=== PATIENT | male | born 1970 | race Caucasian/White ===

== ENCOUNTER 2016-07-03 23:24 | Inpatient (IN) | payer MEDICARE ==
[2016-07-03] MEDS ORDERED: MORPHINE SULFATE 10 MG/ML SYRINGE IVP STA (23:34)
[2016-07-03] MEDS: NITROGLYCERIN OINT 1 INCH/GM PACKET TOPICAL STA (23:36)
[2016-07-03 23:52] LABS: Basophils # (A) 0.1 k/uL (0-0.2); Basophils % (A) 2 %; CH 33.9; CHCM 33.8; Eosinophils # (A) 0.1 k/uL (0-0.7); Eosinophils % (A) 3 %; HCT 33.2 % (39.0-53.0); HDW 2.88; HGB 11.2 gm/dL (13.0-17.5); Luc # (Auto) 0.22; Luc % (Auto) 4; Lymphocytes # (A) 0.2 k/uL (1.0-4.8); Lymphocytes % (A) 4 %; MCHC 33.7 g/dL (31.0-37.0); MCV 100.8 fL (80.0-100.0); Macrocytosis Slight; Mean Platelet Volume 7.1; Monocytes # (A) 0.4 k/uL (0-1.0); Monocytes % (A) 8 %; Neutrophils # (A) 3.9 k/uL (1.3-7.7); Neutrophils % (A) 79 %; RBC 3.29 m/uL (4.30-5.90); RDW 15.4 % (11.5-15.5); WBC 4.9 k/uL (3.8-10.6); WBC (Perox) 5.04
[2016-07-04] LABS: INR 1.1 (<1.1); Partial Thromboplastin Time 26.8 sec (22.0-30.0); Prothrombin Time 11.1 sec (9.0-12.0); Total Bilirubin 0.5 mg/dL (0.2-1.3); Total Protein 6.9 g/dL (6.3-8.2)
--- NOTE | 2016-07-04 00:06 | XR ---
EXAMINATION TYPE: XR chest 2V DATE OF EXAM: 07/03/2016 11:50 PM COMPARISON: 10/21/2012 HISTORY: Chest pain TECHNIQUE: Frontal and lateral views of the chest are obtained. FINDINGS: Heart is enlarged. There is mild pulmonary congestion. There are chest leads. There is no definite pleural effusion. IMPRESSION: There is probably new mild heart failure compared to old exam. Cardiomegaly.
[2016-07-04] MEDS ORDERED: FUROSEMIDE 10 MG/ML 10 ML VIAL IV STA (00:09)
[2016-07-04] MEDS ORDERED: hydrALAZINE HCL 20 MG/ML 1 ML VIAL IVP STA (00:11)
[2016-07-04 00:29] LABS: Amylase 82 U/L (30-110)
[2016-07-04 00:30] LABS: Creatine Kinase MB 2.6 ng/mL (0.0-2.4); Troponin I 0.096 ng/mL (0.000-0.034)
[2016-07-04] MEDS: HYDROmorphone 1 MG/ML 1 ML SYRINGE IVP PRN ×7 (00:40→23:01)
[2016-07-04 01:16] LABS: ABG Base Excess 6.7 mmol/L; ABG HCO3 31 mmol/L (21-25); ABG PCO2 43 mmHg (35-45); ABG PH 7.47 (7.35-7.45); ABG PO2 63 mmHg (83-108); ABG TCO2 32 mmol/L (19-24)
[2016-07-04] MEDS ORDERED: HEPARIN SODIUM,PORCINE 5,000 UNIT/ML 1 ML VIAL IV ONE (01:23)
[2016-07-04] MEDS ORDERED: ALBUTEROL NEBULIZED 7.5 MG, SODIUM CHLORIDE 0.9% NEBULIZ 12 ML INHALATION ONE ×2 (01:25)
[2016-07-04] MEDS ORDERED: methylPREDNISolone SOD SUCCI 125 MG/2 ML VIAL IV STA (01:26)
[2016-07-04] MEDS: LABETALOL SYRINGE 5 MG/ML IVP STA ×4 (01:37→03:45)
[2016-07-04] MEDS: HEPARIN SODIUM,PORCINE/D5W PMX 25,000 UNIT in DEXTROSE/WATER 1 500ML.BAG IV SCH (01:41)
[2016-07-04] MEDS ORDERED: amLODIPine 10 MG TAB PO STA (03:48)
--- NOTE | 2016-07-04 03:48 | ED ---
Chest Pain HPI - General Chief Complaint: Chest Pain Stated Complaint: chest pain Time Seen by Provider: 07/03/16 23:45 Source: EMS Mode of arrival: EMS Limitations: no limitations - History of Present Illness Initial Comments: Centered with the chest pain or shortness of breath patient does have a COPD and he has a history of end-stage renal disease he stated maybe time he takes a deep breath it hurts his chest and he was quite distressed on arrival and his blood pressure was 2:30 systolic. The blood pressure was rechecked it does not continue to stay high the ER he denied any confusion denied any headache denied any blurred vision continued to complain about difficulty breathing him chest pain getting worse with deep breaths and shortness of breath - Related Data Allergies Allergy/AdvReac Type Severity Reaction Status Date / Time ibuprofen AdvReac Unknown Verified 07/03/16 23:34 Review of Systems ROS Statement: Those systems with pertinent positive or pertinent negative responses have been documented in the HPI. ROS Other: All systems not noted in ROS Statement are negative. Past Medical History Past Medical History: Hypertension, Renal Disease Additional Past Medical History / Comment(s): ulcers History of Any Multi-Drug Resistant Organisms: None Reported Additional Past Surgical History / Comment(s): Fistula Past Psychological History: Depression Smoking Status: Former smoker Past Alcohol Use History: None Reported Past Drug Use History: None Reported General Exam - General Exam Comments Initial Comments: General: The patient is awake , he looks sick, he is struggling to breathe, he is in severe distress Skin: Skin is warm and dry and no rashes or lesions are noted. Eye: Pupils are equal, round and reactive to light, extra-ocular movements are intact; there is normal conjunctiva bilaterally. Ears, nose, mouth and throat: There are moist mucous membranes and no oral lesions. Neck: The neck is supple, there is no tenderness Cardiovascular: There is a regular rate and rhythm. No murmur, rub or gallop is appreciated. Respiratory: To auscultation bilateral, calls bilaterally, exam consistent with a congestive heart failure Gastrointestinal: Soft, non-distended, non-tender abdomen without masses or organomegaly noted. There is no rebound or guarding present. Bowel sounds are unremarkable. Back: There is no tenderness to palpation in the midline. There is no obvious deformity. Musculoskeletal: Normal ROM, no tenderness, There is no pedal edema. There is no calf tenderness or swelling. No cords were appreciated. Neurological: CN II-XII intact, Cranial nerves III through XII are intact. There are no obvious motor or sensory deficits. Coordination appears grossly intact. Speech is normal. Psychiatric: Cooperative, appropriate mood & affect, normal judgment. Limitations: no limitations Course Vital Signs 07/03/16 07/04/16 07/04/16 23:26 00:33 01:34 Temperature 98.6 F Pulse Rate 87 93 104 H Respiratory 26 H 24 30 H Rate Blood Pressure 231/124 212/96 245/127 O2 Sat by Pulse 100 98 97 Oximetry 07/04/16 07/04/16 07/04/16 02:00 02:15 02:16 Temperature Pulse Rate 108 H 108 H 231 H Respiratory 26 H Rate Blood Pressure 231/126 O2 Sat by Pulse 96 Oximetry 07/04/16 07/04/16 07/04/16 02:30 02:35 03:02 Temperature Pulse Rate 103 H 104 H 106 H Respiratory 26 H 34 H Rate Blood Pressure 196/95 199/104 O2 Sat by Pulse 97 98 Oximetry 07/04/16 03:20 Temperature Pulse Rate 100 Respiratory 36 H Rate Blood Pressure 174/90 O2 Sat by Pulse 90 L Oximetry Critical Care Time Total Critical Care Time: 120 Critical Care Time: And patient arrived and his systolic blood pressure greater than 200 and we gave him mom hydralazine then numb pain medications were administered after that the labetalol several times was Was given albuterol time bringing his blood pressure below 160, ABGs were done ABGs did not look at as bad as he did clinically troponin was elevated he was started on a and chest it does recommended by the pharmacist on duty as a matter of fact I appreciated the help the myopathy dose for me and his d-dimer is elevated VQ scan was planned then got a call from the VQ scan her nuclear medicine people that we are not able to do it tonight down there is conjunctival tried to do it in the morning. The patient's care time get him some Norvasc by mouth along with the labetalol and hydralazine IV we have heparinized him and still I feel he is tiring out and given and start him on a BiPAP and will make arrangements for for him to be admitted to the ICU, and sitting his renal failure and his rubber tester Dr. Francisco be involved along with a cardiology and pulmonary medicine Disposition Clinical Impression: Chest pain, Elevated d-dimer, Congestive heart failure, Respiratory failure, End stage renal disease, Myocardial infarction Disposition: ADMITTED IP TO THIS HOSP Condition: Fair Referrals: Frank Koo DO [Primary Care Provider] - 1-2 days
[2016-07-04] MEDS ORDERED: NALOXONE 0.4 MG/ML 1 ML VIAL IV PRN (03:51)
[2016-07-04] MEDS ORDERED: ACETAMINOPHEN TAB 325 MG TAB PO PRN (03:51)
[2016-07-04] MEDS ORDERED: amLODIPine 5 MG TAB PO STA (03:55)
[2016-07-04] MEDS: NITROGLYCERIN OINT 1 INCH/GM PACKET TOPICAL STA (03:57)
[2016-07-04] MEDS ORDERED: LORazepam 2 MG/ML SYRINGE IV STA (04:34)
[2016-07-04] MEDS ORDERED: LABETALOL SYRINGE 5 MG/ML IVP SCH (04:45)
[2016-07-04] MEDS ORDERED: NITROPRUSSIDE 100 MG in DEXTROSE 5% IN WATER 250 ML IV ONE ×2 (05:37)
[2016-07-04] MEDS: IPRATROPIUM-ALBUTEROL 3 ML NEB INHALATION PRN ×3 (07:11→19:38)
[2016-07-04] MEDS: NITROPRUSSIDE 100 MG in DEXTROSE 5% IN WATER 250 ML IV SCH ×2 (08:33)
[2016-07-04] MEDS ORDERED: PANTOPRAZOLE 40 MG/10 ML VIAL IV SCH (09:00)
[2016-07-04] MEDS: BUDESONIDE 0.5 MG/2 ML NEBU INHALATION SCH ×2 (11:16→19:38)
[2016-07-04 11:37] LABS: Glucose,Whole Blood 139 mg/dL (75-99)
[2016-07-04] MEDS: HEPARIN SODIUM,PORCINE 5,000 UNIT/ML 1 ML VIAL IV PRN (11:58)
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
[2016-07-04] MEDS: FUROSEMIDE 80 MG TAB PO SCH (13:47)
[2016-07-04] MEDS: ISOSORBIDE MONONITRATE ER 60 MG TAB.ER.24H PO SCH (13:48)
[2016-07-04] MEDS: MINOXIDIL 2.5 MG TAB PO SCH ×2 (13:49→21:04)
[2016-07-04] MEDS: LISINOPRIL 20 MG TAB PO SCH (13:49)
[2016-07-04] MEDS: CALCIUM ACETATE 667 MG CAP PO SCH ×2 (13:49→16:38)
[2016-07-04] MEDS: cloNIDine HCL 0.1 MG TAB PO SCH ×2 (13:50→21:04)
[2016-07-04] MEDS: CARVEDILOL 12.5 MG TAB PO SCH ×2 (13:51→16:39)
[2016-07-04] MEDS: hydrALAZINE HCL 50 MG TAB PO SCH ×2 (16:38→21:04)
[2016-07-04] MEDS: SEVELAMER 800 MG TAB PO SCH (16:39)
[2016-07-04] MEDS: CINACALCET 30 MG TAB PO SCH (16:40)
[2016-07-04] MEDS ORDERED: ONDANSETRON 4 MG/2 ML VIAL IVP PRN (18:17)
[2016-07-04] MEDS: METOPROLOL TARTRATE 50 MG TAB PO SCH (21:03)
[2016-07-04] MEDS ORDERED: HEPARIN SODIUM,PORCINE 5,000 UNIT/ML 1 ML VIAL IV STA (21:17)
[2016-07-04] MEDS: diphenhydrAMINE 25 MG CAP PO PRN (21:59)
[2016-07-05] MEDS: HEPARIN SODIUM,PORCINE/D5W PMX 25,000 UNIT in DEXTROSE/WATER 1 500ML.BAG IV SCH (01:30)
[2016-07-05] MEDS: HYDROmorphone 1 MG/ML 1 ML SYRINGE IVP PRN ×6 (02:00→23:28)
[2016-07-05 03:26] LABS: Basophils # (A) 0.1 k/uL (0-0.2); Basophils % (A) 1 %; CH 33.6; CHCM 33.1; Eosinophils % (A) 0 %; HDW 3.01; Luc # (Auto) 0.22; Luc % (Auto) 3; Lymphocytes # (A) 0.4 k/uL (1.0-4.8); Lymphocytes % (A) 5 %; MCHC 33.2 g/dL (31.0-37.0); MCV 102.4 fL (80.0-100.0); Macrocytosis Slight; Mean Platelet Volume 7.9; Monocytes # (A) 0.3 k/uL (0-1.0); Monocytes % (A) 4 %; Neutrophils # (A) 7.2 k/uL (1.3-7.7); Neutrophils % (A) 87 %; RBC 3.52 m/uL (4.30-5.90); RDW 15.7 % (11.5-15.5); WBC 8.3 k/uL (3.8-10.6); WBC (Perox) 8.83
[2016-07-05] MEDS: NITROPRUSSIDE 100 MG in DEXTROSE 5% IN WATER 250 ML IV SCH ×2 (03:55)
[2016-07-05 04:06] LABS: Calcium 9.8 mg/dL (8.4-10.2); Magnesium 2.1 mg/dL (1.6-2.3); Phosphorous 6.2 mg/dL (2.5-4.5); Potassium 4.5 mmol/L (3.5-5.1); Total Bilirubin 0.6 mg/dL (0.2-1.3); Total Protein 7.8 g/dL (6.3-8.2)
[2016-07-05] MEDS ORDERED: HEPARIN SODIUM,PORCINE 5,000 UNIT/ML 1 ML VIAL IV STA ×2 (04:07→23:13)
[2016-07-05] MEDS ORDERED: LORazepam 2 MG/ML SYRINGE IV STA (04:46)
--- NOTE | 2016-07-05 07:19 | ECHOF ---
Referral Reason:cp MEASUREMENTS -------- HEIGHT: 182.9 cm WEIGHT: 86.2 kg BP: 186/98 RVIDd: 3.6 cm (< 3.3) IVSd: 1.6 cm (0.6 - 1.1) LVIDd: 5.4 cm (3.9 - 5.3) LVPWd: 1.5 cm (0.6 - 1.1) IVSs: 1.9 cm LVIDs: 3.8 cm LVPWs: 2.1 cm LA Diam: 4.7 cm (2.7 - 3.8) LAESV Index (A-L): 56.84 ml/m IVSd: 4.1 cm (0.6 - 1.1) Ao Diam: 3.9 cm (2.0 - 3.7) AV Cusp: 1.2 cm (1.5 - 2.6) MV EXCURSION: 17.701 mm (> 18.000) MV EF SLOPE: 56 mm/s (70 - 150) EPSS: 1.0 cm MV E Chadd: 1.41 m/s MV DecT: 366 ms MV A Chadd: 1.37 m/s MV E/A Ratio: 1.02 AV maxP.16 mmHg AV maxP.16 mmHg AV meanP.61 mmHg RAP: 5.00 mmHg RVSP: 52.51 mmHg FINDINGS -------- Sinus rhythm. This was a technically good study. The left ventricular size is normal. There is moderate concentric left ventricular hypertrophy. Overall left ventricular systolic function is normal with, an EF between 55 - 60 %. The right ventricle is mildly enlarged. LA is severely dilated >40 ml/m2 The right atrium is normal in size. Aortic valve is trileaflet and is mildly thickened. There is mild aortic stenosis present. Peak/mean gradient across the Aortic Valve is 24.16mmHg / 11.61mmHg. The mitral valve leaflets are mildly thickened. Severe mitral annular calcification present. Mild mitral regurgitation is present. The peak and mean MV gradients are 10.49mmHg 4.52mmHg as measured by doppler. Cannot exclude vegeation on he PMVL. Mobile mass on posterior mitral annulus [id number] tricuspid regurgitation present. There is moderate pulmonary hypertension. The right ventricular systolic pressure, as measured by Doppler, is 52.51mmHg. Moderate pulmonic regurgitation. The aortic root is dilated measuring 3.9cm. The inferior vena cava is moderately dilated. There is no pericardial effusion. CONCLUSIONS -------- 1. Sinus rhythm. 2. There is mild aortic stenosis present. 3. Peak/mean gradient across the Aortic Valve is 24.16mmHg / 11.61mmHg. 4. The mitral valve leaflets are mildly thickened. 5. Severe mitral annular calcification present. 6. Mild mitral regurgitation is present. 7. The peak and mean MV gradients are 10.49mmHg 4.52mmHg as measured by doppler. 8. Cannot exclude vegeation on he PMVL. 9. Mobile mass on posterior mitral annulus 10. [id number] tricuspid regurgitation present. 11. There is moderate pulmonary hypertension. 12. This was a technically good study. 13. The right ventricular systolic pressure, as measured by Doppler, is 52.51mmHg. 14. Moderate pulmonic regurgitation. 15. The aortic root is dilated measuring 3.9cm. 16. The inferior vena cava is moderately dilated. 17. There is no pericardial effusion. 18. The left ventricular size is normal. 19. There is moderate concentric left ventricular hypertrophy. 20. Overall left ventricular systolic function is normal with, an EF between 55 - 60 %. 21. The right ventricle is mildly enlarged. 22. LA is severely dilated >40 ml/m2 23. The right atrium is normal in size. 24. Aortic valve is trileaflet and is mildly thickened. METHODS EXAMINER: Sasha Nuno RDCS
--- NOTE | 2016-07-05 07:40 | XR ---
EXAMINATION TYPE: XR chest 1V DATE OF EXAM: 07/05/2016 6:35 AM HISTORY: shortness of breath. REFERENCE: Previous study dated 07/03/2016. FINDINGS: The lungs are overinflated. The lungs are clear. Pleural spaces are clear. The heart is enl arged. IMPRESSION: 1. COPD. 2. CARDIOMEGALY.
[2016-07-05] MEDS: CALCIUM ACETATE 667 MG CAP PO SCH ×3 (08:02→17:03)
[2016-07-05] MEDS: cloNIDine HCL 0.1 MG TAB PO SCH ×3 (08:03→22:37)
[2016-07-05] MEDS: SEVELAMER 800 MG TAB PO SCH ×2 (08:03→17:05)
[2016-07-05] MEDS: CARVEDILOL 12.5 MG TAB PO SCH ×2 (08:03→17:04)
[2016-07-05] MEDS: LISINOPRIL 20 MG TAB PO SCH (08:04)
[2016-07-05] MEDS: METOPROLOL TARTRATE 50 MG TAB PO SCH (08:05)
[2016-07-05] MEDS: ISOSORBIDE MONONITRATE ER 60 MG TAB.ER.24H PO SCH (08:05)
[2016-07-05] MEDS: hydrALAZINE HCL 50 MG TAB PO SCH ×3 (08:05→22:37)
[2016-07-05] MEDS: MINOXIDIL 2.5 MG TAB PO SCH ×2 (08:06→20:00)
[2016-07-05] MEDS: PANTOPRAZOLE 40 MG TABLET PO SCH (08:06)
[2016-07-05] MEDS: IPRATROPIUM-ALBUTEROL 3 ML NEB INHALATION PRN ×4 (08:23→20:53)
[2016-07-05] MEDS: BUDESONIDE 0.5 MG/2 ML NEBU INHALATION SCH ×2 (08:23→20:53)
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
[2016-07-05] MEDS: FUROSEMIDE 80 MG TAB PO SCH (10:27)
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
--- NOTE | 2016-07-05 11:20 | P.PN ---
Subjective Principal diagnosis: Acute pulmonary edema and hypoxia. this is a 45-year-old white male with history of multiple medical problems including hypertension, end-stage renal disease, patient is on hemodialysis, normally the patient is compliant with hemodialysis, and his last dialysis was actually a few days ago. Since then the patient has been complaining of chest pain and shortness of breath. Describes the chest pain and discomfort in the center of the chest sharp burning sensation with radiation to the back. Patient is also complaining of shortness of breath, some wheezing, and cough. No fever no chills no hemoptysis. Upon arrival to the ER, his blood pressure was significantly elevated, and he was felt to have hypertensive emergency. Chest x-ray showed evidence of slightpulmonary edema and prominence of the pulmonary vasculature. No evidence of any pleural effusions.patient was placed on nipride drip for his blood pressureand he was seen by cardiology on consultation, and oral blood pressure medications were added.ABG on 4 L nasal cannula in the ER showed a pO2 of 63 pCO2 of 43 and pH of 7.47. Patient was noted to be in moderate respiratory distress, hence he was placed on BiPAP. Patient is due to receive his dialysis today and I believe is already scheduled. D-dimer was borderline elevated, upper limits of normal. It was actually 0.64. Hence I felt that the index of suspicion for pulmonary embolism is rather low. Patient has many other reasons that could explain his shortness of breath. Hence I felt there is no need for a VQ scan to be done. Patient was started on heparin in the ER. Reevaluated today on 07/05/2016, patient underwent dialysis and his chest x-ray is showing some improvement. Shortness of breath is also improved, however the patient continues to have some intermittent episodes of shortness of breath on nasal cannula, and I recommended that he goes back on BiPAP today. CBC is relatively normal basic metabolic profile is normal BUN is 30 creatinine is 7.40 chest x-ray showed improvement in the pulmonary status, he does have COPD and cardiomegaly. Blood pressure seems to be better controlled with multiple medications to control the blood pressure. Objective - Vital Signs Vital signs: Vital Signs Temp 98.9 F 07/05/16 08:00 Pulse 77 07/05/16 10:00 Resp 25 H 07/05/16 10:00 BP 135/73 07/05/16 10:00 Pulse Ox 94 L 07/05/16 10:00 Intake & Output 07/04/16 07/05/16 07/05/16 18:59 06:59 18:59 Intake Total 621.123 863.982 67.981 Output Total 0 4000 Balance 621.123 -3136.018 67.981 Weight 86.183 kg 80.1 kg Intake: IV 140 260 60 0.9 NS 140 260 60 Intake, IV Titration 241.123 603.982 7.981 Amount Heparin Sodium,Porcine/ 206.976 367.852 D5w Pmx 25,000 unit In Dextrose/Water 1 500ml. bag @ 11.7 UNITS/KG/HR 20 .16 mls/hr IV .Q24H [facility] Rx#:[id number] Nitroprusside 100 mg In 34.147 236.130 7.981 Dextrose 5% in Water 250 ml @ Titrate IV .Q0M [facility] Rx#:[id number] Oral 240 Output: Urine 0 0 Other 4000 - Exam Physical Exam: Revealed a 45-year-old white male chronically ill, pale looking, on BiPAP, noted to be in mild respiratory distress. HEENT:[Neck is supple.] [No neck masses.] [No thyromegaly.] positive JVD was noted Chest: [crackles at the bases with some rhonchi and wheezes on forced expiratory maneuver.] Cardiac Exam: [Normal S1 and S2, positive S3 gallop, 2/6 systolic murmur throughout the precordium] Abdomen: [Soft, nontender, no megaly, no rebound, no guarding, normal bowel sounds.] Extremities: [No clubbing, no edema, no cyanosis.there is evidence of a large AV graft noted in the left forearm.] Neurological Exam: [No focal neurologic deficit.] - Labs CBC & Chem 7: 07/05/16 03:15 07/05/16 03:15 Labs: Abnormal Lab Results - Last 24 Hours (Table) 07/04/16 07/04/16 07/05/16 Range/Units 11:36 18:51 03:15 RBC 3.52 L (4.30-5.90) m/uL Hgb 12.0 L (13.0-17.5) gm/dL Hct 36.0 L (39.0-53.0) % MCV 102.4 H (80.0-100.0) fL RDW 15.7 H (11.5-15.5) % Lymphocytes # 0.4 L (1.0-4.8) k/uL APTT 33.0 H (22.0-30.0) sec Chloride (98-107) mmol/L BUN (9-20) mg/dL Creatinine (0.66-1.25) mg/dL Glucose (74-99) mg/dL POC Glucose (mg/dL) 139 H (75-99) mg/dL Phosphorus (2.5-4.5) mg/dL 07/05/16 07/05/16 07/05/16 Range/Units 03:15 03:15 10:14 RBC (4.30-5.90) m/uL Hgb (13.0-17.5) gm/dL Hct (39.0-53.0) % MCV (80.0-100.0) fL RDW (11.5-15.5) % Lymphocytes # (1.0-4.8) k/uL APTT 35.3 H 37.6 H (22.0-30.0) sec Chloride 93 L (98-107) mmol/L BUN 30 H (9-20) mg/dL Creatinine 7.40 H* (0.66-1.25) mg/dL Glucose 102 H (74-99) mg/dL POC Glucose (mg/dL) (75-99) mg/dL Phosphorus 6.2 H (2.5-4.5) mg/dL Assessment and Plan Plan: impression: 1 acute pulmonary edema and fluid overload secondary to hypertensive emergency and chronic end-stage renal disease on hemodialysis. 2 history of underlying COPD severity of which is not clear, but well- documented on previous medical history. 3 end-stage renal disease, on hemodialysis patient is due to receive hemodialysis today, last dialysis was 3 days ago. 4 history of chronic anemia secondary to renal disease, history of pancreatitis , history of antral ulcers. And history of GI bleeding. Recommendation:continue present bronchodilators, patient is back on medications for blood pressure control, hemodialysis today, keep the patient on BiPAP or non -rebreather mask if necessary,GI and DVT prophylaxis, continue to monitor the patient in the ICU. Time with Patient: Less than 30
[2016-07-05] MEDS: HEPARIN SODIUM,PORCINE 5,000 UNIT/ML 1 ML VIAL IV PRN (11:22)
[2016-07-05] MEDS: CINACALCET 30 MG TAB PO SCH (17:04)
[2016-07-05] MEDS: LORazepam 2 MG/ML SYRINGE IV PRN (19:59)
[2016-07-06] MEDS: HYDROmorphone 1 MG/ML 1 ML SYRINGE IVP PRN ×6 (01:28→21:08)
[2016-07-06] MEDS: HEPARIN SODIUM,PORCINE/D5W PMX 25,000 UNIT in DEXTROSE/WATER 1 500ML.BAG IV SCH (01:29)
[2016-07-06] MEDS: LORazepam 2 MG/ML SYRINGE IV PRN ×3 (04:53→23:56)
[2016-07-06 05:33] LABS: CH 32.7; CHCM 31.8; HCT 34.9 % (39.0-53.0); HDW 3.03; HGB 11.4 gm/dL (13.0-17.5); Hypochromasia Slight; MCH 33.8 pg (25.0-35.0); MCHC 32.6 g/dL (31.0-37.0); MCV 103.6 fL (80.0-100.0); Macrocytosis Moderate; Mean Platelet Volume 7.5; RBC 3.37 m/uL (4.30-5.90); RDW 15.4 % (11.5-15.5); WBC 6.8 k/uL (3.8-10.6)
[2016-07-06 05:59] LABS: Calcium 8.2 mg/dL (8.4-10.2); Phosphorous 6.1 mg/dL (2.5-4.5); Potassium 4.8 mmol/L (3.5-5.1); Total Bilirubin 0.6 mg/dL (0.2-1.3); Total Protein 7.3 g/dL (6.3-8.2)
[2016-07-06] MEDS: CARVEDILOL 12.5 MG TAB PO SCH ×2 (07:39→17:18)
[2016-07-06] MEDS: ISOSORBIDE MONONITRATE ER 60 MG TAB.ER.24H PO SCH (07:40)
[2016-07-06] MEDS: cloNIDine HCL 0.1 MG TAB PO SCH ×3 (07:40→21:08)
[2016-07-06] MEDS: LISINOPRIL 20 MG TAB PO SCH (07:41)
[2016-07-06] MEDS: hydrALAZINE HCL 50 MG TAB PO SCH ×3 (07:41→22:08)
[2016-07-06] MEDS: MINOXIDIL 2.5 MG TAB PO SCH ×2 (07:41→20:18)
[2016-07-06] MEDS: FUROSEMIDE 80 MG TAB PO SCH (07:41)
[2016-07-06] MEDS: PANTOPRAZOLE 40 MG TABLET PO SCH (07:42)
--- NOTE | 2016-07-06 07:58 | XR ---
EXAMINATION TYPE: XR chest 1V DATE OF EXAM: 07/06/2016 6:29 AM COMPARISON: Yesterday HISTORY: Short of breath TECHNIQUE: Single frontal view of the chest is obtained. FINDINGS: Heart is enlarged. There is minimal pulmonary congestion. There are chest leads. There are no hilar masses. Mediastinum is normal. There is no definite pleural effusion. IMPRESSION: Moderate cardiomegaly. Mild pulmonary congestion without overt heart failure. No change compared to yesterday.
[2016-07-06] MEDS: IPRATROPIUM-ALBUTEROL 3 ML NEB INHALATION PRN (08:06)
[2016-07-06] MEDS: BUDESONIDE 0.5 MG/2 ML NEBU INHALATION SCH (08:06)
[2016-07-06] MEDS: CALCIUM ACETATE 667 MG CAP PO SCH ×3 (08:22→18:13)
[2016-07-06] MEDS: SEVELAMER 800 MG TAB PO SCH ×2 (08:22→18:13)
[2016-07-06] MEDS: methylPREDNISolone SOD SUCCI 125 MG/2 ML VIAL IV SCH ×4 (09:16→23:56)
--- NOTE | 2016-07-06 09:25 | P.PN ---
Lo Garcia is a patient known with ESRD on dialysis Thursday with diminished chest pain and uncontrolled hypertension with a blood pressure of 231 systolic. He has been dialyzed twice and 4 L were taken off each dialysis yesterday and day before yesterday. His blood pressure is much better. He has fairly severe aches and pains. He is started on Solu-Medrol for his wheezing. He gave up smoking week ago. He says no meconium he had COPD. His chest x-ray is fairly clear for any congestive heart failure. He is mildly short of breath on 6 L of nasal cannula but sometimes is on BIPAP. Is on heparin. Cardiology has seen him troponin has been 0.9 on 1 lab draw. His total CK is in the 300 range. He is not on statins to explain any of his aches and pains. Appetite is poor. Objective - Vital Signs Vital signs: Vital Signs Temp 98.6 F 07/06/16 08:00 Pulse 87 07/06/16 09:00 Resp 28 H 07/06/16 09:00 BP 160/88 07/06/16 08:00 Pulse Ox 88 L 07/06/16 09:00 Intake & Output 07/05/16 07/06/16 07/06/16 18:59 06:59 18:59 Intake Total 462.723 970.43 60 Output Total 4000 0 Balance -3537.277 970.43 60 Weight 77.5 kg Intake: IV 220 240 60 0.9 NS 220 240 60 Intake, IV Titration 242.723 190.43 Amount Heparin Sodium,Porcine/ 234.742 190.43 D5w Pmx 25,000 unit In Dextrose/Water 1 500ml. bag @ 11.7 UNITS/KG/HR 20 .16 mls/hr IV .Q24H [facility] Rx#:[id number] Nitroprusside 100 mg In 7.981 Dextrose 5% in Water 250 ml @ Titrate IV .Q0M [facility] Rx#:[id number] Oral 540 Output: Urine 0 Other 4000 Other: # Voids 1 On examination is awake alert oriented. He has asterixis though. No JVP neck is supple no facial asymmetry Heart sounds are unremarkable for any murmur rub gallop. Lungs are clear with an occasional coarse crackle at bases good air entry. No dullness percussion Abdomen soft nontender nondistended Extremity exam reveals mild edema. Neurologically awake alert oriented. Mild asterixis present no focal motor deficit. There is some aches and pains on palpation of his muscles - Labs CBC & Chem 7: 07/06/16 04:19 07/06/16 04:19 Labs: Abnormal Lab Results - Last 24 Hours (Table) 07/05/16 07/05/16 07/06/16 Range/Units 10:14 22:07 04:19 RBC 3.37 L (4.30-5.90) m/uL Hgb 11.4 L (13.0-17.5) gm/dL Hct 34.9 L (39.0-53.0) % MCV 103.6 H (80.0-100.0) fL APTT 37.6 H 46.2 H (22.0-30.0) sec Sodium (137-145) mmol/L Chloride (98-107) mmol/L Carbon Dioxide (22-30) mmol/L BUN (9-20) mg/dL Creatinine (0.66-1.25) mg/dL Calcium (8.4-10.2) mg/dL Phosphorus (2.5-4.5) mg/dL 07/06/16 07/06/16 Range/Units 04:19 04:19 RBC (4.30-5.90) m/uL Hgb (13.0-17.5) gm/dL Hct (39.0-53.0) % MCV (80.0-100.0) fL APTT 70.6 H (22.0-30.0) sec Sodium 133 L (137-145) mmol/L Chloride 96 L (98-107) mmol/L Carbon Dioxide 19 L (22-30) mmol/L BUN 40 H (9-20) mg/dL Creatinine 8.00 H* (0.66-1.25) mg/dL Calcium 8.2 L (8.4-10.2) mg/dL Phosphorus 6.1 H (2.5-4.5) mg/dL Assessment and Plan Plan: Impression. 1. ESRD on dialysis Thursday. Dialyze on Thursday and Thursday yesterday with 4 L each time taken off for a total of 8 L. Patient still has edema and is short of breath but likely from COPD rather than from congestive heart failure as his chest x-ray was clear 2. Admitted with hypertensive emergency with chest pain and his systolic blood pressure of 230. Status post dialysis yesterday with 4 L taken off. Blood pressure is now labile between 9260 systolic. He came off off nipride drip yesterday morning 3. History of COPD and recent quit smoking a week ago. 4. History of alcohol intake in the past with history of pancreatitis. 6. Anemia hemoglobin at target down to 11.4 from 12. 7. Hyperphosphatemia phosphorus 6.1, calcium is 8.2. 8. Hyperparathyroidism on Sensipar 90 mg. 9. Aches and pains possible viral illness with mild cough. 10. Mild asterixis probably medications related as he is is on Dilaudid for the aches and pains. Rule out uremia from under dialysis Recommendation. 1. Will dialyze him tomorrow. We will take off 4 L again. 2. Watch his blood pressure and hold blood pressure medication for systolic less than 120. Hold blood pressure medications tomorrow until dialyze. 3. Currently on currently on Solu-Medrol for his COPD. If his aches and pains don't get better will check a PTH to see if his hyperparathyroidism may be adding to the aches and pains. Repeat his CPK total to make sure there is no myopathy. 4. Check pre-and post BUN to ensure there is no under dialysis
[2016-07-06 11:08] LABS: Glucose,Whole Blood 126 mg/dL (75-99)
[2016-07-06] MEDS: IPRATROPIUM-ALBUTEROL 3 ML NEB INHALATION SCH ×3 (11:31→19:14)
--- NOTE | 2016-07-06 11:40 | P.PN ---
Subjective Principal diagnosis: Acute pulmonary edema and hypoxia. this is a 45-year-old white male with history of multiple medical problems including hypertension, end-stage renal disease, patient is on hemodialysis, normally the patient is compliant with hemodialysis, and his last dialysis was actually a few days ago. Since then the patient has been complaining of chest pain and shortness of breath. Describes the chest pain and discomfort in the center of the chest sharp burning sensation with radiation to the back. Patient is also complaining of shortness of breath, some wheezing, and cough. No fever no chills no hemoptysis. Upon arrival to the ER, his blood pressure was significantly elevated, and he was felt to have hypertensive emergency. Chest x-ray showed evidence of slightpulmonary edema and prominence of the pulmonary vasculature. No evidence of any pleural effusions.patient was placed on nipride drip for his blood pressureand he was seen by cardiology on consultation, and oral blood pressure medications were added.ABG on 4 L nasal cannula in the ER showed a pO2 of 63 pCO2 of 43 and pH of 7.47. Patient was noted to be in moderate respiratory distress, hence he was placed on BiPAP. Patient is due to receive his dialysis today and I believe is already scheduled. D-dimer was borderline elevated, upper limits of normal. It was actually 0.64. Hence I felt that the index of suspicion for pulmonary embolism is rather low. Patient has many other reasons that could explain his shortness of breath. Hence I felt there is no need for a VQ scan to be done. Patient was started on heparin in the ER. Reevaluated today on 07/05/2016, patient underwent dialysis and his chest x-ray is showing some improvement. Shortness of breath is also improved, however the patient continues to have some intermittent episodes of shortness of breath on nasal cannula, and I recommended that he goes back on BiPAP today. CBC is relatively normal basic metabolic profile is normal BUN is 30 creatinine is 7.40 chest x-ray showed improvement in the pulmonary status, he does have COPD and cardiomegaly. Blood pressure seems to be better controlled with multiple medications to control the blood pressure. Reevaluated today on 07/06/2016, patient is clinically improving, chest x-ray is improving, however he continues to have cough shortness of breath and intermittent episodes of wheezing. Solu-Medrol was added today to his bronchodilator regimen, Symbicort was added, and I will see to it that the patient is getting albuterol and Atrovent 4 times a day and when necessary. Patient will be dialyzed again in a.m. Objective - Vital Signs Vital signs: Vital Signs Temp 98.6 F 07/06/16 08:00 Pulse 68 07/06/16 11:31 Resp 23 07/06/16 11:11 BP 94/49 07/06/16 11:00 Pulse Ox 97 07/06/16 11:00 Intake & Output 07/05/16 07/06/16 07/06/16 18:59 06:59 18:59 Intake Total 462.723 970.43 100 Output Total 4000 0 Balance -3537.277 970.43 100 Weight 77.5 kg Intake: IV 220 240 100 0.9 NS 220 240 100 Intake, IV Titration 242.723 190.43 Amount Heparin Sodium,Porcine/ 234.742 190.43 D5w Pmx 25,000 unit In Dextrose/Water 1 500ml. bag @ 11.7 UNITS/KG/HR 20 .16 mls/hr IV .Q24H [facility] Rx#:[id number] Nitroprusside 100 mg In 7.981 Dextrose 5% in Water 250 ml @ Titrate IV .Q0M [facility] Rx#:[id number] Oral 540 Output: Urine 0 Other 4000 Other: # Voids 1 - Exam Physical Exam: Revealed a 45-year-old white male chronically ill, pale looking, on BiPAP, noted to be in mild respiratory distress. HEENT:[Neck is supple.] [No neck masses.] [No thyromegaly.] positive JVD was noted Chest: [crackles at the bases with some rhonchi and wheezes noted bilaterally.] Cardiac Exam: [Normal S1 and S2, positive S3 gallop, 2/6 systolic murmur throughout the precordium] Abdomen: [Soft, nontender, no megaly, no rebound, no guarding, normal bowel sounds.] Extremities: [No clubbing, no edema, no cyanosis.there is evidence of a large AV graft noted in the left forearm.] Neurological Exam: [No focal neurologic deficit.] - Labs CBC & Chem 7: 07/06/16 04:19 07/06/16 04:19 Labs: Abnormal Lab Results - Last 24 Hours (Table) 07/05/16 07/06/16 07/06/16 Range/Units 22:07 04:19 04:19 RBC 3.37 L (4.30-5.90) m/uL Hgb 11.4 L (13.0-17.5) gm/dL Hct 34.9 L (39.0-53.0) % MCV 103.6 H (80.0-100.0) fL APTT 46.2 H (22.0-30.0) sec Sodium 133 L (137-145) mmol/L Chloride 96 L (98-107) mmol/L Carbon Dioxide 19 L (22-30) mmol/L BUN 40 H (9-20) mg/dL Creatinine 8.00 H* (0.66-1.25) mg/dL POC Glucose (mg/dL) (75-99) mg/dL Calcium 8.2 L (8.4-10.2) mg/dL Phosphorus 6.1 H (2.5-4.5) mg/dL Creatine Kinase (55-170) U/L 07/06/16 07/06/16 07/06/16 Range/Units 04:19 04:19 11:06 RBC (4.30-5.90) m/uL Hgb (13.0-17.5) gm/dL Hct (39.0-53.0) % MCV (80.0-100.0) fL APTT 70.6 H (22.0-30.0) sec Sodium (137-145) mmol/L Chloride (98-107) mmol/L Carbon Dioxide (22-30) mmol/L BUN (9-20) mg/dL Creatinine (0.66-1.25) mg/dL POC Glucose (mg/dL) 126 H (75-99) mg/dL Calcium (8.4-10.2) mg/dL Phosphorus (2.5-4.5) mg/dL Creatine Kinase 468 H (55-170) U/L Assessment and Plan Plan: impression: 1 acute pulmonary edema and fluid overload secondary to hypertensive emergency and chronic end-stage renal disease on hemodialysis. 2 history of underlying COPD severity of which is not clear, but well- documented on previous medical history. Patient is now on Symbicort, albuterol and Atrovent, and Solu-Medrol 60 mg IV push every 6 hours. 3 end-stage renal disease, on hemodialysis , that being addressed by nephrology on the case 4 history of chronic anemia secondary to renal disease, history of pancreatitis , history of antral ulcers. And history of GI bleeding. Recommendation:continue present bronchodilators, patient is back on medications for blood pressure control, keep the patient on BiPAP or non-rebreather mask if necessary,GI and DVT prophylaxis, continue to monitor the patient in the ICU. Time with Patient: Less than 30
--- NOTE | 2016-07-06 14:43 | PN ---
This patient has a history of hypertension and end-stage renal failure. Patient had a significant problem with a blood pressure now. The blood pressure is 90 to 100 systolic. First and second heart sounds are normal. Lungs are clear to auscultation and percussion. In view of the low blood pressure, we will hold up all the blood pressure medication tonight and reassess his medications tomorrow morning.
[2016-07-06 15:19] LABS: Calcium 8.2 mg/dL (8.4-10.2); Potassium 5.6 mmol/L (3.5-5.1)
[2016-07-06 17:19] LABS: Glucose,Whole Blood 150 mg/dL (75-99)
[2016-07-06] MEDS: CINACALCET 30 MG TAB PO SCH (18:13)
[2016-07-06] MEDS: SYMBICORT 160-4.5 MCG INHALER INHALATION SCH (19:14)
[2016-07-06 20:01] LABS: Glucose,Whole Blood 140 mg/dL (75-99)
[2016-07-06 21:26] LABS: Calcium 8.8 mg/dL (8.4-10.2); Potassium 5.4 mmol/L (3.5-5.1)
[2016-07-06] MEDS: INSULIN LISPRO (humaLOG) 300 UNIT/3 ML VIAL SQ SCH (22:06)
[2016-07-06] MEDS: diphenhydrAMINE 25 MG CAP PO PRN (23:56)
[2016-07-07] MEDS: HYDROmorphone 1 MG/ML 1 ML SYRINGE IVP PRN ×5 (00:29→12:10)
[2016-07-07 04:50] LABS: HCT 36.1 % (39.0-53.0); HDW 3.04; HGB 11.9 gm/dL (13.0-17.5); MCHC 32.8 g/dL (31.0-37.0); MCV 100.7 fL (80.0-100.0); Macrocytosis Slight; Mean Platelet Volume 7.1; RBC 3.59 m/uL (4.30-5.90); RDW 15.3 % (11.5-15.5); WBC 5.5 k/uL (3.8-10.6)
[2016-07-07] MEDS: methylPREDNISolone SOD SUCCI 125 MG/2 ML VIAL IV SCH ×2 (05:33→12:10)
[2016-07-07 05:37] LABS: Calcium 8.9 mg/dL (8.4-10.2); Magnesium 2.1 mg/dL (1.6-2.3); Potassium 5.6 mmol/L (3.5-5.1); Total Bilirubin 0.5 mg/dL (0.2-1.3)
--- NOTE | 2016-07-07 06:53 | XR ---
EXAMINATION TYPE: XR chest 1V DATE OF EXAM: 07/07/2016 6:38 AM HISTORY: shortness of breath. REFERENCE: Previous study dated 07/06/2016. FINDINGS: The heart is mildly enlarged. The lungs are clear. Pleural spaces are clear. IMPRESSION: CARDIOMEGALY.
[2016-07-07] MEDS: SYMBICORT 160-4.5 MCG INHALER INHALATION SCH (07:33)
[2016-07-07] MEDS: IPRATROPIUM-ALBUTEROL 3 ML NEB INHALATION SCH ×3 (07:33→15:36)
[2016-07-07 07:52] LABS: Glucose,Whole Blood 126 mg/dL (75-99)
[2016-07-07] MEDS: INSULIN LISPRO (humaLOG) 300 UNIT/3 ML VIAL SQ SCH ×2 (08:02→15:55)
[2016-07-07] MEDS: SEVELAMER 800 MG TAB PO SCH (08:03)
[2016-07-07] MEDS: CALCIUM ACETATE 667 MG CAP PO SCH ×2 (08:04→12:10)
[2016-07-07 08:07] VITALS: TEMP 98
[2016-07-07] MEDS: CARVEDILOL 12.5 MG TAB PO SCH (09:19)
[2016-07-07] MEDS: ISOSORBIDE MONONITRATE ER 60 MG TAB.ER.24H PO SCH (09:20)
[2016-07-07] MEDS: LISINOPRIL 20 MG TAB PO SCH (09:20)
[2016-07-07] MEDS: PANTOPRAZOLE 40 MG TABLET PO SCH (09:20)
[2016-07-07] MEDS: FUROSEMIDE 80 MG TAB PO SCH (09:20)
--- NOTE | 2016-07-07 09:31 | P.PN ---
Subjective Patient is seen in follow-up for end-stage renal disease. He is maintained on hemodialysis on a Thursday schedule. Left upper extremity AV fistula. Patient presented to the hospital with chest discomfort. His blood pressure was greater than 200 systolic. Nipride drip has been discontinued. He is back on his oral medications and his blood pressure was actually low in the systolic 90s yesterday therefore the medications were held. This morning his blood pressure is in the systolic 170s. Currently denies chest pain or shortness of breath. Appetite is good. Vital signs are stable. General: The patient appeared well nourished and normally developed. HEENT: Head exam is unremarkable. Neck is without jugular venous distension. LUNGS: Lungs are clear to auscultation and percussion. Breath sounds decreased. HEART: Rate and Rhythm are regular. First and second heart sounds normal. No murmurs, rubs or gallops. ABDOMEN: Abdominal exam reveals normal bowel sounds. Non-tender and non- distended. No evidence of peritonitis. EXTREMITITES: Trace edema. Objective - Vital Signs Vital signs: Vital Signs Temp 98.0 F 07/07/16 08:00 Pulse 77 07/07/16 08:00 Resp 17 07/07/16 08:00 BP 169/98 07/07/16 08:00 Pulse Ox 93 L 07/07/16 08:00 Intake & Output 07/06/16 07/07/16 07/07/16 18:59 06:59 18:59 Intake Total 190 110 20 Output Total 0 Balance 190 110 20 Weight 80.1 kg 80.1 kg Intake: IV 190 110 20 0.9 NS 190 110 20 Output: Urine 0 Other: # Voids 1 - Labs CBC & Chem 7: 07/07/16 04:06 07/07/16 04:06 Labs: Abnormal Lab Results - Last 24 Hours (Table) 07/06/16 07/06/16 07/06/16 Range/Units 04:19 11:06 14:15 RBC (4.30-5.90) m/uL Hgb (13.0-17.5) gm/dL Hct (39.0-53.0) % MCV (80.0-100.0) fL Sodium 128 L (137-145) mmol/L Potassium 5.6 H (3.5-5.1) mmol/L Chloride 94 L (98-107) mmol/L Carbon Dioxide 17 L (22-30) mmol/L BUN 51 H (9-20) mg/dL Creatinine 9.18 H* (0.66-1.25) mg/dL Glucose 122 H (74-99) mg/dL POC Glucose (mg/dL) 126 H (75-99) mg/dL Calcium 8.2 L (8.4-10.2) mg/dL Phosphorus (2.5-4.5) mg/dL Creatine Kinase 468 H (55-170) U/L 07/06/16 07/06/16 07/06/16 Range/Units 17:18 19:57 19:58 RBC (4.30-5.90) m/uL Hgb (13.0-17.5) gm/dL Hct (39.0-53.0) % MCV (80.0-100.0) fL Sodium 130 L (137-145) mmol/L Potassium 5.4 H (3.5-5.1) mmol/L Chloride 94 L (98-107) mmol/L Carbon Dioxide 19 L (22-30) mmol/L BUN 57 H (9-20) mg/dL Creatinine 10.20 H* (0.66-1.25) mg/dL Glucose 155 H (74-99) mg/dL POC Glucose (mg/dL) 150 H 140 H (75-99) mg/dL Calcium (8.4-10.2) mg/dL Phosphorus (2.5-4.5) mg/dL Creatine Kinase (55-170) U/L 07/07/16 07/07/16 07/07/16 Range/Units 04:06 04:06 07:50 RBC 3.59 L (4.30-5.90) m/uL Hgb 11.9 L (13.0-17.5) gm/dL Hct 36.1 L (39.0-53.0) % MCV 100.7 H (80.0-100.0) fL Sodium 130 L (137-145) mmol/L Potassium 5.6 H (3.5-5.1) mmol/L Chloride 93 L (98-107) mmol/L Carbon Dioxide 15 L (22-30) mmol/L BUN 64 H (9-20) mg/dL Creatinine 10.90 H* (0.66-1.25) mg/dL Glucose 135 H (74-99) mg/dL POC Glucose (mg/dL) 126 H (75-99) mg/dL Calcium (8.4-10.2) mg/dL Phosphorus 8.0 H* (2.5-4.5) mg/dL Creatine Kinase (55-170) U/L Assessment and Plan Plan: Assessment: #1. End-stage renal disease maintained on hemodialysis on a Thursday schedule via left upper extremity AV fistula. #2. Hypervolemic hyponatremia. #3. Hypertension with chronic kidney disease. This is partially related to excess volume. Patient is afraid of cramps and therefore refuses to undergo adequate ultrafiltration as an outpatient. 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 #4. Hyperkalemia secondary to chronic kidney disease. #5. Chronic kidney disease mineral bone disease. Plan: Hemodialysis today with goal 4-5 L ultrafiltration. Maintain PhosLo and Renvela with meals. Nephrocaps daily. Continue with current antihypertensives. Stable to be transferred out of the intensive care unit from nephrology standpoint.
[2016-07-07] MEDS ORDERED: FOLIC ACID-VIT B COMPLEX-VIT C 1 CAP PO SCH (09:45)
--- NOTE | 2016-07-07 10:45 | P.PN ---
Subjective Acute pulmonary edema and hypoxia. this is a 45-year-old white male with history of multiple medical problems including hypertension, end-stage renal disease, patient is on hemodialysis, normally the patient is compliant with hemodialysis, and his last dialysis was actually a few days ago. Since then the patient has been complaining of chest pain and shortness of breath. Describes the chest pain and discomfort in the center of the chest sharp burning sensation with radiation to the back. Patient is also complaining of shortness of breath, some wheezing, and cough. No fever no chills no hemoptysis. Upon arrival to the ER, his blood pressure was significantly elevated, and he was felt to have hypertensive emergency. Chest x-ray showed evidence of slightpulmonary edema and prominence of the pulmonary vasculature. No evidence of any pleural effusions.patient was placed on nipride drip for his blood pressureand he was seen by cardiology on consultation, and oral blood pressure medications were added.ABG on 4 L nasal cannula in the ER showed a pO2 of 63 pCO2 of 43 and pH of 7.47. Patient was noted to be in moderate respiratory distress, hence he was placed on BiPAP. Patient is due to receive his dialysis today and I believe is already scheduled. D-dimer was borderline elevated, upper limits of normal. It was actually 0.64. Hence I felt that the index of suspicion for pulmonary embolism is rather low. Patient has many other reasons that could explain his shortness of breath. Hence I felt there is no need for a VQ scan to be done. Patient was started on heparin in the ER. Reevaluated today on 07/05/2016, patient underwent dialysis and his chest x-ray is showing some improvement. Shortness of breath is also improved, however the patient continues to have some intermittent episodes of shortness of breath on nasal cannula, and I recommended that he goes back on BiPAP today. CBC is relatively normal basic metabolic profile is normal BUN is 30 creatinine is 7.40 chest x-ray showed improvement in the pulmonary status, he does have COPD and cardiomegaly. Blood pressure seems to be better controlled with multiple medications to control the blood pressure. Reevaluated today on 07/06/2016, patient is clinically improving, chest x-ray is improving, however he continues to have cough shortness of breath and intermittent episodes of wheezing. Solu-Medrol was added today to his bronchodilator regimen, Symbicort was added, and I will see to it that the patient is getting albuterol and Atrovent 4 times a day and when necessary. Patient will be dialyzed again in a.m. The patient is seen again today 07/07/2016 in follow-up in the intensive care unit. He is awake and alert in no acute distress. He denies any worsening shortness of breath, cough or congestion. He states he is breathing easier today as compared to yesterday. He is maintaining O2 saturations in the low 90s on 2 L/m per nasal cannula. His chest x-ray does show some mild pulmonary venous congestion. He is afebrile. His blood pressure has been better controlled he is off the Nipride. The plan is for dialysis today. Objective - Vital Signs Vital signs: Vital Signs Temp 98.0 F 07/07/16 08:00 Pulse 81 07/07/16 10:00 Resp 10 L 07/07/16 10:00 BP 176/91 07/07/16 10:00 Pulse Ox 91 L 07/07/16 10:00 Intake & Output 07/06/16 07/07/16 07/07/16 18:59 06:59 18:59 Intake Total 190 110 40 Output Total 0 Balance 190 110 40 Weight 80.1 kg 80.1 kg Intake: IV 190 110 40 0.9 NS 190 110 40 Output: Urine 0 Other: # Voids 1 - Exam GENERAL EXAM: Alert, active, comfortable in no apparent distress. HEAD: Normocephalic. EYES: Normal reaction of pupils, equal size. NOSE: Clear with pink turbinates. THROAT: No erythema or exudates. NECK: No masses, no JVD. CHEST: No chest wall deformity. LUNGS: Equal air entry with faint crackles in the bilateral bases. CVS: S1 and S2 normal with no audible murmurs, regular rhythm. ABDOMEN: No hepatosplenomegaly, normal bowel sounds, no guarding or rigidity. SPINE: No scoliosis or deformity SKIN: No rashes CENTRAL NERVOUS SYSTEM: No focal deficits, tone is normal in all 4 extremities. Extremities: There is a left upper extremity AV fistula in place and no significant edema. No clubbing, no cyanosis. - Labs CBC & Chem 7: 07/07/16 04:06 07/07/16 04:06 Labs: Abnormal Lab Results - Last 24 Hours (Table) 07/06/16 07/06/16 07/06/16 Range/Units 04:19 11:06 14:15 RBC (4.30-5.90) m/uL Hgb (13.0-17.5) gm/dL Hct (39.0-53.0) % MCV (80.0-100.0) fL Sodium 128 L (137-145) mmol/L Potassium 5.6 H (3.5-5.1) mmol/L Chloride 94 L (98-107) mmol/L Carbon Dioxide 17 L (22-30) mmol/L BUN 51 H (9-20) mg/dL Creatinine 9.18 H* (0.66-1.25) mg/dL Glucose 122 H (74-99) mg/dL POC Glucose (mg/dL) 126 H (75-99) mg/dL Calcium 8.2 L (8.4-10.2) mg/dL Phosphorus (2.5-4.5) mg/dL Creatine Kinase 468 H (55-170) U/L 07/06/16 07/06/16 07/06/16 Range/Units 17:18 19:57 19:58 RBC (4.30-5.90) m/uL Hgb (13.0-17.5) gm/dL Hct (39.0-53.0) % MCV (80.0-100.0) fL Sodium 130 L (137-145) mmol/L Potassium 5.4 H (3.5-5.1) mmol/L Chloride 94 L (98-107) mmol/L Carbon Dioxide 19 L (22-30) mmol/L BUN 57 H (9-20) mg/dL Creatinine 10.20 H* (0.66-1.25) mg/dL Glucose 155 H (74-99) mg/dL POC Glucose (mg/dL) 150 H 140 H (75-99) mg/dL Calcium (8.4-10.2) mg/dL Phosphorus (2.5-4.5) mg/dL Creatine Kinase (55-170) U/L 07/07/16 07/07/16 07/07/16 Range/Units 04:06 04:06 07:50 RBC 3.59 L (4.30-5.90) m/uL Hgb 11.9 L (13.0-17.5) gm/dL Hct 36.1 L (39.0-53.0) % MCV 100.7 H (80.0-100.0) fL Sodium 130 L (137-145) mmol/L Potassium 5.6 H (3.5-5.1) mmol/L Chloride 93 L (98-107) mmol/L Carbon Dioxide 15 L (22-30) mmol/L BUN 64 H (9-20) mg/dL Creatinine 10.90 H* (0.66-1.25) mg/dL Glucose 135 H (74-99) mg/dL POC Glucose (mg/dL) 126 H (75-99) mg/dL Calcium (8.4-10.2) mg/dL Phosphorus 8.0 H* (2.5-4.5) mg/dL Creatine Kinase (55-170) U/L Assessment and Plan Plan: Impression: 1 acute pulmonary edema and fluid overload secondary to hypertensive emergency and chronic end-stage renal disease on hemodialysis. 2 history of underlying COPD severity of which is not clear, but well- documented on previous medical history. Patient is now on Symbicort, albuterol and Atrovent, and Solu-Medrol 60 mg IV push every 6 hours. 3 end-stage renal disease, on hemodialysis , that being addressed by nephrology on the case 4 history of chronic anemia secondary to renal disease, history of pancreatitis , history of antral ulcers. And history of GI bleeding. Plan: The patient was seen and evaluated by Dr. Berg. He is stable from the pulmonary and critical care standpoint. He is oxygenating well on 2 L/m per nasal cannula. His been off the BiPAP. He is to receive hemodialysis today and could be transferred out to the regular medical floor. We'll continue to follow and make further recommendations based on her clinical status.
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
--- NOTE | 2016-07-07 11:31 | CDI ---
In responding to this query, please exercise your independent professional judgment. The [facility] Coding Staff and Clinical Documentation Specialists appreciate your assistance in clarifying documentation, maintaining compliance with coding guidelines, accurately documenting patients condition and capturing severity of illness. The fact that a question is asked does not imply that any particular answer is desired or expected. Communication forms are a method of clarifying documentation and are not made part of the Legal Health Record. Thank you in advance for your clarification. Last Revision, June 2015 Keshia Chowdhury [address] [facility] [place] [address] Documentation Clarification Form Date: 07/07/2016 11:21:00 AM From: Lou Kingozltan Admit Date: 07/04/2016 4:01:00 AM Patient Name: Jose Llanos Visit Number: [id number] Dr. Bogdan Teixeira History/Risk Factors: End Stage Renal Disease on hemodialysis COPD Uncontrolled Hypertension on admission Pulmonary Edema Chronic Anemia Clinical Indicators: Per ED 'quite distressed on arrival' Vital signs on admission: RR 26, bp 231/124, O2 sats 100% on non-rebreather Lung/Breathing assessment: short of breath ABG/CBG on admission: pH - 7.47 pCO2 - 43 pHCO3 - 31 Treatment: Breathing tx IV Lasix IV Hydralazine, IV Labetalol IV steroids IV nitro, IV Heparin O2: non-rebreather, nasal cannula, bipap In your professional opinion, can you please clarify if these findings signify one of the following conditions? Acuity: o Acute o Chronic o Acute on Chronic Respiratory Status: o Respiratory failure with hypercapnia o Respiratory failure with hypoxia o Other Diagnosis, please specify o Unable to determine Please document in your progress notes and discharge summary in order to capture severity of illness and risk of mortality. Include clinical findings that support your diagnosis. FYI: Press F11 to launch patient chart. Place X here if this finding has no clinical significance, is not applicable or if you are not able to provide any additional documentation. MTDD
[2016-07-07] MEDS ORDERED: ENOXAPARIN 30 MG/0.3 ML SYRINGE SQ SCH (12:00)
[2016-07-07 12:02] LABS: Hemoglobin A1C 4.2 % (4.2-6.1)
[2016-07-07 12:06] LABS: Glucose,Whole Blood 132 mg/dL (75-99)
[2016-07-07] MEDS: hydrALAZINE HCL 50 MG TAB PO SCH (12:09)
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
[2016-07-07] MEDS: cloNIDine HCL 0.1 MG TAB PO SCH (15:54)
[2016-07-07] MEDS: MINOXIDIL 2.5 MG TAB PO SCH (15:54)
[2016-07-07 17:05] VITALS: BP 162/87; PULSE 92; RESP 19
--- NOTE | 2016-07-07 20:02 | PN ---
Patient was seen by my associate; this is a follow-up note. Patient was referred to the hospital with atypical chest pain in a patient with hypertension, chronic renal failure, on dialysis, and ejection fractions of 55% to 60% with pulmonary hypertension. He has been doing reasonably well at the present time without any chest pain or pressure. Patient had some chest pain related to cough. Patient denies any chest pain or pressure at the present time, with the vital signs of 81 beats per minute and regular, blood pressure of 143/76, respirations of 20. Head normocephalic. HEENT unremarkable. Neck is supple. No thyroid enlargement. No bruit noted. Good carotid upstroke bilaterally. Chest is symmetrical. CARDIAC EXAMINATION: S1 and S2. Lungs are clinically clear to auscultation and percussion. ABDOMEN: Soft. No organomegaly. Patient will be seen by our service as needed in the future.
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
== END 2016-07-07 17:08 | disposition left against medical advice (07) | DRG 291 ==
LOC: EC 23:24 → 6ICU 07-04 04:01
PROVIDERS: ADMIT Hospitalist; ATTEND Hospitalist
PROC: 5A1D60Z (ICD-10-PCS; principal; 2016-07-04)
DX: I13.2 Hypertensive heart and chronic kidney disease with heart failure and with stage 5 chronic kidney disease, or end stage renal disease (principal); N18.6 End stage renal disease; J96.01 Acute respiratory failure with hypoxia; J96.02 Acute respiratory failure with hypercapnia; I27.2 Other secondary pulmonary hypertension; E87.1 Hypo-osmolality and hyponatremia; J44.1 Chronic obstructive pulmonary disease with (acute) exacerbation; I16.1 Hypertensive emergency; E87.5 Hyperkalemia; I50.9 Heart failure, unspecified; Z99.2 Dependence on renal dialysis; D63.1 Anemia in chronic kidney disease; F12.90 Cannabis use, unspecified, uncomplicated; F32.9 Major depressive disorder, single episode, unspecified; R09.02 Hypoxemia; K21.9 Gastro-esophageal reflux disease without esophagitis; K64.9 Unspecified hemorrhoids; Z79.899 Other long term (current) drug therapy; Z87.11 Personal history of peptic ulcer disease; Z87.891 Personal history of nicotine dependence; Z88.6 Allergy status to analgesic agent; Z87.820 Personal history of traumatic brain injury
CPT/HCPCS: 36415; 36600; 71010; 71020; 80048; 80053; 82150; 82550; 82553; 82805; 83036; 83690; 83735; 84100; 84484; 84520; 85025; 85027; 85379; 85610; 85730; 90935; 93005; 93306; 94640; 94644; 94660; 96365; 96366; 96367; 96375; 96376; 99291; 99292

== ENCOUNTER 2018-02-23 17:38 | Emergency (ER) | payer MEDICARE ==
[2018-02-23] MEDS ORDERED: HYDROmorphone 1 MG/ML 1 ML SYRINGE IM STA (20:02)
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
--- NOTE | 2018-02-23 21:25 | XR ---
PROCEDURE: XR knee LT 3V DATE AND TIME: 02/23/2018 9:14 PM CLINICAL INDICATION: [facility] Pain TECHNIQUE: Department protocol. 3V COMPARISON: None FINDINGS: There is no fracture or malalignment. The soft tissues are remarkable for prominent soft tissue swelling anterior to the patellar tendon an d patella. Soft tissues are also remarkable for advanced atherosclerotic calcifications for the patient's age. IMPRESSION: 1) NEGATIVE FOR FRACTURE OR MALALIGNMENT. 2) PROMINENT ATHEROSCLEROTIC CHANGES.
--- NOTE | 2018-02-23 21:36 | CT ---
EXAMINATION TYPE: CT brain catarino green DATE OF EXAM: 02/23/2018 COMPARISON: None HISTORY: Fall injury, laceration to forehead CT DLP: 1071.6 mGycm Automated exposure control for dose reduction was used. TECHNIQUE: CT scan of the head and cervical spine are performed without contrast. FINDINGS: There is no acute intracranial hemorrhage, mass effect, or midline shift identified. The ventricles and sulci are within normal limits in size. The globes are intact and the visualized sin uses are clear. Cervical spine is visualized in its entirety from C1 through upper thoracic levels and demonstrates s atisfactory alignment without evidence of acute fracture or dislocation. Prevertebral soft tissue ap pears within normal limits. The C1-C2 articulation is unremarkable. IMPRESSION: 1. There is no acute fracture or dislocation evident in the cervical spine. 2. No acute intracranial hemorrhage, mass effect, or midline shift is seen.
[2018-02-23] MEDS ORDERED: HYDROcodone/APAP 5-325MG 1 EACH TAB PO STA (22:50)
[2018-02-23 23:11] VITALS: BP 179/103; PULSE 80; RESP 18; TEMP 98.3
== END 2018-02-23 23:18 | disposition home or self-care (01) ==
LOC: EC 17:38
DX: S00.83XA Contusion of other part of head, initial encounter (principal); S80.02XA Contusion of left knee, initial encounter; I12.0 Hypertensive chronic kidney disease with stage 5 chronic kidney disease or end stage renal disease; N18.6 End stage renal disease; D64.9 Anemia, unspecified; Z87.891 Personal history of nicotine dependence; Z79.899 Other long term (current) drug therapy; Z88.6 Allergy status to analgesic agent; W01.10XA Fall on same level from slipping, tripping and stumbling with subsequent striking against unspecified object, initial encounter; Y92.480 Sidewalk as the place of occurrence of the external cause
CPT/HCPCS: 73564; 72125; 70450; 99284; 96372; J1170

== ENCOUNTER → 2018-06-23 | Outpatient (CLI) | payer OTHER ==
--- NOTE | 2018-06-23 14:30 | XR ---
EXAM TYPE: LUMBAR SPINE X RAY SERIES COMPARISON: NONE HISTORY: Low back pain TECHNIQUE: 4 views are submitted. FINDINGS: Alignment is anatomic. The pedicles are intact. The transverse processes are intact. There is no s pondylolysis or spondylolisthesis. Vascular calcifications of the splenic artery. Atherosclerotic ch miah of the aorta. There is hypertrophic change and degenerative disc disease. IMPRESSION: 1. Mild hypertrophic and degenerative disc disease. 2. Extensive atherosclerotic vascular changes. A splenic artery aneurysm in the differential diagnosi s. Correlate clinically.
--- NOTE | 2018-06-23 14:46 | XR ---
EXAMINATION TYPE: XR shoulder complete LT DATE OF EXAM: 06/23/2018 COMPARISON: NONE HISTORY: Pain TECHNIQUE: Three views are submitted. FINDINGS: There is questionable deformity along the inferior glenoid. There may be slight anterior subluxation of the humeral head. The AC joint is maintained. IMPRESSION: 1. There may be slight subluxation of the humeral head anteriorly with deformity of the glenoid is va guely seen by standard x-ray. Recommend MRI for further evaluation.
== END | disposition home or self-care (01) ==
LOC: RADXRMAIN 13:58
PROVIDERS: ATTEND Emergency Medicine
DX: M51.36 Other intervertebral disc degeneration, lumbar region (principal); S39.012A Strain of muscle, fascia and tendon of lower back, initial encounter; S43.402A Unspecified sprain of left shoulder joint, initial encounter
CPT/HCPCS: 72100

== ENCOUNTER → 2019-05-05 | Outpatient (CLI) | payer MEDICARE ==
--- NOTE | 2019-05-05 10:54 | MR ---
EXAMINATION TYPE: MR shoulder LT wo con DATE OF EXAM: 05/05/2019 COMPARISON: X-ray 06/23/2018 HISTORY: Pain TECHNIQUE: Multiplanar, multisequence imaging of the left shoulder is performed without contrast. FINDINGS: There appears to be diffuse marrow edema throughout the humeral head and proximal diaphysis of the humerus. Fortunately the exam is nearly nondiagnostic due to extreme motion artifact. Cystic changes involving the humeral head and glenoid are noted with loss of cartilage and significant arthr opathy of the glenohumeral joint. There appears to be fluid within the axillary recess and distention of the glenohumeral ligament inferiorly. Could not exclude degenerative labral tears given the degre e of motion artifact. Small joint effusion is seen. Assessment of the rotator cuff limited due to motion artifact grossly the subscapularis appears to be intact. Infraspinatus tendon is intact. Supraspinatus tendon demonstrates increased intrasubstance s ignal extending in a transverse dimension of 9 mm suggestive of tendinopathy with partial intrasubsta nce tear. No through thickness tear or retraction. There is extensive abnormal fluid surrounding the biceps tendon which appears to be situated the bici pital groove. Intracapsular portion of the biceps tendon and biceps anchor appear to be intact. IMPRESSION: 1. There appears to be significant marrow edema involving the humeral head and proximal diaphysis of the humerus. Severe motion artifact results in nearly nondiagnostic exam. 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 Correlate for glenohumeral arthropathy. 2. Small glenohumeral joint effusion with fluid along the axillary recess. Tiny focal areas of low si gnal could represent small loose bodies. Degenerative labral tears not excluded given the degree of m otion artifact. 3. Tendinopathy distal margin and insertion supraspinatus tendon with partial intrasubstance tear but no through thickness tear or retraction. 4. severe bicipital tendinopathy
== END | disposition home or self-care (01) ==
LOC: RADMRIMAIN 08:16
PROVIDERS: ATTEND Family Medicine
DX: M75.112 Incomplete rotator cuff tear or rupture of left shoulder, not specified as traumatic (principal); M12.812 Other specific arthropathies, not elsewhere classified, left shoulder; M75.22 Bicipital tendinitis, left shoulder

== ENCOUNTER 2020-01-23 00:49 | Inpatient (IN) | payer MEDICARE, OTHER ==
[2020-01-23] MEDS ORDERED: NITROGLYCERIN-D5W PMX 50 MG in DEXTROSE/WATER 1 250ML.BAG IV ONE (00:57)
[2020-01-23 01:23] LABS: Basophils # (A) 0.1 k/uL (0-0.2); Basophils % (A) 1 %; Eosinophils % (A) 0 %; HCT 27.8 % (39.0-53.0); HGB 9.2 gm/dL (13.0-17.5); Lymphocytes # (A) 0.8 k/uL (1.0-4.8); Lymphocytes % (A) 11 %; MCH 33.5 pg (25.0-35.0); MCHC 33.1 g/dL (31.0-37.0); Macrocytosis Slight; Mean Platelet Volume 7.8; Monocytes # (A) 0.4 k/uL (0-1.0); Monocytes % (A) 5 %; Neutrophils # (A) 5.8 k/uL (1.3-7.7); Neutrophils % (A) 77 %; Platelet Count 318 k/uL (150-450); RBC 2.75 m/uL (4.30-5.90); RDW 15.9 % (11.5-15.5); WBC 7.5 k/uL (3.8-10.6)
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
[2020-01-23 01:27] LABS: Albumin 4.4 g/dL (3.5-5.0); Calcium 8.7 mg/dL (8.4-10.2); Partial Thromboplastin Time 25.7 sec (22.0-30.0); Phosphorus 5.6 mg/dL (2.5-4.5); Prothrombin Time 10.2 sec (9.0-12.0); Total Bilirubin 0.9 mg/dL (0.2-1.3); Total Protein 7.9 g/dL (6.3-8.2)
--- NOTE | 2020-01-23 01:37 | CT ---
EXAMINATION TYPE: CT brain wo con DATE OF EXAM: 01/23/2020 COMPARISON: 02/23/2018 HISTORY: AMS CT DLP: 2510.40 mGycm Automated exposure control for dose reduction was used. Ventricles and sulci appear normal. There is no mass effect nor midline shift. There is no evidence o f intracranial hemorrhage. There is 1 cm hypodensity in the genu of right internal capsule. The nathaniel rium is intact. There is a smaller 5 mm infarct in the anterior right internal capsule. IMPRESSION: Old lacunar infarcts in the right internal capsule. No acute intracranial abnormality. No change.
--- NOTE | 2020-01-23 01:40 | XR ---
EXAMINATION TYPE: XR chest 1V portable DATE OF EXAM: 01/23/2020 COMPARISON: 07/07/2016 HISTORY: Fever TECHNIQUE: FINDINGS: Heart is enlarged. There is pulmonary interstitial edema. There is slight blunting of the l eft costophrenic angle. Trachea is midline. Bony thorax is intact. IMPRESSION: Pulmonary edema consistent with acute congestive heart failure that is new compared to ol d exam.
[2020-01-23] MEDS ORDERED: BUMETANIDE 0.25 MG/ML 4 ML VIAL IVP STA (02:18)
[2020-01-23] MEDS ORDERED: NALOXONE 0.4 MG/ML 1 ML VIAL IV PRN (03:11)
[2020-01-23] MEDS ORDERED: SODIUM CHLORIDE 0.9% IV STA (03:16)
[2020-01-23] MEDS ORDERED: ACYCLOVIR SODIUM IV STA (03:16)
[2020-01-23 04:31] LABS: ABG Base Excess 3.1 mmol/L; ABG HCO3 27 mmol/L (21-25); ABG Oxygen Saturation 96.4 % (94-97); ABG PCO2 41 mmHg (35-45); ABG PH 7.43 (7.35-7.45); ABG PO2 93 mmHg (83-108); ABG TCO2 29 mmol/L (19-24); Allen Test Performed? Yes
[2020-01-23 04:45] LABS: Glucose,Whole Blood 120 mg/dL (75-99)
[2020-01-23] MEDS: CLEVIDIPINE BUTYRATE 25 MG in EMPTY BAG 1 BAG IV SCH ×2 (07:40→12:57)
[2020-01-23] MEDS: HEPARIN SODIUM,PORCINE 5,000 UNIT/ML 1 ML VIAL SQ SCH ×2 (08:29→15:40)
[2020-01-23] MEDS ORDERED: PANTOPRAZOLE 40 MG/10 ML VIAL IV SCH (09:00)
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
[2020-01-23 12:05] LABS: Albumin 3.4 g/dL (3.5-5.0); Calcium 8.1 mg/dL (8.4-10.2); Potassium 3.8 mmol/L (3.5-5.1); Total Bilirubin 0.7 mg/dL (0.2-1.3); Total Protein 6.3 g/dL (6.3-8.2)
--- NOTE | 2020-01-23 12:45 | CONS ---
CONSULTATION REASON FOR CONSULT: End-stage renal disease. HISTORY OF PRESENT ILLNESS: Patient is a 49-year-old male with end-stage renal disease, on hemodialysis on a Thursday, Thursday, Thursday schedule. He had presented to [facility] day before yesterday and he was seen yesterday after missing dialysis on Thursday. Patient did not want to wait for dialysis today as inpatient and stated that he would come to his dialysis unit this morning. However, he was admitted to [facility] with worsening mentation as well as worsening shortness of breath. Patient was found to be in fluid overload and acute hypoxic respiratory failure. He was dialyzed last night. We had about 1-1/2 L of fluid removed. Patient had a lot of ectopy during his treatment and therefore he was taken off early. He was also found to have herpes zoster rash in the left upper chest wall area. Patient has not had any significant fever. No history of cough. His blood pressure was also significantly elevated on admission to the hospital, currently improved. He is maintained on Cleviprex drip. PAST MEDICAL HISTORY: End-stage renal disease, history of hypertension, CKD mineral bone disorder, anemia of chronic disease, history of GI bleed, history of CHF, previously history of pancreatitis, COPD. PAST SURGICAL HISTORY: Adenoidectomy, tonsillectomy, AV fistula left arm, EGDs, previous history of kidney biopsy. SOCIAL HISTORY: Negative for smoking. Patient does use marijuana. MEDICATIONS: Prior to admission included Coreg, Lasix Renvela, Catapres, hydralazine, minoxidil. ALLERGIES: Include IBUPROFEN. REVIEW OF SYSTEMS: Negative for fever, cough, nausea, vomiting, diarrhea. It looks like patient received pain medications during his hospitalization at [facility] where he was hospitalized for about a day. PHYSICAL EXAMINATION: Currently patient is sleeping, he is arousable, does not communicate much. Blood pressure 163/96, heart rate 105 per minute. He is afebrile, O2 saturation 94% on 6 L. Examination of the heart, S1, S2. Examination of the lungs, decreased breath sounds at bases. Abdomen is soft, nontender. Examination of the lower extremities shows chronic edema, chronic skin changes. The rash on the left anterior chest wall is currently dressed. The [employer] exam shows patient has been confused. He is moving all 4 extremities. LABS: Show prior to dialysis. Sodium 125, potassium 5.0, BUN 72, creatinine 8.57, calcium 8.7, phosphorus 5.6. ASSESSMENT: 1. End-stage renal disease, on hemodialysis on a Thursday, Thursday, Thursday schedule. 2. Volume overload secondary to patient missing dialysis, status post hemodialysis today. We will dialyze him again tomorrow or later on tonight if his respiratory status worsens. 3. Hypervolemic, hyponatremia. Expect improvement with dialysis. 4. Mental status changes, possibly related to pain medications versus any other drug usage prior to admission to the hospital again. 5. Anemia of chronic disease. 6. Herpes zoster. ID has been consulted. 7. Hypertension, volume sensitive, currently maintained on Cleviprex. Once patient is able to take p.o. medications, we will resume his home p.o. medications. PLAN: Repeat dialysis tomorrow or later tonight if his respiratory status worsens. Repeat labs and resume oral medications once patient is able to take oral medications for hypertension. Thank you for this consultation. Will continue to follow the patient with you during his hospitalization. MMODL / IJN: [id number] /
[2020-01-23] MEDS ORDERED: HALOPERIDOL LACTATE 5 MG/ML 1 ML VIAL ONE (13:57)
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
[2020-01-23] MEDS ORDERED: propofoL 100 ML IV ONE (14:07)
[2020-01-23 15:33] LABS: ABG Base Excess 1.2 mmol/L; ABG HCO3 27 mmol/L (21-25); ABG Oxygen Saturation 99.7 % (94-97); ABG PCO2 47 mmHg (35-45); ABG PH 7.36 (7.35-7.45); ABG PO2 348 mmHg (83-108); ABG TCO2 28 mmol/L (19-24); Allen Test Performed? Yes
[2020-01-23] MEDS: NOREPINEPHRINE 4 MG in SODIUM CHLORIDE 0.9% 250 ML IV SCH (15:40)
--- NOTE | 2020-01-23 15:50 | XR ---
EXAMINATION TYPE: XR chest 1V DATE OF EXAM: 01/23/2020 CLINICAL HISTORY: Post intubation TECHNIQUE: Portable supine view of the chest obtained COMPARISON: 01/23/2020 chest radiograph at 1:17 AM FINDINGS: Endotracheal tube distal tip 5.0 cm from the bryant. Enteric tube courses over the left up per quadrant off the inferior most aspect of the image, with side-port overlie the projected area of the gastric fundus. Cardiomegaly. Interstitial edema redemonstrated, minimally decreased versus 1:17 AM comparison. More focal airspace opacity over the right upper lung. Osseous structures are intact. IMPRESSION: 1. Endotracheal tube distal tip 5.0 cm from the bryant. 2. Enteric tube side-port overlies the stomach, with nonvisualization of the distal tip. 3. Cardiomegaly. Pulmonary edema is minimally decreased versus 1:17 AM comparison. 4. More focal airspace opacity of the right upper lobe.
--- NOTE | 2020-01-23 21:48 | EEG ---
ELECTROENCEPHALOGRAM REPORT DATE OF SERVICE: 01/23/2020. PREAMBLE: This is a 49-year-old male with altered mental status. This study is performed to evaluate for any epileptiform activity. EEG FINDINGS: This is a 21-channel routine EEG recording in a patient utilizing 10-20 international system with referential and bipolar montages. Background consists of well- developed, poorly regulated, mixed frequencies of 1-2 hertz delta with some 4-5 hertz theta activity seen in bihemispheric region. Some vertex waves were seen. Photic driving response was not seen. No focal or generalized epileptiform activity was seen. IMPRESSION: This is an abnormal EEG due to background slowing of moderate to severe degree. This is suggestive of generalized cerebral dysfunction as can be seen with toxic metabolic encephalopathy or due to diffuse structural brain abnormality. No epileptiform activity was seen. MMODL / IJN: [id number] / MTDD
[2020-01-23] MEDS: CHLORHEXIDINE GLUCONATE 15 ML CUP MUCOUS MEM SCH (22:00)
[2020-01-23 22:49] LABS: Appearance,Urine Clear (Clear); Bilirubin,Urine Negative (Negative); Blood,Urine Trace (Negative); Color,Urine Yellow; Glucose,Urine (UA) 2+ (Negative); Ketones,Urine Negative (Negative); Leukocyte Esterase,Urine Negative (Negative); Mucus,Urine Rare /hpf; Nitrite,Urine Negative (Negative); PH, Urine 8.5 (5.0-8.0); Protein,Urine 2+ (Negative); RBC,Urine <1 /hpf (0-5); Specific Gravity,Urine 1.009 (1.001-1.035); Urobilinogen,Urine <2.0 mg/dL (<2.0); WBC,Urine 3 /hpf (0-5)
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
[2020-01-23 23:46] LABS: ABG Base Excess 1.7 mmol/L; ABG HCO3 26 mmol/L (21-25); ABG Oxygen Saturation 88.5 % (94-97); ABG PCO2 41 mmHg (35-45); ABG PH 7.41 (7.35-7.45); ABG TCO2 28 mmol/L (19-24); Allen Test Performed? Yes
[2020-01-23 23:49] LABS: ABG PO2 57 mmHg (83-108)
[2020-01-24] MEDS: HEPARIN SODIUM,PORCINE 5,000 UNIT/ML 1 ML VIAL SQ SCH ×3 (01:07→15:26)
[2020-01-24 03:57] LABS: Anisocytosis Slight; Basophils % (A) 0 %; Eosinophils % (A) 0 %; HCT 25.6 % (39.0-53.0); HGB 8.4 gm/dL (13.0-17.5); Lymphocytes # (A) 0.4 k/uL (1.0-4.8); Lymphocytes % (A) 4 %; MCH 33.3 pg (25.0-35.0); MCHC 32.9 g/dL (31.0-37.0); MCV 101.2 fL (80.0-100.0); Macrocytosis Slight; Mean Platelet Volume 9.2; Monocytes # (A) 0.3 k/uL (0-1.0); Monocytes % (A) 3 %; Neutrophils # (A) 9.4 k/uL (1.3-7.7); Neutrophils % (A) 92 %; Platelet Count 239 k/uL (150-450); RBC 2.53 m/uL (4.30-5.90); WBC 10.3 k/uL (3.8-10.6)
[2020-01-24] MEDS ORDERED: ACYCLOVIR SODIUM IVPB SCH (04:00)
[2020-01-24] MEDS ORDERED: SODIUM CHLORIDE 0.9% IVPB SCH (04:00)
[2020-01-24 04:17] LABS: Albumin 3.2 g/dL (3.5-5.0); Calcium 7.9 mg/dL (8.4-10.2); Potassium 4.2 mmol/L (3.5-5.1); Total Bilirubin 0.7 mg/dL (0.2-1.3)
[2020-01-24 08:01] LABS: ABG Base Excess 4.8 mmol/L; ABG HCO3 29 mmol/L (21-25); ABG Oxygen Saturation 96.7 % (94-97); ABG PCO2 42 mmHg (35-45); ABG PH 7.44 (7.35-7.45); ABG PO2 93 mmHg (83-108); ABG TCO2 30 mmol/L (19-24)
[2020-01-24 08:03] LABS: Allen Test Performed? NO
[2020-01-24] MEDS: MORPHINE SULFATE 4 MG/ML SYRINGE IVP PRN ×3 (08:57→15:39)
[2020-01-24] MEDS: CHLORHEXIDINE GLUCONATE 15 ML CUP MUCOUS MEM SCH ×2 (08:59→19:47)
[2020-01-24] MEDS: PANTOPRAZOLE 40 MG/10 ML VIAL IV SCH ×2 (08:59→19:47)
[2020-01-24] MEDS: NOREPINEPHRINE 4 MG in SODIUM CHLORIDE 0.9% 250 ML IV SCH (08:59)
[2020-01-24] MEDS ORDERED: DEXMEDETOMIDINE/0.9% NACL(PMX) 400 MCG in EMPTY BAG 1 BAG IV SCH (09:15)
--- NOTE | 2020-01-24 11:20 | XR ---
EXAMINATION TYPE: XR chest 1V portable DATE OF EXAM: 01/24/2020 CLINICAL HISTORY: Tube placement TECHNIQUE: Portable semiupright view of the chest COMPARISON: 01/23/2020 chest radiograph FINDINGS: Endotracheal tube distal tip at the level of the clavicular heads. Enteric tube nonvisuali zation of the distal tip, with side-port overlying the left upper quadrant projected area of the stom ach. There is cardiomegaly. There is improved aeration of the bilateral upper lungs versus 01/23/2020 . There is increased airspace opacities of the right lung base, as well as subsegmental atelectasis. Likely small right pleural effusion. No pneumothorax seen. The osseous structures are intact. IMPRESSION: 1. Small right pleural effusion, increased right basilar airspace opacities, and right basilar subseg mental atelectasis new from 01/23/2020. 2. Improved aeration of the bilateral upper lungs.
--- NOTE | 2020-01-24 12:53 | P.PN ---
Subjective Progress Note Date: 01/24/20 Principal diagnosis: Acute hypoxic respiratory failure secondary to fluid overload, pulmonary edema, end-stage renal disease This is a 49-year-old white male with history of end-stage renal disease, hypertension, COPD, patient is on hemodialysis. Patient is normally on hemodialysis Thursday, supposedly his last hemodialysis was last Thursday. Patient was brought into the ER with altered mental status and shortness of breath. Apparently he was quite confused upon presentation, blood pressure was extremely high at 217/134. Patient was noted to have abnormal labs including low sodium of 125. Abnormal BUN of 72 creatinine 8.57, and his hemoglobin was 9.2. Chest x-ray showed definitely fluid overload and he was noted to have hypoxic respiratory failure. Underwent dialysis last night, and about 1-1/2 L of fluid were removed. Patient was placed on nitroglycerin drip and on clevidipine drip, he was also noted to have herpes zoster rash in the left upper chest wall area. Started on antiviral therapy for his shingles. Patient was also placed on BiPAP, ABG was reasonable. His mentation remained, patient was admitted to the ICU and I was asked to see him on consultation. ABG on BiPAP showed a pO2 of 93 pCO2 of 41 pH of 7.43, and this was a BiPAP of 14/6 and 40% FiO2. 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 Neurology consultation is pending. Patient was reevaluated today on 01/24/20, remains in the ICU, intubated and mechanically ventilated. He is presently on assist control rate of 18 tidal volume is 450 FiO2 of 60% and PEEP of 5. ABG showed a pO2 of 93 pCO2 of 42 pH of 7.44. Patient is on propofol at 50 mcg/kg/m, IV fluids at KVO, and he is going to have dialysis today. Remains on dialysis. Remains on acyclovir for his herpes zoster dermatitis involving the T4 dermatome of left-sided chest. There is evidence of coffee ground material in the nasogastric tube and had an output of 1.8 L of coffee ground and blood-tinged nasogastric tube suctioning. Hemoglobin is holding at 8.4. EEG yesterday showed moderate to severe slowing. Consistent with metabolic encephalopathy. Today I try to wean the patient from propofol, and wanted to give the patient a weaning trial, however he became extremely agitated, and would not follow any instructions. Then we decided to try Precedex for sedation and possibly give the patient at least weaning trials today. In the meantime we will continue to plan dialysis today. Chest x-ray showed slight improvement in the aeration of bilateral upper lungs, however he continues to have some right basilar subsegmental atelectasis and possibly airspace disease Objective - Vital Signs Vital signs: Vital Signs Temp 97.8 F 01/24/20 08:00 Pulse 67 01/24/20 11:30 Resp 18 01/24/20 11:30 BP 122/66 01/23/20 23:30 Pulse Ox 95 01/24/20 11:30 Intake & Output 01/23/20 01/24/20 01/24/20 18:59 06:59 18:59 Intake Total 285.865 388.866 181.437 Output Total 0 1195 815 Balance 285.865 -806.134 -633.563 Weight 81.647 kg 82.1 kg Intake: IV 140 130 50 normal saline KVO 140 130 50 Intake, IV Titration 145.865 258.866 131.437 Amount Clevidipine Butyrate 25 32.967 24.467 mg In Empty Bag 1 bag @ 1 MG/HR 2 mls/hr IV .Q24H [facility] Rx#:[id number] Dexmedetomidine/0.9% NaCl 38.553 (Pmx) 400 mcg In Empty Bag 1 bag @ Titrate IV . Q0M [facility] Rx#:[id number] Nitroglycerin-D5w Pmx 50 101.875 17.05 mg In Dextrose/Water 1 250ml.bag @ 5 MCG/MIN 1.5 mls/hr IV .Q24H [facility] Rx#: [id number] Norepinephrine 4 mg In 128.372 6.844 Sodium Chloride 0.9% 250 ml @ 0.05 MCG/KG/MIN 15. 554 mls/hr IV .[id number] [facility] Rx#:[id number] propofoL 1,000 mg In 11.023 88.977 86.040 Empty Bag 1 bag @ Titrate IV .Q0M [facility] Rx#: [id number] Output: Gastric Drainage 1000 800 Urine 0 195 15 Other: Voiding Method Indwelling Catheter ABP, PAP, CO, CI - Last Documented Arterial Blood Pressure 85/47 - Exam GENERAL DESCRIPTION: Revealed 49-year-old white male on mechanical ventilation, sedated, in no distress. HEENT: Shows Pallor , no scleral icterus. Oral mucous membrane is dry. Patient is orally intubated NECK: Trachea central, no thyromegaly. LUNGS: Unlabored breathing. No modifying crackles at the bases. HEART: S1, S2, regular rate and rhythm. No loud murmur ABDOMEN: Soft, no tenderness , guarding or rigidity, no organomegaly EXTREMITIES: Trace of bipedal edema noted. SKIN: vesicular rash to the left T4 dermatome with no evidence of secondary bacterial cellulitis NEUROLOGICAL: The patient is sedated on the vent Psychiatric: Could not be assessed - Labs CBC & Chem 7: 01/24/20 03:35 01/24/20 03:35 Labs: Abnormal Lab Results - Last 24 Hours (Table) 01/23/20 01/23/20 01/23/20 Range/Units 01:04 15:30 23:43 RBC (4.30-5.90) m/uL Hgb (13.0-17.5) gm/dL Hct (39.0-53.0) % MCV (80.0-100.0) fL RDW (11.5-15.5) % Neutrophils # (1.3-7.7) k/uL Lymphocytes # (1.0-4.8) k/uL ABG pCO2 47 H (35-45) mmHg ABG pO2 348 H 57 L* (83-108) mmHg ABG HCO3 27 H 26 H (21-25) mmol/L ABG Total CO2 28 H 28 H (19-24) mmol/L ABG O2 Saturation 99.7 H 88.5 L (94-97) % Sodium (137-145) mmol/L Chloride (98-107) mmol/L BUN (9-20) mg/dL Creatinine (0.66-1.25) mg/dL Calcium (8.4-10.2) mg/dL Alkaline Phosphatase (38-126) U/L Total Protein (6.3-8.2) g/dL Albumin (3.5-5.0) g/dL Urine pH 8.5 H (5.0-8.0) Urine Protein 2+ H (Negative) Urine Glucose (UA) 2+ H (Negative) Urine Blood Trace H (Negative) Urine Mucus Rare H (None) /hpf 01/24/20 01/24/20 01/24/20 Range/Units 03:35 03:35 07:58 RBC 2.53 L (4.30-5.90) m/uL Hgb 8.4 L (13.0-17.5) gm/dL Hct 25.6 L (39.0-53.0) % MCV 101.2 H (80.0-100.0) fL RDW 16.0 H (11.5-15.5) % Neutrophils # 9.4 H (1.3-7.7) k/uL Lymphocytes # 0.4 L (1.0-4.8) k/uL ABG pCO2 (35-45) mmHg ABG pO2 (83-108) mmHg ABG HCO3 29 H (21-25) mmol/L ABG Total CO2 30 H (19-24) mmol/L ABG O2 Saturation (94-97) % Sodium 126 L (137-145) mmol/L Chloride 86 L (98-107) mmol/L BUN 60 H (9-20) mg/dL Creatinine 8.38 H* (0.66-1.25) mg/dL Calcium 7.9 L (8.4-10.2) mg/dL Alkaline Phosphatase 127 H (38-126) U/L Total Protein 6.0 L (6.3-8.2) g/dL Albumin 3.2 L (3.5-5.0) g/dL Urine pH (5.0-8.0) Urine Protein (Negative) Urine Glucose (UA) (Negative) Urine Blood (Negative) Urine Mucus (None) /hpf Microbiology - Last 24 Hours (Table) 01/23/20 01:04 Blood Culture - Preliminary Blood No Growth after 24 hours 01/23/20 01:04 Blood Culture - Preliminary Blood No Growth after 24 hours Assessment and Plan Assessment: Impression: Acute hypoxic respiratory failure secondary to pulmonary edema secondary to end- stage renal disease and missed hemodialysis. With fluid overload. Acute metabolic encephalopathy, suspect hypertensive emergency with mental status change and hypertensive encephalopathy. End-stage renal disease, on hemodialysis. Noncompliant. Acute Pulmonary edema secondary to missed dialysis with volume overload. Anemia of chronic disease. Hypovolemic hyponatremia Herpes zoster dermatitis involving anterior chest wall, patient is on acyclovir Recommendations: Continue ventilatory support. Continue propofol however will try to get the patient on Precedex, and hopefully discontinue propofol and try weaning off while on Precedex. Discontinue clevidipine since the patient's blood pressure is under control. Resume home meds for blood pressure was the patient is awake. Continue daily hemodialysis GI and DVT prophylaxis. Acyclovir for herpes zoster dermatitis. We'll continue to monitor in the ICU Critical care time is 35 minutes. Time with Patient: Greater than 30
--- NOTE | 2020-01-24 13:37 | PN ---
PROGRESS NOTE Patient is seen for followup for end-stage renal disease. Patient was dialyzed yesterday, we had about 1-1/2 L of fluid removed. He eventually was intubated yesterday. Blood pressure had dropped and the Cleviprex drip was discontinued. Patient was also on Levophed for a short period of time. He is currently maintained on the vent, FiO2 about 55%. Blood pressure is staying at about 117 to 120 mmHg. Examination of the heart S1, S2. Examination of the lungs, bilateral breath sounds are heard. Abdomen is soft. Examination of the lower extremities shows edema 2+ bilaterally. Patient's rash on the left anterior chest wall is currently dressed. LABS: Show A hemoglobin 8.4, sodium 126, potassium 4.2, BUN 60, serum creatinine 8.38. ASSESSMENT: 1. End-stage renal disease, on hemodialysis on a Thursday, Thursday, Thursday schedule, status post dialysis yesterday, we will dialyze him again today. 2. Acute hypoxic respiratory failure, currently on the vent, mostly from the CHF and volume overload. 3. Mental status changes, concern for herpes encephalitis. Patient is maintained on acyclovir. ID has been consulted. 4. Hypertension uncontrolled, initially, partly volume sensitive, currently hypotensive. 5. Herpes zoster, maintained on acyclovir. No evidence of disseminated zoster. PLAN: Hemodialysis today, increase UF to about 2-2.5 L as tolerated and repeat dialysis again tomorrow in a.m., if the patient has issues with oxygenation. Continue acyclovir. Follow up with ID and Neurology. MMODL / IJN: [id number] /
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
--- NOTE | 2020-01-24 14:20 | P.PN ---
Subjective Progress Note Date: 01/24/20 This a 49 y/o male who lives on his owm. HE HAS ESRD with heomdialysis MWF. He was jsut at [facility] yesterday for minimal SOB, and significant herpitic Neuralgia. He was seen by nephology 01/21 who felt he could get his dialyais 01/22 and did not need it urgently. He was seen by cardiology for min abn troponins and this was felt to be chronic. He did have minmal sob, that resolved after some pain medication for his shingles. He was treated with Acyclovir. he was given Dilaudid and Gabapetnin. early in the moring he had some confusin and was given Narcan then again several hours later, which resolved his somnolence but not his pain. He was D/C in stable condtion to f/u i [facility] office [facility] to habve dialysis 01/22. ~ 01:00 01/23/2020 patient was brought in [facility] ER for altered mental status and shortness of breath. he was quite tachypneic and hypertensive upon arrival. Nitro drip was started. Patient was placed on BiPap. Ct brain old lacunar infarcts in the right internal capsule. No acute intracranial abnormality. No change. 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 01/24/2020 Yesterday required intubation, maintained on 55% FiO2/+5 of PEEP. chest x-ray reporting small right pleural effusion, increased right basilar airspace opacity airspace, right basilar subsegmental atelectasis with improved aeration of bilateral upper lungs Initially had required clevidipine, became hypotensive, discontinued and now requiring pressor support with Levophed. Evaluated by infectious disease regarding left T4 dermatome zoster,with renal dose acyclovir recommended.earlier this morning patient agitated, not following commands and weaning trial aborted. Telemetry sinus rhythm.afebrile,normal WBC. preliminary blood cultures no growth at 24 hours. ABGs noted.hemoglobin down to 8.4,platelets 239.sodium 126, BUN 60, creatinine 8.38.scheduled for hemodialysis today. alk phos mildly elevated, 127. Albumin low at 3.2. completed EEG yesterday,abnormal, suggestive of toxic metabolic encephalopathy, with no epileptiform activity seen. Objective - Vital Signs Vital signs: Vital Signs Temp 97.8 F 01/24/20 08:00 Pulse 84 01/24/20 08:30 Resp 19 01/24/20 08:30 BP 122/66 01/23/20 23:30 Pulse Ox 95 01/24/20 08:30 Intake & Output 01/23/20 01/24/20 01/24/20 18:59 06:59 18:59 Intake Total 285.865 388.866 105.055 Output Total 0 1195 815 Balance 285.865 -806.134 -709.945 Weight 81.647 kg 82.1 kg Intake: IV 140 130 20 normal saline KVO 140 130 20 Intake, IV Titration 145.865 258.866 85.055 Amount Clevidipine Butyrate 25 32.967 24.467 mg In Empty Bag 1 bag @ 1 MG/HR 2 mls/hr IV .Q24H [facility] Rx#:[id number] Nitroglycerin-D5w Pmx 50 101.875 17.05 mg In Dextrose/Water 1 250ml.bag @ 5 MCG/MIN 1.5 mls/hr IV .Q24H [facility] Rx#: [id number] Norepinephrine 4 mg In 128.372 Sodium Chloride 0.9% 250 ml @ 0.05 MCG/KG/MIN 15. 554 mls/hr IV .[id number] [facility] Rx#:[id number] propofoL 1,000 mg In 11.023 88.977 85.055 Empty Bag 1 bag @ Titrate IV .Q0M [facility] Rx#: [id number] Output: Gastric Drainage 1000 800 Urine 0 195 15 Other: Voiding Method Indwelling Catheter ABP, PAP, CO, CI - Last Documented Arterial Blood Pressure 131/61 - Exam PHYSICAL EXAM: VITAL SIGNS: [as above] GENERAL: sitting up in bed, intubated, sedated HEENT: Conjunctivae normal. eyes normal. NECK: No JVD. No thyroid enlargement. CARDIOVASCULAR: S1, S2 regular.No murmur RESPIRATION: Breath sounds diminished in the bases. No rhonchi or crackles. No bronchial breathing. ABDOMEN: Soft, nontender . No guarding. no masses palpable. No ascites, No hepatosplenomegaly.Bowel sounds heard. LEGS: trace edema. PSYCHIATRY: unable to assess, sedated. NERVOUS SYSTEM: unable to assess, sedated and intubated Skin: warm and dry, left T4 dermatome rash,dressing clean dry and intact - Labs CBC & Chem 7: 01/24/20 03:35 01/24/20 03:35 Labs: Abnormal Lab Results - Last 24 Hours (Table) 01/23/20 01/23/20 01/23/20 Range/Units 01:04 11:35 15:30 RBC (4.30-5.90) m/uL Hgb (13.0-17.5) gm/dL Hct (39.0-53.0) % MCV (80.0-100.0) fL RDW (11.5-15.5) % Neutrophils # (1.3-7.7) k/uL Lymphocytes # (1.0-4.8) k/uL ABG pCO2 47 H (35-45) mmHg ABG pO2 348 H (83-108) mmHg ABG HCO3 27 H (21-25) mmol/L ABG Total CO2 28 H (19-24) mmol/L ABG O2 Saturation 99.7 H (94-97) % Sodium 127 L (137-145) mmol/L Chloride 89 L (98-107) mmol/L BUN 53 H (9-20) mg/dL Creatinine 7.00 H (0.66-1.25) mg/dL Glucose 101 H (74-99) mg/dL Calcium 8.1 L (8.4-10.2) mg/dL Alkaline Phosphatase (38-126) U/L Total Protein (6.3-8.2) g/dL Albumin 3.4 L (3.5-5.0) g/dL Urine pH 8.5 H (5.0-8.0) Urine Protein 2+ H (Negative) Urine Glucose (UA) 2+ H (Negative) Urine Blood Trace H (Negative) Urine Mucus Rare H (None) /hpf 01/23/20 01/24/20 01/24/20 Range/Units 23:43 03:35 03:35 RBC 2.53 L (4.30-5.90) m/uL Hgb 8.4 L (13.0-17.5) gm/dL Hct 25.6 L (39.0-53.0) % MCV 101.2 H (80.0-100.0) fL RDW 16.0 H (11.5-15.5) % Neutrophils # 9.4 H (1.3-7.7) k/uL Lymphocytes # 0.4 L (1.0-4.8) k/uL ABG pCO2 (35-45) mmHg ABG pO2 57 L* (83-108) mmHg ABG HCO3 26 H (21-25) mmol/L ABG Total CO2 28 H (19-24) mmol/L ABG O2 Saturation 88.5 L (94-97) % Sodium 126 L (137-145) mmol/L Chloride 86 L (98-107) mmol/L BUN 60 H (9-20) mg/dL Creatinine 8.38 H* (0.66-1.25) mg/dL Glucose (74-99) mg/dL Calcium 7.9 L (8.4-10.2) mg/dL Alkaline Phosphatase 127 H (38-126) U/L Total Protein 6.0 L (6.3-8.2) g/dL Albumin 3.2 L (3.5-5.0) g/dL Urine pH (5.0-8.0) Urine Protein (Negative) Urine Glucose (UA) (Negative) Urine Blood (Negative) Urine Mucus (None) /hpf 01/24/20 Range/Units 07:58 RBC (4.30-5.90) m/uL Hgb (13.0-17.5) gm/dL Hct (39.0-53.0) % MCV (80.0-100.0) fL RDW (11.5-15.5) % Neutrophils # (1.3-7.7) k/uL Lymphocytes # (1.0-4.8) k/uL ABG pCO2 (35-45) mmHg ABG pO2 (83-108) mmHg ABG HCO3 29 H (21-25) mmol/L ABG Total CO2 30 H (19-24) mmol/L ABG O2 Saturation (94-97) % Sodium (137-145) mmol/L Chloride (98-107) mmol/L BUN (9-20) mg/dL Creatinine (0.66-1.25) mg/dL Glucose (74-99) mg/dL Calcium (8.4-10.2) mg/dL Alkaline Phosphatase (38-126) U/L Total Protein (6.3-8.2) g/dL Albumin (3.5-5.0) g/dL Urine pH (5.0-8.0) Urine Protein (Negative) Urine Glucose (UA) (Negative) Urine Blood (Negative) Urine Mucus (None) /hpf Microbiology - Last 24 Hours (Table) 01/23/20 01:04 Blood Culture - Preliminary Blood No Growth after 24 hours 01/23/20 01:04 Blood Culture - Preliminary Blood No Growth after 24 hours Assessment and Plan Assessment: (1) Acute respiratory failure with hypoxia,ventilator-dependent Current Visit: Yes Status: Acute Code(s): J96.01 - ACUTE RESPIRATORY FAILURE WITH HYPOXIA SNOMED Code(s): 75688661 (2) Overdose,Seroquel Current Visit: Yes Status: Acute Code(s): T50.901A - POISONING BY UNSP DRUG/MEDS/BIOL SUBST, ACCIDENTAL, INIT SNOMED Code(s): 36981356 (3) Acute toxic and metabolic encephalopathysecondary to #2, hypertension Current Visit: Yes Status: Acute Code(s): G93.41 - METABOLIC ENCEPHALOPATHY SNOMED Code(s): 51555423 (4) Neuralgia Current Visit: Yes Status: Acute Code(s): M79.2 - NEURALGIA AND NEURITIS, UNSPECIFIED SNOMED Code(s): 86897941 (5) Altered mental status Current Visit: Yes Status: Acute Code(s): R41.82 - ALTERED MENTAL STATUS, UNSPECIFIED SNOMED Code(s): 473204111 (6) Fluid overload Current Visit: Yes Status: Acute Code(s): E87.70 - FLUID OVERLOAD, UNSPECIFIED SNOMED Code(s): 92234903 (7) Hypertensive crisis, s/p clevidepine. Current Visit: Yes Status: Acute Code(s): I16.9 - HYPERTENSIVE CRISIS, UNSPECIFIED SNOMED Code(s): 234237238 (8) herpes zoster,left T4 dermatome Current Visit: Yes Status: Acute Code(s): B02.9 - ZOSTER WITHOUT COMPLICATIONS SNOMED Code(s): 8434892 (9) End stage renal disease,on hemodialysis Current Visit: No Status: Acute Code(s): N18.6 - END STAGE RENAL DISEASE SNOMED Code(s): 52799847 (10) Anemia in chronic kidney disease Current Visit: Yes Status: Acute Code(s): N18.9 - CHRONIC KIDNEY DISEASE, UNSPECIFIED; D63.1 - ANEMIA IN CHRONIC KIDNEY DISEASE SNOMED Code(s): 690631122 (11) hypotension, pressor dependent Plan: Continue on current medication regime ,monitoring and symptomatic treatment. Maintain renal dose acyclovir,no systemic antibiotics recommended at this time as per ID.hemodialysis today. Follow closely with multiple consults.prognosis guarded given multiple complex medical issues. The impression and plan of care has been dictated as directed. : I performed a history and examination of this patient, discussed the same with the dictator. I agree with the dictator's note ,documented as a scribe. Any additional findings or plans will be noted.
--- NOTE | 2020-01-24 16:29 | P.PN ---
Subjective Progress Note Date: 01/24/20 patient is now intubated. He is on propofol 50 g. When the sedation is decreased, he does try to get up. No seizures reported. Objective - Vital Signs Vital signs: Vital Signs Temp 97.9 F 01/24/20 15:51 Pulse 90 01/24/20 15:51 Resp 18 01/24/20 15:51 BP 151/79 01/24/20 15:51 Pulse Ox 93 L 01/24/20 14:00 Intake & Output 01/23/20 01/24/20 01/24/20 18:59 06:59 18:59 Intake Total 285.865 388.866 311.886 Output Total 0 1195 2935 Balance 285.865 -806.134 -2623.114 Weight 81.647 kg 82.1 kg Intake: IV 140 130 90 normal saline KVO 140 130 90 Intake, IV Titration 145.865 258.866 221.886 Amount Clevidipine Butyrate 25 32.967 24.467 mg In Empty Bag 1 bag @ 1 MG/HR 2 mls/hr IV .Q24H [facility] Rx#:[id number] Dexmedetomidine/0.9% NaCl 38.553 (Pmx) 400 mcg In Empty Bag 1 bag @ Titrate IV . Q0M [facility] Rx#:[id number] Nitroglycerin-D5w Pmx 50 101.875 17.05 mg In Dextrose/Water 1 250ml.bag @ 5 MCG/MIN 1.5 mls/hr IV .Q24H [facility] Rx#: [id number] Norepinephrine 4 mg In 128.372 35.307 Sodium Chloride 0.9% 250 ml @ 0.05 MCG/KG/MIN 15. 554 mls/hr IV .[id number] [facility] Rx#:[id number] propofoL 1,000 mg In 11.023 88.977 148.026 Empty Bag 1 bag @ Titrate IV .Q0M [facility] Rx#: [id number] Output: Gastric Drainage 1000 900 Urine 0 195 35 Hemodialysis 2000 Other: Voiding Method Indwelling Catheter ABP, PAP, CO, CI - Last Documented Arterial Blood Pressure 104/57 - Exam patient is intubated with mechanical ventilation. He is sedated. Pupils are very small, barely reacting. Oculocephalics absent. Plantars are somewhat flat. Tone is equal bilaterally. He is breathing over the ventilator. patient responds fairly well when sedation is decreased as per nurse. - Labs CBC & Chem 7: 01/24/20 03:35 01/24/20 03:35 Labs: Abnormal Lab Results - Last 24 Hours (Table) 01/23/20 01/23/20 01/24/20 Range/Units 01:04 23:43 03:35 RBC 2.53 L (4.30-5.90) m/uL Hgb 8.4 L (13.0-17.5) gm/dL Hct 25.6 L (39.0-53.0) % MCV 101.2 H (80.0-100.0) fL RDW 16.0 H (11.5-15.5) % Neutrophils # 9.4 H (1.3-7.7) k/uL Lymphocytes # 0.4 L (1.0-4.8) k/uL ABG pO2 57 L* (83-108) mmHg ABG HCO3 26 H (21-25) mmol/L ABG Total CO2 28 H (19-24) mmol/L ABG O2 Saturation 88.5 L (94-97) % Sodium (137-145) mmol/L Chloride (98-107) mmol/L BUN (9-20) mg/dL Creatinine (0.66-1.25) mg/dL Calcium (8.4-10.2) mg/dL Alkaline Phosphatase (38-126) U/L Total Protein (6.3-8.2) g/dL Albumin (3.5-5.0) g/dL Urine pH 8.5 H (5.0-8.0) Urine Protein 2+ H (Negative) Urine Glucose (UA) 2+ H (Negative) Urine Blood Trace H (Negative) Urine Mucus Rare H (None) /hpf 01/24/20 01/24/20 Range/Units 03:35 07:58 RBC (4.30-5.90) m/uL Hgb (13.0-17.5) gm/dL Hct (39.0-53.0) % MCV (80.0-100.0) fL RDW (11.5-15.5) % Neutrophils # (1.3-7.7) k/uL Lymphocytes # (1.0-4.8) k/uL ABG pO2 (83-108) mmHg ABG HCO3 29 H (21-25) mmol/L ABG Total CO2 30 H (19-24) mmol/L ABG O2 Saturation (94-97) % Sodium 126 L (137-145) mmol/L Chloride 86 L (98-107) mmol/L BUN 60 H (9-20) mg/dL Creatinine 8.38 H* (0.66-1.25) mg/dL Calcium 7.9 L (8.4-10.2) mg/dL Alkaline Phosphatase 127 H (38-126) U/L Total Protein 6.0 L (6.3-8.2) g/dL Albumin 3.2 L (3.5-5.0) g/dL Urine pH (5.0-8.0) Urine Protein (Negative) Urine Glucose (UA) (Negative) Urine Blood (Negative) Urine Mucus (None) /hpf Microbiology - Last 24 Hours (Table) 01/23/20 01:04 Blood Culture - Preliminary Blood No Growth after 24 hours 01/23/20 01:04 Blood Culture - Preliminary Blood No Growth after 24 hours Assessment and Plan Assessment: * Altered mental status, likely due to toxic-metabolic encephalopathy. Suspect overdose from Seroquel. Suspect suicide attempt. Rule out other substance withdrawal. * End-stage renal disease on hemodialysis * Rule out underlying substance abuse. * Patient's CBC revealed macrocytosis. Rule out some underlying alcoholism. * Herpes zoster left T4 dermatome. No signs of encephalitis. Plan: * Patient has developed acute mental status change, with agitation, restlessness. Possible acute metabolic encephalopathy. * Patient has possible overdose on Seroquel. With his history of end-stage renal disease, could be more toxic. * Patient has herpetic rash over the chest, and left T4 dermatome. Patient on oral acyclovir. * EEG revealed background slowing of moderate to severe degree, consistent with encephalopathy. No epileptiform activity was seen. * serum drug screen pending. * Medical management as per IM/ICU.
[2020-01-24] MEDS: PIPERACILLIN-TAZOBACTAM 3.375 GM in SODIUM CHLORIDE 0.9% 100 ML IVPB SCH (19:52)
--- NOTE | 2020-01-24 22:55 | PN ---
PROGRESS NOTE DATE OF SERVICE: 01/24/2020 REASON FOR FOLLOWUP: 1. Left t4 dermatome zoster. 2. Possible aspiration pneumonia. INTERVAL HISTORY: The patient is currently afebrile. The patient remains intubated on the vent. Hemodynamically he is stable. He did have some brown tracheal aspirate. No vomiting has been reported. PHYSICAL EXAMINATION: Blood pressure 128/58 with a pulse of 93, temperature 98.8. He is 94% on 55% FiO2. General description is a middle-aged male intubated on the vent. RESPIRATORY SYSTEM: Unlabored breathing. Decreased breath sounds at bases. No wheeze. HEART: S1, S2. Regular rate and rhythm. ABDOMEN: Soft, non-tender. LABS: Hemoglobin 8.4, white count 10.3 with a BUN of 60, creatinine 8.38. DIAGNOSTIC IMPRESSION AND PLAN: 1. Patient with left t4 dermatome shingles. The patient is covered with acyclovir. Dose adjusted for the kidney function; to continue. 2. Patient with acute respiratory failure, on the vent, multifactorial, increasing infiltrate on the x-ray with concern about possible aspiration pneumonitis. Sputum culture was obtained. Zosyn will be added and we will monitor his clinical course closely. MMODL / IJN: [id number] / [id number]
--- NOTE | 2020-01-25 00:33 | XR ---
EXAM: XR Chest, 1 View CLINICAL HISTORY: ITS.REASON XR Reason: Tube placement TECHNIQUE: Frontal view of the chest. COMPARISON: 01/23/2020 FINDINGS: Lungs: Right base patchy opacity new from 01/23/2020 with improvement in right upper lobe patchy opacity. No consolidation. Pleural space: Possible small right pleural effusion. No pneumothorax. Heart: Cardiomegaly, unchanged from prior. Mediastinum: Unremarkable. Bones/joints: Unremarkable. Lines/Tubes: Endotracheal tube terminates 5.6 cm above the level the bryant. Nasogastric tube terminates below [id number] in the left upper quadrant with side hole at the level of the gastroesophageal junction. IMPRESSION: 1. Endotracheal tube terminates 5.6 cm with a level of the bryant. Enteric tube terminates below [id number] with sidehole at the level of the gastroesophageal junction. 2. Right base patchy opacity new from 01/23/2020 with improvement in right upper lobe patchy opacity.
[2020-01-25] MEDS: NOREPINEPHRINE 4 MG in SODIUM CHLORIDE 0.9% 250 ML IV SCH ×2 (02:02→16:29)
[2020-01-25] MEDS: SODIUM CHLORIDE 0.9% IVPB SCH (02:02)
[2020-01-25] MEDS: HEPARIN SODIUM,PORCINE 5,000 UNIT/ML 1 ML VIAL SQ SCH ×3 (02:02→16:21)
[2020-01-25] MEDS: ACYCLOVIR SODIUM IVPB SCH (02:02)
[2020-01-25] MEDS: CLEVIDIPINE BUTYRATE 25 MG in EMPTY BAG 1 BAG IV SCH (06:18)
[2020-01-25 06:23] LABS: Anisocytosis Slight; Basophils # (A) 0.1 k/uL (0-0.2); Basophils % (A) 0 %; Eosinophils % (A) 0 %; HCT 27.9 % (39.0-53.0); HGB 9.6 gm/dL (13.0-17.5); Lymphocytes # (A) 0.4 k/uL (1.0-4.8); Lymphocytes % (A) 2 %; MCH 35.4 pg (25.0-35.0); MCHC 34.3 g/dL (31.0-37.0); MCV 103.3 fL (80.0-100.0); Macrocytosis Moderate; Mean Platelet Volume 7.8; Monocytes # (A) 0.4 k/uL (0-1.0); Monocytes % (A) 2 %; Neutrophils # (A) 17.3 k/uL (1.3-7.7); Neutrophils % (A) 95 %; Platelet Count 269 k/uL (150-450); RDW 16.4 % (11.5-15.5); WBC 18.2 k/uL (3.8-10.6)
[2020-01-25 06:28] LABS: Calcium 7.9 mg/dL (8.4-10.2); Potassium 4.1 mmol/L (3.5-5.1)
[2020-01-25 07:35] LABS: ABG Base Excess 2.9 mmol/L; ABG HCO3 28 mmol/L (21-25); ABG Oxygen Saturation 97.9 % (94-97); ABG PCO2 46 mmHg (35-45); ABG PH 7.39 (7.35-7.45); ABG PO2 119 mmHg (83-108); ABG TCO2 29 mmol/L (19-24)
[2020-01-25 07:41] LABS: Allen Test Performed? no
[2020-01-25] MEDS: PIPERACILLIN-TAZOBACTAM 3.375 GM in SODIUM CHLORIDE 0.9% 100 ML IVPB SCH ×2 (08:00→20:59)
[2020-01-25] MEDS: PANTOPRAZOLE 40 MG/10 ML VIAL IV SCH ×2 (08:00→20:58)
[2020-01-25] MEDS: CHLORHEXIDINE GLUCONATE 15 ML CUP MUCOUS MEM SCH ×2 (08:01→20:58)
[2020-01-25] MEDS ORDERED: HALOPERIDOL LACTATE 5 MG/ML 1 ML VIAL IVP ONE (09:27)
[2020-01-25] MEDS ORDERED: HALOPERIDOL LACTATE 5 MG/ML 1 ML VIAL ONE (09:28)
--- NOTE | 2020-01-25 09:35 | XR ---
EXAMINATION TYPE: XR chest 1V portable DATE OF EXAM: 01/25/2020 COMPARISON: 01/24/2020 HISTORY: Tube placement TECHNIQUE: Single frontal view of the chest is obtained. FINDINGS: ET tube seen with tip approximately 5 cm above the bryant. NG tube seen extending the left abdomen. Heart is enlarged and there is bilateral infiltrate and pleural effusion. Diffuse interstit ial pattern. Hyperinflation suggests COPD. No pneumothorax. Prominence the pulmonary arteries and hil um be associated with pulmonary arterial hypertension. Consider follow-up CT scan to exclude adenopat hy. IMPRESSION: 1. Diffuse pleural-parenchymal changes are stable correlate for CHF. Underlying pneumonia not exclude d.
[2020-01-25] MEDS: QUEtiapine 25 MG TAB PO SCH ×2 (10:39→20:58)
[2020-01-25 12:40] LABS: Serum Amphetamine Negative; Serum Barbiturates Negative; Serum Benzodiazepine Negative; Serum Cocaine Negative; Serum Methadone Negative; Serum Opiates Positive; Serum Phencyclidine Negative; Serum Propoxyphene Negative; Serum THC (Cannabis) Positive
--- NOTE | 2020-01-25 13:37 | P.PN ---
Subjective Progress Note Date: 01/25/20 Principal diagnosis: Acute hypoxic respiratory failure secondary to fluid overload, pulmonary edema, end-stage renal disease This is a 49-year-old white male with history of end-stage renal disease, hypertension, COPD, patient is on hemodialysis. Patient is normally on hemodialysis Thursday, supposedly his last hemodialysis was last Thursday. Patient was brought into the ER with altered mental status and shortness of breath. Apparently he was quite confused upon presentation, blood pressure was extremely high at 217/134. Patient was noted to have abnormal labs including low sodium of 125. Abnormal BUN of 72 creatinine 8.57, and his hemoglobin was 9.2. Chest x-ray showed definitely fluid overload and he was noted to have hypoxic respiratory failure. Underwent dialysis last night, and about 1-1/2 L of fluid were removed. Patient was placed on nitroglycerin drip and on clevidipine drip, he was also noted to have herpes zoster rash in the left upper chest wall area. Started on antiviral therapy for his shingles. Patient was also placed on BiPAP, ABG was reasonable. His mentation remained, patient was admitted to the ICU and I was asked to see him on consultation. ABG on BiPAP showed a pO2 of 93 pCO2 of 41 pH of 7.43, and this was a BiPAP of 14/6 and 40% FiO2. 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 Neurology consultation is pending. Patient was reevaluated today on 01/24/20, remains in the ICU, intubated and mechanically ventilated. He is presently on assist control rate of 18 tidal volume is 450 FiO2 of 60% and PEEP of 5. ABG showed a pO2 of 93 pCO2 of 42 pH of 7.44. Patient is on propofol at 50 mcg/kg/m, IV fluids at KVO, and he is going to have dialysis today. Remains on dialysis. Remains on acyclovir for his herpes zoster dermatitis involving the T4 dermatome of left-sided chest. There is evidence of coffee ground material in the nasogastric tube and had an output of 1.8 L of coffee ground and blood-tinged nasogastric tube suctioning. Hemoglobin is holding at 8.4. EEG yesterday showed moderate to severe slowing. Consistent with metabolic encephalopathy. Today I try to wean the patient from propofol, and wanted to give the patient a weaning trial, however he became extremely agitated, and would not follow any instructions. Then we decided to try Precedex for sedation and possibly give the patient at least weaning trials today. In the meantime we will continue to plan dialysis today. Chest x-ray showed slight improvement in the aeration of bilateral upper lungs, however he continues to have some right basilar subsegmental atelectasis and possibly airspace disease Reevaluated today on 01/25/20, patient remains in the ICU. Remains on mechanical ventilation. His ventilator settings are assist control rate of 18 tidal volume is 450 FiO2 is 55% and PEEP of 5. ABG showed a pO2 of 119 pCO2 of 46 pH of 7.39. Patient was on propofol before I evaluated him, however as we took him off propofol, the patient became extremely agitated, restless, not responding to any verbal stimuli, thrashing in bed, and we have recommended Haldol, and place him back on propofol as he was endangering himself, and there was extreme risk of leg lines and extubation. Could not get the patient to follow any instructions. Had to be sedated. Obviously he is not quite ready for any weaning. We will start the patient on Seroquel 25 mg twice a day. Patient had dialysis yesterday, 2 L were removed, chest x-ray continues to show diffuse pleural parenchymal changes consistent with CHF, and possible underlying pneumonia is not entirely excluded. Objective - Vital Signs Vital signs: Vital Signs Temp 97.6 F 01/25/20 12:00 Pulse 76 01/25/20 13:00 Resp 18 01/25/20 13:00 BP 109/59 01/25/20 13:00 Pulse Ox 99 01/25/20 13:00 Intake & Output 01/24/20 01/25/20 01/25/20 18:59 06:59 18:59 Intake Total 341.886 408.257 330.902 Output Total 2935 320 Balance -2593.114 408.257 10.902 Weight 90.5 kg Intake: IV 120 120 70 normal saline KVO 120 120 70 Intake, IV Titration 221.886 288.257 220.902 Amount Dexmedetomidine/0.9% NaCl 38.553 (Pmx) 400 mcg In Empty Bag 1 bag @ Titrate IV . Q0M [facility] Rx#:[id number] Norepinephrine 4 mg In 35.307 Sodium Chloride 0.9% 250 ml @ 0.05 MCG/KG/MIN 15. 554 mls/hr IV .[id number] [facility] Rx#:[id number] Piperacillin-Tazobactam 3 100 .375 gm In Sodium Chloride 0.9% 100 ml @ 25 mls/hr IVPB Q12HR [facility] Rx #:[id number] propofoL 1,000 mg In 148.026 288.257 120.902 Empty Bag 1 bag @ Titrate IV .Q0M [facility] Rx#: [id number] Other 40 Output: Gastric Drainage 900 300 Urine 35 20 Hemodialysis 2000 Other: Voiding Method Indwelling Catheter Indwelling Catheter Indwelling Catheter ABP, PAP, CO, CI - Last Documented Arterial Blood Pressure 135/61 - Exam GENERAL DESCRIPTION: Revealed 49-year-old white male on mechanical ventilation, extremely agitated off propofol. HEENT: Eyes icteric Pallor , no scleral icterus. Oral mucous membrane is dry. Orogastric tube is intact, endotracheal tube is intact. NECK: Trachea central, no thyromegaly. LUNGS: Unlabored breathing. Crackles at the bases especially at the right base. HEART: S1, S2, regular rate and rhythm. No loud murmur ABDOMEN: Soft, no tenderness , guarding or rigidity, no organomegaly EXTREMITIES: Trace of bipedal edema noted. SKIN: vesicular rash to the left T4 dermatome with no evidence of secondary bacterial cellulitis NEUROLOGICAL: Extreme agitation noted off propofol. Psychiatric: Could not be assessed - Labs CBC & Chem 7: 01/25/20 06:00 01/25/20 06:00 Labs: Abnormal Lab Results - Last 24 Hours (Table) 01/25/20 01/25/20 01/25/20 Range/Units 06:00 06:00 07:33 WBC 18.2 H (3.8-10.6) k/uL RBC 2.70 L (4.30-5.90) m/uL Hgb 9.6 L (13.0-17.5) gm/dL Hct 27.9 L (39.0-53.0) % MCV 103.3 H (80.0-100.0) fL MCH 35.4 H (25.0-35.0) pg RDW 16.4 H (11.5-15.5) % Neutrophils # 17.3 H (1.3-7.7) k/uL Lymphocytes # 0.4 L (1.0-4.8) k/uL ABG pCO2 46 H (35-45) mmHg ABG pO2 119 H (83-108) mmHg ABG HCO3 28 H (21-25) mmol/L ABG Total CO2 29 H (19-24) mmol/L ABG O2 Saturation 97.9 H (94-97) % Chloride 97 L (98-107) mmol/L BUN 37 H (9-20) mg/dL Creatinine 5.98 H (0.66-1.25) mg/dL Calcium 7.9 L (8.4-10.2) mg/dL Microbiology - Last 24 Hours (Table) 01/24/20 16:46 Gram Stain - Preliminary Sputum Sputum Culture - Preliminary 01/23/20 01:04 Blood Culture - Preliminary Blood No Growth after 48 hours 01/23/20 01:04 Blood Culture - Preliminary Blood No Growth after 48 hours Assessment and Plan Assessment: Impression: Acute hypoxic respiratory failure secondary to pulmonary edema secondary to end- stage renal disease and missed hemodialysis. With fluid overload. Acute metabolic encephalopathy, suspect hypertensive emergency with mental status change and hypertensive encephalopathy. End-stage renal disease, on hemodialysis. Noncompliant. Acute Pulmonary edema secondary to missed dialysis with volume overload. Anemia of chronic disease. Hypovolemic hyponatremia Herpes zoster dermatitis involving anterior chest wall, patient is on acyclovir Recommendations: Continue ventilatory support. Not ready for weaning. Resume propofol. Start patient on Seroquel. Continue hemodialysis. Continue GI and DVT prophylaxis. Continue acyclovir. Remains critically ill and will remain being monitored in the ICU. Critical care time is 33 minutes. Time with Patient: Greater than 30
--- NOTE | 2020-01-25 14:06 | P.PN ---
Subjective Progress Note Date: 01/25/20 Patient is still intubated. He is on propofol 40 g infusion. When the sedation is decreased, he does try to get up, but does not show any meaningful response. Patient becomes tachypneic. No seizures reported. Objective - Vital Signs Vital signs: Vital Signs Temp 97.6 F 01/25/20 12:00 Pulse 76 01/25/20 13:00 Resp 18 01/25/20 13:00 BP 109/59 01/25/20 13:00 Pulse Ox 99 01/25/20 13:00 Intake & Output 01/24/20 01/25/20 01/25/20 18:59 06:59 18:59 Intake Total 341.886 408.257 330.902 Output Total 2935 320 Balance -2593.114 408.257 10.902 Weight 90.5 kg Intake: IV 120 120 70 normal saline KVO 120 120 70 Intake, IV Titration 221.886 288.257 220.902 Amount Dexmedetomidine/0.9% NaCl 38.553 (Pmx) 400 mcg In Empty Bag 1 bag @ Titrate IV . Q0M [facility] Rx#:[id number] Norepinephrine 4 mg In 35.307 Sodium Chloride 0.9% 250 ml @ 0.05 MCG/KG/MIN 15. 554 mls/hr IV .[id number] [facility] Rx#:[id number] Piperacillin-Tazobactam 3 100 .375 gm In Sodium Chloride 0.9% 100 ml @ 25 mls/hr IVPB Q12HR [facility] Rx #:[id number] propofoL 1,000 mg In 148.026 288.257 120.902 Empty Bag 1 bag @ Titrate IV .Q0M [facility] Rx#: [id number] Other 40 Output: Gastric Drainage 900 300 Urine 35 20 Hemodialysis 2000 Other: Voiding Method Indwelling Catheter Indwelling Catheter Indwelling Catheter ABP, PAP, CO, CI - Last Documented Arterial Blood Pressure 135/61 - Exam patient is intubated with mechanical ventilation. He is sedated. Pupils are about 3 mm, reactive to 2. Oculocephalics absent. Plantars are somewhat flat. Tone is equal bilaterally. He is breathing over the ventilator. - Labs CBC & Chem 7: 01/25/20 06:00 01/25/20 06:00 Labs: Abnormal Lab Results - Last 24 Hours (Table) 01/25/20 01/25/20 01/25/20 Range/Units 06:00 06:00 07:33 WBC 18.2 H (3.8-10.6) k/uL RBC 2.70 L (4.30-5.90) m/uL Hgb 9.6 L (13.0-17.5) gm/dL Hct 27.9 L (39.0-53.0) % MCV 103.3 H (80.0-100.0) fL MCH 35.4 H (25.0-35.0) pg RDW 16.4 H (11.5-15.5) % Neutrophils # 17.3 H (1.3-7.7) k/uL Lymphocytes # 0.4 L (1.0-4.8) k/uL ABG pCO2 46 H (35-45) mmHg ABG pO2 119 H (83-108) mmHg ABG HCO3 28 H (21-25) mmol/L ABG Total CO2 29 H (19-24) mmol/L ABG O2 Saturation 97.9 H (94-97) % Chloride 97 L (98-107) mmol/L BUN 37 H (9-20) mg/dL Creatinine 5.98 H (0.66-1.25) mg/dL Calcium 7.9 L (8.4-10.2) mg/dL Microbiology - Last 24 Hours (Table) 01/24/20 16:46 Gram Stain - Preliminary Sputum Sputum Culture - Preliminary 01/23/20 01:04 Blood Culture - Preliminary Blood No Growth after 48 hours 01/23/20 01:04 Blood Culture - Preliminary Blood No Growth after 48 hours Assessment and Plan Assessment: * Altered mental status, likely due to toxic-metabolic encephalopathy. Suspect overdose from Seroquel. Suspect suicide attempt. Rule out other substance withdrawal. * End-stage renal disease on hemodialysis * Rule out underlying substance abuse. * Patient's CBC revealed macrocytosis. Rule out some underlying alcoholism. * Herpes zoster left T4 dermatome. No signs of encephalitis. Plan: * Patient continues to be encephalopathic due to probable acute metabolic encephalopathy. * Patient has possible overdose on Seroquel. With his history of end-stage renal disease, could be more toxic. * Patient has herpetic rash over the chest, and left T4 dermatome. Patient on oral acyclovir. * EEG revealed background slowing of moderate to severe degree, consistent with encephalopathy. No epileptiform activity was seen. * serum drug screen positive for opiates and marijuana. * Medical management as per IM/ICU.
--- NOTE | 2020-01-25 15:08 | PN ---
PROGRESS NOTE Patient is seen for followup for end-stage renal disease. His sedation was decreased today and patient became quite hypertensive and was agitated. Therefore, he was put back on the vent. Therefore, he was back on sedation. Patient had dialysis yesterday, we had about 2 L of fluid removed. PHYSICAL EXAMINATION: On examination today, patient is sedated, he is on the vent, blood pressure 148/65, heart rate 89 per minute, he is afebrile. Examination of the heart S1, S2. Examination of the lungs, bilateral breath sounds are heard. Abdomen is soft, nontender. Examination of the lower extremities shows edema 1+ bilaterally. [facility]STER exam cannot be performed. LABS: Show hemoglobin 9.6, sodium 138, potassium 4.1, BUN 37, creatinine 5.98. ASSESSMENT: 1. End-stage renal disease, on hemodialysis routinely on a Thursday, Thursday, Thursday schedule, status post dialysis yesterday. We will plan to dialyze him again tomorrow. I will hold off on dialysis today. 2. Hypertension, currently worse when patient was agitated. Blood pressure is improved. He has been off the IV Cleviprex drip. We can add his home dose of Coreg if blood pressure remains elevated. 3. Possible aspiration pneumonia. 4. Left T4 dermatome zoster, maintained on acyclovir. 5. Hypoxic respiratory failure, currently on the vent. PLAN: Hemodialysis in a.m. NATALIE / JAQUI: [id number] /
--- NOTE | 2020-01-25 16:51 | P.PN ---
Subjective Progress Note Date: 01/25/20 This a 49 y/o male who lives on his owm. HE HAS ESRD with heomdialysis MWF. He was jsut at [facility] yesterday for minimal SOB, and significant herpitic Neuralgia. He was seen by nephology 01/21 who felt he could get his dialyais 01/22 and did not need it urgently. He was seen by cardiology for min abn troponins and this was felt to be chronic. He did have minmal sob, that resolved after some pain medication for his shingles. He was treated with Acyclovir. he was given Dilaudid and Gabapetnin. early in the moring he had some confusin and was given Narcan then again several hours later, which resolved his somnolence but not his pain. He was D/C in stable condtion to f/u i nt office joe cantrell to habve dialysis 01/22. ~ 01:00 01/23/2020 patient was brought in [facility] ER for altered mental status and shortness of breath. he was quite tachypneic and hypertensive upon arrival. Nitro drip was started. Patient was placed on BiPap. Ct brain old lacunar infarcts in the right internal capsule. No acute intracranial abnormality. No change. 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 01/24/2020 Yesterday required intubation, maintained on 55% FiO2/+5 of PEEP. chest x-ray reporting small right pleural effusion, increased right basilar airspace opacity airspace, right basilar subsegmental atelectasis with improved aeration of bilateral upper lungs Initially had required clevidipine, became hypotensive, discontinued and now requiring pressor support with Levophed. Evaluated by infectious disease regarding left T4 dermatome zoster,with renal dose acyclovir recommended.earlier this morning patient agitated, not following commands and weaning trial aborted. Telemetry sinus rhythm.afebrile,normal WBC. preliminary blood cultures no growth at 24 hours. ABGs noted.hemoglobin down to 8.4,platelets 239.sodium 126, BUN 60, creatinine 8.38.scheduled for hemodialysis today. alk phos mildly elevated, 127. Albumin low at 3.2. completed EEG yesterday,abnormal, suggestive of toxic metabolic encephalopathy, with no epileptiform activity seen. 01/25/2020 Remains vent dependent, FiO2 55%/+5 PEEP. Maintained on diprovan and Levophed drips. Continues on acyclovir and Zosyn. Afebrile, WBC trending up to 18.2. Hemoglobin continues improving up to 9.6, platelets 269. Weaning trials attempted today but patient became agitated, restless, not following commands, requiring Haldol and placed back on diprovan drip. Seroquel added to med regimen. Chest x-ray reporting diffuse pleural parenchymal changes, stable, possible CHF, possible underlying pneumonia, prominence of the pulmonary arteries and hilum associated pulmonary arterial hypertension, possible adenopathy. Objective - Vital Signs Vital signs: Vital Signs Temp 97.6 F 01/25/20 12:00 Pulse 80 01/25/20 12:00 Resp 18 01/25/20 12:00 BP 110/54 01/25/20 12:00 Pulse Ox 97 01/25/20 12:00 Intake & Output 01/24/20 01/25/20 01/25/20 18:59 06:59 18:59 Intake Total 341.886 408.257 280.902 Output Total 2935 320 Balance -2593.114 408.257 -39.098 Weight 90.5 kg Intake: IV 120 120 60 normal saline KVO 120 120 60 Intake, IV Titration 221.886 288.257 220.902 Amount Dexmedetomidine/0.9% NaCl 38.553 (Pmx) 400 mcg In Empty Bag 1 bag @ Titrate IV . Q0M [facility] Rx#:[id number] Norepinephrine 4 mg In 35.307 Sodium Chloride 0.9% 250 ml @ 0.05 MCG/KG/MIN 15. 554 mls/hr IV .[id number] [facility] Rx#:[id number] Piperacillin-Tazobactam 3 100 .375 gm In Sodium Chloride 0.9% 100 ml @ 25 mls/hr IVPB Q12HR [facility] Rx #:[id number] propofoL 1,000 mg In 148.026 288.257 120.902 Empty Bag 1 bag @ Titrate IV .Q0M [facility] Rx#: [id number] Output: Gastric Drainage 900 300 Urine 35 20 Hemodialysis 1999 Other: Voiding Method Indwelling Catheter Indwelling Catheter Indwelling Catheter ABP, PAP, CO, CI - Last Documented Arterial Blood Pressure 79/38 - Exam PHYSICAL EXAM: VITAL SIGNS: [as above] GENERAL: sitting up in bed, intubated, sedated HEENT: Conjunctivae normal. eyes normal. NECK: No JVD. No thyroid enlargement. CARDIOVASCULAR: S1, S2 regular.No murmur RESPIRATION: Breath sounds diminished in the bases. Bibasilar crackles. ABDOMEN: Soft, nontender . No guarding. no masses palpable. Bowel sounds heard. LEGS: trace edema. PSYCHIATRY: unable to assess, sedated. NERVOUS SYSTEM: unable to assess, sedated and intubated Skin: warm and dry, left T4 dermatome rash,dressing clean dry and intact - Labs CBC & Chem 7: 01/25/20 06:00 01/25/20 06:00 Labs: Abnormal Lab Results - Last 24 Hours (Table) 01/25/20 01/25/20 01/25/20 Range/Units 06:00 06:00 07:33 WBC 18.2 H (3.8-10.6) k/uL RBC 2.70 L (4.30-5.90) m/uL Hgb 9.6 L (13.0-17.5) gm/dL Hct 27.9 L (39.0-53.0) % MCV 103.3 H (80.0-100.0) fL MCH 35.4 H (25.0-35.0) pg RDW 16.4 H (11.5-15.5) % Neutrophils # 17.3 H (1.3-7.7) k/uL Lymphocytes # 0.4 L (1.0-4.8) k/uL ABG pCO2 46 H (35-45) mmHg ABG pO2 119 H (83-108) mmHg ABG HCO3 28 H (21-25) mmol/L ABG Total CO2 29 H (19-24) mmol/L ABG O2 Saturation 97.9 H (94-97) % Chloride 97 L (98-107) mmol/L BUN 37 H (9-20) mg/dL Creatinine 5.98 H (0.66-1.25) mg/dL Calcium 7.9 L (8.4-10.2) mg/dL Microbiology - Last 24 Hours (Table) 01/24/20 16:46 Gram Stain - Preliminary Sputum Sputum Culture - Preliminary 01/23/20 01:04 Blood Culture - Preliminary Blood No Growth after 48 hours 01/23/20 01:04 Blood Culture - Preliminary Blood No Growth after 48 hours Assessment and Plan Assessment: (1) Acute respiratory failure with hypoxia,ventilator-dependent Current Visit: Yes Status: Acute Code(s): J96.01 - ACUTE RESPIRATORY FAILURE WITH HYPOXIA SNOMED Code(s): 66236408 (2) Overdose,Seroquel Current Visit: Yes Status: Acute Code(s): T50.901A - POISONING BY UNSP DRUG/MEDS/BIOL SUBST, ACCIDENTAL, INIT SNOMED Code(s): 65677139 (3) Acute toxic and metabolic encephalopathysecondary to #2, hypertension Current Visit: Yes Status: Acute Code(s): G93.41 - METABOLIC ENCEPHALOPATHY SNOMED Code(s): 87477067 (4) Neuralgia Current Visit: Yes Status: Acute Code(s): M79.2 - NEURALGIA AND NEURITIS, UNSPECIFIED SNOMED Code(s): 46144558 (5) Altered mental status Current Visit: Yes Status: Acute Code(s): R41.82 - ALTERED MENTAL STATUS, UNSPECIFIED SNOMED Code(s): 572127561 (6) Fluid overload Current Visit: Yes Status: Acute Code(s): E87.70 - FLUID OVERLOAD, UNSPECIFIED SNOMED Code(s): 24964372 (7) Hypertensive crisis, s/p clevidepine. Current Visit: Yes Status: Acute Code(s): I16.9 - HYPERTENSIVE CRISIS, UNSPECIFIED SNOMED Code(s): 774315917 (8) herpes zoster,left T4 dermatome Current Visit: Yes Status: Acute Code(s): B02.9 - ZOSTER WITHOUT COMPLICATIONS SNOMED Code(s): 9780660 (9) End stage renal disease,on hemodialysis Current Visit: No Status: Acute Code(s): N18.6 - END STAGE RENAL DISEASE SNOMED Code(s): 54535855 (10) Anemia in chronic kidney disease Current Visit: Yes Status: Acute Code(s): N18.9 - CHRONIC KIDNEY DISEASE, UNSPECIFIED; D63.1 - ANEMIA IN CHRONIC KIDNEY DISEASE SNOMED Code(s): 056483 002 (11) hypotension, pressor dependent (12) prominence of the pulmonary arteries, hilum, suspect related to pulmonary arterial hypertension, possible adenopathy, pulmonary following. Plan: Continue on current medication regime ,monitoring and symptomatic treatment. Weaning trials again aborted, not yet ready for weaning; ICU management as per drum tester. Seroquel added to med regimen. Continue renal dose acyclovir.hemodialysis as per nephrology. Follow closely with multiple consults.Consult psychiatry once patient extubated. Suicide precautions in place.prognosis guarded given multiple complex medical issues. The impression and plan of care has been dictated as directed. : I performed a history and examination of this patient, discussed the same with the dictator. I agree with the dictator's note ,documented as a scribe. Any additional findings or plans will be noted.
[2020-01-25] MEDS: carvediloL 12.5 MG TAB PO SCH (20:58)
[2020-01-25 23:57] LABS: Glucose,Whole Blood 74 mg/dL (75-99)
--- NOTE | 2020-01-26 | PN ---
PROGRESS NOTE DATE OF SERVICE: 01/25/2020 REASON FOR FOLLOWUP: 1. Left T4 dermatome shingles. 2. Possible aspiration pneumonia. INTERVAL HISTORY: The patient is currently afebrile. The patient remains to be intubated on the vent. The patient is hemodynamically stable, not on pressor support. FiO2 is currently 55%. No significant purulent secretion through the ET or any diarrhea per the nursing staff. PHYSICAL EXAMINATION: Blood pressure is 160/72 with a pulse of 88, temperature 97.5. He is 98% on 55% FiO2. General description is a middle-aged male intubated on the vent. RESPIRATORY SYSTEM: Unlabored breathing, decreased breath sounds at the bases. No wheeze. HEART: S1, S2. Regular rate and rhythm. ABDOMEN: Soft, no tenderness. LABS: Hemoglobin 9.6, white count 18.2, BUN of 37, creatinine 5.98. Blood and sputum culture have been negative so far. DIAGNOSTIC IMPRESSION AND PLAN: 1. Patient with left T4 dermatome shingles, to continue acyclovir. Dose adjusted to his kidney function. 2. Patient with acute respiratory failure, multifactorial, possible component of pneumonia. Patient is covered with Zosyn adjusting antibiotic further on the basis of culture report. MMODL / IJN: [id number] /
[2020-01-26] MEDS: ACYCLOVIR SODIUM IVPB SCH (00:13)
[2020-01-26] MEDS: HEPARIN SODIUM,PORCINE 5,000 UNIT/ML 1 ML VIAL SQ SCH ×3 (00:13→16:14)
[2020-01-26] MEDS: SODIUM CHLORIDE 0.9% IVPB SCH (00:13)
[2020-01-26 05:37] LABS: Anisocytosis Slight; Basophils # (A) 0.1 k/uL (0-0.2); Basophils % (A) 0 %; Eosinophils # (A) 0.4 k/uL (0-0.7); Eosinophils % (A) 3 %; HCT 26.6 % (39.0-53.0); Lymphocytes # (A) 0.5 k/uL (1.0-4.8); Lymphocytes % (A) 3 %; MCH 35.1 pg (25.0-35.0); MCHC 33.7 g/dL (31.0-37.0); MCV 104.3 fL (80.0-100.0); Macrocytosis Moderate; Mean Platelet Volume 8.5; Monocytes # (A) 0.4 k/uL (0-1.0); Monocytes % (A) 3 %; Neutrophils # (A) 12.5 k/uL (1.3-7.7); Neutrophils % (A) 90 %; Platelet Count 236 k/uL (150-450); RBC 2.55 m/uL (4.30-5.90); RDW 16.4 % (11.5-15.5); WBC 13.9 k/uL (3.8-10.6)
[2020-01-26 05:53] LABS: Calcium 8.2 mg/dL (8.4-10.2); Potassium 4.2 mmol/L (3.5-5.1)
[2020-01-26 07:35] LABS: ABG Base Excess -0.8 mmol/L; ABG HCO3 25 mmol/L (21-25); ABG Oxygen Saturation 98.9 % (94-97); ABG PCO2 45 mmHg (35-45); ABG PH 7.35 (7.35-7.45); ABG PO2 175 mmHg (83-108); ABG TCO2 26 mmol/L (19-24)
[2020-01-26 07:43] LABS: Allen Test Performed? no
[2020-01-26] MEDS: PIPERACILLIN-TAZOBACTAM 3.375 GM in SODIUM CHLORIDE 0.9% 100 ML IVPB SCH ×2 (08:32→20:22)
[2020-01-26] MEDS: CHLORHEXIDINE GLUCONATE 15 ML CUP MUCOUS MEM SCH ×2 (08:33→20:21)
[2020-01-26] MEDS: CLEVIDIPINE BUTYRATE 25 MG in EMPTY BAG 1 BAG IV SCH (08:33)
[2020-01-26] MEDS: NOREPINEPHRINE 4 MG in SODIUM CHLORIDE 0.9% 250 ML IV SCH (08:46)
--- NOTE | 2020-01-26 10:22 | XR ---
EXAMINATION TYPE: XR chest 1V portable DATE OF EXAM: 01/26/2020 CLINICAL HISTORY: Tube placement TECHNIQUE: Portable upright view of the chest COMPARISON: 01/25/2020 chest radiograph FINDINGS: Endotracheal tube distal tip at the level of the clavicular heads. Enteric tube with nonvi sualization of the distal tip, with side-port at the level of the GE junction. Cardiomegaly. Prominen ce of the pulmonary arteries. Bilateral pleural effusions and bibasilar airspace opacities, with mild ly improved aeration of the right lung base versus 01/25/2020. No pneumothorax. IMPRESSION: Small bilateral pleural effusions and bibasilar airspace opacities, with mildly improved aeration of the right lung base versus 01/25/2020.
[2020-01-26] MEDS: PANTOPRAZOLE 40 MG/10 ML VIAL IV SCH ×2 (10:49→20:21)
[2020-01-26] MEDS: carvediloL 12.5 MG TAB PO SCH ×2 (10:50→17:19)
[2020-01-26] MEDS: QUEtiapine 25 MG TAB PO SCH ×2 (10:50→20:21)
--- NOTE | 2020-01-26 12:52 | PN ---
PROGRESS NOTE Patient is seen for followup for end-stage renal disease. He is currently sedated. He remains on the vent. We had about 3 L of fluid removed today. PHYSICAL EXAMINATION: On examination today, blood pressure 140/69, heart rate 79 per minute, patient is afebrile. Examination of the heart S1, S2. Examination of the lungs, decreased breath sounds at bases. Bilateral breath sounds are heard. Abdomen is soft, nontender. Examination of lower extremities shows trace edema bilaterally. CARDIAC REHABILITATION SPECIALIST exam cannot be performed. Patient is sedated. LABS: Show sodium 137, potassium 4.2, BUN 50, creatinine 7.74, hemoglobin 9.0. ASSESSMENT: 1. End-stage renal disease, on hemodialysis on a Thursday, Thursday, Thursday schedule. Currently off the schedule, we will dialyze him again on Thursday. 2. Volume overload, currently improved. 3. Herpes zoster, maintained on acyclovir. 4. Anemia of chronic disease. Will maintain patient on Aranesp. 5. Hypertension, initially uncontrolled, status post Cleviprex drip and resumed Coreg. Blood pressure had been significantly low yesterday and patient was on Levophed for a short period of time as well. 6. CKD mineral bone disorder. PLAN: 1. Add Aranesp. 2. Hemodialysis on 01/28/2020. MMODL / IJN: [id number] /
[2020-01-26] MEDS: DARBEPOETIN ALFA 40 MCG/0.4 ML SYRINGE SQ SCH (13:15)
--- NOTE | 2020-01-26 15:20 | P.PN ---
Subjective Progress Note Date: 01/26/20 Patient is still intubated. He is on propofol 40 g infusion. No seizures reported. Objective - Vital Signs Vital signs: Vital Signs Temp 97.8 F 01/26/20 12:00 Pulse 74 01/26/20 14:00 Resp 18 01/26/20 14:00 BP 140/69 01/26/20 11:55 Pulse Ox 98 01/26/20 14:00 Intake & Output 01/25/20 01/26/20 01/26/20 18:59 06:59 18:59 Intake Total 511.400 654.255 390.698 Output Total 329 72 7811 Balance 41.400 639.255 -2709.302 Weight 90.5 kg 79.3 kg Intake: IV 120 470 180 Acyclovir Sodium 725 mg 250 In Sodium Chloride 0.9% 250 ml @ 100 mls/hr IV ONCE [facility] Rx#:[id number] Piperacillin-Tazobactam 3 100 100 .375 gm In Sodium Chloride 0.9% 100 ml @ 25 mls/hr IVPB Q12HR [facility] Rx #:[id number] normal saline KVO 120 120 80 Intake, IV Titration 351.400 184.255 170.698 Amount Piperacillin-Tazobactam 3 100 .375 gm In Sodium Chloride 0.9% 100 ml @ 25 mls/hr IVPB Q12HR [facility] Rx #:[id number] propofoL 1,000 mg In 251.400 184.255 170.698 Empty Bag 1 bag @ Titrate IV .Q0M [facility] Rx#: [id number] Tube Feeding 10 Other 40 30 Output: Gastric Drainage 450 100 Urine 20 15 0 Hemodialysis 3000 Other: Voiding Method Indwelling Catheter Indwelling Catheter # Voids 0 0 ABP, PAP, CO, CI - Last Documented Arterial Blood Pressure 151/72 - Exam patient is intubated with mechanical ventilation. He is sedated. Pupils are about 3 mm, reactive to 2. Oculocephalics absent. Plantars are somewhat flat. Tone is equal bilaterally. He is breathing over the ventilator. - Labs CBC & Chem 7: 01/26/20 05:15 01/26/20 05:15 Labs: Abnormal Lab Results - Last 24 Hours (Table) 01/25/20 01/26/20 01/26/20 Range/Units 23:54 05:15 05:15 WBC 13.9 H (3.8-10.6) k/uL RBC 2.55 L (4.30-5.90) m/uL Hgb 9.0 L (13.0-17.5) gm/dL Hct 26.6 L (39.0-53.0) % MCV 104.3 H (80.0-100.0) fL MCH 35.1 H (25.0-35.0) pg RDW 16.4 H (11.5-15.5) % Neutrophils # 12.5 H (1.3-7.7) k/uL Lymphocytes # 0.5 L (1.0-4.8) k/uL ABG pO2 (83-108) mmHg ABG Total CO2 (19-24) mmol/L ABG O2 Saturation (94-97) % Chloride 97 L (98-107) mmol/L BUN 50 H (9-20) mg/dL Creatinine 7.74 H* (0.66-1.25) mg/dL Glucose 72 L (74-99) mg/dL POC Glucose (mg/dL) 74 L (75-99) mg/dL Calcium 8.2 L (8.4-10.2) mg/dL 01/26/20 Range/Units 07:26 WBC (3.8-10.6) k/uL RBC (4.30-5.90) m/uL Hgb (13.0-17.5) gm/dL Hct (39.0-53.0) % MCV (80.0-100.0) fL MCH (25.0-35.0) pg RDW (11.5-15.5) % Neutrophils # (1.3-7.7) k/uL Lymphocytes # (1.0-4.8) k/uL ABG pO2 175 H (83-108) mmHg ABG Total CO2 26 H (19-24) mmol/L ABG O2 Saturation 98.9 H (94-97) % Chloride (98-107) mmol/L BUN (9-20) mg/dL Creatinine (0.66-1.25) mg/dL Glucose (74-99) mg/dL POC Glucose (mg/dL) (75-99) mg/dL Calcium (8.4-10.2) mg/dL Microbiology - Last 24 Hours (Table) 01/23/20 01:04 Blood Culture - Preliminary Blood No Growth after 72 hours 01/23/20 01:04 Blood Culture - Preliminary Blood No Growth after 72 hours Assessment and Plan Assessment: * Altered mental status, likely due to toxic-metabolic encephalopathy. Suspect overdose from Seroquel. Suspect suicide attempt. Rule out other substance withdrawal. * Acute hypoxic respiratory failure secondary to pulmonary edema. * End-stage renal disease on hemodialysis * Rule out underlying substance abuse. * Probable pneumonia, ID on board. * Patient's CBC revealed anemia and macrocytosis. Rule out some underlying alcoholism. * Herpes zoster left T4 dermatome. No signs of encephalitis. Plan: * Patient continues to be encephalopathic due to probable acute metabolic encephalopathy. * Patient has possible overdose on Seroquel. With his history of end-stage renal disease, could be more toxic. * Patient has herpetic rash over the chest in left T4 dermatome. Patient on oral acyclovir. * EEG revealed background slowing of moderate to severe degree, consistent with encephalopathy. No epileptiform activity was seen. * Serum drug screen positive for opiates and marijuana. * Medical management as per IM/ICU.
--- NOTE | 2020-01-26 15:20 | P.PN ---
Subjective Progress Note Date: 01/26/20 Principal diagnosis: Acute hypoxic respiratory failure secondary to fluid overload, pulmonary edema, end-stage renal disease This is a 49-year-old white male with history of end-stage renal disease, hypertension, COPD, patient is on hemodialysis. Patient is normally on hemodialysis Thursday, supposedly his last hemodialysis was last Thursday. Patient was brought into the ER with altered mental status and shortness of breath. Apparently he was quite confused upon presentation, blood pressure was extremely high at 217/134. Patient was noted to have abnormal labs including low sodium of 125. Abnormal BUN of 72 creatinine 8.57, and his hemoglobin was 9.2. Chest x-ray showed definitely fluid overload and he was noted to have hypoxic respiratory failure. Underwent dialysis last night, and about 1-1/2 L of fluid were removed. Patient was placed on nitroglycerin drip and on clevidipine drip, he was also noted to have herpes zoster rash in the left upper chest wall area. Started on antiviral therapy for his shingles. Patient was also placed on BiPAP, ABG was reasonable. His mentation remained, patient was admitted to the ICU and I was asked to see him on consultation. ABG on BiPAP showed a pO2 of 93 pCO2 of 41 pH of 7.43, and this was a BiPAP of 14/6 and 40% FiO2. 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 Neurology consultation is pending. Patient was reevaluated today on 01/24/20, remains in the ICU, intubated and mechanically ventilated. He is presently on assist control rate of 18 tidal volume is 450 FiO2 of 60% and PEEP of 5. ABG showed a pO2 of 93 pCO2 of 42 pH of 7.44. Patient is on propofol at 50 mcg/kg/m, IV fluids at KVO, and he is going to have dialysis today. Remains on dialysis. Remains on acyclovir for his herpes zoster dermatitis involving the T4 dermatome of left-sided chest. There is evidence of coffee ground material in the nasogastric tube and had an output of 1.8 L of coffee ground and blood-tinged nasogastric tube suctioning. Hemoglobin is holding at 8.4. EEG yesterday showed moderate to severe slowing. Consistent with metabolic encephalopathy. Today I try to wean the patient from propofol, and wanted to give the patient a weaning trial, however he became extremely agitated, and would not follow any instructions. Then we decided to try Precedex for sedation and possibly give the patient at least weaning trials today. In the meantime we will continue to plan dialysis today. Chest x-ray showed slight improvement in the aeration of bilateral upper lungs, however he continues to have some right basilar subsegmental atelectasis and possibly airspace disease Reevaluated today on 01/25/20, patient remains in the ICU. Remains on mechanical ventilation. His ventilator settings are assist control rate of 18 tidal volume is 450 FiO2 is 55% and PEEP of 5. ABG showed a pO2 of 119 pCO2 of 46 pH of 7.39. Patient was on propofol before I evaluated him, however as we took him off propofol, the patient became extremely agitated, restless, not responding to any verbal stimuli, thrashing in bed, and we have recommended Haldol, and place him back on propofol as he was endangering himself, and there was extreme risk of leg lines and extubation. Could not get the patient to follow any instructions. Had to be sedated. Obviously he is not quite ready for any weaning. We will start the patient on Seroquel 25 mg twice a day. Patient had dialysis yesterday, 2 L were removed, chest x-ray continues to show diffuse pleural parenchymal changes consistent with CHF, and possible underlying pneumonia is not entirely excluded. Patient was reevaluated today on 01/26/20, remains in the ICU intubated and mechanically ventilated. Ventilator settings are assist control rate of 18 tidal volume is 450 FiO2 is 55% and PEEP of 5. Patient is having dialysis this morning, he is sedated and on propofol at 35 mcg/kg/m. Hoping to wake the patient up again once dialysis is done discontinued the prevent and consider weaning trial again this morning. In the meantime the patient continues to have episodes of extreme confusion and agitation as well as restlessness once he is on a lower dose of propofol. Tried on Precedex 2 days ago, and he failed to wean. Mostly because of his mental status and extreme agitation. Patient remains obtunded. ABG today showed a pO2 of 175 pCO2 of 45 pH of 7.35 WBC count is 13.9, hemoglobin is 9.0. BUN is 50 creatinine 7.74. Chest x-ray is actually showing improvement in his interstitial edema and his pleural parenchymal changes. Objective - Vital Signs Vital signs: Vital Signs Temp 97.8 F 01/26/20 12:00 Pulse 74 01/26/20 14:00 Resp 18 01/26/20 14:00 BP 140/69 01/26/20 11:55 Pulse Ox 98 01/26/20 14:00 Intake & Output 01/25/20 01/26/20 01/26/20 18:59 06:59 18:59 Intake Total 511.400 654.255 390.698 Output Total 137 18 3578 Balance 41.400 639.255 -2709.302 Weight 90.5 kg 79.3 kg Intake: IV 120 470 180 Acyclovir Sodium 725 mg 250 In Sodium Chloride 0.9% 250 ml @ 100 mls/hr IV ONCE [facility] Rx#:[id number] Piperacillin-Tazobactam 3 100 100 .375 gm In Sodium Chloride 0.9% 100 ml @ 25 mls/hr IVPB Q12HR [facility] Rx #:[id number] normal saline KVO 120 120 80 Intake, IV Titration 351.400 184.255 170.698 Amount Piperacillin-Tazobactam 3 100 .375 gm In Sodium Chloride 0.9% 100 ml @ 25 mls/hr IVPB Q12HR [facility] Rx #:[id number] propofoL 1,000 mg In 251.400 184.255 170.698 Empty Bag 1 bag @ Titrate IV .Q0M [facility] Rx#: [id number] Tube Feeding 10 Other 40 30 Output: Gastric Drainage 450 100 Urine 20 15 0 Hemodialysis 3000 Other: Voiding Method Indwelling Catheter Indwelling Catheter # Voids 0 0 ABP, PAP, CO, CI - Last Documented Arterial Blood Pressure 151/72 - Exam GENERAL DESCRIPTION: Revealed 49-year-old white male on mechanical ventilation, maintained on propofol this morning and he is having dialysis. HEENT: Eyes icteric Pallor , no scleral icterus. Oral mucous membrane is dry. Orogastric tube is intact, endotracheal tube is intact. NECK: No neck masses no JVD no stridor. LUNGS: Symmetrical expansion, crackles at the bases bilaterally. HEART: Normal S1 and S2, no S3 gallop, no murmur. ABDOMEN: Soft, no tenderness , no megaly no rebound no guarding. EXTREMITIES: Trace of bipedal edema noted. SKIN: vesicular rash to the left T4 dermatome with no evidence of secondary bacterial cellulitis NEUROLOGICAL: Could not be assessed, fully sedated, patient is on propofol and he is undergoing dialysis. Plan to hold propofol later on after dialysis. Psychiatric: Could not be assessed - Labs CBC & Chem 7: 01/26/20 05:15 01/26/20 05:15 Labs: Abnormal Lab Results - Last 24 Hours (Table) 01/25/20 01/26/20 01/26/20 Range/Units 23:54 05:15 05:15 WBC 13.9 H (3.8-10.6) k/uL RBC 2.55 L (4.30-5.90) m/uL Hgb 9.0 L (13.0-17.5) gm/dL Hct 26.6 L (39.0-53.0) % MCV 104.3 H (80.0-100.0) fL MCH 35.1 H (25.0-35.0) pg RDW 16.4 H (11.5-15.5) % Neutrophils # 12.5 H (1.3-7.7) k/uL Lymphocytes # 0.5 L (1.0-4.8) k/uL ABG pO2 (83-108) mmHg ABG Total CO2 (19-24) mmol/L ABG O2 Saturation (94-97) % Chloride 97 L (98-107) mmol/L BUN 50 H (9-20) mg/dL Creatinine 7.74 H* (0.66-1.25) mg/dL Glucose 72 L (74-99) mg/dL POC Glucose (mg/dL) 74 L (75-99) mg/dL Calcium 8.2 L (8.4-10.2) mg/dL 01/26/20 Range/Units 07:26 WBC (3.8-10.6) k/uL RBC (4.30-5.90) m/uL Hgb (13.0-17.5) gm/dL Hct (39.0-53.0) % MCV (80.0-100.0) fL MCH (25.0-35.0) pg RDW (11.5-15.5) % Neutrophils # (1.3-7.7) k/uL Lymphocytes # (1.0-4.8) k/uL ABG pO2 175 H (83-108) mmHg ABG Total CO2 26 H (19-24) mmol/L ABG O2 Saturation 98.9 H (94-97) % Chloride (98-107) mmol/L BUN (9-20) mg/dL Creatinine (0.66-1.25) mg/dL Glucose (74-99) mg/dL POC Glucose (mg/dL) (75-99) mg/dL Calcium (8.4-10.2) mg/dL Microbiology - Last 24 Hours (Table) 01/23/20 01:04 Blood Culture - Preliminary Blood No Growth after 72 hours 01/23/20 01:04 Blood Culture - Preliminary Blood No Growth after 72 hours Assessment and Plan Assessment: Impression: Acute hypoxic respiratory failure secondary to pulmonary edema secondary to end- stage renal disease and missed hemodialysis. With fluid overload. Acute metabolic encephalopathy, suspect hypertensive emergency with mental status change and hypertensive encephalopathy. End-stage renal disease, on hemodialysis. Noncompliant. Acute Pulmonary edema secondary to missed dialysis with volume overload. Anemia of chronic disease. Hypovolemic hyponatremia Herpes zoster dermatitis involving anterior chest wall, patient is on acyclovir Recommendations: Continue ventilatory support. Daily trials of weaning Will consider weaning today if his mental status is showing any improvement. Resume hemodialysis. Resume propofol. Continue Seroquel Continue GI and DVT prophylaxis. Continue acyclovir. Remains critically ill and will remain being monitored in the ICU. Critical care time is 32 minutes. Time with Patient: Greater than 30
--- NOTE | 2020-01-26 16:36 | P.PN ---
Subjective Progress Note Date: 01/26/20 This a 49 y/o male who lives on his owm. HE HAS ESRD with heomdialysis MWF. He was jsut at [facility] yesterday for minimal SOB, and significant herpitic Neuralgia. He was seen by nephology 01/21 who felt he could get his dialyais 01/22 and did not need it urgently. He was seen by cardiology for min abn troponins and this was felt to be chronic. He did have minmal sob, that resolved after some pain medication for his shingles. He was treated with Acyclovir. he was given Dilaudid and Gabapetnin. early in the moring he had some confusin and was given Narcan then again several hours later, which resolved his somnolence but not his pain. He was D/C in stable condtion to f/u i nt office joe cantrell to habve dialysis 01/22. ~ 01:00 01/23/2020 patient was brought in [facility] ER for altered mental status and shortness of breath. he was quite tachypneic and hypertensive upon arrival. Nitro drip was started. Patient was placed on BiPap. Ct brain old lacunar infarcts in the right internal capsule. No acute intracranial abnormality. No change. 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 01/24/2020 Yesterday required intubation, maintained on 55% FiO2/+5 of PEEP. chest x-ray reporting small right pleural effusion, increased right basilar airspace opacity airspace, right basilar subsegmental atelectasis with improved aeration of bilateral upper lungs Initially had required clevidipine, became hypotensive, discontinued and now requiring pressor support with Levophed. Evaluated by infectious disease regarding left T4 dermatome zoster,with renal dose acyclovir recommended.earlier this morning patient agitated, not following commands and weaning trial aborted. Telemetry sinus rhythm.afebrile,normal WBC. preliminary blood cultures no growth at 24 hours. ABGs noted.hemoglobin down to 8.4,platelets 239.sodium 126, BUN 60, creatinine 8.38.scheduled for hemodialysis today. alk phos mildly elevated, 127. Albumin low at 3.2. completed EEG yesterday,abnormal, suggestive of toxic metabolic encephalopathy, with no epileptiform activity seen. 01/25/2020 Remains vent dependent, FiO2 55%/+5 PEEP. Maintained on diprovan and Levophed drips. Continues on acyclovir and Zosyn. Afebrile, WBC trending up to 18.2. Hemoglobin continues improving up to 9.6, platelets 269. Weaning trials attempted today but patient became agitated, restless, not following commands, requiring Haldol and placed back on diprovan drip. Seroquel added to med regimen. Chest x-ray reporting diffuse pleural parenchymal changes, stable, possible CHF, possible underlying pneumonia, prominence of the pulmonary arteries and hilum associated pulmonary arterial hypertension, possible adenopathy. 01/26/2020 remains vent dependent, FiO2 down to 45%/+ 5 of PEEP. Sedated on diprovan. Levophed weaned off. Receiving hemodialysis today. ABGs noted. Chest x-ray reporting improvement. Afebrile, WBC trending down, 13.9. Hemoglobin 9, platelets, 236. Continues on acyclovir, zosyn. Blood and sputum cultures pending. Objective - Vital Signs Vital signs: Vital Signs Temp 97.8 F 01/26/20 12:00 Pulse 73 01/26/20 15:00 Resp 18 01/26/20 15:00 BP 140/69 01/26/20 11:55 Pulse Ox 98 01/26/20 15:00 Intake & Output 01/25/20 01/26/20 01/26/20 18:59 06:59 18:59 Intake Total 511.400 654.255 410.698 Output Total 386 19 4762 Balance 41.400 639.255 -2689.302 Weight 90.5 kg 79.3 kg Intake: IV 120 470 190 Acyclovir Sodium 725 mg 250 In Sodium Chloride 0.9% 250 ml @ 100 mls/hr IV ONCE [facility] Rx#:[id number] Piperacillin-Tazobactam 3 100 100 .375 gm In Sodium Chloride 0.9% 100 ml @ 25 mls/hr IVPB Q12HR [facility] BEDS AT [facility] Rx #:[id number] normal saline KVO 120 120 90 Intake, IV Titration 351.400 184.255 170.698 Amount Piperacillin-Tazobactam 3 100 .375 gm In Sodium Chloride 0.9% 100 ml @ 25 mls/hr IVPB Q12HR [facility] Rx #:[id number] propofoL 1,000 mg In 251.400 184.255 170.698 Empty Bag 1 bag @ Titrate IV .Q0M [facility] Rx#: [id number] Tube Feeding 20 Other 40 30 Output: Gastric Drainage 450 100 Urine 20 15 0 Hemodialysis 3000 Other: Voiding Method Indwelling Catheter Indwelling Catheter # Voids 0 0 ABP, PAP, CO, CI - Last Documented Arterial Blood Pressure 144/68 - Exam PHYSICAL EXAM: VITAL SIGNS: [as above] GENERAL: sitting up in bed, intubated, sedated HEENT: Conjunctivae normal. eyes normal. NECK: No JVD. No thyroid enlargement. CARDIOVASCULAR: S1, S2 regular.No murmur RESPIRATION: Breath sounds diminished in the bases. Bibasilar crackles. ABDOMEN: Soft, nontender . No guarding. no masses palpable. Bowel sounds heard. LEGS: trace edema. PSYCHIATRY: unable to assess, sedated. NERVOUS SYSTEM: unable to assess, sedated and intubated Skin: warm and dry, left T4 dermatome rash,dressing clean dry and intact - Labs CBC & Chem 7: 01/26/20 05:15 01/26/20 05:15 Labs: Abnormal Lab Results - Last 24 Hours (Table) 01/25/20 01/26/20 01/26/20 Range/Units 23:54 05:15 05:15 WBC 13.9 H (3.8-10.6) k/uL RBC 2.55 L (4.30-5.90) m/uL Hgb 9.0 L (13.0-17.5) gm/dL Hct 26.6 L (39.0-53.0) % MCV 104.3 H (80.0-100.0) fL MCH 35.1 H (25.0-35.0) pg RDW 16.4 H (11.5-15.5) % Neutrophils # 12.5 H (1.3-7.7) k/uL Lymphocytes # 0.5 L (1.0-4.8) k/uL ABG pO2 (83-108) mmHg ABG Total CO2 (19-24) mmol/L ABG O2 Saturation (94-97) % Chloride 97 L (98-107) mmol/L BUN 50 H (9-20) mg/dL Creatinine 7.74 H* (0.66-1.25) mg/dL Glucose 72 L (74-99) mg/dL POC Glucose (mg/dL) 74 L (75-99) mg/dL Calcium 8.2 L (8.4-10.2) mg/dL 01/26/20 Range/Units 07:26 WBC (3.8-10.6) k/uL RBC (4.30-5.90) m/uL Hgb (13.0-17.5) gm/dL Hct (39.0-53.0) % MCV (80.0-100.0) fL MCH (25.0-35.0) pg RDW (11.5-15.5) % Neutrophils # (1.3-7.7) k/uL Lymphocytes # (1.0-4.8) k/uL ABG pO2 175 H (83-108) mmHg ABG Total CO2 26 H (19-24) mmol/L ABG O2 Saturation 98.9 H (94-97) % Chloride (98-107) mmol/L BUN (9-20) mg/dL Creatinine (0.66-1.25) mg/dL Glucose (74-99) mg/dL POC Glucose (mg/dL) (75-99) mg/dL Calcium (8.4-10.2) mg/dL Microbiology - Last 24 Hours (Table) 01/23/20 01:04 Blood Culture - Preliminary Blood No Growth after 72 hours 01/23/20 01:04 Blood Culture - Preliminary Blood No Growth after 72 hours Assessment and Plan Assessment: (1) Acute respiratory failure with hypoxia,ventilator-dependent Current Visit: Yes Status: Acute Code(s): J96.01 - ACUTE RESPIRATORY FAILURE WITH HYPOXIA SNOMED Code(s): 92322013 (2) Overdose,Seroquel Current Visit: Yes Status: Acute Code(s): T50.901A - POISONING BY UNSP DRUG/MEDS/BIOL SUBST, ACCIDENTAL, INIT SNOMED Code(s): 18363268 (3) Acute toxic and metabolic encephalopathysecondary to #2, hypertension Current Visit: Yes Status: Acute Code(s): G93.41 - METABOLIC ENCEPHALOPATHY SNOMED Code(s): 33464133 (4) Neuralgia Current Visit: Yes Status: Acute Code(s): M79.2 - NEURALGIA AND NEURITIS, UNSPECIFIED SNOMED Code(s): 43584257 (5) Altered mental status Current Visit: Yes Status: Acute Code(s): R41.82 - ALTERED MENTAL STATUS, UNSPECIFIED SNOMED Code(s): 509053897 (6) Fluid overload Current Visit: Yes Status: Acute Code(s): E87.70 - FLUID OVERLOAD, UNSPECIFIED SNOMED Code(s): 32336495 (7) Hypertensive crisis, s/p clevidepine. Current Visit: Yes Status: Acute Code(s): I16.9 - HYPERTENSIVE CRISIS, UNSPECIFIED SNOMED Code(s): 406209464 (8) herpes zoster,left T4 dermatome Current Visit: Yes Status: Acute Code(s): B02.9 - ZOSTER WITHOUT COMPLICATIONS SNOMED Code(s): 0602578 (9) End stage renal disease,on hemodialysis Current Visit: No Status: Acute Code(s): N18.6 - END STAGE RENAL DISEASE SNOMED Code(s): 75810116 (10) Anemia in chronic kidney disease Current Visit: Yes Status: Acute Code(s): N18.9 - CHRONIC KIDNEY DISEASE, UNSPECIFIED; D63.1 - ANEMIA IN CHRONIC KIDNEY DISEASE SNOMED Code(s): 926005589 (11) hypotension, pressor dependent (12) prominence of the pulmonary arteries, hilum, suspect related to pulmonary arterial hypertension, possible adenopathy, pulmonary following. Plan: Continue on current medication regime ,monitoring and symptomatic treatment. Pulmonary discussing potential weaning trial after hemodialysis completed . Maintained on acyclovir and Zosyn as per ID.hemodialysis as per nephrology. Follow closely with multiple consults.prognosis guarded given multiple complex medical issues. The impression and plan of care has been dictated as directed. : I performed a history and examination of this patient, discussed the same with the dictator. I agree with the dictator's note ,documented as a scribe. Any a dditional findings or plans will be noted.
--- NOTE | 2020-01-26 18:55 | PN ---
PROGRESS NOTE DATE OF SERVICE: 01/26/2020 REASON FOR FOLLOWUP: 1. Left T4 dermatome shingles. 2. Possible aspiration pneumonitis. INTERVAL HISTORY: The patient is currently afebrile. The patient is hemodynamically stable, not on any pressor support. FiO2 is currently stable at 45%. No significant purulent secretion in the ET or any diarrhea per the nursing staff. Patient remains intubated on the vent, unable to provide any history. PHYSICAL EXAMINATION: Blood pressure is 133/57, pulse of 71, temperature 97.4. She is 99% on 45% FiO2. General description is a middle-aged male lying in bed in no distress. RESPIRATORY SYSTEM: Unlabored breathing with decreased breath sounds at the base. No wheeze. HEART: S1, S2. Regular rate and rhythm. ABDOMEN: Soft. No tenderness. LABS: Hemoglobin is 9. White count down to 13.9. Creatinine is 7.74. Sputum culture is pending. Blood culture negative. DIAGNOSTIC IMPRESSION AND PLAN: 1. Patient with acute respiratory failure which is multifactorial; possible component of aspiration pneumonitis. The patient is currently covered with Zosyn; to continue while waiting for the sputum culture to finalize. 2. Patient with left T4 dermatome shingles. Continue with the acyclovir, to be adjusted to his kidney function. MMODL / IJN: [id number] /
[2020-01-27] MEDS: ACYCLOVIR SODIUM IVPB SCH (00:28)
[2020-01-27] MEDS: SODIUM CHLORIDE 0.9% IVPB SCH (00:28)
[2020-01-27] MEDS: HEPARIN SODIUM,PORCINE 5,000 UNIT/ML 1 ML VIAL SQ SCH ×3 (00:29→15:16)
[2020-01-27] MEDS: NOREPINEPHRINE 4 MG in SODIUM CHLORIDE 0.9% 250 ML IV SCH ×2 (01:53→18:52)
[2020-01-27] MEDS: MORPHINE SULFATE 4 MG/ML SYRINGE IVP PRN (01:58)
[2020-01-27] MEDS: CLEVIDIPINE BUTYRATE 25 MG in EMPTY BAG 1 BAG IV SCH ×5 (02:50→22:22)
[2020-01-27 06:19] LABS: Anisocytosis Slight; Basophils % (A) 0 %; Eosinophils # (A) 0.5 k/uL (0-0.7); Eosinophils % (A) 4 %; HCT 28.7 % (39.0-53.0); Hypochromasia Slight; Lymphocytes # (A) 0.5 k/uL (1.0-4.8); Lymphocytes % (A) 5 %; MCH 33.2 pg (25.0-35.0); MCHC 31.4 g/dL (31.0-37.0); MCV 105.7 fL (80.0-100.0); Macrocytosis Moderate; Mean Platelet Volume 8.4; Monocytes # (A) 0.5 k/uL (0-1.0); Monocytes % (A) 4 %; Neutrophils # (A) 9.2 k/uL (1.3-7.7); Neutrophils % (A) 84 %; Platelet Count 286 k/uL (150-450); RBC 2.72 m/uL (4.30-5.90); RDW 17.3 % (11.5-15.5); WBC 10.9 k/uL (3.8-10.6)
[2020-01-27 06:30] LABS: Calcium 8.5 mg/dL (8.4-10.2); Potassium 4.3 mmol/L (3.5-5.1)
[2020-01-27] MEDS: carvediloL 12.5 MG TAB PO SCH ×2 (06:46→19:02)
[2020-01-27 07:22] LABS: ABG Base Excess -1.4 mmol/L; ABG HCO3 25 mmol/L (21-25); ABG Oxygen Saturation 97.5 % (94-97); ABG PCO2 47 mmHg (35-45); ABG PH 7.33 (7.35-7.45); ABG PO2 112 mmHg (83-108); ABG TCO2 26 mmol/L (19-24); Allen Test Performed? Yes
[2020-01-27] MEDS: PANTOPRAZOLE 40 MG/10 ML VIAL IV SCH ×2 (09:01→21:44)
[2020-01-27] MEDS: CHLORHEXIDINE GLUCONATE 15 ML CUP MUCOUS MEM SCH ×2 (09:01→15:17)
[2020-01-27] MEDS: PIPERACILLIN-TAZOBACTAM 3.375 GM in SODIUM CHLORIDE 0.9% 100 ML IVPB SCH ×2 (09:02→21:44)
[2020-01-27] MEDS: QUEtiapine 25 MG TAB PO SCH (09:02)
--- NOTE | 2020-01-27 09:34 | XR ---
EXAMINATION TYPE: XR chest 1V portable DATE OF EXAM: 01/27/2020 COMPARISON: 01/26/2020 HISTORY: Tube placement TECHNIQUE: Single frontal view of the chest is obtained. FINDINGS: ET and NG tube are noted. The ET tube is been pulled back to the mid esophagus. Bilateral consolidation and pleural effusion with cardiomegaly noted. Bilateral hilar enlargement. No pneumotho rax. Diffuse interstitial pattern. IMPRESSION: 1. Diffuse pleural-parenchymal changes most typical of CHF. Bilateral hilar enlargement could reflect pulmonary arterial hypertension. Underlying adenopathy or mass not excluded. 2. The ET tube is malpositioned within the mid esophageal level correlate clinically.
--- NOTE | 2020-01-27 12:56 | P.PN ---
Subjective Progress Note Date: 01/27/20 Patient was extubated early this morning. Patient still encephalopathic, keeps his eyes closed, but mumbling. Speech is otherwise clear what ever sentences he uttered. No seizures reported. Patient not able to tell any complaints or review of systems. Objective - Vital Signs Vital signs: Vital Signs Temp 97.7 F 01/27/20 12:00 Pulse 86 01/27/20 12:00 Resp 21 01/27/20 12:00 BP 156/99 01/27/20 02:00 Pulse Ox 93 L 01/27/20 12:00 Intake & Output 01/26/20 01/27/20 01/27/20 18:59 06:59 18:59 Intake Total 593.353 885.745 309.933 Output Total 3100 10 0 Balance -2506.647 875.745 309.933 Weight 76.3 kg 76.3 kg Intake: IV 220 470 160 Acyclovir Sodium 725 mg 250 In Sodium Chloride 0.9% 250 ml @ 100 mls/hr IV ONCE [facility] Rx#:[id number] Piperacillin-Tazobactam 3 100 100 100 .375 gm In Sodium Chloride 0.9% 100 ml @ 25 mls/hr IVPB Q12HR [facility] Rx #:[id number] normal saline KVO 120 120 60 Intake, IV Titration 223.353 64.745 7.933 Amount Clevidipine Butyrate 25 17.400 7.933 mg In Empty Bag 1 bag @ 1 MG/HR 2 mls/hr IV .Q24H [facility] Rx#:[id number] propofoL 1,000 mg In 223.353 47.345 Empty Bag 1 bag @ Titrate IV .Q0M [facility] Rx#: [id number] Oral 50 Tube Feeding 60 261 62 Other 90 90 30 Output: Gastric Drainage 100 Urine 0 10 0 Hemodialysis 3000 Other: Voiding Method Indwelling Catheter Indwelling Catheter Indwelling Catheter # Voids 0 ABP, PAP, CO, CI - Last Documented Arterial Blood Pressure 147/67 - Exam Patient is extubated, but still groggy, encephalopathic. Not able to assess his mentation although sometimes mumbles, which appears clear. On cranial nerve examination pupils are round and reacting, visual reyes could not be tested face is symmetric. His retail link analyst is very equal bilaterally about 4+ to 5-. Tone is equal bilaterally. Plantars are somewhat flat. Patient withdraws arms equally to noxious stimuli. - Labs CBC & Chem 7: 01/27/20 06:05 01/27/20 06:05 Labs: Abnormal Lab Results - Last 24 Hours (Table) 01/27/20 01/27/20 01/27/20 Range/Units 06:05 06:05 07:16 WBC 10.9 H (3.8-10.6) k/uL RBC 2.72 L (4.30-5.90) m/uL Hgb 9.0 L (13.0-17.5) gm/dL Hct 28.7 L (39.0-53.0) % MCV 105.7 H (80.0-100.0) fL RDW 17.3 H (11.5-15.5) % Neutrophils # 9.2 H (1.3-7.7) k/uL Lymphocytes # 0.5 L (1.0-4.8) k/uL ABG pH 7.33 L (7.35-7.45) ABG pCO2 47 H (35-45) mmHg ABG pO2 112 H (83-108) mmHg ABG Total CO2 26 H (19-24) mmol/L ABG O2 Saturation 97.5 H (94-97) % Sodium 135 L (137-145) mmol/L BUN 33 H (9-20) mg/dL Creatinine 5.19 H (0.66-1.25) mg/dL Microbiology - Last 24 Hours (Table) 01/23/20 01:04 Blood Culture - Preliminary Blood No Growth after 96 hours 01/23/20 01:04 Blood Culture - Preliminary Blood No Growth after 96 hours Assessment and Plan Assessment: * Altered mental status, likely due to toxic-metabolic encephalopathy. Suspect overdose from Seroquel. Suspect suicide attempt. Rule out other substance withdrawal. * Acute hypoxic respiratory failure secondary to pulmonary edema. Status post extubation this morning. * End-stage renal disease on hemodialysis * Rule out underlying substance abuse. * Probable pneumonia, ID on board. * Patient's CBC revealed anemia and macrocytosis. Rule out some underlying alcoholism. * Herpes zoster left T4 dermatome. No signs of encephalitis. Plan: * Patient is extubated, mentation appears better. Still groggy and enc ephalopathic. Hopefully will improve day by day. * Patient has herpetic rash over the chest in left T4 dermatome. Patient on oral acyclovir. * EEG revealed background slowing of moderate to severe degree, consistent with encephalopathy. No epileptiform activity was seen. * Serum drug screen positive for opiates and marijuana. * Psychiatry on board. * Medical management as per IM/ICU.
--- NOTE | 2020-01-27 13:11 | P.CN ---
Psychiatric Consult - . Consult date: 01/27/20 Consult:: 01/27/20 13:03 patient is a 49-year-old male currently on hemodialysis and has end- stage renal disease, COPD, GERD hypertension and history of a closed head injury. EMR was reviewed by commercial loan underwriter and consult was placed for psychiatric evaluation for patient's alleging it "suicide attempt". Patient was initially brought in for altered mental status and shortness of breath. Patient was a transfer from [facility] with a current shingles infection on his chest. Patient was placed on BiPAP and admitted to the ICU for further care. Patient was started on IV antibiotics and also IV acyclovir and infectious disease is currently following. 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 According to nursing report, states that a nurse called patient's friend who stated the patient talk 30 tablets of Seroquel on 01/21 prior to coming in the hospital. This is one of her unconfirmed at this was a actual suicide attempt had not patient overdosing accidentally. Promotion Producer attempted to speak with patient today for evaluation however patient was extubated earlier this morning and appeared to be fairly sedated and not responding to commercial loan underwriter. Plan: Continue with one-to-one sitter and suicide precautions. Continue with treatment of underlying medical comorbidities which should improve patient's mental status. Decrease Seroquel to 25 mg daily +50 mg daily at bedtime. Medical team to attempt to contact patient's family for further collateral information. delirium precautions including frequent reorientation, attempt to avoid/minimize use of restraints, open shades during the day to allow for sunlight and close them at nighttime. Attempt to avoid any benzodiazepines or anticholinergic medications. If patient requires prn for agitation, consider giving low dose of haldol 1-2 mg IM. Please re-contact psych once patient is more alert and able to communicate. Thank you.
--- NOTE | 2020-01-27 13:30 | P.PN ---
Subjective Progress Note Date: 01/27/20 Principal diagnosis: Acute hypoxic respiratory failure secondary to fluid overload, pulmonary edema, end-stage renal disease This is a 49-year-old white male with history of end-stage renal disease, hypertension, COPD, patient is on hemodialysis. Patient is normally on hemodial ysis Thursday, supposedly his last hemodialysis was last Thursday. Patient was brought into the ER with altered mental status and shortness of breath. Apparently he was quite confused upon presentation, blood pressure was extremely high at 217/134. Patient was noted to have abnormal labs including low sodium of 125. Abnormal BUN of 72 creatinine 8.57, and his hemoglobin was 9.2. Chest x-ray showed definitely fluid overload and he was noted to have hypoxic respiratory failure. Underwent dialysis last night, and about 1-1/2 L of fluid were removed. Patient was placed on nitroglycerin drip and on clevidipine drip, he was also noted to have herpes zoster rash in the left upper chest wall area. Started on antiviral therapy for his shingles. Patient was also placed on BiPAP, ABG was reasonable. His mentation remained, patient was admitted to the ICU and I was asked to see him on consultation. ABG on BiPAP showed a pO2 of 93 pCO2 of 41 pH of 7.43, and this was a BiPAP of 14/6 and 40% FiO2. 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 Neurology consultation is pending. Patient was reevaluated today on 01/24/20, remains in the ICU, intubated and mechanically ventilated. He is presently on assist control rate of 18 tidal volume is 450 FiO2 of 60% and PEEP of 5. ABG showed a pO2 of 93 pCO2 of 42 pH of 7.44. Patient is on propofol at 50 mcg/kg/m, IV fluids at KVO, and he is going to have dialysis today. Remains on dialysis. Remains on acyclovir for his herpes zoster dermatitis involving the T4 dermatome of left-sided chest. There is evidence of coffee ground material in the nasogastric tube and had an output of 1.8 L of coffee ground and blood-tinged nasogastric tube suctioning. Hemoglobin is holding at 8.4. EEG yesterday showed moderate to severe slowing. Consistent with metabolic encephalopathy. Today I try to wean the patient from propofol, and wanted to give the patient a weaning trial, however he became extremely agitated, and would not follow any instructions. Then we decided to try Precedex for sedation and possibly give the patient at least weaning trials today. In the meantime we will continue to plan dialysis today. Chest x-ray showed slight improvement in the aeration of bilateral upper lungs, however he continues to have some right basilar subsegmental atelectasis and possibly airspace disease Reevaluated today on 01/25/20, patient remains in the ICU. Remains on mechanical ventilation. His ventilator settings are assist control rate of 18 tidal volume is 450 FiO2 is 55% and PEEP of 5. ABG showed a pO2 of 119 pCO2 of 46 pH of 7.39. Patient was on propofol before I evaluated him, however as we took him off propofol, the patient became extremely agitated, restless, not responding to any verbal stimuli, thrashing in bed, and we have recommended Haldol, and place him back on propofol as he was endangering himself, and there was extreme risk of leg lines and extubation. Could not get the patient to follow any instructions. Had to be sedated. Obviously he is not quite ready for any weaning. We will start the patient on Seroquel 25 mg twice a day. Patient had dialysis yesterday, 2 L were removed, chest x-ray continues to show diffuse pleural parenchymal changes consistent with CHF, and possible underlying pneumonia is not entirely excluded. Patient was reevaluated today on 01/26/20, remains in the ICU intubated and mechanically ventilated. Ventilator settings are assist control rate of 18 tidal volume is 450 FiO2 is 55% and PEEP of 5. Patient is having dialysis this morning, he is sedated and on propofol at 35 mcg/kg/m. Hoping to wake the patient up again once dialysis is done discontinued the prevent and consider weaning trial again this morning. In the meantime the patient continues to have episodes of extreme confusion and agitation as well as restlessness once he is on a lower dose of propofol. Tried on Precedex 2 days ago, and he failed to wean. Mostly because of his mental status and extreme agitation. Patient remains obtunded. ABG today showed a pO2 of 175 pCO2 of 45 pH of 7.35 WBC count is 13.9, hemoglobin is 9.0. BUN is 50 creatinine 7.74. Chest x-ray is actually showing improvement in his interstitial edema and his pleural parenchymal changes. The patient was seen today 01/27/2020 in follow-up in the intensive care unit. He remains intubated on mechanical ventilator. Current settings assist-control, rate of 18, tidal volume 450, FiO2 45% and a PEEP of 5. Morning blood gases revealed a PaO2 of 112, CO2 47, pH 7.33. White count 10.9. Hemoglobin 9.0. M CV 105.7. Sodium 135. Potassium 4.3. Creatinine 5.19. Propofol at 35 mcg/kg/m. On clevidipine at 1 mg per hour. Off norepinephrine. Remains on Zosyn. Sputum culture positive for Streptococcus pneumoniae. Blood cultures reveal no growth. Chest x-ray reveals diffuse pleural parenchymal changes most typical of CHF. Bilateral hilar enlargement. Pulmonary artery hypertension. Objective - Vital Signs Vital signs: Vital Signs Temp 97.7 F 01/27/20 12:00 Pulse 86 01/27/20 12:00 Resp 21 01/27/20 12:00 BP 156/99 01/27/20 02:00 Pulse Ox 93 L 01/27/20 12:00 Intake & Output 01/26/20 01/27/20 01/27/20 18:59 06:59 18:59 Intake Total 593.353 885.745 309.933 Output Total 3100 10 0 Balance -2506.647 875.745 309.933 Weight 76.3 kg 76.3 kg Intake: IV 220 470 160 Acyclovir Sodium 725 mg 250 In Sodium Chloride 0.9% 250 ml @ 100 mls/hr IV ONCE [facility] Rx#:[id number] Piperacillin-Tazobactam 3 100 100 100 .375 gm In Sodium Chloride 0.9% 100 ml @ 25 mls/hr IVPB Q12HR [facility] Rx #:[id number] normal saline KVO 120 120 60 Intake, IV Titration 223.353 64.745 7.933 Amount Clevidipine Butyrate 25 17.400 7.933 mg In Empty Bag 1 bag @ 1 MG/HR 2 mls/hr IV .Q24H [facility] Rx#:[id number] propofoL 1,000 mg In 223.353 47.345 Empty Bag 1 bag @ Titrate IV .Q0M [facility] Rx#: [id number] Oral 50 Tube Feeding 60 261 62 Other 90 90 30 Output: Gastric Drainage 100 Urine 0 10 0 Hemodialysis 3000 Other: Voiding Method Indwelling Catheter Indwelling Catheter Indwelling Catheter # Voids 0 ABP, PAP, CO, CI - Last Documented Arterial Blood Pressure 147/67 - Exam GENERAL DESCRIPTION: Revealed 49-year-old white male on mechanical ventilation, maintained on propofol. HEENT: Eyes icteric Pallor , no scleral icterus. Oral mucous membrane is dry. Orogastric tube is intact, endotracheal tube is intact. NECK: No neck masses no JVD no stridor. LUNGS: Symmetrical expansion, crackles at the bases bilaterally, scattered rhonchi. HEART: Normal S1 and S2, no S3 gallop, no murmur. ABDOMEN: Soft, no tenderness , no megaly no rebound no guarding. EXTREMITIES: Trace of bipedal edema noted. SKIN: vesicular rash to the left T4 dermatome with no evidence of secondary bacterial cellulitis NEUROLOGICAL: Could not be assessed, fully sedated, patient is on propofol. Psychiatric: Could not be assessed - Labs CBC & Chem 7: 01/27/20 06:05 01/27/20 06:05 Labs: Abnormal Lab Results - Last 24 Hours (Table) 01/27/20 01/27/20 01/27/20 Range/Units 06:05 06:05 07:16 WBC 10.9 H (3.8-10.6) k/uL RBC 2.72 L (4.30-5.90) m/uL Hgb 9.0 L (13.0-17.5) gm/dL Hct 28.7 L (39.0-53.0) % MCV 105.7 H (80.0-100.0) fL RDW 17.3 H (11.5-15.5) % Neutrophils # 9.2 H (1.3-7.7) k/uL Lymphocytes # 0.5 L (1.0-4.8) k/uL ABG pH 7.33 L (7.35-7.45) ABG pCO2 47 H (35-45) mmHg ABG pO2 112 H (83-108) mmHg ABG Total CO2 26 H (19-24) mmol/L ABG O2 Saturation 97.5 H (94-97) % Sodium 135 L (137-145) mmol/L BUN 33 H (9-20) mg/dL Creatinine 5.19 H (0.66-1.25) mg/dL Microbiology - Last 24 Hours (Table) 01/23/20 01:04 Blood Culture - Preliminary Blood No Growth after 96 hours 01/23/20 01:04 Blood Culture - Preliminary Blood No Growth after 96 hours Assessment and Plan Assessment: Acute hypoxic respiratory failure secondary to pulmonary edema secondary to end- stage renal disease and previously missed hemodialysis Acute metabolic encephalopathy suspect hypertensive emergency with mental status changes and hypertensive encephalopathy End-stage renal disease, on hemodialysis, noncompliant 4 Acute pulmonary edema secondary to missed dialysis and fluid volume overload Anemia of chronic disease Hypovolemic hyponatremia Herpes zoster dermatitis involving anterior chest wall, currently on acyclovir Plan: The patient was seen and evaluated by Dr. Le Chest x-ray, labs and ABGs reviewed The patient was given a daily interruption of sedation and weaning trial Extubated this morning to 4 L/m per nasal cannula Psychiatric services consulted Continue Seroquel 25 mg a.m., 50 mg p.m. 1-1 sitter and suicide precautions should remain Incentive spirometer We will continue to follow and make further recommendations based on his clinical status Critical care time 38 minutes I, the cosigning physician, performed a history & physical examination of the patient. Lungs sounds with bilateral crackles at the posterior bases, scattered rhonchi. Maintaining good O2 saturations in the 90s on 4 L/m per nasal cannula. I discussed the assessment and plan of care with my nurse practitioner, Sulema Donahue. I attest to the above note as dictated by her. Time with Patient: Greater than 30
--- NOTE | 2020-01-27 14:40 | P.PN ---
Subjective Progress Note Date: 01/27/20 This a 49 y/o male who lives on his owm. HE HAS ESRD with heomdialysis MWF. He was jsut at [facility] yesterday for minimal SOB, and significant herpitic Neuralgia. He was seen by nephology 01/21 who felt he could get his dialyais 01/22 and did not need it urgently. He was seen by cardiology for min abn troponins and this was felt to be chronic. He did have minmal sob, that resolved after some pain medication for his shingles. He was treated with Acyclovir. he was given Dilaudid and Gabapetnin. early in the moring he had some confusin and was given Narcan then again several hours later, which resolved his somnolence but not his pain. He was D/C in stable condtion to f/u i nt office joe cantrell to habve dialysis 01/22. ~ 01:00 01/23/2020 patient was brought in [facility] ER for altered mental status and shortness of breath. he was quite tachypneic and hypertensive upon arrival. Nitro drip was started. Patient was placed on BiPap. Ct brain old lacunar infarcts in the right internal capsule. No acute intracranial abnormality. No change. 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 01/24/2020 Yesterday required intubation, maintained on 55% FiO2/+5 of PEEP. chest x-ray reporting small right pleural effusion, increased right basilar airspace opacity airspace, right basilar subsegmental atelectasis with improved aeration of bilateral upper lungs Initially had required clevidipine, became hypotensive, discontinued and now requiring pressor support with Levophed. Evaluated by infectious disease regarding left T4 dermatome zoster,with renal dose acyclovir recommended.earlier this morning patient agitated, not following commands and weaning trial aborted. Telemetry sinus rhythm.afebrile,normal WBC. preliminary blood cultures no growth at 24 hours. ABGs noted.hemoglobin down to 8.4,platelets 239.sodium 126, BUN 60, creatinine 8.38.scheduled for hemodialysis today. alk phos mildly elevated, 127. Albumin low at 3.2. completed EEG yesterday,abnormal, suggestive of toxic metabolic encephalopathy, with no epileptiform activity seen. 01/25/2020 Remains vent dependent, FiO2 55%/+5 PEEP. Maintained on diprovan and Levophed drips. Continues on acyclovir and Zosyn. Afebrile, WBC trending up to 18.2. Hemoglobin continues improving up to 9.6, platelets 269. Weaning trials attempted today but patient became agitated, restless, not following commands, requiring Haldol and placed back on diprovan drip. Seroquel added to med regimen. Chest x-ray reporting diffuse pleural parenchymal changes, stable, possible CHF, possible underlying pneumonia, prominence of the pulmonary arteries and hilum associated pulmonary arterial hypertension, possible adenopathy. 01/26/2020 remains vent dependent, FiO2 down to 45%/+ 5 of PEEP. Sedated on diprovan. Levophed weaned off. Receiving hemodialysis today. ABGs noted. Chest x-ray reporting improvement. Afebrile, WBC trending down, 13.9. Hemoglobin 9, platelets, 236. Continues on acyclovir, zosyn. Blood and sputum cultures pending. 01/27/2020 received hemodialysis yesterday .sputum culture reporting positive for Streptococcus pneumoniae , blood cultures reporting no growth . Chest x-ray reporting diffuse parenchymal changes, typical of CHF, bilateral hilar enlargement, possible pulmonary arterial hypertension, possible underlying adenopathy/mass. Maintained on Zosyn. Extubated this morning, maintaining O2 s ats in the 90s on 4 L nasal cannula. Suicide precautions in place with sitter at bedside. Levophed weaned off. Maintained on Clevidipine. Objective - Vital Signs Vital signs: Vital Signs Temp 97.6 F 01/27/20 08:00 Pulse 89 01/27/20 11:00 Resp 20 01/27/20 11:00 BP 156/99 01/27/20 02:00 Pulse Ox 91 L 01/27/20 11:00 Intake & Output 01/26/20 01/27/20 01/27/20 18:59 06:59 18:59 Intake Total 593.353 885.745 299.933 Output Total 3100 10 0 Balance -2506.647 875.745 299.933 Weight 76.3 kg 76.3 kg Intake: IV 220 470 150 Acyclovir Sodium 725 mg 250 In Sodium Chloride 0.9% 250 ml @ 100 mls/hr IV ONCE STA Rx#:[id number] Piperacillin-Tazobactam 3 100 100 100 .375 gm In Sodium Chloride 0.9% 100 ml @ 25 mls/hr IVPB Q12HR LITTLE Rx #:[id number] normal saline KVO 120 120 50 Intake, IV Titration 223.353 64.745 7.933 Amount Clevidipine Butyrate 25 17.400 7.933 mg In Empty Bag 1 bag @ 1 MG/HR 2 mls/hr IV .Q24H LITTLE Rx#:[id number] propofoL 1,000 mg In 223.353 47.345 Empty Bag 1 bag @ Titrate IV .Q0M LITTLE Rx#: [id number] Oral 50 Tube Feeding 60 261 62 Other 90 90 30 Output: Gastric Drainage 100 Urine 0 10 0 Hemodialysis 3000 Other: Voiding Method Indwelling Catheter Indwelling Catheter Indwelling Catheter # Voids 0 ABP, PAP, CO, CI - Last Documented Arterial Blood Pressure 150/69 - Exam PHYSICAL EXAM: VITAL SIGNS: [as above] GENERAL: sitting up in bed, alert and oriented 1-2, droggy HEENT: Conjunctivae normal. eyes normal. NECK: No JVD. No thyroid enlargement. CARDIOVASCULAR: S1, S2 regular.No murmur RESPIRATION: Breath sounds diminished in the bases. Scattered rhonchi with bibasilar crackles. ABDOMEN: Soft, nontender . No guarding. no masses palpable. Bowel sounds heard. LEGS: trace edema. PSYCHIATRY: unable to assess, sedated. NERVOUS SYSTEM: unable to assess fully, patient recently extubated. Skin: warm and dry, left T4 dermatome rash,dressing clean dry and intact - Labs CBC & Chem 7: 01/27/20 06:05 01/27/20 06:05 Labs: Abnormal Lab Results - Last 24 Hours (Table) 01/27/20 01/27/20 01/27/20 Range/Units 06:05 06:05 07:16 WBC 10.9 H (3.8-10.6) k/uL RBC 2.72 L (4.30-5.90) m/uL Hgb 9.0 L (13.0-17.5) gm/dL Hct 28.7 L (39.0-53.0) % MCV 105.7 H (80.0-100.0) fL RDW 17.3 H (11.5-15.5) % Neutrophils # 9.2 H (1.3-7.7) k/uL Lymphocytes # 0.5 L (1.0-4.8) k/uL ABG pH 7.33 L (7.35-7.45) ABG pCO2 47 H (35-45) mmHg ABG pO2 112 H (83-108) mmHg ABG Total CO2 26 H (19-24) mmol/L ABG O2 Saturation 97.5 H (94-97) % Sodium 135 L (137-145) mmol/L BUN 33 H (9-20) mg/dL Creatinine 5.19 H (0.66-1.25) mg/dL Microbiology - Last 24 Hours (Table) 01/23/20 01:04 Blood Culture - Preliminary Blood No Growth after 96 hours 01/23/20 01:04 Blood Culture - Preliminary Blood No Growth after 96 hours Assessment and Plan Assessment: (1) Acute respiratory failure with hypoxia, status post ventilator-dependent Current Visit: Yes Status: Acute Code(s): J96.01 - ACUTE RESPIRATORY FAILURE WITH HYPOXIA SNOMED Code(s): 08700532 (2) Overdose,Seroquel Current Visit: Yes Status: Acute Code(s): T50.901A - POISONING BY UNSP DRUG/MEDS/BIOL SUBST, ACCIDENTAL, INIT SNOMED Code(s): 55715443 (3) Acute toxic and metabolic encephalopathysecondary to #2, hypertension Current Visit: Yes Status: Acute Code(s): G93.41 - METABOLIC ENCEPHALOPATHY SNOMED Code(s): 39372978 (4) Neuralgia Current Visit: Yes Status: Acute Code(s): M79.2 - NEURALGIA AND NEURITIS, UNSPECIFIED SNOMED Code(s): 56800451 (5) Altered mental status Current Visit: Yes Status: Acute Code(s): R41.82 - ALTERED MENTAL STATUS, UNSPECIFIED SNOMED Code(s): 569718652 (6) Fluid overload Current Visit: Yes Status: Acute Code(s): E87.70 - FLUID OVERLOAD, UNSPECIFIED SNOMED Code(s): 07750969 (7) Hypertensive crisis, s/p clevidepine. Current Visit: Yes Status: Acute Code(s): I16.9 - HYPERTENSIVE CRISIS, UNSPECIFIED SNOMED Code(s): 638923758 (8) herpes zoster,left T4 dermatome Current Visit: Yes Status: Acute Code(s): B02.9 - ZOSTER WITHOUT COMPLICATIONS SNOMED Code(s): 2619910 (9) End stage renal disease,on hemodialysis Current Visit: No Status: Acute Code(s): N18.6 - END STAGE RENAL DISEASE SNOMED Code(s): 80660717 (10) Anemia in chronic kidney disease Current Visit: Yes Status: Acute Code(s): N18.9 - CHRONIC KIDNEY DISEASE, UNSPECIFIED; D63.1 - ANEMIA IN CHRONIC KIDNEY DISEASE SNOMED Code(s): 778000927 (11) hypotension, status post pressor dependent (12) prominence of the pulmonary arteries, hilum, suspect related to pulmonary arterial hypertension, possible adenopathy, pulmonary following. Plan: Continue on current medication regime ,monitoring and symptomatic treatment. Suicide precautions, psychiatry consult in place pending patient becomes more coherent. Aggressive pulmonary toileting. Maintained on acyclovir and Zosyn as per ID.hemodialysis as per nephrology. The impression and plan of care has been dictated as directed. : I performed a history and examination of this patient, discussed the same with the dictator. I agree with the dictator's note ,documented as a scribe. Any additional findings or plans will be noted.
--- NOTE | 2020-01-27 17:56 | PN ---
PROGRESS NOTE Patient is seen for followup for end-stage renal disease. He is normally maintained on a Thursday, Thursday, Thursday schedule. However, patient is currently dialyzed on a TTS schedule. We will dialyze him tomorrow and then we will plan to get him back on Thursday, Thursday, Thursday schedule on Thursday. Patient was admitted to the hospital with fluid overload after having missed dialysis, mental status changes. He was intubated and was extubated this morning. He has been tolerating dialysis well. Blood pressure was elevated and patient was restarted on Cleviprex drip, as at this point he cannot take oral medications since he was just extubated this morning. PHYSICAL EXAMINATION: On examination today, patient is following commands. He is awake, somewhat sleepy. Blood pressure this morning 150/69, heart rate 89 per minute. He is afebrile. EXAMINATION OF THE HEART: S1 and S2. EXAMINATION OF LUNGS: Bilateral breath sounds are heard. ABDOMEN: Soft, non-tender. Examination of lower extremities shows no significant edema. [employer]ICIAN exam shows patient is moving all 4 extremities. He is following commands. LABS: Labs show sodium 135, potassium 4.3, chloride 98. CO2 is 24, BUN 33, creatinine 5.1, hemoglobin 9.0 g/dL. ASSESSMENT: 1. End-stage renal disease, on hemodialysis on a Thursday, Thursday, Thursday schedule. However, patient is currently scheduled for dialysis tomorrow, and then we will get him back on a Thursday, Thursday, Thursday schedule. 2. Volume overload, currently improved. 3. Hypoxic respiratory failure, improved, currently status post extubation this morning. 4. Herpes zoster, maintained on acyclovir, thoracic T4 dermatome. 5. Hypertension, partly volume-sensitive. Blood pressure had improved. However, once patient was extubated, his blood pressure has increased and he is not able to take oral medications yet. Therefore he is back on the Cleviprex drip. 6. Pneumonia with sputum culture growing Streptococcus pneumoniae. PLAN: Continue antibiotics. We will plan for hemodialysis tomorrow. Goal UF of about 3 to 3.5 liters. Then we will dialyze him again on Thursday01/30/2020. MMODL / IJN: [id number] /
[2020-01-27] MEDS ORDERED: QUEtiapine 25 MG TAB PO SCH (21:00)
[2020-01-27] MEDS: QUEtiapine 50 MG TAB PO SCH (21:45)
--- NOTE | 2020-01-27 22:53 | PN ---
PROGRESS NOTE DATE OF SERVICE: 01/27/2020 REASON FOR FOLLOWUP: 1. Left T4 dermatome zoster. 2. Possible aspiration pneumonia. INTERVAL HISTORY: The patient has been extubated this afternoon. The patient is hemodynamically stable and currently on 4 L nasal cannula. The patient was lethargic and unable to provide any history. No vomiting or any diarrhea has been reported by nursing staff. PHYSICAL EXAMINATION: Blood pressure is 147/70 with a pulse of 80, temperature 98.3. He is 97% on 4 L nasal cannula. General description is a middle-aged male lying in bed in no distress. Respiratory system: Unlabored breathing, decreased breath sounds in the base. No wheeze. Heart S1, S2. Regular rate and rhythm. ABDOMEN: Soft, no tenderness. LABS: Hemoglobin is 9, white count 10.9, creatinine 5.19. Sputum culture with Streptococcus pneumoniae. DIAGNOSTIC IMPRESSION AND PLAN: 1. Patient with left T4 dermatome zoster. Continue acyclovir. Dose adjusted to his kidney function. 2. Patient with pneumonia. Sputum showing Streptococcus pneumoniae. Patient continues to respond to Zosyn to continue while waiting for sensitivity to finalize. 3. Continue supportive care. MMODL / IJN: [id number] /
[2020-01-27] MEDS ORDERED: ARTIFICIAL TEARS-HYPROMELLOSE DROPS 15 ML BTL BOTH EYES PRN (23:00)
[2020-01-28] MEDS: HEPARIN SODIUM,PORCINE 5,000 UNIT/ML 1 ML VIAL SQ SCH ×3 (00:08→16:57)
[2020-01-28] MEDS: SODIUM CHLORIDE 0.9% IVPB SCH (00:08)
[2020-01-28] MEDS: ACYCLOVIR SODIUM IVPB SCH (00:08)
[2020-01-28] MEDS: CLEVIDIPINE BUTYRATE 25 MG in EMPTY BAG 1 BAG IV SCH ×7 (01:03→21:14)
[2020-01-28 04:12] LABS: Anisocytosis Slight; Basophils # (A) 0.1 k/uL (0-0.2); Basophils % (A) 1 %; Eosinophils # (A) 0.4 k/uL (0-0.7); Eosinophils % (A) 4 %; HCT 29.1 % (39.0-53.0); HGB 9.4 gm/dL (13.0-17.5); Lymphocytes # (A) 0.6 k/uL (1.0-4.8); Lymphocytes % (A) 6 %; MCH 33.9 pg (25.0-35.0); MCHC 32.2 g/dL (31.0-37.0); MCV 105.4 fL (80.0-100.0); Macrocytosis Moderate; Mean Platelet Volume 8.2; Monocytes # (A) 0.6 k/uL (0-1.0); Monocytes % (A) 5 %; Neutrophils % (A) 83 %; Platelet Count 319 k/uL (150-450); RBC 2.76 m/uL (4.30-5.90); RDW 17.2 % (11.5-15.5); WBC 10.8 k/uL (3.8-10.6)
[2020-01-28 04:40] LABS: Calcium 8.5 mg/dL (8.4-10.2); Potassium 4.7 mmol/L (3.5-5.1)
--- NOTE | 2020-01-28 07:09 | XR ---
EXAMINATION TYPE: XR chest 1V portable DATE OF EXAM: 01/28/2020 COMPARISON: 01/27/2020 HISTORY: Tube placement TECHNIQUE: Single frontal view of the chest is obtained. FINDINGS: ET and NG tube have been. There is persistent right perihilar and right. Heart markedly en larged and there is a coarsened interstitium. No pneumothorax or pleural effusion. Prominence of the pulmonary arteries likely reflects pulmonary arterial hypertension. IMPRESSION: 1. There may be mild improvement relative to the prior exam with persistent right perihilar infiltrat e and prominent interstitium. Differential diagnosis includes asymmetric venous congestion and CHF. U nderlying pneumonia not excluded.
[2020-01-28] MEDS: PIPERACILLIN-TAZOBACTAM 3.375 GM in SODIUM CHLORIDE 0.9% 100 ML IVPB SCH (08:25)
[2020-01-28] MEDS: PANTOPRAZOLE 40 MG/10 ML VIAL IV SCH ×2 (08:25→21:13)
[2020-01-28] MEDS: QUEtiapine 25 MG TAB PO SCH (08:28)
[2020-01-28] MEDS: carvediloL 12.5 MG TAB PO SCH ×2 (08:28→16:57)
--- NOTE | 2020-01-28 09:54 | P.PN ---
Subjective This a 49 y/o male who lives on his owm. HE HAS ESRD with heomdialysis MWF. He was jsut at [facility] yesterday for minimal SOB, and significant herpitic Neuralgia. He was seen by nephology 01/21 who felt he could get his dialyais 01/22 and did not need it urgently. He was seen by cardiology for min abn troponins and this was felt to be chronic. He did have minmal sob, that resolved after some pain medication for his shingles. He was treated with Acyclovir. he was given Dilaudid and Gabapetnin. early in the moring he had some confusin and was given Narcan then again several hours later, which resolved his somnolence but not his pain. He was D/C in stable condtion to f/u i nthe office joe cantrell to habve dialysis 01/22. ~ 01:00 01/23/2020 patient was brought in [facility] ER for altered mental status and shortness of breath. he was quite tachypneic and hypertensive upon arrival. Nitro drip was started. Patient was placed on BiPap. Ct brain old lacunar infarcts in the right internal capsule. No acute intracranial abnormality. No change. 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 01/24/2020 Yesterday required intubation, maintained on 55% FiO2/+5 of PEEP. chest x-ray reporting small right pleural effusion, increased right basilar airspace opacity airspace, right basilar subsegmental atelectasis with improved aeration of bilateral upper lungs Initially had required clevidipine, became hypotensive, discontinued and now requiring pressor support with Levophed. Evaluated by infectious disease regarding left T4 dermatome zoster,with renal dose acyclovir recommended.earlier this morning patient agitated, not following commands and weaning trial aborted. Telemetry sinus rhythm.afebrile,normal WBC. preliminary blood cultures no growth at 24 hours. ABGs noted.hemoglobin down to 8.4,platelets 239.sodium 126, BUN 60, creatinine 8.38.scheduled for hemodialysis today. alk phos mildly elevated, 127. Albumin low at 3.2. completed EEG yesterday,abnormal, suggestive of toxic metabolic encephalopathy, with no epileptiform activity seen. 01/25/2020 Remains vent dependent, FiO2 55%/+5 PEEP. Maintained on diprovan and Levophed drips. Continues on acyclovir and Zosyn. Afebrile, WBC trending up to 18.2. Hemoglobin continues improving up to 9.6, platelets 269. Weaning trials attempted today but patient became agitated, restless, not following commands, requiring Haldol and placed back on diprovan drip. Seroquel added to med regimen. Chest x-ray reporting diffuse pleural parenchymal changes, stable, possible CHF, possible underlying pneumonia, prominence of the pulmonary arteries and hilum associated pulmonary arterial hypertension, possible adenopathy. 01/26/2020 remains vent dependent, FiO2 down to 45%/+ 5 of PEEP. Sedated on diprovan. Levophed weaned off. Receiving hemodialysis today. ABGs noted. Chest x-ray reporting improvement. Afebrile, WBC trending down, 13.9. Hemoglobin 9, platelets, 236. Continues on acyclovir, zosyn. Blood and sputum cultures pending. 01/27/2020 received hemodialysis yesterday .sputum culture reporting positive for Streptococcus pneumoniae , blood cultures reporting no growth . Chest x-ray reporting diffuse parenchymal changes, typical of CHF, bilateral hilar enlargement, possible pulmonary arterial hypertension, possible underlying adenopathy/mass. Maintained on Zosyn. Extubated this morning, maintaining O2 sats in the 90s on 4 L nasal cannula. Suicide precautions in place with sitter at bedside. Levophed weaned off. Maintained on Clevidipine. 01/28/2020: Patient remains in the intensive care unit. He is receiving dialysis today. They plan on putting her back on a Thursday schedule next week. He is somewhat confused and has a nursing at bedside. Blood pressure remains somewhat controlled manner. Pulse oximetry remains on 92% with 4 L of O2. He continues to have Brunner catheter. He remains on Zosyn for antibiotic coverage for possible aspiration pneumonia. He is anticoagulated with heparin subcutaneous. He has carvedilol and clever cracks ordered for blood pressure control. He continues on Seroquel 25 mg in the morning and 50 at bedtime. Objective - Vital Signs Vital signs: Vital Signs Temp 98.0 F 01/28/20 08:00 Pulse 84 01/28/20 09:00 Resp 18 01/28/20 09:00 BP 156/99 01/28/20 08:00 Pulse Ox 97 01/28/20 09:00 Intake & Output 01/27/20 01/28/20 01/28/20 18:59 06:59 18:59 Intake Total 135.648 8324.700 95.533 Output Total 0 0 0 Balance 754.808 1174.700 95.533 Weight 76.3 kg 76.7 kg Intake: IV 220 470 55 Acyclovir Sodium 725 mg 250 In Sodium Chloride 0.9% 250 ml @ 100 mls/hr IV ONCE STA Rx#:[id number] Piperacillin-Tazobactam 3 100 100 25 .375 gm In Sodium Chloride 0.9% 100 ml @ 25 mls/hr IVPB Q12HR LITTLE Rx #:[id number] normal saline KVO 120 120 30 Intake, IV Titration 16.866 226.700 40.533 Amount Clevidipine Butyrate 25 16.866 226.700 40.533 mg In Empty Bag 1 bag @ 1 MG/HR 2 mls/hr IV .Q24H LITTLE Rx#:[id number] Oral 50 440 Tube Feeding 62 Other 30 Output: Urine 0 0 0 Other: Voiding Method Indwelling Catheter ABP, PAP, CO, CI - Last Documented Arterial Blood Pressure 154/72 - Exam GENERAL: sitting up in bed, alert and oriented 1-2, groggy HEENT: Conjunctivae normal. eyes normal. NECK: No JVD. No thyroid enlargement. CARDIOVASCULAR: S1, S2 regular.No murmur RESPIRATION: Breath sounds diminished in the bases. Scattered rhonchi with bibasilar crackles. ABDOMEN: Soft, nontender . No guarding. no masses palpable. Bowel sounds heard. LEGS: trace edema. PSYCHIATRY: unable to assess, sedated. NERVOUS SYSTEM: unable to assess fully, patient recently extubated. Skin: warm and dry, left T4 dermatome rash,dressing clean dry and intact - Labs CBC & Chem 7: 01/28/20 04:00 01/28/20 04:00 Labs: Abnormal Lab Results - Last 24 Hours (Table) 01/28/20 01/28/20 Range/Units 04:00 04:00 WBC 10.8 H (3.8-10.6) k/uL RBC 2.76 L (4.30-5.90) m/uL Hgb 9.4 L (13.0-17.5) gm/dL Hct 29.1 L (39.0-53.0) % MCV 105.4 H (80.0-100.0) fL RDW 17.2 H (11.5-15.5) % Neutrophils # 9.0 H (1.3-7.7) k/uL Lymphocytes # 0.6 L (1.0-4.8) k/uL Sodium 133 L (137-145) mmol/L Carbon Dioxide 21 L (22-30) mmol/L BUN 45 H (9-20) mg/dL Creatinine 6.38 H (0.66-1.25) mg/dL Microbiology - Last 24 Hours (Table) 01/23/20 01:04 Blood Culture - Preliminary Blood No Growth after 120 hours 01/23/20 01:04 Blood Culture - Preliminary Blood No Growth after 120 hours 01/24/20 16:46 Gram Stain - Preliminary Sputum Sputum Culture - Preliminary Streptococcus pneumoniae Assessment and Plan (1) Acute respiratory failure with hypoxia Current Visit: Yes Status: Acute Code(s): J96.01 - ACUTE RESPIRATORY FAILURE WITH HYPOXIA SNOMED Code(s): 57685111 (2) Overdose Current Visit: Yes Status: Acute Code(s): T50.901A - POISONING BY UNSP DRUG/MEDS/BIOL SUBST, ACCIDENTAL, INIT SNOMED Code(s): 92416522 (3) Acute metabolic encephalopathy Current Visit: Yes Status: Acute Code(s): G93.41 - METABOLIC ENCEPHALOPATHY SNOMED Code(s): 26310854 (4) Neuralgia Current Visit: Yes Status: Acute Code(s): M79.2 - NEURALGIA AND NEURITIS, UNSPECIFIED SNOMED Code(s): 24632117 (5) Altered mental status Current Visit: Yes Status: Acute Code(s): R41.82 - ALTERED MENTAL STATUS, UNSPECIFIED SNOMED Code(s): 723282520 (6) Fluid overload Current Visit: Yes Status: Acute Code(s): E87.70 - FLUID OVERLOAD, UNSPECIFIED SNOMED Code(s): 75092500 (7) Hypertensive crisis Current Visit: Yes Status: Acute Code(s): I16.9 - HYPERTENSIVE CRISIS, UNSPECIFIED SNOMED Code(s): 953012155 (8) Shingles Current Visit: Yes Status: Acute Code(s): B02.9 - ZOSTER WITHOUT COMPLICATIONS SNOMED Code(s): 0169644 (9) End stage renal disease Current Visit: No Status: Acute Code(s): N18.6 - END STAGE RENAL DISEASE SNOMED Code(s): 90559481 (10) Anemia in chronic kidney disease Current Visit: Yes Status: Acute Code(s): N18.9 - CHRONIC KIDNEY DISEASE, UNSPECIFIED; D63.1 - ANEMIA IN CHRONIC KIDNEY DISEASE SNOMED Code(s): 292029251 (11) Hypotension Current Visit: Yes Status: Acute Code(s): I95.9 - HYPOTENSION, UNSPECIFIED SNOMED Code(s): 92963428 Plan: continue plan per Critial care for acute respiratory failure We have further recommendations from infectious disease, neurology, nephrology, and psychiatry. Plan from dialysis most likely again on Thursday. repeat labs in am FM will reevalaute in the next 24 hrs
[2020-01-28] MEDS: cloNIDine HCL 0.1 MG TAB PO SCH ×3 (11:30→21:13)
[2020-01-28] MEDS: NOREPINEPHRINE 4 MG in SODIUM CHLORIDE 0.9% 250 ML IV SCH (11:46)
--- NOTE | 2020-01-28 11:49 | P.PN ---
Subjective Progress Note Date: 01/28/20 Principal diagnosis: This is a 49 over male known to us with ESRD on dialysis Thursday came in with noncompliance with dialysis treatment, admitted with short of john ath as well as changes in mental status eventually had intubated. He was extubated yesterday. He was dialyzed this morning. He was also recently diagnosed with zoster and postherpetic neuralgia Currently he is awake and alert and was just dialyzed. He has a hoarse voice and slow to respond. Neurology is on the case. His off of any sedation His blood pressure is in the 150s is afebrile. Objective - Vital Signs Vital signs: Vital Signs Temp 98.0 F 01/28/20 08:00 Pulse 81 01/28/20 11:00 Resp 16 01/28/20 11:00 BP 156/99 01/28/20 08:00 Pulse Ox 96 01/28/20 11:00 Intake & Output 01/27/20 01/28/20 01/28/20 18:59 06:59 18:59 Intake Total 889.248 2762.700 165.533 Output Total 0 0 0 Balance 413.015 5897.700 165.533 Weight 76.3 kg 76.7 kg Intake: IV 220 470 125 Acyclovir Sodium 725 mg 250 In Sodium Chloride 0.9% 250 ml @ 100 mls/hr IV ONCE STA Rx#:[id number] Piperacillin-Tazobactam 3 100 100 75 .375 gm In Sodium Chloride 0.9% 100 ml @ 25 mls/hr IVPB Q12HR LITT[facility] Rx #:[id number] normal saline KVO 120 120 50 Intake, IV Titration 16.866 226.700 40.533 Amount Clevidipine Butyrate 25 16.866 226.700 40.533 mg In Empty Bag 1 bag @ 1 MG/HR 2 mls/hr IV .Q24H LITTLE Rx#:[id number] Oral 50 440 Tube Feeding 62 Other 30 Output: Urine 0 0 0 Other: Voiding Method Indwelling Catheter ABP, PAP, CO, CI - Last Documented Arterial Blood Pressure 159/77 On examination he is awake alert but very slow to respond to questions. Follows commands. HEENT exam no JVP neck is supple no facial asymmetry Lungs are clear to auscultation fair air entry bilaterally Heart sounds unremarkable for any murmur rub gallop Abdomen soft nontender Extremity exam was no edema Neurologically awake alert but orientation is difficult to figure out. - Labs CBC & Chem 7: 01/28/20 04:00 01/28/20 04:00 Labs: Abnormal Lab Results - Last 24 Hours (Table) 01/28/20 01/28/20 Range/Units 04:00 04:00 WBC 10.8 H (3.8-10.6) k/uL RBC 2.76 L (4.30-5.90) m/uL Hgb 9.4 L (13.0-17.5) gm/dL Hct 29.1 L (39.0-53.0) % MCV 105.4 H (80.0-100.0) fL RDW 17.2 H (11.5-15.5) % Neutrophils # 9.0 H (1.3-7.7) k/uL Lymphocytes # 0.6 L (1.0-4.8) k/uL Sodium 133 L (137-145) mmol/L Carbon Dioxide 21 L (22-30) mmol/L BUN 45 H (9-20) mg/dL Creatinine 6.38 H (0.66-1.25) mg/dL Microbiology - Last 24 Hours (Table) 01/23/20 01:04 Blood Culture - Preliminary Blood No Growth after 120 hours 01/23/20 01:04 Blood Culture - Preliminary Blood No Growth after 120 hours 01/24/20 16:46 Gram Stain - Preliminary Sputum Sputum Culture - Preliminary Streptococcus pneumoniae Assessment and Plan Assessment: Impression 1. ESRD on dialysis currently dialyzes Thursday here today. 2. Admitted with congestive heart failure and confusion with with noncompliance with dialysis treatment missed dialysis 3. Extubated yesterday 4. Slightly confused 5. Anemia hemoglobin is 9.4 stable and improved Plan- 1. We'll continue dialysis Thursday 2. Watch blood pressure labs.
[2020-01-28] MEDS ORDERED: AMPICILLIN-SULBACTAM 3 GM in SODIUM CHLORIDE 0.9% 100 ML IVPB SCH (12:45)
--- NOTE | 2020-01-28 13:14 | PN ---
PROGRESS NOTE DATE OF SERVICE: 01/28/2020 REASON FOR FOLLOW UP: 1. Left T4 dermatome shingles. 2. Pneumonia with streptococcus pneumoniae. INTERVAL HISTORY: The patient is currently afebrile. The patient is feeling better. Breathing comfortably. He continues on aspirin. No chest pain or cough. No nausea, no vomiting or diarrhea has been reported by nursing staff. PHYSICAL EXAMINATION: Blood pressure 155/75 with a pulse of 87, temperature 98, he is 96% on 3 L. General description is a middle-aged male up in the bed in no distress. Respiratory system: Unlabored breathing, decreased breath sounds at bases, no wheeze. Heart S1, S2. Regular rate and rhythm. Abdomen is soft, no tenderness. LABS: Hemoglobin 9.4, white count 10.8, BUN of 45, creatinine 6.38. Sputum with Streptococcus pneumoniae that is a sensitive pathogen. DIAGNOSTIC IMPRESSION AND PLAN: 1. Patient with left T4 dermatome shingles. Continue with acyclovir for 7 days. 2. Patient with pneumonia. Sputum with strep pneumoniae, sensitive pathogen. Antibiotic will be switched over to Unasyn as there was concern for possible aspiration, 3 gram daily and will monitor clinical course closely. MMODL / IJN: [id number] / SYLVIE
--- NOTE | 2020-01-28 13:41 | P.PN ---
Subjective Progress Note Date: 01/28/20 Principal diagnosis: Acute hypoxic respiratory failure secondary to fluid overload, pulmonary edema, end-stage renal disease This is a 49-year-old white male with history of end-stage renal disease, hypertension, COPD, patient is on hemodialysis. Patient is normally on hemodialysis Thursday, supposedly his last hemodialysis was last Thursday. Patient was brought into the ER with altered mental status and shortness of breath. Apparently he was quite confused upon presentation, blood pressure was extremely high at 217/134. Patient was noted to have abnormal labs including low sodium of 125. Abnormal BUN of 72 creatinine 8.57, and his hemoglobin was 9.2. Chest x-ray showed definitely fluid overload and he was noted to have hypoxic respiratory failure. Underwent dialysis last night, and about 1-1/2 L of fluid were removed. Patient was placed on nitroglycerin drip and on clevidipine drip, he was also noted to have herpes zoster rash in the left upper chest wall area. Started on antiviral therapy for his shingles. Patient was also placed on BiPAP, ABG was reasonable. His mentation remained, patient was admitted to the ICU and I was asked to see him on consultation. ABG on BiPAP showed a pO2 of 93 pCO2 of 41 pH of 7.43, and this was a BiPAP of 14/6 and 40% FiO2. 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 Neurology consultation is pending. Patient was reevaluated today on 01/24/20, remains in the ICU, intubated and mechanically ventilated. He is presently on assist control rate of 18 tidal volume is 450 FiO2 of 60% and PEEP of 5. ABG showed a pO2 of 93 pCO2 of 42 pH of 7.44. Patient is on propofol at 50 mcg/kg/m, IV fluids at KVO, and he is going to have dialysis today. Remains on dialysis. Remains on acyclovir for his herpes zoster dermatitis involving the T4 dermatome of left-sided chest. There is evidence of coffee ground material in the nasogastric tube and had an output of 1.8 L of coffee ground and blood-tinged nasogastric tube suctioning. Hemoglobin is holding at 8.4. EEG yesterday showed moderate to severe slowing. Consistent with metabolic encephalopathy. Today I try to wean the patient from propofol, and wanted to give the patient a weaning trial, however he became extremely agitated, and would not follow any instructions. Then we decided to try Precedex for sedation and possibly give the patient at least weaning trials today. In the meantime we will continue to plan dialysis today. Chest x-ray showed slight improvement in the aeration of bilateral upper lungs, however he continues to have some right basilar subsegmental atelectasis and possibly airspace disease Reevaluated today on 01/25/20, patient remains in the ICU. Remains on mechanical ventilation. His ventilator settings are assist control rate of 18 tidal volume is 450 FiO2 is 55% and PEEP of 5. ABG showed a pO2 of 119 pCO2 of 46 pH of 7.39. Patient was on propofol before I evaluated him, however as we took him off propofol, the patient became extremely agitated, restless, not responding to any verbal stimuli, thrashing in bed, and we have recommended Haldol, and place him back on propofol as he was endangering himself, and there was extreme risk of leg lines and extubation. Could not get the patient to follow any instructions. Had to be sedated. Obviously he is not quite ready for any weaning. We will start the patient on Seroquel 25 mg twice a day. Patient had dialysis yesterday, 2 L were removed, chest x-ray continues to show diffuse pleural parenchymal changes consistent with CHF, and possible underlying pneumonia is not entirely excluded. Patient was reevaluated today on 01/26/20, remains in the ICU intubated and mechanically ventilated. Ventilator settings are assist control rate of 18 tidal volume is 450 FiO2 is 55% and PEEP of 5. Patient is having dialysis this morning, he is sedated and on propofol at 35 mcg/kg/m. Hoping to wake the patient up again once dialysis is done discontinued the prevent and consider weaning trial again this morning. In the meantime the patient continues to have episodes of extreme confusion and agitation as well as restlessness once he is on a lower dose of propofol. Tried on Precedex 2 days ago, and he failed to wean. Mostly because of his mental status and extreme agitation. Patient remains obtunded. ABG today showed a pO2 of 175 pCO2 of 45 pH of 7.35 WBC count is 13.9, hemoglobin is 9.0. BUN is 50 creatinine 7.74. Chest x-ray is actually showing improvement in his interstitial edema and his pleural parenchymal changes. The patient was seen today 01/27/2020 in follow-up in the intensive care unit. He remains intubated on mechanical ventilator. Current settings assist-control, rate of 18, tidal volume 450, FiO2 45% and a PEEP of 5. Morning blood gases revealed a PaO2 of 112, CO2 47, pH 7.33. White count 10.9. Hemoglobin 9.0. MC V 105.7. Sodium 135. Potassium 4.3. Creatinine 5.19. Propofol at 35 mcg/kg/m. On clevidipine at 1 mg per hour. Off norepinephrine. Remains on Zosyn. Sputum culture positive for Streptococcus pneumoniae. Blood cultures reveal no growth. Chest x-ray reveals diffuse pleural parenchymal changes most typical of CHF. Bilateral hilar enlargement. Pulmonary artery hypertension. Patient was reevaluated today on 01/28/20, patient remains in the ICU. He is presently receiving hemodialysis. Remains confused and encephalopathic, patient was extubated yesterday. Patient remains on clevidipine at 6 mg per hour, going to wean him since I will start his clonidine as taken at home and his hyd ralazine. Sputum came back positive for Streptococcus pneumonia, patient remains on antibiotics. He is drowsy, he is slow, and encephalopathic. Receiving hemodialysis during my evaluation. Labs showed hemoglobin of 9.4 WBC count is 10.8, slightly improved considered to WBC count on admission. E lectrolytes are normal bicarb is 21. BUN is 45 creatinine is 6.38 chest x-ray today continue to show improvement with persistent right perihilar infiltrate and prominent interstitium. Patient has basically pneumonia and asymmetric venous congestion/fluid overload from end-stage renal disease and failure to comply with hemodialysis Objective - Vital Signs Vital signs: Vital Signs Temp 98.0 F 01/28/20 11:56 Pulse 79 01/28/20 13:00 Resp 14 01/28/20 13:00 BP 173/80 01/28/20 11:56 Pulse Ox 97 01/28/20 13:00 Intake & Output 01/27/20 01/28/20 01/28/20 18:59 06:59 18:59 Intake Total 048.411 5832.700 281.066 Output Total 0 0 3500 Balance 913.519 4602.700 -3218.934 Weight 76.3 kg 76.7 kg Intake: IV 220 470 180 Acyclovir Sodium 725 mg 250 In Sodium Chloride 0.9% 250 ml @ 100 mls/hr IV ONCE STA Rx#:[id number] Piperacillin-Tazobactam 3 100 100 100 .375 gm In Sodium Chloride 0.9% 100 ml @ 25 mls/hr IVPB Q12HR [facility] Rx #:[id number] normal saline KVO 120 120 80 Intake, IV Titration 16.866 226.700 101.066 Amount Clevidipine Butyrate 25 16.866 226.700 101.066 mg In Empty Bag 1 bag @ 1 MG/HR 2 mls/hr IV .Q24H [facility] Rx#:[id number] Oral 50 440 Tube Feeding 62 Other 30 Output: Urine 0 0 0 Hemodialysis 3500 Other: Voiding Method Indwelling Catheter ABP, PAP, CO, CI - Last Documented Arterial Blood Pressure 139/73 - Exam GENERAL DESCRIPTION: Revealed 49-year-old white male on nasal cannula, confused, and encephalopathic. In no form of respiratory distress. HEENT: Eyes icteric Pallor , no scleral icterus. Oral mucous membrane is dry. NECK: No neck masses no JVD no stridor. LUNGS: Symmetrical expansion, fine crackles bilaterally. No rhonchi and no wheezes.. HEART: Normal S1 and S2, no S3 gallop, no murmur. ABDOMEN: Soft, no tenderness , no megaly no rebound no guarding. EXTREMITIES: Trace of bipedal edema noted. SKIN: vesicular rash to the left T4 dermatome with no evidence of secondary bacterial cellulitis NEUROLOGICAL: Awake, but confused, and extremely slow to respond. Psychiatric: Blunted mood affect and confused mental status - Labs CBC & Chem 7: 01/28/20 04:00 01/28/20 04:00 Labs: Abnormal Lab Results - Last 24 Hours (Table) 01/28/20 01/28/20 Range/Units 04:00 04:00 WBC 10.8 H (3.8-10.6) k/uL RBC 2.76 L (4.30-5.90) m/uL Hgb 9.4 L (13.0-17.5) gm/dL Hct 29.1 L (39.0-53.0) % MCV 105.4 H (80.0-100.0) fL RDW 17.2 H (11.5-15.5) % Neutrophils # 9.0 H (1.3-7.7) k/uL Lymphocytes # 0.6 L (1.0-4.8) k/uL Sodium 133 L (137-145) mmol/L Carbon Dioxide 21 L (22-30) mmol/L BUN 45 H (9-20) mg/dL Creatinine 6.38 H (0.66-1.25) mg/dL Microbiology - Last 24 Hours (Table) 01/24/20 16:46 Gram Stain - Final Sputum Sputum Culture - Final Streptococcus pneumoniae 01/23/20 01:04 Blood Culture - Preliminary Blood No Growth after 120 hours 01/23/20 01:04 Blood Culture - Preliminary Blood No Growth after 120 hours Assessment and Plan Assessment: Impression: Acute hypoxic respiratory failure secondary to pulmonary edema secondary to end- stage renal disease and missed hemodialysis. With fluid overload. Acute metabolic encephalopathy, suspect hypertensive emergency with mental status change and hypertensive encephalopathy. End-stage renal disease, on hemodialysis. Noncompliant. Acute Pulmonary edema secondary to missed dialysis with volume overload. Anemia of chronic disease. Hypovolemic hyponatremia, improved. Herpes zoster dermatitis involving anterior chest wall, patient is on acyclovir Recommendations: Continue to monitor in the ICU. Neurology to continue to follow regarding his encephalopathy. Continue hemodialysis. Continue Seroquel Continue GI and DVT prophylaxis. Continue acyclovir. We'll continue to follow. Time with Patient: Less than 30
[2020-01-28] MEDS: ONDANSETRON 4 MG/2 ML VIAL IVP PRN (15:07)
[2020-01-28] MEDS: hydrALAZINE HCL 50 MG TAB PO SCH ×2 (16:57→21:13)
[2020-01-28] MEDS: QUEtiapine 50 MG TAB PO SCH (21:13)
[2020-01-29] MEDS: HEPARIN SODIUM,PORCINE 5,000 UNIT/ML 1 ML VIAL SQ SCH ×4 (00:01→23:41)
[2020-01-29] MEDS: SODIUM CHLORIDE 0.9% IVPB SCH ×2 (00:02→23:42)
[2020-01-29] MEDS: ACYCLOVIR SODIUM IVPB SCH ×2 (00:02→23:42)
[2020-01-29] MEDS: CLEVIDIPINE BUTYRATE 25 MG in EMPTY BAG 1 BAG IV SCH (02:50)
[2020-01-29 04:51] LABS: Anisocytosis Slight; HCT 27.2 % (39.0-53.0); HGB 8.7 gm/dL (13.0-17.5); Hypochromasia Slight; MCH 33.8 pg (25.0-35.0); MCHC 32.1 g/dL (31.0-37.0); MCV 105.2 fL (80.0-100.0); Macrocytosis Moderate; Mean Platelet Volume 7.8; Platelet Count 293 k/uL (150-450); RBC 2.58 m/uL (4.30-5.90); RDW 17.1 % (11.5-15.5); WBC 10.2 k/uL (3.8-10.6)
[2020-01-29 05:01] LABS: Calcium 8.7 mg/dL (8.4-10.2); Potassium 4.6 mmol/L (3.5-5.1)
[2020-01-29] MEDS: NOREPINEPHRINE 4 MG in SODIUM CHLORIDE 0.9% 250 ML IV SCH (05:02)
[2020-01-29] MEDS: carvediloL 12.5 MG TAB PO SCH ×3 (08:12→19:14)
[2020-01-29] MEDS: PANTOPRAZOLE 40 MG/10 ML VIAL IV SCH ×2 (08:12→20:19)
[2020-01-29] MEDS: hydrALAZINE HCL 50 MG TAB PO SCH ×3 (08:12→22:24)
[2020-01-29] MEDS: cloNIDine HCL 0.1 MG TAB PO SCH ×3 (08:12→22:24)
[2020-01-29] MEDS: QUEtiapine 25 MG TAB PO SCH (08:12)
--- NOTE | 2020-01-29 08:12 | XR ---
EXAMINATION TYPE: XR chest 1V portable DATE OF EXAM: 01/29/2020 Comparison: 01/28/2020 Clinical History: 49-year-old male Tube placement Findings: Heart moderately enlarged. Mild patchy interstitial opacities remain particularly on the right. No si zable effusion. Impression: Mild patchy interstitial opacities remain, possible pulmonary vascular congestion versus atypical pne umonias. Moderate cardiomegaly persists.
--- NOTE | 2020-01-29 10:41 | P.PN ---
Subjective This a 49 y/o male who lives on his owm. HE HAS ESRD with heomdialysis MWF. He was jsut at [facility] yesterday for minimal SOB, and significant herpitic Neuralgia. He was seen by nephology 01/21 who felt he could get his dialyais 01/22 and did not need it urgently. He was seen by cardiology for min abn troponins and this was felt to be chronic. He did have minmal sob, that resolved after some pain medication for his shingles. He was treated with Acyclovir. he was given Dilaudid and Gabapetnin. early in the moring he had some confusin and was given Narcan then again several hours later, which resolved his somnolence but not his pain. He was D/C in stable condtion to f/u i nthe office joe cantrell to habve dialysis 01/22. ~ 01:00 01/23/2020 patient was brought in [facility] ER for altered mental status and shortness of breath. he was quite tachypneic and hypertensive upon arrival. Nitro drip was started. Patient was placed on BiPap. Ct brain old lacunar infarcts in the right internal capsule. No acute intracranial abnormality. No change. 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 01/24/2020 Yesterday required intubation, maintained on 55% FiO2/+5 of PEEP. chest x-ray reporting small right pleural effusion, increased right basilar airspace opacity airspace, right basilar subsegmental atelectasis with improved aeration of bilateral upper lungs Initially had required clevidipine, became hypotensive, discontinued and now requiring pressor support with Levophed. Evaluated by infectious disease regarding left T4 dermatome zoster,with renal dose acyclovir recommended.earlier this morning patient agitated, not following commands and weaning trial aborted. Telemetry sinus rhythm.afebrile,normal WBC. preliminary blood cultures no growth at 24 hours. ABGs noted.hemoglobin down to 8.4,platelets 239.sodium 126, BUN 60, creatinine 8.38.scheduled for hemodialysis today. alk phos mildly elevated, 127. Albumin low at 3.2. completed EEG yesterday,abnormal, suggestive of toxic metabolic encephalopathy, with no epileptiform activity seen. 01/25/2020 Remains vent dependent, FiO2 55%/+5 PEEP. Maintained on diprovan and Levophed drips. Continues on acyclovir and Zosyn. Afebrile, WBC trending up to 18.2. Hemoglobin continues improving up to 9.6, platelets 269. Weaning trials attempted today but patient became agitated, restless, not following commands, requiring Haldol and placed back on diprovan drip. Seroquel added to med regimen. Chest x-ray reporting diffuse pleural parenchymal changes, stable, possible CHF, possible underlying pneumonia, prominence of the pulmonary arteries and hilum associated pulmonary arterial hypertension, possible adenopathy. 01/26/2020 remains vent dependent, FiO2 down to 45%/+ 5 of PEEP. Sedated on diprovan. Levophed weaned off. Receiving hemodialysis today. ABGs noted. Chest x-ray reporting improvement. Afebrile, WBC trending down, 13.9. Hemoglobin 9, platelets, 236. Continues on acyclovir, zosyn. Blood and sputum cultures pending. 01/27/2020 received hemodialysis yesterday .sputum culture reporting positive for Streptococcus pneumoniae , blood cultures reporting no growth . Chest x-ray reporting diffuse parenchymal changes, typical of CHF, bilateral hilar enlargement, possible pulmonary arterial hypertension, possible underlying adenopathy/mass. Maintained on Zosyn. Extubated this morning, maintaining O2 sats in the 90s on 4 L nasal cannula. Suicide precautions in place with sitter at bedside. Levophed weaned off. Maintained on Clevidipine. 01/28/2020: Patient remains in the intensive care unit. He is receiving dialysis today. They plan on putting her back on a Thursday schedule next week. He is somewhat confused and has a nursing at bedside. Blood pressure remains somewhat controlled manner. Pulse oximetry remains on 92% with 4 L of O2. He continues to have Brunner catheter. He remains on Zosyn for antibiotic coverage for possible aspiration pneumonia. He is anticoagulated with heparin subcutaneous. He has carvedilol and clever cracks ordered for blood pressure control. He continues on Seroquel 25 mg in the morning and 50 at bedtime. 01/29/2020: Patient maintains intensive care unit. He continues to be encephalopathic with the Coumadin somnolence. He had dialysis yesterday. There is a sitter bedside. Blood pressure remained somewhat controlled with carvedilol, clonidine, and noted clever cracks is currently on hold. He remains on Unasyn, acyclovir for antibiotic coverage for a possible aspiration pneumonia and his shingles. He is on subcutaneous heparin for anticoagulation. Hemoglobin is down slightly to 8.7 today. Otherwise they appear stable. Critical care recommendations along with nephrology recommendations and infectious disease were reviewed today. Objective - Vital Signs Vital signs: Vital Signs Temp 98.8 F 01/29/20 08:00 Pulse 70 01/29/20 10:00 Resp 28 H 01/29/20 10:00 BP 102/60 01/29/20 10:00 Pulse Ox 95 01/29/20 10:00 Intake & Output 01/28/20 01/29/20 01/29/20 18:59 06:59 18:59 Intake Total 405.066 498.933 344.933 Output Total 3500 0 0 Balance -3094.934 498.933 344.933 Weight 75.5 kg Intake: IV 280 390 70 Acyclovir Sodium 725 mg 250 In Sodium Chloride 0.9% 250 ml @ 100 mls/hr IV ONCE STA Rx#:[id number] Piperacillin-Tazobactam 3 100 .375 gm In Sodium Chloride 0.9% 100 ml @ 25 mls/hr IVPB Q12HR LITTLE Rx #:[id number] normal saline KVO 180 140 70 Intake, IV Titration 125.066 108.933 34.933 Amount Clevidipine Butyrate 25 125.066 108.933 34.933 mg In Empty Bag 1 bag @ 1 MG/HR 2 mls/hr IV .Q24H LITTLE Rx#:[id number] Oral 240 Output: Urine 0 0 0 Hemodialysis 3500 Other: Voiding Method Indwelling Catheter ABP, PAP, CO, CI - Last Documented Arterial Blood Pressure 126/112 - Exam GENERAL: sitting up in bed, somnolent and difficult to arouse at this time. HEENT: Conjunctivae normal. eyes normal. NECK: No JVD. No thyroid enlargement. CARDIOVASCULAR: S1, S2 regular. 1/6 murmur systolic murmur to the right and left sternal border RESPIRATION: Breath sounds diminished in the bases. Scattered rhonchi with bibasilar crackles. ABDOMEN: Soft, nontender . No guarding. no masses palpable. Bowel sounds heard. LEGS: trace edema. PSYCHIATRY: unable to assess, sedated. NERVOUS SYSTEM: unable to assess fully, patient is encephalopathic Skin: warm and dry, left T4 dermatome rash,dressing clean dry and intact - Labs CBC & Chem 7: 01/29/20 04:20 01/29/20 04:20 Labs: Abnormal Lab Results - Last 24 Hours (Table) 01/29/20 01/29/20 Range/Units 04:20 04:20 RBC 2.58 L (4.30-5.90) m/uL Hgb 8.7 L (13.0-17.5) gm/dL Hct 27.2 L (39.0-53.0) % MCV 105.2 H (80.0-100.0) fL RDW 17.1 H (11.5-15.5) % Sodium 133 L (137-145) mmol/L BUN 31 H (9-20) mg/dL Creatinine 5.15 H (0.66-1.25) mg/dL Glucose 103 H (74-99) mg/dL Microbiology - Last 24 Hours (Table) 01/23/20 01:04 Blood Culture - Final Blood No Growth after 144 hours 01/23/20 01:04 Blood Culture - Final Blood No Growth after 144 hours 01/24/20 16:46 Gram Stain - Final Sputum Sputum Culture - Final Streptococcus pneumoniae Assessment and Plan (1) Acute respiratory failure with hypoxia Current Visit: Yes Status: Acute Code(s): J96.01 - ACUTE RESPIRATORY FAILURE WITH HYPOXIA SNOMED Code(s): 93778399 (2) Overdose Current Visit: Yes Status: Acute Code(s): T50.901A - POISONING BY UNSP DRUG/MEDS/BIOL SUBST, ACCIDENTAL, INIT SNOMED Code(s): 80330564 (3) Acute metabolic encephalopathy Current Visit: Yes Status: Acute Code(s): G93.41 - METABOLIC ENCEPHALOPATHY SNOMED Code(s): 92937441 (4) Neuralgia Current Visit: Yes Status: Acute Code(s): M79.2 - NEURALGIA AND NEURITIS, UNSPECIFIED SNOMED Code(s): 68619150 (5) Altered mental status Current Visit: Yes Status: Acute Code(s): R41.82 - ALTERED MENTAL STATUS, UNSPECIFIED SNOMED Code(s): 686078173 (6) Fluid overload Current Visit: Yes Status: Acute Code(s): E87.70 - FLUID OVERLOAD, UNSPECIFIED SNOMED Code(s): 52247125 (7) Hypertensive crisis Current Visit: Yes Status: Acute Code(s): I16.9 - HYPERTENSIVE CRISIS, UNSPECIFIED SNOMED Code(s): 555939924 (8) Shingles Current Visit: Yes Status: Acute Code(s): B02.9 - ZOSTER WITHOUT COMPLICATIONS SNOMED Code(s): 0293190 (9) End stage renal disease Current Visit: No Status: Acute Code(s): N18.6 - END STAGE RENAL DISEASE SNOMED Code(s): 79308132 (10) Anemia in chronic kidney disease Current Visit: Yes Status: Acute Code(s): N18.9 - CHRONIC KIDNEY DISEASE, UNSPECIFIED; D63.1 - ANEMIA IN CHRONIC KIDNEY DISEASE SNOMED Code(s): 627627816 (11) Hypotension Current Visit: Yes Status: Acute Code(s): I95.9 - HYPOTENSION, UNSPECIFIED SNOMED Code(s): 00261407 Plan: continue plan per Critial care for acute respiratory failure Wait on further recommendations from infectious disease, neurology, nephrology, and psychiatry. He is scheduled to resume dialysis Thursday starting tomorrow repeat labs in am FM will reevalaute in the next 24 hrs
--- NOTE | 2020-01-29 11:52 | P.PN ---
Subjective Progress Note Date: 01/29/20 Principal diagnosis: Acute hypoxic respiratory failure secondary to fluid overload, pulmonary edema, end-stage renal disease This is a 49-year-old white male with history of end-stage renal disease, hypertension, COPD, patient is on hemodialysis. Patient is normally on hemodialysis Thursday, supposedly his last hemodialysis was last Thursday. Patient was brought into the ER with altered mental status and shortness of breath. Apparently he was quite confused upon presentation, blood pressure was extremely high at 217/134. Patient was noted to have abnormal labs including low sodium of 125. Abnormal BUN of 72 creatinine 8.57, and his hemoglobin was 9.2. Chest x-ray showed definitely fluid overload and he was noted to have hypoxic respiratory failure. Underwent dialysis last night, and about 1-1/2 L of fluid were removed. Patient was placed on nitroglycerin drip and on clevidipine drip, he was also noted to have herpes zoster rash in the left upper chest wall area. Started on antiviral therapy for his shingles. Patient was also placed on BiPAP, ABG was reasonable. His mentation remained, patient was admitted to the ICU and I was asked to see him on consultation. ABG on BiPAP showed a pO2 of 93 pCO2 of 41 pH of 7.43, and this was a BiPAP of 14/6 and 40% FiO2. 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 Neurology consultation is pending. Patient was reevaluated today on 01/24/20, remains in the ICU, intubated and mechanically ventilated. He is presently on assist control rate of 18 tidal volume is 450 FiO2 of 60% and PEEP of 5. ABG showed a pO2 of 93 pCO2 of 42 pH of 7.44. Patient is on propofol at 50 mcg/kg/m, IV fluids at KVO, and he is going to have dialysis today. Remains on dialysis. Remains on acyclovir for his herpes zoster dermatitis involving the T4 dermatome of left-sided chest. There is evidence of coffee ground material in the nasogastric tube and had an output of 1.8 L of coffee ground and blood-tinged nasogastric tube suctioning. Hemoglobin is holding at 8.4. EEG yesterday showed moderate to severe slowing. Consistent with metabolic encephalopathy. Today I try to wean the patient from propofol, and wanted to give the patient a weaning trial, however he became extremely agitated, and would not follow any instructions. Then we decided to try Precedex for sedation and possibly give the patient at least weaning trials today. In the meantime we will continue to plan dialysis today. Chest x-ray showed slight improvement in the aeration of bilateral upper lungs, however he continues to have some right basilar subsegmental atelectasis and possibly airspace disease Reevaluated today on 01/25/20, patient remains in the ICU. Remains on mechanical ventilation. His ventilator settings are assist control rate of 18 tidal volume is 450 FiO2 is 55% and PEEP of 5. ABG showed a pO2 of 119 pCO2 of 46 pH of 7.39. Patient was on propofol before I evaluated him, however as we took him off propofol, the patient became extremely agitated, restless, not responding to any verbal stimuli, thrashing in bed, and we have recommended Haldol, and place him back on propofol as he was endangering himself, and there was extreme risk of leg lines and extubation. Could not get the patient to follow any instructions. Had to be sedated. Obviously he is not quite ready for any weaning. We will start the patient on Seroquel 25 mg twice a day. Patient had dialysis yesterday, 2 L were removed, chest x-ray continues to show diffuse pleural parenchymal changes consistent with CHF, and possible underlying pneumonia is not entirely excluded. Patient was reevaluated today on 01/26/20, remains in the ICU intubated and mechanically ventilated. Ventilator settings are assist control rate of 18 tidal volume is 450 FiO2 is 55% and PEEP of 5. Patient is having dialysis this morning, he is sedated and on propofol at 35 mcg/kg/m. Hoping to wake the patient up again once dialysis is done discontinued the prevent and consider weaning trial again this morning. In the meantime the patient continues to have episodes of extreme confusion and agitation as well as restlessness once he is on a lower dose of propofol. Tried on Precedex 2 days ago, and he failed to wean. Mostly because of his mental status and extreme agitation. Patient remains obtunded. ABG today showed a pO2 of 175 pCO2 of 45 pH of 7.35 WBC count is 13.9, hemoglobin is 9.0. BUN is 50 creatinine 7.74. Chest x-ray is actually showing improvement in his interstitial edema and his pleural parenchymal changes. The patient was seen today 01/27/2020 in follow-up in the intensive care unit. He remains intubated on mechanical ventilator. Current settings assist-control, rate of 18, tidal volume 450, FiO2 45% and a PEEP of 5. Morning blood gases revealed a PaO2 of 112, CO2 47, pH 7.33. White count 10.9. Hemoglobin 9.0. MC V 105.7. Sodium 135. Potassium 4.3. Creatinine 5.19. Propofol at 35 mcg/kg/m. On clevidipine at 1 mg per hour. Off norepinephrine. Remains on Zosyn. Sputum culture positive for Streptococcus pneumoniae. Blood cultures reveal no growth. Chest x-ray reveals diffuse pleural parenchymal changes most typical of CHF. Bilateral hilar enlargement. Pulmonary artery hypertension. Patient was reevaluated today on 01/28/20, patient remains in the ICU. He is presently receiving hemodialysis. Remains confused and encephalopathic, patient was extubated yesterday. Patient remains on clevidipine at 6 mg per hour, going to wean him since I will start his clonidine as taken at home and his hyd ralazine. Sputum came back positive for Streptococcus pneumonia, patient remains on antibiotics. He is drowsy, he is slow, and encephalopathic. Receiving hemodialysis during my evaluation. Labs showed hemoglobin of 9.4 WBC count is 10.8, slightly improved considered to WBC count on admission. E lectrolytes are normal bicarb is 21. BUN is 45 creatinine is 6.38 chest x-ray today continue to show improvement with persistent right perihilar infiltrate and prominent interstitium. Patient has basically pneumonia and asymmetric venous congestion/fluid overload from end-stage renal disease and failure to comply with hemodialysis Patient was reevaluated today on 01/29/20, remains in the intensive care unit, remains encephalopathic, however definite improvement noted in his overall mental status compared to yesterday. Chest x-ray continues to show evidence of interstitial edema. Patient is now on oral medications for his blood pressure. Clevidipine is being titrated down, the plan is to stop it altogether. Patient remains empirically on antibiotics and/Unasyn for aspiration pneumonia presumptive. Remains on acyclovir for his herpes zoster dermatitis. He is also on GI and DVT prophylaxis. Overall there is improvement in his mental status and his overall pulmonary status. But the patient is not quite ready to be transferred out of the ICU. Continues to have a sitter at bedside. CBC is relatively normal hemoglobin is 8.7 today. He elects lites are normal. BUN is 31 creatinine is 5.15. Objective - Vital Signs Vital signs: Vital Signs Temp 98.8 F 01/29/20 08:00 Pulse 70 01/29/20 11:00 Resp 20 01/29/20 11:00 BP 112/68 01/29/20 11:00 Pulse Ox 97 01/29/20 11:00 Intake & Output 01/28/20 01/29/20 01/29/20 18:59 06:59 18:59 Intake Total 405.066 498.933 364.933 Output Total 3500 0 0 Balance -3094.934 498.933 364.933 Weight 75.5 kg Intake: IV 280 390 90 Acyclovir Sodium 725 mg 250 In Sodium Chloride 0.9% 250 ml @ 100 mls/hr IV ONCE STA Rx#:[id number] Piperacillin-Tazobactam 3 100 .375 gm In Sodium Chloride 0.9% 100 ml @ 25 mls/hr IVPB Q12HR [facility] Rx #:[id number] normal saline KVO 180 140 90 Intake, IV Titration 125.066 108.933 34.933 Amount Clevidipine Butyrate 25 125.066 108.933 34.933 mg In Empty Bag 1 bag @ 1 MG/HR 2 mls/hr IV .Q24H [facility] Rx#:[id number] Oral 240 Output: Urine 0 0 0 Hemodialysis 3500 Other: Voiding Method Indwelling Catheter ABP, PAP, CO, CI - Last Documented Arterial Blood Pressure 126/112 - Exam GENERAL DESCRIPTION: Revealed 49-year-old white male on nasal cannula, less confused today, he knew that he was in the hospital, and he knew the year HEENT: Eyes icteric Pallor , no scleral icterus. Oral mucous membrane is dry. NECK: No neck masses no JVD no stridor. LUNGS: Symmetrical expansion, crackles at the bases persist. HEART: Normal S1 and S2, no S3 gallop, no murmur. ABDOMEN: Soft, no tenderness , no megaly no rebound no guarding. EXTREMITIES: Trace of bipedal edema noted. SKIN: vesicular rash to the left T4 dermatome with no evidence of secondary bacterial cellulitis NEUROLOGICAL: Awake, remains encephalopathic but a bit more oriented today com pared to yesterday. Psychiatric: Blunted mood affect slightl improvement in his mental status and or ientation noted today - Labs CBC & Chem 7: 01/29/20 04:20 01/29/20 04:20 Labs: Abnormal Lab Results - Last 24 Hours (Table) 01/29/20 01/29/20 Range/Units 04:20 04:20 RBC 2.58 L (4.30-5.90) m/uL Hgb 8.7 L (13.0-17.5) gm/dL Hct 27.2 L (39.0-53.0) % MCV 105.2 H (80.0-100.0) fL RDW 17.1 H (11.5-15.5) % Sodium 133 L (137-145) mmol/L BUN 31 H (9-20) mg/dL Creatinine 5.15 H (0.66-1.25) mg/dL Glucose 103 H (74-99) mg/dL Microbiology - Last 24 Hours (Table) 01/23/20 01:04 Blood Culture - Final Blood No Growth after 144 hours 01/23/20 01:04 Blood Culture - Final Blood No Growth after 144 hours 01/24/20 16:46 Gram Stain - Final Sputum Sputum Culture - Final Streptococcus pneumoniae Assessment and Plan Assessment: Impression: Acute hypoxic respiratory failure secondary to pulmonary edema secondary to end- stage renal disease and missed hemodialysis. With fluid overload. Acute metabolic encephalopathy, suspect hypertensive emergency with mental status change and hypertensive encephalopathy. End-stage renal disease, on hemodialysis. Noncompliant. Acute Pulmonary edema secondary to missed dialysis with volume overload. Anemia of chronic disease. Hypovolemic hyponatremia, improved. Herpes zoster dermatitis involving anterior chest wall, patient is on acyclovir Possible aspiration pneumonia. Remains on antibiotics empirically although I feel the presentation was mostly a presentation of pulmonary edema as noted above Recommendations: Continue to monitor in the ICU. Neurology to continue to follow regarding his encephalopathy. Continue hemodialysis. Continue Seroquel Continue GI and DVT prophylaxis. Continue acyclovir. Continue Unasyn. Not quite ready for any discharge planning. We'll continue to follow. Time with Patient: Less than 30
--- NOTE | 2020-01-29 12:38 | P.PN ---
Subjective Progress Note Date: 01/29/20 Principal diagnosis: This is a 49 over male known to us with ESRD on dialysis Thursday, He was admitted with noncompliance, shortness of breath confusion. He has been dialyzed yesterday on Thursday schedule here, yesterday he was dialyzed with 3500 mL taken off Is somewhat better this morning still sleepy He was also recently diagnosed with zoster and postherpetic neuralgia. He is on acyclovir His vital signs are stable. He was started on clear liquid Objective - Vital Signs Vital signs: Vital Signs Temp 98.8 F 01/29/20 08:00 Pulse 70 01/29/20 11:00 Resp 20 01/29/20 11:00 BP 112/68 01/29/20 11:00 Pulse Ox 97 01/29/20 11:00 Intake & Output 01/28/20 01/29/20 01/29/20 18:59 06:59 18:59 Intake Total 405.066 498.933 364.933 Output Total 3500 0 0 Balance -3094.934 498.933 364.933 Weight 75.5 kg Intake: IV 280 390 90 Acyclovir Sodium 725 mg 250 In Sodium Chloride 0.9% 250 ml @ 100 mls/hr IV ONCE STA Rx#:[id number] Piperacillin-Tazobactam 3 100 .375 gm In Sodium Chloride 0.9% 100 ml @ 25 mls/hr IVPB Q12HR [facility] Rx #:[id number] normal saline KVO 180 140 90 Intake, IV Titration 125.066 108.933 34.933 Amount Clevidipine Butyrate 25 125.066 108.933 34.933 mg In Empty Bag 1 bag @ 1 MG/HR 2 mls/hr IV .Q24H [facility] Rx#:[id number] Oral 240 Output: Urine 0 0 0 Hemodialysis 3500 Other: Voiding Method Indwelling Catheter ABP, PAP, CO, CI - Last Documented Arterial Blood Pressure 126/112 Examination is sleepy but arousable HEENT exam no JVP Neck is supple no facial asymmetry Lungs are clear to auscultation fair air entry bilaterally Heart sounds unremarkable no murmur rub gallop Abdomen soft nontender Extremity exam was no edema. Neurologically arousable - Labs CBC & Chem 7: 01/29/20 04:20 01/29/20 04:20 Labs: Abnormal Lab Results - Last 24 Hours (Table) 01/29/20 01/29/20 Range/Units 04:20 04:20 RBC 2.58 L (4.30-5.90) m/uL Hgb 8.7 L (13.0-17.5) gm/dL Hct 27.2 L (39.0-53.0) % MCV 105.2 H (80.0-100.0) fL RDW 17.1 H (11.5-15.5) % Sodium 133 L (137-145) mmol/L BUN 31 H (9-20) mg/dL Creatinine 5.15 H (0.66-1.25) mg/dL Glucose 103 H (74-99) mg/dL Microbiology - Last 24 Hours (Table) 01/23/20 01:04 Blood Culture - Final Blood No Growth after 144 hours 01/23/20 01:04 Blood Culture - Final Blood No Growth after 144 hours 01/24/20 16:46 Gram Stain - Final Sputum Sputum Culture - Final Streptococcus pneumoniae Assessment and Plan Assessment: Impression 1. ESRD on dialysis currently dialyzes Thursday here today. His usual schedule is Thursday was a Thursday 2. Admitted with congestive heart failure and confusion with with noncompliance with dialysis treatment missed dialysis 3. Extubated day before yesterday 01/29/2020 4. Slightly confused. There 5. Anemia hemoglobin is 9.4 , and down to 8.7 this morning Plan- 1. We'll continue dialysis Thursday 2. Check iron saturation 3. Watch blood pressure labs.
[2020-01-29] MEDS: MORPHINE SULFATE 4 MG/ML SYRINGE IVP PRN (15:41)
[2020-01-29] MEDS: AMPICILLIN-SULBACTAM 3 GM in SODIUM CHLORIDE 0.9% 100 ML IVPB SCH (16:42)
[2020-01-29 16:46] LABS: % Iron Saturation 15.25 (15.00-50.00)
[2020-01-29] MEDS: QUEtiapine 50 MG TAB PO SCH (20:19)
--- NOTE | 2020-01-30 01:32 | PN ---
PROGRESS NOTE DATE OF SERVICE: 01/29/2020 REASON FOR FOLLOWUP: 1. Left T4 dermatome shingles. 2. Pneumonia. INTERVAL HISTORY: The patient is currently afebrile. The patient is hemodynamically stable. The patient remains to be lethargic. No agitation had been noticed. No vomiting or any diarrhea per the nursing staff. PHYSICAL EXAMINATION: Blood pressure 135/78 with a pulse of 78, temperature 98.2. He is 96% on 3 L nasal cannula. General description is a middle-aged male lying in bed in no distress. RESPIRATORY SYSTEM: Unlabored breathing, decreased breath sounds at the bases. No wheeze. HEART: S1, S2. Regular rate and rhythm. ABDOMEN: Soft, no tenderness. LABS: Hemoglobin 8.7, white count 10.2. Creatinine is 5.15. DIAGNOSTIC IMPRESSION AND PLAN: 1. Patient with left T4 dermatome shingles, currently on acyclovir to continue to finish a 7-day course of therapy. 2. Patient with streptococcus pneumonia, possible aspiration etiology, covered with Unasyn to finish therapy with oral. Continue with supportive care. MMODL / IJN: [id number] /
[2020-01-30 04:20] LABS: Anisocytosis Slight; HCT 26.2 % (39.0-53.0); HGB 8.3 gm/dL (13.0-17.5); Hypochromasia Slight; MCH 33.8 pg (25.0-35.0); MCHC 31.7 g/dL (31.0-37.0); MCV 106.6 fL (80.0-100.0); Macrocytosis Marked; Mean Platelet Volume 7.6; Platelet Count 267 k/uL (150-450); RBC 2.46 m/uL (4.30-5.90); RDW 16.6 % (11.5-15.5); WBC 10.7 k/uL (3.8-10.6)
[2020-01-30 04:36] LABS: Potassium 5.1 mmol/L (3.5-5.1)
[2020-01-30] MEDS: carvediloL 12.5 MG TAB PO SCH ×2 (08:45→17:08)
[2020-01-30] MEDS: cloNIDine HCL 0.1 MG TAB PO SCH ×3 (09:07→20:04)
[2020-01-30] MEDS: HEPARIN SODIUM,PORCINE 5,000 UNIT/ML 1 ML VIAL SQ SCH ×2 (09:08→17:08)
[2020-01-30] MEDS: PANTOPRAZOLE 40 MG/10 ML VIAL IV SCH ×2 (09:08→20:11)
[2020-01-30] MEDS: hydrALAZINE HCL 50 MG TAB PO SCH ×3 (09:09→20:04)
--- NOTE | 2020-01-30 09:20 | P.PN ---
Subjective Patient is seen in follow-up for end-stage renal disease. He is maintained on hemodialysis on Thursday schedule. Currently sitting up in bed. He has been eating. Hemodynamically stable. Vital signs are stable. General: The patient appeared well nourished and normally developed. HEENT: Head exam is unremarkable. Neck is without jugular venous distension. LUNGS: Breath sounds decreased. HEART: Rate and Rhythm are regular. ABDOMEN: Soft, nontender. EXTREMITITES: 1+ edema. Objective - Vital Signs Vital signs: Vital Signs Temp 100.8 F H 01/30/20 08:00 Pulse 82 01/30/20 08:00 Resp 28 H 01/30/20 08:00 BP 142/87 01/30/20 08:00 Pulse Ox 97 01/30/20 08:00 Intake & Output 01/29/20 01/30/20 01/30/20 18:59 06:59 18:59 Intake Total 864.933 590 40 Output Total 0 0 0 Balance 864.933 590 40 Weight 75.8 kg Intake: IV 230 220 40 normal saline KVO 230 220 40 Intake, IV Titration 134.933 250 Amount Acyclovir Sodium 400 mg 250 In Sodium Chloride 0.9% 250 ml @ 258 mls/hr IVPB Q24H [facility] Rx#:[id number] Ampicillin-Sulbactam 3 gm 100 In Sodium Chloride 0.9% 100 ml @ 200 mls/hr IVPB Q24H [facility] Rx#:[id number] Clevidipine Butyrate 25 34.933 mg In Empty Bag 1 bag @ 1 MG/HR 2 mls/hr IV .Q24H [facility] Rx#:[id number] Oral 500 120 Output: Urine 0 0 0 ABP, PAP, CO, CI - Last Documented Arterial Blood Pressure 126/112 - Labs CBC & Chem 7: 01/30/20 03:43 01/30/20 03:43 Labs: Abnormal Lab Results - Last 24 Hours (Table) 01/29/20 01/30/20 01/30/20 Range/Units 04:20 03:43 03:43 WBC 10.7 H (3.8-10.6) k/uL RBC 2.46 L (4.30-5.90) m/uL Hgb 8.3 L (13.0-17.5) gm/dL Hct 26.2 L (39.0-53.0) % MCV 106.6 H (80.0-100.0) fL RDW 16.6 H (11.5-15.5) % Macrocytosis Marked A Sodium 133 L (137-145) mmol/L Carbon Dioxide 20 L (22-30) mmol/L BUN 48 H (9-20) mg/dL Creatinine 6.76 H (0.66-1.25) mg/dL Iron 27 L (65-175) ug/dL TIBC 177 L (228-460) ug/dL Assessment and Plan Plan: Assessment: 1. End-stage renal disease maintained on hemodialysis Thursday schedule. 2. Volume overload. 3. Missed hemodialysis treatments outpatient. 4. Anemia of chronic kidney disease. Iron deficiency noted. Maintained on Aranesp. 5. Hypertension with chronic kidney disease. 6. Pneumonia maintained on antibiotics. Sputum culture positive for strep. 7. Chronic kidney disease mineral bone disease. Plan: Hemodialysis today. IV iron 3 doses. First dose today. Check phosphorus level.
[2020-01-30] MEDS: valACYclovir HCL 1,000 MG TABLET PO SCH ×2 (09:31→20:05)
[2020-01-30] MEDS: QUEtiapine 25 MG TAB PO SCH (09:32)
[2020-01-30] MEDS: SODIUM FERRIC GLUCONAT-SUCROSE 125 MG in SODIUM CHLORIDE 0.9% 100 ML IVPB SCH (10:02)
--- NOTE | 2020-01-30 10:46 | P.PN ---
Subjective Progress Note Date: 01/30/20 Principal diagnosis: Acute hypoxic respiratory failure secondary to fluid overload, pulmonary edema, end-stage renal disease, metabolic encephalopathy This is a 49-year-old white male with history of end-stage renal disease, hypertension, COPD, patient is on hemodialysis. Patient is normally on hemodialysis Thursday, supposedly his last hemodialysis was last Thursday. Patient was brought into the ER with altered mental status and shortness of breath. Apparently he was quite confused upon presentation, blood pressure was extremely high at 217/134. Patient was noted to have abnormal labs including low sodium of 125. Abnormal BUN of 72 creatinine 8.57, and his hemoglobin was 9.2. Chest x-ray showed definitely fluid overload and he was noted to have hypoxic respiratory failure. Underwent dialysis last night, and about 1-1/2 L of fluid were removed. Patient was placed on nitroglycerin drip and on clevidipine drip, he was also noted to have herpes zoster rash in the left upper chest wall area. Started on antiviral therapy for his shingles. Patient was also placed on BiPAP, ABG was reasonable. His mentation remained, patient was admitted to the ICU and I was asked to see him on consultation. ABG on BiPAP showed a pO2 of 93 pCO2 of 41 pH of 7.43, and this was a BiPAP of 14/6 and 40% FiO2. 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 Neurology consultation is pending. Patient was reevaluated today on 01/24/20, remains in the ICU, intubated and mechanically ventilated. He is presently on assist control rate of 18 tidal volume is 450 FiO2 of 60% and PEEP of 5. ABG showed a pO2 of 93 pCO2 of 42 pH of 7.44. Patient is on propofol at 50 mcg/kg/m, IV fluids at KVO, and he is going to have dialysis today. Remains on dialysis. Remains on acyclovir for his herpes zoster dermatitis involving the T4 dermatome of left-sided chest. There is evidence of coffee ground material in the nasogastric tube and had an output of 1.8 L of coffee ground and blood-tinged nasogastric tube suctioning. Hemoglobin is holding at 8.4. EEG yesterday showed moderate to severe slowing. Consistent with metabolic encephalopathy. Today I try to wean the patient from propofol, and wanted to give the patient a weaning trial, however he became extremely agitated, and would not follow any instructions. Then we decided to try Precedex for sedation and possibly give the patient at least weaning trials today. In the meantime we will continue to plan dialysis today. Chest x-ray showed slight improvement in the aeration of bilateral upper lungs, however he continues to have some right basilar subsegmental atelectasis and possibly airspace disease Reevaluated today on 01/25/20, patient remains in the ICU. Remains on mechanical ventilation. His ventilator settings are assist control rate of 18 tidal volume is 450 FiO2 is 55% and PEEP of 5. ABG showed a pO2 of 119 pCO2 of 46 pH of 7.39. Patient was on propofol before I evaluated him, however as we took him off propofol, the patient became extremely agitated, restless, not responding to any verbal stimuli, thrashing in bed, and we have recommended Haldol, and place him back on propofol as he was endangering himself, and there was extreme risk of leg lines and extubation. Could not get the patient to follow any instructions. Had to be sedated. Obviously he is not quite ready for any weaning. We will start the patient on Seroquel 25 mg twice a day. Patient had dialysis yesterday, 2 L were removed, chest x-ray continues to show diffuse pleural parenchymal changes consistent with CHF, and possible underlying pneumonia is not entirely excluded. Patient was reevaluated today on 01/26/20, remains in the ICU intubated and mechanically ventilated. Ventilator settings are assist control rate of 18 tidal volume is 450 FiO2 is 55% and PEEP of 5. Patient is having dialysis this morning, he is sedated and on propofol at 35 mcg/kg/m. Hoping to wake the patient up again once dialysis is done discontinued the prevent and consider weaning trial again this morning. In the meantime the patient continues to have episodes of extreme confusion and agitation as well as restlessness once he is on a lower dose of propofol. Tried on Precedex 2 days ago, and he failed to wean. Mostly because of his mental status and extreme agitation. Patient remains obtunded. ABG today showed a pO2 of 175 pCO2 of 45 pH of 7.35 WBC count is 13.9, hemoglobin is 9.0. BUN is 50 creatinine 7.74. Chest x-ray is actually showing improvement in his interstitial edema and his pleural parenchymal changes. The patient was seen today 01/27/2020 in follow-up in the intensive care unit. He remains intubated on mechanical ventilator. Current settings assist-control, rate of 18, tidal volume 450, FiO2 45% and a PEEP of 5. Morning blood gases revealed a PaO2 of 112, CO2 47, pH 7.33. White count 10.9. Hemoglobin 9.0. MCV 105.7. Sodium 135. Potassium 4.3. Creatinine 5.19. Propofol at 35 mcg/kg/m. On clevidipine at 1 mg per hour. Off norepinephrine. Remains on Zosyn. Sputum culture positive for Streptococcus pneumoniae. Blood cultures reveal no growth. Chest x-ray reveals diffuse pleural parenchymal changes most typical of CHF. Bilateral hilar enlargement. Pulmonary artery hypertension. Patient was reevaluated today on 01/28/20, patient remains in the ICU. He is presently receiving hemodialysis. Remains confused and encephalopathic, patient was extubated yesterday. Patient remains on clevidipine at 6 mg per hour, going to wean him since I will start his clonidine as taken at home and his hydralazine. Sputum came back positive for Streptococcus pneumonia, patient remains on antibiotics. He is drowsy, he is slow, and encephalopathic. Receiving hemodialysis during my evaluation. Labs showed hemoglobin of 9.4 WBC count is 10.8, slightly improved considered to WBC count on admission. Electrolytes are normal bicarb is 21. BUN is 45 creatinine is 6.38 chest x-ray today continue to show improvement with persistent right perihilar infiltrate and prominent interstitium. Patient has basically pneumonia and asymmetric venous congestion/fluid overload from end-stage renal disease and failure to comply with hemodialysis Patient was reevaluated today on 01/29/20, remains in the intensive care unit, remains encephalopathic, however definite improvement noted in his overall mental status compared to yesterday. Chest x-ray continues to show evidence of interstitial edema. Patient is now on oral medications for his blood pressure. Clevidipine is being titrated down, the plan is to stop it altogether. Patient remains empirically on antibiotics and/Unasyn for aspiration pneumonia presumptive. Remains on acyclovir for his herpes zoster dermatitis. He is also on GI and DVT prophylaxis. Overall there is improvement in his mental status and his overall pulmonary status. But the patient is not quite ready to be transferred out of the ICU. Continues to have a sitter at bedside. CBC is relatively normal hemoglobin is 8.7 today. He elects lites are normal. BUN is 31 creatinine is 5.15. On 01/30/2020 patient seen in follow-up in the intensive care unit, he is drowsy, but arouses to voice, went to the nurse patient is oriented 3, but his verbal responses are slow, patient is less confused today. Denies any wrist or difficulty, he is on 2 L of oxygen and the pulse ox 96%, did have a low-grade fevers, with a T-max of 100.8F over the last 24 hours. His sputum was Positive for Streptococcus pneumonia, and the patient is on Unasyn, also on acyclovir for the shingles. Had no acute events overnight, pressure has been stable, has not required clevidipine drip. He is on 0.9 normal saline infusing at 20 ML per hour. His labs have been reviewed, showing white blood cell, 10.7, hemoglobin of 8.3, serum sodium is 133, BUN of 48 and creatinine is 6.76. Yesterday chest x-ray showed mild patchy interstitial opacities, possible pulmonary vessel congestion versus atypical pneumonia. he had hemodialysis yesterday we would removal 3.5 L and fluid. Objective - Vital Signs Vital signs: Vital Signs Temp 100.8 F H 01/30/20 08:00 Pulse 80 01/30/20 10:00 Resp 15 01/30/20 10:00 BP 153/102 01/30/20 10:00 Pulse Ox 96 01/30/20 10:00 Intake & Output 01/29/20 01/30/20 01/30/20 18:59 06:59 18:59 Intake Total 864.933 590 280 Output Total 0 0 0 Balance 864.933 590 280 Weight 75.8 kg 75.8 kg Intake: IV 230 220 80 normal saline KVO 230 220 80 Intake, IV Titration 134.933 250 Amount Acyclovir Sodium 400 mg 250 In Sodium Chloride 0.9% 250 ml @ 258 mls/hr IVPB Q24H [facility] Rx#:[id number] Ampicillin-Sulbactam 3 gm 100 In Sodium Chloride 0.9% 100 ml @ 200 mls/hr IVPB Q24H [facility] Rx#:[id number] Clevidipine Butyrate 25 34.933 mg In Empty Bag 1 bag @ 1 MG/HR 2 mls/hr IV .Q24H [facility] Rx#:[id number] Oral 500 120 200 Output: Urine 0 0 0 ABP, PAP, CO, CI - Last Documented Arterial Blood Pressure 126/112 - Exam GENERAL EXAM: Drowsy, 41-year-old white male, appears older than stated age, on 2 L of oxygen and the pulse ox of 96%, comfortable in no apparent distress. HEAD: Normocephalic/atraumatic. EYES: Normal reaction of pupils, equal size. Conjunctiva pink, sclera white. NOSE: Clear with pink turbinates. THROAT: No erythema or exudates. NECK: No masses, no JVD, no thyroid enlargement, no adenopathy. CHEST: No chest wall deformity. Symmetrical expansion. LUNGS: Equal air entry with basilar crackles, but no wheeze, rhonchi or dullness. CVS: Regular rate and rhythm, normal S1 and S2, no gallops, no murmurs, no rubs ABDOMEN: Soft, nontender. No hepatosplenomegaly, normal bowel sounds, no guarding or rigidity. EXTREMITIES: No clubbing, no edema, no cyanosis, 2+ pulses and upper and lower extremities. Left upper arm AV fistula with positive bruit and thrill MUSCULOSKELETAL: Muscle strength and tone normal. SPINE: No scoliosis or deformity SKIN: No rashes CENTRAL NERVOUS SYSTEM: Drowsy, but arousable No focal deficits, tone is normal in all 4 extremities. - Labs CBC & Chem 7: 01/30/20 03:43 01/30/20 03:43 Labs: Abnormal Lab Results - Last 24 Hours (Table) 01/29/20 01/30/20 01/30/20 Range/Units 04:20 03:43 03:43 WBC 10.7 H (3.8-10.6) k/uL RBC 2.46 L (4.30-5.90) m/uL Hgb 8.3 L (13.0-17.5) gm/dL Hct 26.2 L (39.0-53.0) % MCV 106.6 H (80.0-100.0) fL RDW 16.6 H (11.5-15.5) % Macrocytosis Marked A Sodium 133 L (137-145) mmol/L Carbon Dioxide 20 L (22-30) mmol/L BUN 48 H (9-20) mg/dL Creatinine 6.76 H (0.66-1.25) mg/dL Phosphorus (2.5-4.5) mg/dL Iron 27 L (65-175) ug/dL TIBC 177 L (228-460) ug/dL 01/30/20 Range/Units 03:43 WBC (3.8-10.6) k/uL RBC (4.30-5.90) m/uL Hgb (13.0-17.5) gm/dL Hct (39.0-53.0) % MCV (80.0-100.0) fL RDW (11.5-15.5) % Macrocytosis Sodium (137-145) mmol/L Carbon Dioxide (22-30) mmol/L BUN (9-20) mg/dL Creatinine (0.66-1.25) mg/dL Phosphorus 7.3 H (2.5-4.5) mg/dL Iron (65-175) ug/dL TIBC (228-460) ug/dL Assessment and Plan Plan: Assessment: #1. Acute hypoxic respiratory failure is secondary to fluid overload, pulmonary edema, end-stage renal disease and missed hemodialysis, acquiring intubation and placement on mechanical ventilator intubated on 01/23/2020 and extubated on 01/27/2020 #2. Acute metabolic encephalopathy, suspect hypertensive emergency with mental status change and hypertensive encephalopathy, improving #3. End-stage renal disease on hemodialysis, noncompliant #4. Acute pulmonary edema second her to missed dialysis with volume overload #5. Anemia of chronic disease #6. Hypovolemic hyponatremia, improved #7. Herpes zoster dermatitis involving anterior chest wall, patient is covered with a psych Lavere, #8. Streptococcus pneumonia related to possibility of aspiration pneumonia is not excluded Plan: Maintain aspiration precautions, monitor mentation and confusion, wean FiO2, encourage deep breathing and coughing, yesterday chest x-ray showed a mild patchy interstitial opacities, patient continues to have low-grade fevers, ID service is following, patient remains on Unasyn and a psych Lavere, we'll switch to acyclovir to oral valacyclovir. Labs have been reviewed, microbiology data has been reviewed. Maintain safety precautions, will continue to follow I performed a history & physical examination of the patient and discussed their management with my nurse practitioner, Poppy Acevedo. I reviewed the nurse practitioner's note and agree with the documented findings and plan of care. Lung sounds are positive for diminished breath sounds. The findings and the impression was discussed with the patient. I attest to the documentation by the nurse practitioner. Time with Patient: Less than 30
--- NOTE | 2020-01-30 16:04 | P.PN ---
Subjective Progress Note Date: 01/30/20 Patient was seen for a follow-up. A sitter was present. According to her report, patient is feeling much better. Still quite groggy, encephalopathic. Patient does answer, according to nursing report, when he wakes up, and speaks, is appropriate. He is slow to respond. His getting iron infusion. No seizures reported. Patient still encephalopathic, keeps his eyes closed. Patient's denies any headache, states feels "perfect". Objective - Vital Signs Vital signs: Vital Signs Temp 100.4 F H 01/30/20 12:00 Pulse 75 01/30/20 15:00 Resp 23 01/30/20 15:00 BP 161/93 01/30/20 15:00 Pulse Ox 96 01/30/20 15:00 Intake & Output 01/29/20 01/30/20 01/30/20 18:59 06:59 18:59 Intake Total 864.933 590 440 Output Total 0 0 0 Balance 864.933 590 440 Weight 75.8 kg 75.8 kg Intake: IV 230 220 240 Sodium Ferric Gluconat- 100 Sucrose 125 mg In Sodium Chloride 0.9% 100 ml @ 100 mls/hr IVPB DAILY [facility] Rx#:[id number] normal saline KVO 230 220 140 Intake, IV Titration 134.933 250 Amount Acyclovir Sodium 400 mg 250 In Sodium Chloride 0.9% 250 ml @ 258 mls/hr IVPB Q24H [facility] Rx#:[id number] Ampicillin-Sulbactam 3 gm 100 In Sodium Chloride 0.9% 100 ml @ 200 mls/hr IVPB Q24H [facility] Rx#:[id number] Clevidipine Butyrate 25 34.933 mg In Empty Bag 1 bag @ 1 MG/HR 2 mls/hr IV .Q24H [facility] Rx#:[id number] Oral 500 120 200 Output: Urine 0 0 0 ABP, PAP, CO, CI - Last Documented Arterial Blood Pressure 126/112 - Exam Patient is sitting in the bed. The head and is lifted up. Patient denies headache. On cranial nerve examination, pupils are round and reacting, visual reyes could not be tested, face is symmetric. His garde manger is very equal bilaterally about 4+ to 5-. Biceps are 4+. Tone is equal bilaterally. Patient wiggles his feet. He did not cooperate due to mentation. Plantars are somewhat flat. - Labs CBC & Chem 7: 01/30/20 03:43 01/30/20 03:43 Labs: Abnormal Lab Results - Last 24 Hours (Table) 01/29/20 01/30/20 01/30/20 Range/Units 04:20 03:43 03:43 WBC 10.7 H (3.8-10.6) k/uL RBC 2.46 L (4.30-5.90) m/uL Hgb 8.3 L (13.0-17.5) gm/dL Hct 26.2 L (39.0-53.0) % MCV 106.6 H (80.0-100.0) fL RDW 16.6 H (11.5-15.5) % Macrocytosis Marked A Sodium 133 L (137-145) mmol/L Carbon Dioxide 20 L (22-30) mmol/L BUN 48 H (9-20) mg/dL Creatinine 6.76 H (0.66-1.25) mg/dL Phosphorus (2.5-4.5) mg/dL Iron 27 L (65-175) ug/dL TIBC 177 L (228-460) ug/dL 01/30/20 Range/Units 03:43 WBC (3.8-10.6) k/uL RBC (4.30-5.90) m/uL Hgb (13.0-17.5) gm/dL Hct (39.0-53.0) % MCV (80.0-100.0) fL RDW (11.5-15.5) % Macrocytosis Sodium (137-145) mmol/L Carbon Dioxide (22-30) mmol/L BUN (9-20) mg/dL Creatinine (0.66-1.25) mg/dL Phosphorus 7.3 H (2.5-4.5) mg/dL Iron (65-175) ug/dL TIBC (228-460) ug/dL Assessment and Plan Assessment: * Altered mental status, likely due to toxic-metabolic encephalopathy. Suspect overdose from Seroquel. Suspect suicide attempt. Rule out other substance withdrawal. * Acute hypoxic respiratory failure secondary to pulmonary edema. Status post extubation. * End-stage renal disease on hemodialysis * Rule out underlying substance abuse. * Probable pneumonia, ID on board. * Patient's CBC revealed anemia and macrocytosis. Rule out some underlying alcoholism. * Herpes zoster left T4 dermatome. No signs of encephalitis. Plan: * Patient is extubated, mentation appears better. Still groggy and encephalopathic. Hopefully will improve day by day. * Patient has herpetic rash over the chest in left T4 dermatome. Patient on oral acyclovir. * EEG revealed background slowing of moderate to severe degree, consistent with encephalopathy. No epileptiform activity was seen. * Serum drug screen positive for opiates and marijuana. * Psychiatry on board. * Medical management as per IM/ICU. * Neurologically patient is improved, but still appears encephalopathic.
--- NOTE | 2020-01-30 16:45 | P.PN ---
Subjective Progress Note Date: 01/30/20 This a 49 y/o male who lives on his owm. HE HAS ESRD with heomdialysis MWF. He was jsut at [facility] yesterday for minimal SOB, and significant herpitic Neuralgia. He was seen by nephology 01/21 who felt he could get his dialyais 01/22 and did not need it urgently. He was seen by cardiology for min abn troponins and this was felt to be chronic. He did have minmal sob, that resolved after some pain medication for his shingles. He was treated with Acyclovir. he was given Dilaudid and Gabapetnin. early in the moring he had some confusin and was given Narcan then again several hours later, which resolved his somnolence but not his pain. He was D/C in stable condtion to f/u i nt office joe cantrell to habve dialysis 01/22. ~ 01:00 01/23/2020 patient was brought in [facility] ER for altered mental status and shortness of breath. he was quite tachypneic and hypertensive upon arrival. Nitro drip was started. Patient was placed on BiPap. Ct brain old lacunar infarcts in the right internal capsule. No acute intracranial abnormality. No change. 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 01/24/2020 Yesterday required intubation, maintained on 55% FiO2/+5 of PEEP. chest x-ray reporting small right pleural effusion, increased right basilar airspace opacity airspace, right basilar subsegmental atelectasis with improved aeration of bilateral upper lungs Initially had required clevidipine, became hypotensive, discontinued and now requiring pressor support with Levophed. Evaluated by infectious disease regarding left T4 dermatome zoster,with renal dose acyclovir recommended.earlier this morning patient agitated, not following commands and weaning trial aborted. Telemetry sinus rhythm.afebrile,normal WBC. preliminary blood cultures no growth at 24 hours. ABGs noted.hemoglobin down to 8.4,platelets 239.sodium 126, BUN 60, creatinine 8.38.scheduled for hemodialysis today. alk phos mildly elevated, 127. Albumin low at 3.2. completed EEG yesterday,abnormal, suggestive of toxic metabolic encephalopathy, with no epileptiform activity seen. 01/25/2020 Remains vent dependent, FiO2 55%/+5 PEEP. Maintained on diprovan and Levophed drips. Continues on acyclovir and Zosyn. Afebrile, WBC trending up to 18.2. Hemoglobin continues improving up to 9.6, platelets 269. Weaning trials attempted today but patient became agitated, restless, not following commands, requiring Haldol and placed back on diprovan drip. Seroquel added to med regimen. Chest x-ray reporting diffuse pleural parenchymal changes, stable, possible CHF, possible underlying pneumonia, prominence of the pulmonary arteries and hilum associated pulmonary arterial hypertension, possible adenopathy. 01/26/2020 remains vent dependent, FiO2 down to 45%/+ 5 of PEEP. Sedated on diprovan. Levophed weaned off. Receiving hemodialysis today. ABGs noted. Chest x-ray reporting improvement. Afebrile, WBC trending down, 13.9. Hemoglobin 9, platelets, 236. Continues on acyclovir, zosyn. Blood and sputum cultures pending. 01/27/2020 received hemodialysis yesterday .sputum culture reporting positive for Streptococcus pneumoniae , blood cultures reporting no growth . Chest x-ray reporting diffuse parenchymal changes, typical of CHF, bilateral hilar enlargement, possible pulmonary arterial hypertension, possible underlying adenopathy/mass. Maintained on Zosyn. Extubated this morning, maintaining O2 s ats in the 90s on 4 L nasal cannula. Suicide precautions in place with sitter at bedside. Levophed weaned off. Maintained on Clevidipine. 01/30/2020 maintained on Unasyn, Acyclovir for streptococcal pneumonia, shingles. T-max 100.8, WBC 10.7. Weaned off of Clevidipine. Maintaining O2 sats in the 90s on 2 L nasal cannula. Sensorium improving. Continues on suicide precautions. Received hemodialysis yesterday, again today to return to his normal schedule of Thursday. Telemetry sinus rhythm. Objective - Vital Signs Vital signs: Vital Signs Temp 100.8 F H 01/30/20 08:00 Pulse 72 01/30/20 11:00 Resp 22 01/30/20 11:00 BP 123/72 01/30/20 11:00 Pulse Ox 96 01/30/20 11:00 Intake & Output 01/29/20 01/30/20 01/30/20 18:59 06:59 18:59 Intake Total 864.933 590 400 Output Total 0 0 0 Balance 864.933 590 400 Weight 75.8 kg 75.8 kg Intake: IV 230 220 200 Sodium Ferric Gluconat- 100 Sucrose 125 mg In Sodium Chloride 0.9% 100 ml @ 100 mls/hr IVPB DAILY [facility] Rx#:[id number] normal saline KVO 230 220 100 Intake, IV Titration 134.933 250 Amount Acyclovir Sodium 400 mg 250 In Sodium Chloride 0.9% 250 ml @ 258 mls/hr IVPB Q24H [facility] Rx#:[id number] Ampicillin-Sulbactam 3 gm 100 In Sodium Chloride 0.9% 100 ml @ 200 mls/hr IVPB Q24H [facility] Rx#:[id number] Clevidipine Butyrate 25 34.933 mg In Empty Bag 1 bag @ 1 MG/HR 2 mls/hr IV .Q24H [facility] Rx#:[id number] Oral 500 120 200 Output: Urine 0 0 0 ABP, PAP, CO, CI - Last Documented Arterial Blood Pressure 126/112 - Exam PHYSICAL EXAM: VITAL SIGNS: [as above] GENERAL: sitting up in bed, alert and oriented 2, groggy, delayed response HEENT: Conjunctivae normal. eyes normal. Oral mucosa moist NECK: No JVD. No thyroid enlargement. CARDIOVASCULAR: S1, S2 regular.No murmur RESPIRATION: Breath sounds diminished in the bases,bibasilar crackles. ABDOMEN: Soft, nontender . No guarding. no masses palpable. Bowel sounds heard. LEGS: trace edema. NERVOUS SYSTEM: Cranial nerves II through XII grossly intact, moves all extremities, no focal deficits. Strength and sensation grossly intact Skin: warm and dry, left T4 dermatome rash,dressing clean dry and intact - Labs CBC & Chem 7: 01/30/20 03:43 01/30/20 03:43 Labs: Abnormal Lab Results - Last 24 Hours (Table) 01/29/20 01/30/20 01/30/20 Range/Units 04:20 03:43 03:43 WBC 10.7 H (3.8-10.6) k/uL RBC 2.46 L (4.30-5.90) m/uL Hgb 8.3 L (13.0-17.5) gm/dL Hct 26.2 L (39.0-53.0) % MCV 106.6 H (80.0-100.0) fL RDW 16.6 H (11.5-15.5) % Macrocytosis Marked A Sodium 133 L (137-145) mmol/L Carbon Dioxide 20 L (22-30) mmol/L BUN 48 H (9-20) mg/dL Creatinine 6.76 H (0.66-1.25) mg/dL Phosphorus (2.5-4.5) mg/dL Iron 27 L (65-175) ug/dL TIBC 177 L (228-460) ug/dL 01/30/20 Range/Units 03:43 WBC (3.8-10.6) k/uL RBC (4.30-5.90) m/uL Hgb (13.0-17.5) gm/dL Hct (39.0-53.0) % MCV (80.0-100.0) fL RDW (11.5-15.5) % Macrocytosis Sodium (137-145) mmol/L Carbon Dioxide (22-30) mmol/L BUN (9-20) mg/dL Creatinine (0.66-1.25) mg/dL Phosphorus 7.3 H (2.5-4.5) mg/dL Iron (65-175) ug/dL TIBC (228-460) ug/dL Assessment and Plan Assessment: (1) Acute respiratory failure with hypoxia, status post ventilator-dependent secondary to streptococcal pneumoniae pneumonia, possible aspiration Current Visit: Yes Status: Acute Code(s): J96.01 - ACUTE RESPIRATORY FAILURE WITH HYPOXIA SNOMED Code(s): 85034988 (2) Overdose,Seroquel, maintained on suicide precautions Current Visit: Yes Status: Acute Code(s): T50.901A - POISONING BY UNSP DRUG/MEDS/BIOL SUBST, ACCIDENTAL, INIT SNOMED Code(s): 10801311 (3) Acute toxic and metabolic encephalopathysecondary to #2, hypertension Current Visit: Yes Status: Acute Code(s): G93.41 - METABOLIC ENCEPHALOPATHY SNOMED Code(s): 50457816 (4) Neuralgia Current Visit: Yes Status: Acute Code(s): M79.2 - NEURALGIA AND NEURITIS, UNSPECIFIED SNOMED Code(s): 89562323 (6) Fluid overload Current Visit: Yes Status: Acute Code(s): E87.70 - FLUID OVERLOAD, UNSPECIFIED SNOMED Code(s): 50146497 (7) Hypertensive crisis, s/p clevidepine. Current Visit: Yes Status: Acute Code(s): I16.9 - HYPERTENSIVE CRISIS, UNSPECIFIED SNOMED Code(s): 394325342 (8) herpes zoster,left T4 dermatome Current Visit: Yes Status: Acute Code(s): B02.9 - ZOSTER WITHOUT COMPLICATIONS SNOMED Code(s): 6569139 (9) End stage renal disease,on hemodialysis, Thursday, Thursday and Fridays Current Visit: No Status: Acute Code(s): N18.6 - END STAGE RENAL DISEASE SNOMED Code(s): 88404685 (10) Anemia in chronic kidney disease, iron deficient Current Visit: Yes Status: Acute Code(s): N18.9 - CHRONIC KIDNEY DISEASE, UNSPECIFIED; D63.1 - ANEMIA IN CHRONIC KIDNEY DISEASE SNOMED Code(s): 085547101 (11) hypotension, status post pressor dependent, resolved (12) prominence of the pulmonary arteries, hilum, suspect related to pulmonary arterial hypertension, possible adenopathy, pulmonary following. Plan: Continue on current medication regime ,monitoring and symptomatic treatment. Reconsult psychiatry, maintaining suicide precautions. Antibiotics as per ID. Aggressive pulmonary toileting. Hemodialysis as per nephrology. PT/OT. The impression and plan of care has been dictated as directed. : I performed a history and examination of this patient, discussed the same with the dictator. I agree with the dictator's note ,documented as a scribe. Any additional findings or plans will be noted.
[2020-01-30] MEDS: AMPICILLIN-SULBACTAM 3 GM in SODIUM CHLORIDE 0.9% 100 ML IVPB SCH (17:07)
[2020-01-30] MEDS: QUEtiapine 50 MG TAB PO SCH (20:04)
--- NOTE | 2020-01-30 23:44 | PN ---
PROGRESS NOTE DATE OF SERVICE: 01/30/2020 REASON FOR FOLLOWUP: 1. Left T4 dermatome shingles. 2. Pneumonia. INTERVAL HISTORY: The patient is currently afebrile. The patient remains to be lethargic. He is breathing comfortably. No vomiting or diarrhea has been reported or any other changes in clinical condition. PHYSICAL EXAMINATION: Blood pressure 145/95 with a pulse of 78, temperature 98.2. He is 95% on 2 L nasal cannula. General description is a middle-aged male lying in bed in no distress. RESPIRATORY SYSTEM: Unlabored breathing, decreased breath sounds at the bases. No wheeze. HEART: S1, S2. Regular rate and rhythm. ABDOMEN: Soft, no tenderness. LABS: Hemoglobin 8.3, white count 10.7, creatinine 6.76. DIAGNOSTIC IMPRESSION AND PLAN: 1. Patient with left T4 dermatome shingles foot. Acyclovir has been switched over to Valtrex to continue. 2. Patient with aspiration pneumonia. Sputum has been Streptococcus pneumoniae covered with Unasyn. Finishing therapy with Augmentin once his mentation improved. Continue supportive care. MMODL / IJN: [id number] /
[2020-01-31] MEDS: HEPARIN SODIUM,PORCINE 5,000 UNIT/ML 1 ML VIAL SQ SCH ×4 (00:15→23:31)
[2020-01-31 04:23] LABS: Anisocytosis Slight; Basophils % (A) 1 %; Eosinophils # (A) 0.1 k/uL (0-0.7); Eosinophils % (A) 2 %; HCT 26.1 % (39.0-53.0); HGB 8.2 gm/dL (13.0-17.5); Hypochromasia Slight; Lymphocytes # (A) 0.9 k/uL (1.0-4.8); Lymphocytes % (A) 11 %; MCH 33.4 pg (25.0-35.0); MCHC 31.3 g/dL (31.0-37.0); MCV 106.7 fL (80.0-100.0); Monocytes # (A) 0.6 k/uL (0-1.0); Monocytes % (A) 7 %; Neutrophils % (A) 76 %; Platelet Count 318 k/uL (150-450); RBC 2.45 m/uL (4.30-5.90); RDW 17.6 % (11.5-15.5)
[2020-01-31 04:40] LABS: Albumin 2.9 g/dL (3.5-5.0); Calcium 9.1 mg/dL (8.4-10.2); Potassium 4.4 mmol/L (3.5-5.1); Total Bilirubin 0.8 mg/dL (0.2-1.3); Total Protein 6.2 g/dL (6.3-8.2)
[2020-01-31 04:45] LABS: Macrocytosis Marked
[2020-01-31] MEDS: carvediloL 12.5 MG TAB PO SCH ×2 (07:13→17:26)
--- NOTE | 2020-01-31 08:56 | XR ---
EXAMINATION TYPE: XR chest 1V portable DATE OF EXAM: 01/31/2020 CLINICAL HISTORY: Follow-up. TECHNIQUE: Portable semiupright view of the chest COMPARISON: 01/29/2020 chest radiograph FINDINGS: Redemonstrated cardiomegaly. Redemonstrated interstitial coarsening which may represent pu lmonary vascular congestion versus atypical pneumonia. There is minimally improved aeration versus . No pleural effusion. No pneumothorax. Degenerative changes of the left shoulder. IMPRESSION: Minimally improved aeration of the bilateral lungs versus 01/29/2020.
[2020-01-31] MEDS: hydrALAZINE HCL 50 MG TAB PO SCH ×3 (09:10→19:55)
[2020-01-31] MEDS: cloNIDine HCL 0.1 MG TAB PO SCH ×3 (09:10→19:55)
[2020-01-31] MEDS: PANTOPRAZOLE 40 MG/10 ML VIAL IV SCH ×2 (09:10→19:55)
[2020-01-31] MEDS: QUEtiapine 25 MG TAB PO SCH (09:11)
[2020-01-31] MEDS: valACYclovir HCL 1,000 MG TABLET PO SCH ×2 (09:11→19:56)
--- NOTE | 2020-01-31 09:43 | P.PN ---
Subjective Progress Note Date: 01/31/20 Principal diagnosis: Acute hypoxic respiratory failure secondary to fluid overload, pulmonary edema, end-stage renal disease, metabolic encephalopathy This is a 49-year-old white male with history of end-stage renal disease, hypertension, COPD, patient is on hemodialysis. Patient is normally on hemodialysis Thursday, supposedly his last hemodialysis was last Thursday. Patient was brought into the ER with altered mental status and shortness of breath. Apparently he was quite confused upon presentation, blood pressure was extremely high at 217/134. Patient was noted to have abnormal labs including low sodium of 125. Abnormal BUN of 72 creatinine 8.57, and his hemoglobin was 9.2. Chest x-ray showed definitely fluid overload and he was noted to have hypoxic respiratory failure. Underwent dialysis last night, and about 1-1/2 L of fluid were removed. Patient was placed on nitroglycerin drip and on clevidipine drip, he was also noted to have herpes zoster rash in the left upper chest wall area. Started on antiviral therapy for his shingles. Patient was also placed on BiPAP, ABG was reasonable. His mentation remained, patient was admitted to the ICU and I was asked to see him on consultation. ABG on BiPAP showed a pO2 of 93 pCO2 of 41 pH of 7.43, and this was a BiPAP of 14/6 and 40% FiO2. 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 Neurology consultation is pending. Patient was reevaluated today on 01/24/20, remains in the ICU, intubated and mechanically ventilated. He is presently on assist control rate of 18 tidal volume is 450 FiO2 of 60% and PEEP of 5. ABG showed a pO2 of 93 pCO2 of 42 pH of 7.44. Patient is on propofol at 50 mcg/kg/m, IV fluids at KVO, and he is going to have dialysis today. Remains on dialysis. Remains on acyclovir for his herpes zoster dermatitis involving the T4 dermatome of left-sided chest. There is evidence of coffee ground material in the nasogastric tube and had an output of 1.8 L of coffee ground and blood-tinged nasogastric tube suctioning. Hemoglobin is holding at 8.4. EEG yesterday showed moderate to severe slowing. Consistent with metabolic encephalopathy. Today I try to wean the patient from propofol, and wanted to give the patient a weaning trial, however he became extremely agitated, and would not follow any instructions. Then we decided to try Precedex for sedation and possibly give the patient at least weaning trials today. In the meantime we will continue to plan dialysis today. Chest x-ray showed slight improvement in the aeration of bilateral upper lungs, however he continues to have some right basilar subsegmental atelectasis and possibly airspace disease Reevaluated today on 01/25/20, patient remains in the ICU. Remains on mechanical ventilation. His ventilator settings are assist control rate of 18 tidal volume is 450 FiO2 is 55% and PEEP of 5. ABG showed a pO2 of 119 pCO2 of 46 pH of 7.39. Patient was on propofol before I evaluated him, however as we took him off propofol, the patient became extremely agitated, restless, not responding to any verbal stimuli, thrashing in bed, and we have recommended Haldol, and place him back on propofol as he was endangering himself, and there was extreme risk of leg lines and extubation. Could not get the patient to follow any instructions. Had to be sedated. Obviously he is not quite ready for any weaning. We will start the patient on Seroquel 25 mg twice a day. Patient had dialysis yesterday, 2 L were removed, chest x-ray continues to show diffuse pleural parenchymal changes consistent with CHF, and possible underlying pneumonia is not entirely excluded. Patient was reevaluated today on 01/26/20, remains in the ICU intubated and mechanically ventilated. Ventilator settings are assist control rate of 18 tidal volume is 450 FiO2 is 55% and PEEP of 5. Patient is having dialysis this morning, he is sedated and on propofol at 35 mcg/kg/m. Hoping to wake the patient up again once dialysis is done discontinued the prevent and consider weaning trial again this morning. In the meantime the patient continues to have episodes of extreme confusion and agitation as well as restlessness once he is on a lower dose of propofol. Tried on Precedex 2 days ago, and he failed to wean. Mostly because of his mental status and extreme agitation. Patient remains obtunded. ABG today showed a pO2 of 175 pCO2 of 45 pH of 7.35 WBC count is 13.9, hemoglobin is 9.0. BUN is 50 creatinine 7.74. Chest x-ray is actually showing improvement in his interstitial edema and his pleural parenchymal changes. The patient was seen today 01/27/2020 in follow-up in the intensive care unit. He remains intubated on mechanical ventilator. Current settings assist-control, rate of 18, tidal volume 450, FiO2 45% and a PEEP of 5. Morning blood gases revealed a PaO2 of 112, CO2 47, pH 7.33. White count 10.9. Hemoglobin 9.0. MCV 105.7. Sodium 135. Potassium 4.3. Creatinine 5.19. Propofol at 35 mcg/kg/m. On clevidipine at 1 mg per hour. Off norepinephrine. Remains on Zosyn. Sputum culture positive for Streptococcus pneumoniae. Blood cultures reveal no growth. Chest x-ray reveals diffuse pleural parenchymal changes most typical of CHF. Bilateral hilar enlargement. Pulmonary artery hypertension. Patient was reevaluated today on 01/28/20, patient remains in the ICU. He is presently receiving hemodialysis. Remains confused and encephalopathic, patient was extubated yesterday. Patient remains on clevidipine at 6 mg per hour, going to wean him since I will start his clonidine as taken at home and his hydralazine. Sputum came back positive for Streptococcus pneumonia, patient remains on antibiotics. He is drowsy, he is slow, and encephalopathic. Receiving hemodialysis during my evaluation. Labs showed hemoglobin of 9.4 WBC count is 10.8, slightly improved considered to WBC count on admission. Electrolytes are normal bicarb is 21. BUN is 45 creatinine is 6.38 chest x-ray today continue to show improvement with persistent right perihilar infiltrate and prominent interstitium. Patient has basically pneumonia and asymmetric venous congestion/fluid overload from end-stage renal disease and failure to comply with hemodialysis Patient was reevaluated today on 01/29/20, remains in the intensive care unit, remains encephalopathic, however definite improvement noted in his overall mental status compared to yesterday. Chest x-ray continues to show evidence of interstitial edema. Patient is now on oral medications for his blood pressure. Clevidipine is being titrated down, the plan is to stop it altogether. Patient remains empirically on antibiotics and/Unasyn for aspiration pneumonia presumptive. Remains on acyclovir for his herpes zoster dermatitis. He is also on GI and DVT prophylaxis. Overall there is improvement in his mental status and his overall pulmonary status. But the patient is not quite ready to be transferred out of the ICU. Continues to have a sitter at bedside. CBC is relatively normal hemoglobin is 8.7 today. He elects lites are normal. BUN is 31 creatinine is 5.15. On 01/30/2020 patient seen in follow-up in the intensive care unit, he is drowsy, but arouses to voice, went to the nurse patient is oriented 3, but his verbal responses are slow, patient is less confused today. Denies any wrist or difficulty, he is on 2 L of oxygen and the pulse ox 96%, did have a low-grade fevers, with a T-max of 100.8F over the last 24 hours. His sputum was Positive for Streptococcus pneumonia, and the patient is on Unasyn, also on acyclovir for the shingles. Had no acute events overnight, pressure has been stable, has not required clevidipine drip. He is on 0.9 normal saline infusing at 20 ML per hour. His labs have been reviewed, showing white blood cell, 10.7, hemoglobin of 8.3, serum sodium is 133, BUN of 48 and creatinine is 6.76. Yesterday chest x-ray showed mild patchy interstitial opacities, possible pulmonary vessel congestion versus atypical pneumonia. he had hemodialysis yesterday we would removal 3.5 L and fluid. On 01/31/2020 patient seen in follow-up in the intensive care unit. He is resting in bed, he sitting up, he is drowsy, but arousable, he is oriented to time, person, he did realize that she is in a medical facility, he seems to have waxing and waning episodes of confusion. No agitation, denies any difficulty breathing, he is on 2 L of oxygen with the pulse ox above 95-96%, he is af ebrile, hemodynamically has been stable, lung sounds reveal diminished breath sounds bilaterally, patient continues on Unasyn for strep pneumonia and valacyclovir for the shingles. His been afebrile today, did have a low-grade fever last night at 8:00 with a temp of 100.5F. He is tolerating oral intake, no vomiting, abdomen is soft, is breathing comfortably, no cough or congestion. He is on 0.9 normal saline at rate of 20 ML per hour. He still has a environmental health and safety leader at the bedside. Objective - Vital Signs Vital signs: Vital Signs Temp 98.2 F 01/31/20 08:00 Pulse 77 01/31/20 09:00 Resp 13 01/31/20 09:00 BP 158/98 01/31/20 09:00 Pulse Ox 95 01/31/20 09:00 Intake & Output 01/30/20 01/31/20 01/31/20 18:59 06:59 18:59 Intake Total 570 240 160 Output Total 3000 0 0 Balance -2430 240 160 Weight 75.8 kg 75.7 kg Intake: IV 370 240 60 Ampicillin-Sulbactam 3 gm 100 In Sodium Chloride 0.9% 100 ml @ 200 mls/hr IVPB Q24H [facility] Rx#:[id number] Sodium Ferric Gluconat- 100 Sucrose 125 mg In Sodium Chloride 0.9% 100 ml @ 100 mls/hr IVPB DAILY [facility] Rx#:[id number] normal saline KVO 170 240 60 Oral 200 100 Output: Urine 0 0 0 Hemodialysis 3000 ABP, PAP, CO, CI - Last Documented Arterial Blood Pressure 126/112 - Exam GENERAL EXAM: Drowsy, 41-year-old white male, appears older than stated age, on 2 L of oxygen and the pulse ox of 96%, comfortable in no apparent distress. HEAD: Normocephalic/atraumatic. EYES: Normal reaction of pupils, equal size. Conjunctiva pink, sclera white. NOSE: Clear with pink turbinates. THROAT: No erythema or exudates. NECK: No masses, no JVD, no thyroid enlargement, no adenopathy. CHEST: No chest wall deformity. Symmetrical expansion. LUNGS: Equal air entry with basilar crackles, but no wheeze, rhonchi or dullness. CVS: Regular rate and rhythm, normal S1 and S2, no gallops, no murmurs, no rubs ABDOMEN: Soft, nontender. No hepatosplenomegaly, normal bowel sounds, no guarding or rigidity. EXTREMITIES: No clubbing, no edema, no cyanosis, 2+ pulses and upper and lower extremities. Left upper arm AV fistula with positive bruit and thrill MUSCULOSKELETAL: Muscle strength and tone normal. SPINE: No scoliosis or deformity SKIN: No rashes CENTRAL NERVOUS SYSTEM: Drowsy, but arousable No focal deficits, tone is normal in all 4 extremities. - Labs CBC & Chem 7: 01/31/20 03:59 01/31/20 03:59 Labs: Abnormal Lab Results - Last 24 Hours (Table) 01/30/20 01/31/20 01/31/20 Range/Units 03:43 03:59 03:59 RBC 2.45 L (4.30-5.90) m/uL Hgb 8.2 L (13.0-17.5) gm/dL Hct 26.1 L (39.0-53.0) % MCV 106.7 H (80.0-100.0) fL RDW 17.6 H (11.5-15.5) % Lymphocytes # 0.9 L (1.0-4.8) k/uL Macrocytosis Marked A BUN 36 H (9-20) mg/dL Creatinine 5.81 H (0.66-1.25) mg/dL Glucose 106 H (74-99) mg/dL Phosphorus 7.3 H (2.5-4.5) mg/dL Alkaline Phosphatase 182 H (38-126) U/L Total Protein 6.2 L (6.3-8.2) g/dL Albumin 2.9 L (3.5-5.0) g/dL Assessment and Plan Plan: Assessment: #1. Acute hypoxic respiratory failure is secondary to fluid overload, pulmonary edema, end-stage renal disease and missed hemodialysis, acquiring intubation and placement on mechanical ventilator intubated on 01/23/2020 and extubated on 01/27/2020 #2. Acute metabolic encephalopathy, suspect hypertensive emergency with mental status change and hypertensive encephalopathy, improving #3. End-stage renal disease on hemodialysis, noncompliant #4. Acute pulmonary edema second her to missed dialysis with volume overload #5. Anemia of chronic disease #6. Hypovolemic hyponatremia, improved #7. Herpes zoster dermatitis involving anterior chest wall, patient is covered with Acyclovir, and now switched to Valtrex #8. Streptococcus pneumonia related to possibility of aspiration pneumonia is not excluded Plan: Continue current medical treatment, we'll switch the Unasyn to oral Augmentin, continue Valtrex, hemodynamically patient has been stable, his mentation is improving although he is still having waxing and waning periods of confusion. Maintaining safety precautions, maintain aspiration precautions, breathing comfortably, no nausea vomiting or diarrhea, we will ask the psychiatric services to evaluate the patient again. Patient possibly be transferred to medical surgical floor today if remains stable. I performed a history & physical examination of the patient and discussed their management with my nurse practitioner, Poppy Acevedo. I reviewed the nurse practitioner's note and agree with the documented findings and plan of care. Lung sounds are positive for diminished breath sounds. The findings and the impression was discussed with the patient. I attest to the documentation by the nurse practitioner. Time with Patient: Less than 30
--- NOTE | 2020-01-31 09:47 | P.PN ---
Subjective Patient is seen in follow-up for end-stage renal disease. He is maintained on hemodialysis on Thursday schedule. Currently sitting up in bed. He has been eating. Hemodynamically stable. Mentation still not at baseline. Vital signs are stable. General: The patient appeared well nourished and normally developed. HEENT: Head exam is unremarkable. Neck is without jugular venous distension. LUNGS: Breath sounds decreased. HEART: Rate and Rhythm are regular. ABDOMEN: Soft, nontender. EXTREMITITES: Trace edema. Objective - Vital Signs Vital signs: Vital Signs Temp 98.2 F 01/31/20 08:00 Pulse 77 01/31/20 09:00 Resp 13 01/31/20 09:00 BP 158/98 01/31/20 09:00 Pulse Ox 95 01/31/20 09:00 Intake & Output 01/30/20 01/31/20 01/31/20 18:59 06:59 18:59 Intake Total 570 240 160 Output Total 3000 0 0 Balance -2430 240 160 Weight 75.8 kg 75.7 kg Intake: IV 370 240 60 Ampicillin-Sulbactam 3 gm 100 In Sodium Chloride 0.9% 100 ml @ 200 mls/hr IVPB Q24H [facility] Rx#:[id number] Sodium Ferric Gluconat- 100 Sucrose 125 mg In Sodium Chloride 0.9% 100 ml @ 100 mls/hr IVPB DAILY [facility] Rx#:[id number] normal saline KVO 170 240 60 Oral 200 100 Output: Urine 0 0 0 Hemodialysis 3000 ABP, PAP, CO, CI - Last Documented Arterial Blood Pressure 126/112 - Labs CBC & Chem 7: 01/31/20 03:59 01/31/20 03:59 Labs: Abnormal Lab Results - Last 24 Hours (Table) 01/30/20 01/31/20 01/31/20 Range/Units 03:43 03:59 03:59 RBC 2.45 L (4.30-5.90) m/uL Hgb 8.2 L (13.0-17.5) gm/dL Hct 26.1 L (39.0-53.0) % MCV 106.7 H (80.0-100.0) fL RDW 17.6 H (11.5-15.5) % Lymphocytes # 0.9 L (1.0-4.8) k/uL Macrocytosis Marked A BUN 36 H (9-20) mg/dL Creatinine 5.81 H (0.66-1.25) mg/dL Glucose 106 H (74-99) mg/dL Phosphorus 7.3 H (2.5-4.5) mg/dL Alkaline Phosphatase 182 H (38-126) U/L Total Protein 6.2 L (6.3-8.2) g/dL Albumin 2.9 L (3.5-5.0) g/dL Assessment and Plan Plan: Assessment: 1. End-stage renal disease maintained on hemodialysis Thursday schedule. 2. Volume overload. Improved. 3. Missed hemodialysis treatments outpatient. 4. Anemia of chronic kidney disease. Iron deficiency noted. Maintained on Aranesp. 5. Hypertension with chronic kidney disease. stable. 6. Pneumonia maintained on antibiotics. Sputum culture positive for strep. 7. Chronic kidney disease mineral bone disease. Plan: Hemodialysis tomorrow. IV iron 3 doses. Second dose today. Add Renvela with meals.
[2020-01-31] MEDS: SODIUM FERRIC GLUCONAT-SUCROSE 125 MG in SODIUM CHLORIDE 0.9% 100 ML IVPB SCH (09:58)
--- NOTE | 2020-01-31 14:47 | P.PN ---
Subjective Progress Note Date: 01/31/20 This a 49 y/o male who lives on his owm. HE HAS ESRD with heomdialysis MWF. He was jsut at [facility] yesterday for minimal SOB, and significant herpitic Neuralgia. He was seen by nephology 01/21 who felt he could get his dialyais 01/22 and did not need it urgently. He was seen by cardiology for min abn troponins and this was felt to be chronic. He did have minmal sob, that resolved after some pain medication for his shingles. He was treated with Acyclovir. he was given Dilaudid and Gabapetnin. early in the moring he had some confusin and was given Narcan then again several hours later, which resolved his somnolence but not his pain. He was D/C in stable condtion to f/u i nt office joe cantrell to habve dialysis 01/22. ~ 01:00 01/23/2020 patient was brought in [facility] ER for altered mental status and shortness of breath. he was quite tachypneic and hypertensive upon arrival. Nitro drip was started. Patient was placed on BiPap. Ct brain old lacunar infarcts in the right internal capsule. No acute intracranial abnormality. No change. 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 01/24/2020 Yesterday required intubation, maintained on 55% FiO2/+5 of PEEP. chest x-ray reporting small right pleural effusion, increased right basilar airspace opacity airspace, right basilar subsegmental atelectasis with improved aeration of bilateral upper lungs Initially had required clevidipine, became hypotensive, discontinued and now requiring pressor support with Levophed. Evaluated by infectious disease regarding left T4 dermatome zoster,with renal dose acyclovir recommended.earlier this morning patient agitated, not following commands and weaning trial aborted. Telemetry sinus rhythm.afebrile,normal WBC. preliminary blood cultures no growth at 24 hours. ABGs noted.hemoglobin down to 8.4,platelets 239.sodium 126, BUN 60, creatinine 8.38.scheduled for hemodialysis today. alk phos mildly elevated, 127. Albumin low at 3.2. completed EEG yesterday,abnormal, suggestive of toxic metabolic encephalopathy, with no epileptiform activity seen. 01/25/2020 Remains vent dependent, FiO2 55%/+5 PEEP. Maintained on diprovan and Levophed drips. Continues on acyclovir and Zosyn. Afebrile, WBC trending up to 18.2. Hemoglobin continues improving up to 9.6, platelets 269. Weaning trials attempted today but patient became agitated, restless, not following commands, requiring Haldol and placed back on diprovan drip. Seroquel added to med regimen. Chest x-ray reporting diffuse pleural parenchymal changes, stable, possible CHF, possible underlying pneumonia, prominence of the pulmonary arteries and hilum associated pulmonary arterial hypertension, possible adenopathy. 01/26/2020 remains vent dependent, FiO2 down to 45%/+ 5 of PEEP. Sedated on diprovan. Levophed weaned off. Receiving hemodialysis today. ABGs noted. Chest x-ray reporting improvement. Afebrile, WBC trending down, 13.9. Hemoglobin 9, platelets, 236. Continues on acyclovir, zosyn. Blood and sputum cultures pending. 01/27/2020 received hemodialysis yesterday .sputum culture reporting positive for Streptococcus pneumoniae , blood cultures reporting no growth . Chest x-ray reporting diffuse parenchymal changes, typical of CHF, bilateral hilar enlargement, possible pulmonary arterial hypertension, possible underlying adenopathy/mass. Maintained on Zosyn. Extubated this morning, maintaining O2 s ats in the 90s on 4 L nasal cannula. Suicide precautions in place with sitter at bedside. Levophed weaned off. Maintained on Clevidipine. 01/30/2020 maintained on Unasyn, Acyclovir for streptococcal pneumonia, shingles. T-max 100.8, WBC 10.7. Weaned off of Clevidipine. Maintaining O2 sats in the 90s on 2 L nasal cannula. Sensorium improving. Continues on suicide precautions. Received hemodialysis yesterday, again today to return to his normal schedule of Thursday. Telemetry sinus rhythm. 01/31/2020 maintained O2 sats in the 90s on 2 L nasal cannula. Continues on Unasyn,acyclovir. Chest x-ray reporting minimal improvement. T-max 100.5, normal WBC. More alert today with fluctuating periods of confusion. Suicide precautions maintained with environmental health safety manager at bedside. Patient denies being suicidal and taking a full bottle of Seroquel. Objective - Vital Signs Vital signs: Vital Signs Temp 98.2 F 01/31/20 08:00 Pulse 77 01/31/20 11:00 Resp 14 01/31/20 11:00 BP 126/94 01/31/20 11:00 Pulse Ox 97 01/31/20 11:00 Intake & Output 01/30/20 01/31/20 01/31/20 18:59 06:59 18:59 Intake Total 570 240 160 Output Total 3000 0 0 Balance -2430 240 160 Weight 75.8 kg 75.7 kg Intake: IV 370 240 60 Ampicillin-Sulbactam 3 gm 100 In Sodium Chloride 0.9% 100 ml @ 200 mls/hr IVPB Q24H [facility] Rx#:[id number] Sodium Ferric Gluconat- 100 Sucrose 125 mg In Sodium Chloride 0.9% 100 ml @ 100 mls/hr IVPB DAILY [facility] Rx#:[id number] normal saline KVO 170 240 60 Oral 200 100 Output: Urine 0 0 0 Hemodialysis 3000 ABP, PAP, CO, CI - Last Documented Arterial Blood Pressure 126/112 - Exam PHYSICAL EXAM: VITAL SIGNS: [as above] GENERAL: sitting up in bed, alert and oriented 2, fluctuating confusion HEENT: Conjunctivae normal. eyes normal. Oral mucosa moist NECK: No JVD. No thyroid enlargement. CARDIOVASCULAR: S1, S2 regular.No murmur RESPIRATION: Breath sounds diminished in the bases,bibasilar crackles. ABDOMEN: Soft, nontender . No guarding. no masses palpable. Bowel sounds heard. LEGS: trace edema. NERVOUS SYSTEM: Cranial nerves II through XII grossly intact, moves all extremities, no focal deficits. Strength and sensation grossly intact Skin: warm and dry, left T4 dermatome rash,dressing clean dry and intact - Labs CBC & Chem 7: 01/31/20 03:59 01/31/20 03:59 Labs: Abnormal Lab Results - Last 24 Hours (Table) 01/31/20 01/31/20 Range/Units 03:59 03:59 RBC 2.45 L (4.30-5.90) m/uL Hgb 8.2 L (13.0-17.5) gm/dL Hct 26.1 L (39.0-53.0) % MCV 106.7 H (80.0-100.0) fL RDW 17.6 H (11.5-15.5) % Lymphocytes # 0.9 L (1.0-4.8) k/uL Macrocytosis Marked A BUN 36 H (9-20) mg/dL Creatinine 5.81 H (0.66-1.25) mg/dL Glucose 106 H (74-99) mg/dL Alkaline Phosphatase 182 H (38-126) U/L Total Protein 6.2 L (6.3-8.2) g/dL Albumin 2.9 L (3.5-5.0) g/dL Assessment and Plan Assessment: (1) Acute respiratory failure with hypoxia, status post ventilator-dependent secondary to streptococcal pneumoniae pneumonia, possible aspiration Current Visit: Yes Status: Acute Code(s): J96.01 - ACUTE RESPIRATORY FAILURE WITH HYPOXIA SNOMED Code(s): 44416200 (2) Overdose,Seroquel, maintained on suicide precautions Current Visit: Yes Status: Acute Code(s): T50.901A - POISONING BY UNSP DRUG/MEDS/BIOL SUBST, ACCIDENTAL, INIT SNOMED Code(s): 03296013 (3) Acute toxic and metabolic encephalopathysecondary to #2, hypertension Current Visit: Yes Status: Acute Code(s): G93.41 - METABOLIC ENCEPHALOPATHY SNOMED Code(s): 28517269 (4) Neuralgia Current Visit: Yes Status: Acute Code(s): M79.2 - NEURALGIA AND NEURITIS, UNSPECIFIED SNOMED Code(s): 12564334 (6) Fluid overload Current Visit: Yes Status: Acute Code(s): E87.70 - FLUID OVERLOAD, UNSPECIFIED SNOMED Code(s): 65387576 (7) Hypertensive crisis, s/p clevidepine. Current Visit: Yes Status: Acute Code(s): I16.9 - HYPERTENSIVE CRISIS, UNSPECIFIED SNOMED Code(s): 880232381 (8) herpes zoster,left T4 dermatome Current Visit: Yes Status: Acute Code(s): B02.9 - ZOSTER WITHOUT COMPLICATIONS SNOMED Code(s): 3716475 (9) End stage renal disease,on hemodialysis, Thursday, Thursday and Fridays Current Visit: No Status: Acute Code(s): N18.6 - END STAGE RENAL DISEASE SNOMED Code(s): 43928915 (10) Anemia in chronic kidney disease, iron deficient Current Visit: Yes Status: Acute Code(s): N18.9 - CHRONIC KIDNEY DISEASE, UNSPECIFIED; D63.1 - ANEMIA IN CHRONIC KIDNEY DISEASE SNOMED Code(s): 738555968 (11) hypotension, status post pressor dependent, resolved (12) prominence of the pulmonary arteries, hilum, suspect related to pulmonary arterial hypertension, possible adenopathy, pulmonary following. Plan: Continue on current medication regime ,monitoring and symptomatic treatment. Psychiatry reevaluation pending. Continue with suicide precautions. Aspiration precautions .Antibiotics as per ID. Aggressive pulmonary toileting. Hemodialysis tomorrow. PT/OT. The impression and plan of care has been dictated as directed. : I performed a history and examination of this patient, discussed the same with the dictator. I agree with the dictator's note ,documented as a scribe. Any additional findings or plans will be noted.
[2020-01-31] MEDS: SEVELAMER 800 MG TAB PO SCH ×2 (15:15→17:26)
[2020-01-31] MEDS: AMPICILLIN-SULBACTAM 3 GM in SODIUM CHLORIDE 0.9% 100 ML IVPB SCH (15:17)
--- NOTE | 2020-01-31 17:19 | P.PN ---
Subjective Progress Note Date: 01/31/20 Patient was seen for a follow-up. A sitter was present. Patient appears much more alert and awake, but still continues to hunch over his head, almost touching his head to the knees. PT worked with the patient and was in a similar posture. He continues to be on suicide precaution. According to the nursing report, he is fully oriented. Patient denies headache at all. Objective - Vital Signs Vital signs: Vital Signs Temp 97.2 F L 01/31/20 16:00 Pulse 70 01/31/20 16:00 Resp 21 01/31/20 16:00 BP 144/90 01/31/20 16:00 Pulse Ox 95 01/31/20 16:00 Intake & Output 01/30/20 01/31/20 01/31/20 18:59 06:59 18:59 Intake Total 570 240 470 Output Total 3000 0 0 Balance -2430 240 470 Weight 75.8 kg 75.7 kg Intake: IV 370 240 170 Ampicillin-Sulbactam 3 gm 100 100 In Sodium Chloride 0.9% 100 ml @ 200 mls/hr IVPB Q24H [facility] Rx#:[id number] Sodium Ferric Gluconat- 100 Sucrose 125 mg In Sodium Chloride 0.9% 100 ml @ 100 mls/hr IVPB DAILY [facility] Rx#:[id number] normal saline KVO 170 240 70 Oral 200 300 Output: Urine 0 0 0 Hemodialysis 3000 ABP, PAP, CO, CI - Last Documented Arterial Blood Pressure 126/112 - Exam Patient is sitting in the bed. The head end is lifted up. Patient appears to have bilateral torticollis, with continuous neck flexion, head drop. Patient not able to lift his head up. On trying manually, requires a lot of strength, does extend, but then again flexes down on the chest. On cranial nerve examination, pupils are round and reacting, face is symmetric. His medical device is very equal bilaterally about 4+ to 5-. Biceps are 4+. Tone is equal bilaterally. Patient wiggles his feet. He did not cooperate due to mentation. Plantars are somewhat flat. - Labs CBC & Chem 7: 01/31/20 03:59 01/31/20 03:59 Labs: Abnormal Lab Results - Last 24 Hours (Table) 01/31/20 01/31/20 Range/Units 03:59 03:59 RBC 2.45 L (4.30-5.90) m/uL Hgb 8.2 L (13.0-17.5) gm/dL Hct 26.1 L (39.0-53.0) % MCV 106.7 H (80.0-100.0) fL RDW 17.6 H (11.5-15.5) % Lymphocytes # 0.9 L (1.0-4.8) k/uL Macrocytosis Marked A BUN 36 H (9-20) mg/dL Creatinine 5.81 H (0.66-1.25) mg/dL Glucose 106 H (74-99) mg/dL Alkaline Phosphatase 182 H (38-126) U/L Total Protein 6.2 L (6.3-8.2) g/dL Albumin 2.9 L (3.5-5.0) g/dL Assessment and Plan Assessment: * Altered mental status, likely due to toxic-metabolic encephalopathy, much improved. However patient continues to be encephalopathic. * Head drop, with bilateral torticollis, unclear etiology. Patient not on any medication that would contribute to dystonia. * Status post Acute hypoxic respiratory failure secondary to pulmonary edema. Status post extubation. * End-stage renal disease on hemodialysis * Probable pneumonia, ID on board. * Patient's CBC revealed anemia and macrocytosis. Rule out some underlying alcoholism. * Herpes zoster left T4 dermatome. No signs of encephalitis. Plan: * Patient's mentation has improved as compared to yesterday. His strength appears better. Continues to have head drop, with possible bilateral torticollis. We will check CPK and acetylcholine receptor antibodies. We will also check B12, MMA, folate, TSH, RPR. * Patient has herpetic rash over the chest in left T4 dermatome. Patient on oral acyclovir. * EEG revealed background slowing of moderate to severe degree, consistent with encephalopathy. No epileptiform activity was seen. * Serum drug screen positive for opiates and marijuana. * Psychiatry on board. * Medical management as per IM/ICU.
[2020-01-31] MEDS: QUEtiapine 50 MG TAB PO SCH (19:56)
--- NOTE | 2020-01-31 21:59 | PN ---
PROGRESS NOTE DATE OF SERVICE: 01/31/2020 REASON FOR FOLLOWUP: 1. Left T4 dermatome shingles. 2. Pneumonia. INTERVAL HISTORY: The patient is currently afebrile. The patient is hemodynamically stable, remains slightly sleepy and lethargic, though the sitter at the bedside mentioned he sat up in the bed and sat with Physical Therapy for the first time. No vomiting or diarrhea has been reported or any worsening cough. PHYSICAL EXAMINATION: Blood pressure 155/93 with a pulse of 71, temperature 98. He is 94% on 2 L nasal cannula. General description is a middle-aged male up in the bed in no distress. RESPIRATORY SYSTEM: Unlabored breathing with decreased breath sounds at the base. No wheeze. HEART: S1, S2. Regular rate and rhythm. ABDOMEN: Soft. No tenderness. LABS: Hemoglobin 8.9, white count 8.0. DIAGNOSTIC IMPRESSION AND PLAN: 1. Patient with left T4 dermatome shingles, on Valtrex with overall improvement. 2. Patient with aspiration pneumonia. Sputum has been Streptococcus pneumoniae. Covered with Unasyn. Switching to Augmentin to finish his therapy. Continue with supportive care. MMODL / IJN: [id number] /
[2020-02-01 03:55] LABS: Anisocytosis Slight; Basophils # (A) 0.1 k/uL (0-0.2); Basophils % (A) 1 %; Eosinophils # (A) 0.1 k/uL (0-0.7); Eosinophils % (A) 2 %; HCT 25.6 % (39.0-53.0); HGB 8.1 gm/dL (13.0-17.5); Hypochromasia Slight; Lymphocytes # (A) 0.7 k/uL (1.0-4.8); Lymphocytes % (A) 10 %; MCH 34.3 pg (25.0-35.0); MCHC 31.5 g/dL (31.0-37.0); MCV 108.7 fL (80.0-100.0); Mean Platelet Volume 7.6; Monocytes # (A) 0.4 k/uL (0-1.0); Monocytes % (A) 5 %; Neutrophils % (A) 79 %; Platelet Count 362 k/uL (150-450); RBC 2.35 m/uL (4.30-5.90); RDW 17.6 % (11.5-15.5); WBC 7.6 k/uL (3.8-10.6)
[2020-02-01 04:00] LABS: Calcium 9.2 mg/dL (8.4-10.2); Potassium 4.7 mmol/L (3.5-5.1)
[2020-02-01 04:04] LABS: Macrocytosis Marked
[2020-02-01] MEDS: carvediloL 12.5 MG TAB PO SCH ×2 (06:59→17:25)
[2020-02-01] MEDS: SEVELAMER 800 MG TAB PO SCH ×3 (06:59→17:25)
[2020-02-01] MEDS: hydrALAZINE HCL 50 MG TAB PO SCH ×3 (08:48→20:33)
[2020-02-01] MEDS: valACYclovir HCL 1,000 MG TABLET PO SCH ×2 (08:48→20:34)
[2020-02-01] MEDS: cloNIDine HCL 0.1 MG TAB PO SCH ×3 (08:48→20:33)
[2020-02-01] MEDS: HEPARIN SODIUM,PORCINE 5,000 UNIT/ML 1 ML VIAL SQ SCH ×2 (08:48→16:08)
[2020-02-01] MEDS: PANTOPRAZOLE 40 MG/10 ML VIAL IV SCH ×2 (08:48→20:35)
[2020-02-01] MEDS: QUEtiapine 25 MG TAB PO SCH (08:48)
--- NOTE | 2020-02-01 09:03 | P.PN ---
Subjective Patient is seen in follow-up for end-stage renal disease. He is maintained on hemodialysis on Thursday schedule. Currently sitting up in bed. He has been eating. Hemodynamically stable. Mentation still not at baseline. He is alert and oriented 3. Scheduled for dialysis today. Vital signs are stable. General: The patient appeared well nourished and normally developed. HEENT: Head exam is unremarkable. Neck is without jugular venous distension. LUNGS: Breath sounds decreased. HEART: Rate and Rhythm are regular. ABDOMEN: Soft, nontender. EXTREMITITES: Trace edema. Objective - Vital Signs Vital signs: Vital Signs Temp 99.9 F H 02/01/20 08:00 Pulse 84 02/01/20 08:00 Resp 24 02/01/20 08:00 BP 164/102 02/01/20 08:00 Pulse Ox 96 02/01/20 08:00 Intake & Output 01/31/20 02/01/20 02/01/20 18:59 06:59 18:59 Intake Total 470 Output Total 0 0 Balance 470 0 Weight 78 kg Intake: IV 170 Ampicillin-Sulbactam 3 gm 100 In Sodium Chloride 0.9% 100 ml @ 200 mls/hr IVPB Q24H [facility] Rx#:[id number] normal saline KVO 70 Oral 300 Output: Urine 0 0 ABP, PAP, CO, CI - Last Documented Arterial Blood Pressure 126/112 - Labs CBC & Chem 7: 02/01/20 03:18 02/01/20 03:18 Labs: Abnormal Lab Results - Last 24 Hours (Table) 01/31/20 02/01/20 02/01/20 Range/Units 03:59 03:18 03:18 RBC 2.35 L (4.30-5.90) m/uL Hgb 8.1 L (13.0-17.5) gm/dL Hct 25.6 L (39.0-53.0) % MCV 108.7 H (80.0-100.0) fL RDW 17.6 H (11.5-15.5) % Lymphocytes # 0.7 L (1.0-4.8) k/uL Macrocytosis Marked A Sodium 135 L (137-145) mmol/L Carbon Dioxide 19 L (22-30) mmol/L BUN 51 H (9-20) mg/dL Creatinine 7.48 H* (0.66-1.25) mg/dL Creatine Kinase 31 L (55-170) U/L Vitamin B12 1185.0 H (200.0-944.0) pg/mL Assessment and Plan Plan: Assessment: 1. End-stage renal disease maintained on hemodialysis Thursday schedule. 2. Volume overload. Improved. 3. Missed hemodialysis treatments outpatient. 4. Anemia of chronic kidney disease. Iron deficiency noted. Maintained on Aranesp. 5. Hypertension with chronic kidney disease. Blood pressure on the higher side this morning. Hasn't received antihypertensives yet. 6. Pneumonia maintained on antibiotics. Sputum culture positive for strep. 7. Chronic kidney disease mineral bone disease Maintained on Renvela. Plan: Hemodialysis today. IV iron 3 doses. Third dose today.
[2020-02-01] MEDS: AMOXIC-POT CLAV 875-125MG 1 EACH TAB PO SCH ×2 (09:08→21:12)
[2020-02-01] MEDS: SODIUM FERRIC GLUCONAT-SUCROSE 125 MG in SODIUM CHLORIDE 0.9% 100 ML IVPB SCH (09:08)
--- NOTE | 2020-02-01 09:54 | P.PN ---
Subjective Progress Note Date: 02/01/20 Principal diagnosis: Acute hypoxic respiratory failure secondary to fluid overload, pulmonary edema, end-stage renal disease, metabolic encephalopathy This is a 49-year-old white male with history of end-stage renal disease, hypertension, COPD, patient is on hemodialysis. Patient is normally on hemodialysis Thursday, supposedly his last hemodialysis was last Thursday. Patient was brought into the ER with altered mental status and shortness of breath. Apparently he was quite confused upon presentation, blood pressure was extremely high at 217/134. Patient was noted to have abnormal labs including low sodium of 125. Abnormal BUN of 72 creatinine 8.57, and his hemoglobin was 9.2. Chest x-ray showed definitely fluid overload and he was noted to have hypoxic respiratory failure. Underwent dialysis last night, and about 1-1/2 L of fluid were removed. Patient was placed on nitroglycerin drip and on clevidipine drip, he was also noted to have herpes zoster rash in the left upper chest wall area. Started on antiviral therapy for his shingles. Patient was also placed on BiPAP, ABG was reasonable. His mentation remained, patient was admitted to the ICU and I was asked to see him on consultation. ABG on BiPAP showed a pO2 of 93 pCO2 of 41 pH of 7.43, and this was a BiPAP of 14/6 and 40% FiO2. 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 Neurology consultation is pending. Patient was reevaluated today on 01/24/20, remains in the ICU, intubated and mechanically ventilated. He is presently on assist control rate of 18 tidal volume is 450 FiO2 of 60% and PEEP of 5. ABG showed a pO2 of 93 pCO2 of 42 pH of 7.44. Patient is on propofol at 50 mcg/kg/m, IV fluids at KVO, and he is going to have dialysis today. Remains on dialysis. Remains on acyclovir for his herpes zoster dermatitis involving the T4 dermatome of left-sided chest. There is evidence of coffee ground material in the nasogastric tube and had an output of 1.8 L of coffee ground and blood-tinged nasogastric tube suctioning. Hemoglobin is holding at 8.4. EEG yesterday showed moderate to severe slowing. Consistent with metabolic encephalopathy. Today I try to wean the patient from propofol, and wanted to give the patient a weaning trial, however he became extremely agitated, and would not follow any instructions. Then we decided to try Precedex for sedation and possibly give the patient at least weaning trials today. In the meantime we will continue to plan dialysis today. Chest x-ray showed slight improvement in the aeration of bilateral upper lungs, however he continues to have some right basilar subsegmental atelectasis and possibly airspace disease Reevaluated today on 01/25/20, patient remains in the ICU. Remains on mechanical ventilation. His ventilator settings are assist control rate of 18 tidal volume is 450 FiO2 is 55% and PEEP of 5. ABG showed a pO2 of 119 pCO2 of 46 pH of 7.39. Patient was on propofol before I evaluated him, however as we took him off propofol, the patient became extremely agitated, restless, not responding to any verbal stimuli, thrashing in bed, and we have recommended Haldol, and place him back on propofol as he was endangering himself, and there was extreme risk of leg lines and extubation. Could not get the patient to follow any instructions. Had to be sedated. Obviously he is not quite ready for any weaning. We will start the patient on Seroquel 25 mg twice a day. Patient had dialysis yesterday, 2 L were removed, chest x-ray continues to show diffuse pleural parenchymal changes consistent with CHF, and possible underlying pneumonia is not entirely excluded. Patient was reevaluated today on 01/26/20, remains in the ICU intubated and mechanically ventilated. Ventilator settings are assist control rate of 18 tidal volume is 450 FiO2 is 55% and PEEP of 5. Patient is having dialysis this morning, he is sedated and on propofol at 35 mcg/kg/m. Hoping to wake the patient up again once dialysis is done discontinued the prevent and consider weaning trial again this morning. In the meantime the patient continues to have episodes of extreme confusion and agitation as well as restlessness once he is on a lower dose of propofol. Tried on Precedex 2 days ago, and he failed to wean. Mostly because of his mental status and extreme agitation. Patient remains obtunded. ABG today showed a pO2 of 175 pCO2 of 45 pH of 7.35 WBC count is 13.9, hemoglobin is 9.0. BUN is 50 creatinine 7.74. Chest x-ray is actually showing improvement in his interstitial edema and his pleural parenchymal changes. The patient was seen today 01/27/2020 in follow-up in the intensive care unit. He remains intubated on mechanical ventilator. Current settings assist-control, rate of 18, tidal volume 450, FiO2 45% and a PEEP of 5. Morning blood gases revealed a PaO2 of 112, CO2 47, pH 7.33. White count 10.9. Hemoglobin 9.0. MCV 105.7. Sodium 135. Potassium 4.3. Creatinine 5.19. Propofol at 35 mcg/kg/m. On clevidipine at 1 mg per hour. Off norepinephrine. Remains on Zosyn. Sputum culture positive for Streptococcus pneumoniae. Blood cultures reveal no growth. Chest x-ray reveals diffuse pleural parenchymal changes most typical of CHF. Bilateral hilar enlargement. Pulmonary artery hypertension. Patient was reevaluated today on 01/28/20, patient remains in the ICU. He is presently receiving hemodialysis. Remains confused and encephalopathic, patient was extubated yesterday. Patient remains on clevidipine at 6 mg per hour, going to wean him since I will start his clonidine as taken at home and his hydralazine. Sputum came back positive for Streptococcus pneumonia, patient remains on antibiotics. He is drowsy, he is slow, and encephalopathic. Receiving hemodialysis during my evaluation. Labs showed hemoglobin of 9.4 WBC count is 10.8, slightly improved considered to WBC count on admission. Electrolytes are normal bicarb is 21. BUN is 45 creatinine is 6.38 chest x-ray today continue to show improvement with persistent right perihilar infiltrate and prominent interstitium. Patient has basically pneumonia and asymmetric venous congestion/fluid overload from end-stage renal disease and failure to comply with hemodialysis Patient was reevaluated today on 01/29/20, remains in the intensive care unit, remains encephalopathic, however definite improvement noted in his overall mental status compared to yesterday. Chest x-ray continues to show evidence of interstitial edema. Patient is now on oral medications for his blood pressure. Clevidipine is being titrated down, the plan is to stop it altogether. Patient remains empirically on antibiotics and/Unasyn for aspiration pneumonia presumptive. Remains on acyclovir for his herpes zoster dermatitis. He is also on GI and DVT prophylaxis. Overall there is improvement in his mental status and his overall pulmonary status. But the patient is not quite ready to be transferred out of the ICU. Continues to have a sitter at bedside. CBC is relatively normal hemoglobin is 8.7 today. He elects lites are normal. BUN is 31 creatinine is 5.15. On 01/30/2020 patient seen in follow-up in the intensive care unit, he is drowsy, but arouses to voice, went to the nurse patient is oriented 3, but his verbal responses are slow, patient is less confused today. Denies any wrist or difficulty, he is on 2 L of oxygen and the pulse ox 96%, did have a low-grade fevers, with a T-max of 100.8F over the last 24 hours. His sputum was Positive for Streptococcus pneumonia, and the patient is on Unasyn, also on acyclovir for the shingles. Had no acute events overnight, pressure has been stable, has not required clevidipine drip. He is on 0.9 normal saline infusing at 20 ML per hour. His labs have been reviewed, showing white blood cell, 10.7, hemoglobin of 8.3, serum sodium is 133, BUN of 48 and creatinine is 6.76. Yesterday chest x-ray showed mild patchy interstitial opacities, possible pulmonary vessel congestion versus atypical pneumonia. he had hemodialysis yesterday we would removal 3.5 L and fluid. On 01/31/2020 patient seen in follow-up in the intensive care unit. He is resting in bed, he sitting up, he is drowsy, but arousable, he is oriented to time, person, he did realize that she is in a medical facility, he seems to have waxing and waning episodes of confusion. No agitation, denies any difficulty breathing, he is on 2 L of oxygen with the pulse ox above 95-96%, he is af ebrile, hemodynamically has been stable, lung sounds reveal diminished breath sounds bilaterally, patient continues on Unasyn for strep pneumonia and valacyclovir for the shingles. His been afebrile today, did have a low-grade fever last night at 8:00 with a temp of 100.5F. He is tolerating oral intake, no vomiting, abdomen is soft, is breathing comfortably, no cough or congestion. He is on 0.9 normal saline at rate of 20 ML per hour. He still has a food safety specialist at the bedside. On 02/01/2020 patient seen in follow-up in intensive care unit, he is drowsy, but arousable, he knows he is in a hospital, he knows the month, he knows the year and the president, however his verbal responses are slow, he is inattentive at times. Denies any acute distress, he is on 2 L of oxygen sats 96%, breathing comfortably, lung sounds are clear, slightly diminished at the bases, one low- grade fever this morning with a temp of 99.9F. He remains on Unasyn for Streptococcus pneumonia. We switched him to oral valacyclovir for the shingles, he is able to take oral intake, we will switch his IV antibiotics to oral Augmentin. These labs have been reviewed, showing white blood cell count 7.6, hemoglobin of 8.1, electrolytes were unremarkable with exception of CO2 which is at 19, B1 is 51, creatinine is 7.48, patient's last hemodialysis was on 01/30/2020 with removal of 3 L and fluids. Does not appear to be fluid overloaded, no difficulty breathing. There is a food safety specialist at the bedside po ssibility of suicide precaution, psychiatric service is following, and we asked them to see the patient again in follow-up Objective - Vital Signs Vital signs: Vital Signs Temp 99.9 F H 02/01/20 08:00 Pulse 84 02/01/20 08:00 Resp 24 02/01/20 08:00 BP 164/102 02/01/20 08:00 Pulse Ox 96 02/01/20 08:00 Intake & Output 01/31/20 02/01/20 02/01/20 18:59 06:59 18:59 Intake Total 470 Output Total 0 0 Balance 470 0 Weight 78 kg 78 kg Intake: IV 170 Ampicillin-Sulbactam 3 gm 100 In Sodium Chloride 0.9% 100 ml @ 200 mls/hr IVPB Q24H [facility] Rx#:[id number] normal saline KVO 70 Oral 300 Output: Urine 0 0 ABP, PAP, CO, CI - Last Documented Arterial Blood Pressure 126/112 - Exam GENERAL EXAM: Drowsy, 41-year-old white male, appears older than stated age, on 2 L of oxygen and the pulse ox of 96%, comfortable in no apparent distress. HEAD: Normocephalic/atraumatic. EYES: Normal reaction of pupils, equal size. Conjunctiva pink, sclera white. NOSE: Clear with pink turbinates. THROAT: No erythema or exudates. NECK: No masses, no JVD, no thyroid enlargement, no adenopathy. CHEST: No chest wall deformity. Symmetrical expansion. LUNGS: Equal air entry with basilar crackles, but no wheeze, rhonchi or dullness. CVS: Regular rate and rhythm, normal S1 and S2, no gallops, no murmurs, no rubs ABDOMEN: Soft, nontender. No hepatosplenomegaly, normal bowel sounds, no guarding or rigidity. EXTREMITIES: No clubbing, no edema, no cyanosis, 2+ pulses and upper and lower extremities. Left upper arm AV fistula with positive bruit and thrill MUSCULOSKELETAL: Muscle strength and tone normal. SPINE: No scoliosis or deformity SKIN: No rashes CENTRAL NERVOUS SYSTEM: Drowsy, but arousable No focal deficits, tone is normal in all 4 extremities. - Labs CBC & Chem 7: 02/01/20 03:18 02/01/20 03:18 Labs: Abnormal Lab Results - Last 24 Hours (Table) 01/31/20 02/01/20 02/01/20 Range/Units 03:59 03:18 03:18 RBC 2.35 L (4.30-5.90) m/uL Hgb 8.1 L (13.0-17.5) gm/dL Hct 25.6 L (39.0-53.0) % MCV 108.7 H (80.0-100.0) fL RDW 17.6 H (11.5-15.5) % Lymphocytes # 0.7 L (1.0-4.8) k/uL Macrocytosis Marked A Sodium 135 L (137-145) mmol/L Carbon Dioxide 19 L (22-30) mmol/L BUN 51 H (9-20) mg/dL Creatinine 7.48 H* (0.66-1.25) mg/dL Creatine Kinase 31 L (55-170) U/L Vitamin B12 1185.0 H (200.0-944.0) pg/mL Assessment and Plan Plan: Assessment: #1. Acute hypoxic respiratory failure is secondary to fluid overload, pulmonary edema, end-stage renal disease and missed hemodialysis, acquiring intubation and placement on mechanical ventilator intubated on 01/23/2020 and extubated on 01/27/2020 #2. Acute metabolic encephalopathy, suspect hypertensive emergency with mental status change and hypertensive encephalopathy, improving #3. End-stage renal disease on hemodialysis, noncompliant #4. Acute pulmonary edema second her to missed dialysis with volume overload #5. Anemia of chronic disease #6. Hypovolemic hyponatremia, improved #7. Herpes zoster dermatitis involving anterior chest wall, patient is covered with Acyclovir, and now switched to Valtrex #8. Streptococcus pneumonia related to possibility of aspiration pneumonia is not excluded Plan: Patient has been stable overnight, he is drowsy, does have periods of confusion, and overall his mentation has been improving. Vital signs have been stable, hemodynamically patient is stable, he is breathing comfortably, does not appear to be fluid overloaded, nephrology is following, patient will be scheduled for hemodialysis treatment today. We'll switch his Unasyn to oral Augmentin, continue with valacyclovir. Maintaining safety precautions, we'll ask psychiatric services to see the patient again, maintaining suicidal precautions until cleared by psychiatry. Otherwise patient is probably stable for transfer out of intensive care unit to general medical floor I performed a history & physical examination of the patient and discussed their management with my nurse practitioner, Poppy Acevedo. I reviewed the nurse practitioner's note and agree with the documented findings and plan of care. Lung sounds are positive for diminished breath sounds. The findings and the impression was discussed with the patient. I attest to the documentation by the nurse practitioner. Time with Patient: Less than 30
[2020-02-01] MEDS: FOLIC ACID 1 MG TAB PO SCH (12:21)
--- NOTE | 2020-02-01 14:26 | P.PN ---
Subjective Progress Note Date: 02/01/20 This a 49 y/o male who lives on his owm. HE HAS ESRD with heomdialysis MWF. He was jsut at [facility] yesterday for minimal SOB, and significant herpitic Neuralgia. He was seen by nephology 01/21 who felt he could get his dialyais 01/22 and did not need it urgently. He was seen by cardiology for min abn troponins and this was felt to be chronic. He did have minmal sob, that resolved after some pain medication for his shingles. He was treated with Acyclovir. he was given Dilaudid and Gabapetnin. early in the moring he had some confusin and was given Narcan then again several hours later, which resolved his somnolence but not his pain. He was D/C in stable condtion to f/u i nt office joe cantrell to habve dialysis 01/22. ~ 01:00 01/23/2020 patient was brought in [facility] ER for altered mental status and shortness of breath. he was quite tachypneic and hypertensive upon arrival. Nitro drip was started. Patient was placed on BiPap. Ct brain old lacunar infarcts in the right internal capsule. No acute intracranial abnormality. No change. 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 01/24/2020 Yesterday required intubation, maintained on 55% FiO2/+5 of PEEP. chest x-ray reporting small right pleural effusion, increased right basilar airspace opacity airspace, right basilar subsegmental atelectasis with improved aeration of bilateral upper lungs Initially had required clevidipine, became hypotensive, discontinued and now requiring pressor support with Levophed. Evaluated by infectious disease regarding left T4 dermatome zoster,with renal dose acyclovir recommended.earlier this morning patient agitated, not following commands and weaning trial aborted. Telemetry sinus rhythm.afebrile,normal WBC. preliminary blood cultures no growth at 24 hours. ABGs noted.hemoglobin down to 8.4,platelets 239.sodium 126, BUN 60, creatinine 8.38.scheduled for hemodialysis today. alk phos mildly elevated, 127. Albumin low at 3.2. completed EEG yesterday,abnormal, suggestive of toxic metabolic encephalopathy, with no epileptiform activity seen. 01/25/2020 Remains vent dependent, FiO2 55%/+5 PEEP. Maintained on diprovan and Levophed drips. Continues on acyclovir and Zosyn. Afebrile, WBC trending up to 18.2. Hemoglobin continues improving up to 9.6, platelets 269. Weaning trials attempted today but patient became agitated, restless, not following commands, requiring Haldol and placed back on diprovan drip. Seroquel added to med regimen. Chest x-ray reporting diffuse pleural parenchymal changes, stable, possible CHF, possible underlying pneumonia, prominence of the pulmonary arteries and hilum associated pulmonary arterial hypertension, possible adenopathy. 01/26/2020 remains vent dependent, FiO2 down to 45%/+ 5 of PEEP. Sedated on diprovan. Levophed weaned off. Receiving hemodialysis today. ABGs noted. Chest x-ray reporting improvement. Afebrile, WBC trending down, 13.9. Hemoglobin 9, platelets, 236. Continues on acyclovir, zosyn. Blood and sputum cultures pending. 01/27/2020 received hemodialysis yesterday .sputum culture reporting positive for Streptococcus pneumoniae , blood cultures reporting no growth . Chest x-ray reporting diffuse parenchymal changes, typical of CHF, bilateral hilar enlargement, possible pulmonary arterial hypertension, possible underlying adenopathy/mass. Maintained on Zosyn. Extubated this morning, maintaining O2 s ats in the 90s on 4 L nasal cannula. Suicide precautions in place with sitter at bedside. Levophed weaned off. Maintained on Clevidipine. 01/30/2020 maintained on Unasyn, Acyclovir for streptococcal pneumonia, shingles. T-max 100.8, WBC 10.7. Weaned off of Clevidipine. Maintaining O2 sats in the 90s on 2 L nasal cannula. Sensorium improving. Continues on suicide precautions. Received hemodialysis yesterday, again today to return to his normal schedule of Thursday. Telemetry sinus rhythm. 01/31/2020 maintained O2 sats in the 90s on 2 L nasal cannula. Continues on Unasyn,acyclovir. Chest x-ray reporting minimal improvement. T-max 100.5, normal WBC. More alert today with fluctuating periods of confusion. Suicide precautions maintained with radiation safety officer at bedside. Patient denies being suicidal and taking a full bottle of Seroquel. 02/01/2020 suicide precautions maintained .psychiatry reconsulted, recommendations pending. 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 Hypertensive, systolic blood pressures in the 160s today, scheduled for hemodialysis today. Maintaining O2 sats in the 90s on 2 L nasal cannula. Tolerated clear liquid diet, advanced to full liquids. Telemetry sinus rhythm. Alert and oriented 3 but requires stimulation,droggy. T-max 99.9. Continues on Unasyn for streptococcal pneumonia and acyclovir for shingles. Objective - Vital Signs Vital signs: Vital Signs Temp 99.9 F H 02/01/20 08:00 Pulse 78 02/01/20 10:44 Resp 24 02/01/20 08:00 BP 161/95 02/01/20 10:44 Pulse Ox 96 02/01/20 10:44 Intake & Output 01/31/20 02/01/20 02/01/20 18:59 06:59 18:59 Intake Total 470 Output Total 0 0 Balance 470 0 Weight 78 kg 78 kg Intake: IV 170 Ampicillin-Sulbactam 3 gm 100 In Sodium Chloride 0.9% 100 ml @ 200 mls/hr IVPB Q24H [facility] Rx#:[id number] normal saline KVO 70 Oral 300 Output: Urine 0 0 ABP, PAP, CO, CI - Last Documented Arterial Blood Pressure 126/112 - Exam PHYSICAL EXAM: VITAL SIGNS: [as above] GENERAL: sitting up in bed, alert and oriented 3, requires stimulation, otherwise sleeping HEENT: Conjunctivae normal. eyes normal. Oral mucosa moist NECK: No JVD. No thyroid enlargement. CARDIOVASCULAR: S1, S2 regular.No murmur RESPIRATION: Breath sounds diminished in the bases,bibasilar crackles. ABDOMEN: Soft, nontender . No guarding. no masses palpable. Bowel sounds heard. LEGS: trace edema. NERVOUS SYSTEM: Cranial nerves II through XII grossly intact, moves all extremities, no focal deficits. Strength and sensation grossly intact Skin: warm and dry, left T4 dermatome rash,dressing clean dry and intact - Labs CBC & Chem 7: 02/01/20 03:18 02/01/20 03:18 Labs: Abnormal Lab Results - Last 24 Hours (Table) 01/31/20 02/01/20 02/01/20 Range/Units 03:59 03:18 03:18 RBC 2.35 L (4.30-5.90) m/uL Hgb 8.1 L (13.0-17.5) gm/dL Hct 25.6 L (39.0-53.0) % MCV 108.7 H (80.0-100.0) fL RDW 17.6 H (11.5-15.5) % Lymphocytes # 0.7 L (1.0-4.8) k/uL Macrocytosis Marked A Sodium 135 L (137-145) mmol/L Carbon Dioxide 19 L (22-30) mmol/L BUN 51 H (9-20) mg/dL Creatinine 7.48 H* (0.66-1.25) mg/dL Creatine Kinase 31 L (55-170) U/L Vitamin B12 1185.0 H (200.0-944.0) pg/mL Assessment and Plan Assessment: (1) Acute respiratory failure with hypoxia, status post ventilator-dependent secondary to streptococcal pneumoniae pneumonia, possible aspiration Current Visit: Yes Status: Acute Code(s): J96.01 - ACUTE RESPIRATORY FAILURE WITH HYPOXIA SNOMED Code(s): 50252752 (2) Overdose,Seroquel, maintained on suicide precautions Current Visit: Yes Status: Acute Code(s): T50.901A - POISONING BY UNSP DRUG/MEDS/BIOL SUBST, ACCIDENTAL, INIT SNOMED Code(s): 93281860 (3) Acute toxic and metabolic encephalopathysecondary to #2, hypertension Current Visit: Yes Status: Acute Code(s): G93.41 - METABOLIC ENCEPHALOPATHY SNOMED Code(s): 66415505 (4) Neuralgia Current Visit: Yes Status: Acute Code(s): M79.2 - NEURALGIA AND NEURITIS, UNSPECIFIED SNOMED Code(s): 86355912 (6) Fluid overload Current Visit: Yes Status: Acute Code(s): E87.70 - FLUID OVERLOAD, UNSPECIFIED SNOMED Code(s): 55624964 (7) Hypertensive crisis, s/p clevidepine. Current Visit: Yes Status: Acute Code(s): I16.9 - HYPERTENSIVE CRISIS, UNSPECIFIED SNOMED Code(s): 376069522 (8) herpes zoster,left T4 dermatome Current Visit: Yes Status: Acute Code(s): B02.9 - ZOSTER WITHOUT COMPLICATIONS SNOMED Code(s): 6118200 (9) End stage renal disease,on hemodialysis, Thursday, Thursday and Fridays Current Visit: No Status: Acute Code(s): N18.6 - END STAGE RENAL DISEASE SNOMED Code(s): 74121763 (10) Anemia in chronic kidney disease, iron deficient Current Visit: Yes Status: Acute Code(s): N18.9 - CHRONIC KIDNEY DISEASE, UNSPECIFIED; D63.1 - ANEMIA IN CHRONIC KIDNEY DISEASE SNOMED Code(s): 206690877 (11) hypotension, status post pressor dependent, resolved (12) prominence of the pulmonary arteries, hilum, suspect related to pulmonary arterial hypertension, possible adenopathy, pulmonary following. Plan: Continue on current medication regime ,monitoring and symptomatic treatment. Maintain suicide precautions. Psychiatry reevaluation/recommendat ions pending. Antibiotics as per ID. Aggressive pulmonary toileting. Hemodialysis today. PT/OT. Patient is MedSurg overflow, awaiting bed. The impression and plan of care has been dictated as directed. : I performed a history and examination of this patient, discussed the same with the dictator. I agree with the dictator's note ,documented as a scribe. Any additional findings or plans will be noted.
--- NOTE | 2020-02-01 14:44 | P.CN ---
Psychiatric Consult - . Consult date: 02/01/20 Consult:: 02/01/20 14:33 IDENTIFYING DATA: This patient is a 49-year-old male currently on hemodialysis and has end-stage renal disease, COPD, GERD hypertension and history of a closed head injury. REASON FOR REFERRAL: Psychiatry was consulted for HISTORY OF PRESENT ILLNESS: The patient presented to the hospital EMR was reviewed by casualty underwriter and consult was placed for psychiatric evaluation for patient's alleging it "suicide attempt". Patient was initially brought in for altered mental status and shortness of breath. Patient was a transfer from [facility] with a current shingles infection on his chest. Patient was placed on BiPAP and admitted to the ICU for further care. Patient was started on IV antibiotics and also IV acyclovir and infectious disease is currently following. 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 According to nursing report, states that a nurse called patient's friend who stated the patient talk 30 tablets of Seroquel on 01/21 prior to coming in the hospital. This is one of her unconfirmed at this was a actual suicide attempt had not patient overdosing accidentally. Pipe Inspector initially attempted to do the psychiatric evaluation on 01/26 however patient was too sedated and patient's Seroquel dose was decreased down to 25 mg daily +50 mg daily at bedtime. Neurology and infectious disease are currently following patient. Patient is being treated for acute respiratory failure. He is currently fluid overloaded. Patient is on oral acyclovir for herpetic rash. Patient had an EEG which showed consistency with encephalopathy. Pipe Inspector was asked to see patient once again today for evaluation. Patient's nurse states that he has slowed speech and is delayed. She also states the patient is less confused and is continuing to be drowsy. Patient was seen at the bedside with his sitter and appeared to have his had dropped and sleeping. Patient was awoken by casualty underwriter however difficult to maintain attention. Patient did not offer any complaints. Patient minimizes hospitalization. She denies any suicidal thoughts at this time and denied an overdose of his Seroquel at home. When asked about it he states that "it's empty because I take my medications like I'm supposed to". Patient claims that his mood is "better" and denies any anxiety. He was alert and oriented 1-2 He is in [facility] and does not know the date. He denies any current suicidal ideations intent or plan it denies any auditory or visual hallucinations. Patient denies using any recreational drugs. PAST PSYCHIATRIC HISTORY: Patient has an unknown psychiatric condition. Patient was present Seroquel at home. Patient denies any previous psychiatric hospitalizations. Patient denies any psychiatric outpatient follow-up. Patient denies any history of suicide attempts in the past. PAST MEDICAL HISTORY: End-stage renal disease, COPD, GERD, hypertension and closed head injury. ALLERGIES: as per EMR. CHEMICAL DEPENDENCY HISTORY: as per HPI. FAMILY PSYCHIATRIC/SUBSTANCE USE HISTORY: denies SOCIAL HISTORY: Patient was born and raised in 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 He states that he completed high school. He claims that he currently lives with roommates in a house and is currently retired. He denies any kids. MENTAL STATUS EXAM: General Appearance: Patient appears to be older than stated age, lethargic, appears to be disheveled in appearance and medically ill/debilitated. Difficult to redirect during conversation. Patient appears to have poor hygiene and grooming wearing hospital gown with poor eye contact. Behavior: Patient is calmly lying in bed without any agitated behavior. Lethargic and uncooperative. Speech: Patient's speech is fluent and nonpressured. Mood/Affect: Patient reports their mood is "ok", affect is congruent and constricted Suicidality/Homicidality: Patient denies having any suicidal or homicidal ideation intent or plan. Perceptions: Patient denies any visual hallucinations and denies any auditory hallucinations Though content/process: [place], poverty of content. Memory and concentration: AOX1-2, poor attention span. Cannot spell world backwards. Poor memory recall. Judgment and insight: poor IMPRESSIONS: Delirium, likely secondary to multiple etiologies including medical condition, toxic metabolic and possibly medications. Cannabis use disorder PLAN: -Patient DOES NOT have decision making capacity at this time and is unable to reason through and communicate/appreciate the risks, benefits and alternatives to treatment. -Delirium precautions recommended with patient including - avoiding use of narcotics and PSYCHIATRIC AIDE sedatives, limit anticholinergic medications when possible, frequent re-orientation, minimize use of restraints, open window shades during the day and close them at night -Would recommend the following medication changes/additions: We'll decrease S eroquel to 50 mg daily at bedtime for mood stabilization. -Can discontinue 1:1 sitter at this time as patient is not currently an imminent threat to themselves -Communicated plan to patient's nurse -Will continue to follow along for treatment and further recommendations as patient continues to improve medically. We'll attempt to gather further information from family and patient. -Please contact with any questions. 02/01/20 14:44
--- NOTE | 2020-02-01 15:58 | P.PN ---
Subjective Progress Note Date: 02/01/20 Patient was seen for a follow-up. A sitter was present. Patient was getting dialysis. Patient continues to be groggy, slow mentation. Does not participate with examination. Patient has less hunching of his neck. He continues to be on suicide precaution. According to the nursing report, he is fully oriented. Patient denies headache at all. Objective - Vital Signs Vital signs: Vital Signs Temp 98.7 F 02/01/20 15:46 Pulse 81 02/01/20 15:46 Resp 24 02/01/20 15:46 BP 175/105 02/01/20 15:46 Pulse Ox 97 02/01/20 15:46 Intake & Output 01/31/20 02/01/20 02/01/20 18:59 06:59 18:59 Intake Total 470 110 Output Total 0 0 Balance 470 0 110 Weight 78 kg 78 kg Intake: IV 170 110 Ampicillin-Sulbactam 3 gm 100 In Sodium Chloride 0.9% 100 ml @ 200 mls/hr IVPB Q24H [facility] Rx#:[id number] normal saline KVO 70 110 Oral 300 Output: Urine 0 0 Other: # Voids 0 ABP, PAP, CO, CI - Last Documented Arterial Blood Pressure 126/112 - Exam Patient is sitting in the bed. The head end is lifted up. Patient continues to have some head drop although not as severe as yesterday. Patient not able to lift his head up. On cranial nerve examination, pupils are round and reacting, face is symmetric. His powder guard is very equal bilaterally about 4+ to 5-. Biceps are 4+. Tone is equal bilaterally. Patient wiggles his feet. Patient able to lift his leg off the bed, but with some resistance. Plantars are withdrawal. - Labs CBC & Chem 7: 02/01/20 03:18 02/01/20 03:18 Labs: Abnormal Lab Results - Last 24 Hours (Table) 01/31/20 02/01/20 02/01/20 Range/Units 03:59 03:18 03:18 RBC 2.35 L (4.30-5.90) m/uL Hgb 8.1 L (13.0-17.5) gm/dL Hct 25.6 L (39.0-53.0) % MCV 108.7 H (80.0-100.0) fL RDW 17.6 H (11.5-15.5) % Lymphocytes # 0.7 L (1.0-4.8) k/uL Macrocytosis Marked A Sodium 135 L (137-145) mmol/L Carbon Dioxide 19 L (22-30) mmol/L BUN 51 H (9-20) mg/dL Creatinine 7.48 H* (0.66-1.25) mg/dL Creatine Kinase 31 L (55-170) U/L Vitamin B12 1185.0 H (200.0-944.0) pg/mL Assessment and Plan Assessment: * Altered mental status, likely due to toxic-metabolic encephalopathy, much improved. However patient continues to be encephalopathic. * Head drop, with bilateral torticollis, unclear etiology. Patient not on any medication that would contribute to dystonia. * Status post Acute hypoxic respiratory failure secondary to pulmonary edema. Status post extubation. * End-stage renal disease on hemodialysis * Probable pneumonia, ID on board. * Patient's CBC revealed anemia and macrocytosis. Rule out some underlying alcoholism. * Herpes zoster left T4 dermatome. No signs of encephalitis. Plan: * Patient continues to be encephalopathic. Although fairly oriented, but not able to fully participate with examination. * Blood test shows CPK 31, B12 1185 normal, MMA, folate is low 3.0, TSH normal, RPR negative. MMA and acetylcholine receptor antibodies pending. * Patient has herpetic rash over the chest in left T4 dermatome. Patient on Valtrex 1 g twice a day. ID on board. * EEG revealed background slowing of moderate to severe degree, consistent with encephalopathy. No epileptiform activity was seen. * Serum drug screen positive for opiates and marijuana. * Psychiatry on board. * Medical management as per IM/ICU.
[2020-02-01] MEDS: QUEtiapine 50 MG TAB PO SCH (20:34)
[2020-02-02] MEDS: HEPARIN SODIUM,PORCINE 5,000 UNIT/ML 1 ML VIAL SQ SCH ×4 (01:06→23:06)
[2020-02-02] MEDS: carvediloL 12.5 MG TAB PO SCH ×2 (08:57→16:24)
[2020-02-02] MEDS: FOLIC ACID 1 MG TAB PO SCH (08:57)
[2020-02-02] MEDS: hydrALAZINE HCL 50 MG TAB PO SCH ×3 (08:57→20:05)
[2020-02-02] MEDS: cloNIDine HCL 0.1 MG TAB PO SCH ×3 (08:57→20:05)
[2020-02-02] MEDS: SEVELAMER 800 MG TAB PO SCH ×3 (08:57→16:24)
[2020-02-02] MEDS: PANTOPRAZOLE 40 MG/10 ML VIAL IV SCH ×2 (09:14→20:04)
[2020-02-02] MEDS: valACYclovir HCL 1,000 MG TABLET PO SCH ×2 (09:14→20:05)
[2020-02-02] MEDS: SODIUM FERRIC GLUCONAT-SUCROSE 125 MG in SODIUM CHLORIDE 0.9% 100 ML IVPB SCH (09:14)
[2020-02-02] MEDS: AMOXIC-POT CLAV 875-125MG 1 EACH TAB PO SCH ×2 (09:36→20:05)
--- NOTE | 2020-02-02 09:47 | P.PN ---
Subjective Patient is seen in follow-up for end-stage renal disease. He is maintained on hemodialysis on Thursday schedule. Currently sitting up in bed. Mentation still not at baseline. tolerated dialysis well yesterday with 2 L ultrafiltration. Vital signs are stable. General: The patient appeared well nourished and normally developed. HEENT: Head exam is unremarkable. Neck is without jugular venous distension. LUNGS: Breath sounds decreased. HEART: Rate and Rhythm are regular. ABDOMEN: Soft, nontender. EXTREMITITES: Trace edema. Objective - Vital Signs Vital signs: Vital Signs Temp 98.2 F 02/02/20 07:22 Pulse 87 02/02/20 07:22 Resp 17 02/02/20 07:22 BP 177/107 02/02/20 07:22 Pulse Ox 95 02/02/20 07:22 Intake & Output 02/01/20 02/02/20 02/02/20 18:59 06:59 18:59 Intake Total 110 Output Total 1999 0 Balance -1890 0 Weight 78 kg 71.5 kg Intake: IV 110 normal saline KVO 110 Output: Urine 0 Hemodialysis 1999 Other: Voiding Method Diaper Incontinent # Voids 0 0 # Bowel Movements 1 ABP, PAP, CO, CI - Last Documented Arterial Blood Pressure 126/112 - Labs CBC & Chem 7: 02/01/20 03:18 02/01/20 03:18 Assessment and Plan Plan: Assessment: 1. End-stage renal disease maintained on hemodialysis Thursday schedule. 2. Volume overload. Improved. 3. Missed hemodialysis treatments outpatient. 4. Anemia of chronic kidney disease. Iron deficiency noted - status post IV iron. Maintained on Aranesp. 5. Hypertension with chronic kidney disease. Blood pressure on the higher side this morning. Hasn't received antihypertensives yet. 6. Pneumonia maintained on antibiotics. Sputum culture positive for strep. 7. Chronic kidney disease mineral bone disease Maintained on Renvela. Plan: Hemodialysis tomorrow. Add amlodipine 5 mg once daily.
[2020-02-02] MEDS: amLODIPine 5 MG TAB PO SCH (10:50)
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
--- NOTE | 2020-02-02 12:20 | P.PN ---
Subjective Progress Note Date: 02/02/20 This a 49 y/o male who lives on his owm. HE HAS ESRD with heomdialysis MWF. He was jsut at [facility] yesterday for minimal SOB, and significant herpitic Neuralgia. He was seen by nephology 01/21 who felt he could get his dialyais 01/22 and did not need it urgently. He was seen by cardiology for min abn troponins and this was felt to be chronic. He did have minmal sob, that resolved after some pain medication for his shingles. He was treated with Acyclovir. he was given Dilaudid and Gabapetnin. early in the moring he had some confusin and was given Narcan then again several hours later, which resolved his somnolence but not his pain. He was D/C in stable condtion to f/u i nt office joe cantrell to habve dialysis 01/22. ~ 01:00 01/23/2020 patient was brought in [facility] ER for altered mental status and shortness of breath. he was quite tachypneic and hypertensive upon arrival. Nitro drip was started. Patient was placed on BiPap. Ct brain old lacunar infarcts in the right internal capsule. No acute intracranial abnormality. No change. 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 01/24/2020 Yesterday required intubation, maintained on 55% FiO2/+5 of PEEP. chest x-ray reporting small right pleural effusion, increased right basilar airspace opacity airspace, right basilar subsegmental atelectasis with improved aeration of bilateral upper lungs Initially had required clevidipine, became hypotensive, discontinued and now requiring pressor support with Levophed. Evaluated by infectious disease regarding left T4 dermatome zoster,with renal dose acyclovir recommended.earlier this morning patient agitated, not following commands and weaning trial aborted. Telemetry sinus rhythm.afebrile,normal WBC. preliminary blood cultures no growth at 24 hours. ABGs noted.hemoglobin down to 8.4,platelets 239.sodium 126, BUN 60, creatinine 8.38.scheduled for hemodialysis today. alk phos mildly elevated, 127. Albumin low at 3.2. completed EEG yesterday,abnormal, suggestive of toxic metabolic encephalopathy, with no epileptiform activity seen. 01/25/2020 Remains vent dependent, FiO2 55%/+5 PEEP. Maintained on diprovan and Levophed drips. Continues on acyclovir and Zosyn. Afebrile, WBC trending up to 18.2. Hemoglobin continues improving up to 9.6, platelets 269. Weaning trials attempted today but patient became agitated, restless, not following commands, requiring Haldol and placed back on diprovan drip. Seroquel added to med regimen. Chest x-ray reporting diffuse pleural parenchymal changes, stable, possible CHF, possible underlying pneumonia, prominence of the pulmonary arteries and hilum associated pulmonary arterial hypertension, possible adenopathy. 01/26/2020 remains vent dependent, FiO2 down to 45%/+ 5 of PEEP. Sedated on diprovan. Levophed weaned off. Receiving hemodialysis today. ABGs noted. Chest x-ray reporting improvement. Afebrile, WBC trending down, 13.9. Hemoglobin 9, platelets, 236. Continues on acyclovir, zosyn. Blood and sputum cultures pending. 01/27/2020 received hemodialysis yesterday .sputum culture reporting positive for Streptococcus pneumoniae , blood cultures reporting no growth . Chest x-ray reporting diffuse parenchymal changes, typical of CHF, bilateral hilar enlargement, possible pulmonary arterial hypertension, possible underlying adenopathy/mass. Maintained on Zosyn. Extubated this morning, maintaining O2 s ats in the 90s on 4 L nasal cannula. Suicide precautions in place with sitter at bedside. Levophed weaned off. Maintained on Clevidipine. 01/30/2020 maintained on Unasyn, Acyclovir for streptococcal pneumonia, shingles. T-max 100.8, WBC 10.7. Weaned off of Clevidipine. Maintaining O2 sats in the 90s on 2 L nasal cannula. Sensorium improving. Continues on suicide precautions. Received hemodialysis yesterday, again today to return to his normal schedule of Thursday. Telemetry sinus rhythm. 01/31/2020 maintained O2 sats in the 90s on 2 L nasal cannula. Continues on Unasyn,acyclovir. Chest x-ray reporting minimal improvement. T-max 100.5, normal WBC. More alert today with fluctuating periods of confusion. Suicide precautions maintained with product safety tester at bedside. Patient denies being suicidal and taking a full bottle of Seroquel. 02/01/2020 suicide precautions maintained .psychiatry reconsulted, recommendations pending. 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 Hypertensive, systolic blood pressures in the 160s today, scheduled for hemodialysis today. Maintaining O2 sats in the 90s on 2 L nasal cannula. Tolerated clear liquid diet, advanced to full liquids. Telemetry sinus rhythm. Alert and oriented 3 but requires stimulation,droggy. T-max 99.9. Continues on Unasyn for streptococcal pneumonia and acyclovir for shingles. 02/02/2020 moved out of ICU. Oxygen weaned off and maintaining O2 sats in the 90s on room air. T-max 99.9, WBC within normal limits. Hypertensive, Norvasc added to med regimen. Sensorium improving. Evaluated by psychiatry WITH suicide precautions lifted, recommended delirium precautions; Seroquel dose decreased. Objective - Vital Signs Vital signs: Vital Signs Temp 98.2 F 02/02/20 07:22 Pulse 87 02/02/20 07:22 Resp 17 02/02/20 07:22 BP 177/107 02/02/20 07:22 Pulse Ox 95 02/02/20 07:22 Intake & Output 02/01/20 02/02/20 02/02/20 18:59 06:59 18:59 Intake Total 110 Output Total 1999 0 Balance -1890 0 Weight 78 kg 71.5 kg Intake: IV 110 normal saline KVO 110 Output: Urine 0 Hemodialysis 1999 Other: Voiding Method Diaper Incontinent # Voids 0 0 # Bowel Movements 1 ABP, PAP, CO, CI - Last Documented Arterial Blood Pressure 126/112 - Exam PHYSICAL EXAM: VITAL SIGNS: [as above] GENERAL: sitting up in bed, alert and oriented 3, mild delirium HEENT: Conjunctivae normal. eyes normal. Oral mucosa moist NECK: No JVD. No thyroid enlargement. CARDIOVASCULAR: S1, S2 regular.No murmur RESPIRATION: Breath sounds diminished in the bases,bibasilar crackles. ABDOMEN: Soft, nontender . No guarding. no masses palpable. Bowel sounds heard. LEGS: trace edema. NERVOUS SYSTEM: Cranial nerves II through XII grossly intact, moves all extremities, no focal deficits. Strength and sensation grossly intact Skin: warm and dry, left T4 dermatome rash,dressing clean dry and intact - Labs CBC & Chem 7: 02/01/20 03:18 02/01/20 03:18 Assessment and Plan Assessment: (1) Acute respiratory failure with hypoxia, status post ventilator-dependent secondary to streptococcal pneumoniae pneumonia, possible aspiration Current Visit: Yes Status: Acute Code(s): J96.01 - ACUTE RESPIRATORY FAILURE WITH HYPOXIA SNOMED Code(s): 38419199 (2) Overdose,Seroquel, maintained on suicide precautions Current Visit: Yes Status: Acute Code(s): T50.901A - POISONING BY UNSP DRUG/MEDS/BIOL SUBST, ACCIDENTAL, INIT SNOMED Code(s): 59062729 (3) Acute toxic and metabolic encephalopathysecondary to #2, hypertension Current Visit: Yes Status: Acute Code(s): G93.41 - METABOLIC ENCEPHALOPATHY SNOMED Code(s): 43520935 (4) Neuralgia Current Visit: Yes Status: Acute Code(s): M79.2 - NEURALGIA AND NEURITIS, UNSPECIFIED SNOMED Code(s): 06287664 (6) Fluid overload Current Visit: Yes Status: Acute Code(s): E87.70 - FLUID OVERLOAD, UNSPECIFIED SNOMED Code(s): 05674103 (7) Hypertensive crisis, s/p clevidepine. Current Visit: Yes Status: Acute Code(s): I16.9 - HYPERTENSIVE CRISIS, UNSPECIFIED SNOMED Code(s): 260321505 (8) herpes zoster,left T4 dermatome Current Visit: Yes Status: Acute Code(s): B02.9 - ZOSTER WITHOUT COMP LICATIONS SNOMED Code(s): 8554556 (9) End stage renal disease,on hemodialysis, Thursday, Thursday and Fridays Current Visit: No Status: Acute Code(s): N18.6 - END STAGE RENAL DISEASE SNOMED Code(s): 81412546 (10) Anemia in chronic kidney disease, iron deficient Current Visit: Yes Status: Acute Code(s): N18.9 - CHRONIC KIDNEY DISEASE, UNSPECIFIED; D63.1 - ANEMIA IN CHRONIC KIDNEY DISEASE SNOMED Code(s): 522582496 (11) hypotension, status post pressor dependent, resolved (12) prominence of the pulmonary arteries, hilum, suspect related to pulmonary arterial hypertension, possible adenopathy, pulmonary following. Plan: Continue on current medication regime ,monitoring and symptomatic treatment. PT/OT. Possible inpatient rehab.Psychiatry recommendations noted. Antibiotics as per ID. Aggressive pulmonary toileting. Hemodialysis as per nephrology. The impression and plan of care has been dictated as directed. : I performed a history and examination of this patient, discussed the same with the dictator. I agree with the dictator's note ,documented as a scribe. Any additional findings or plans will be noted.
[2020-02-02] MEDS: DARBEPOETIN ALFA 40 MCG/0.4 ML SYRINGE SQ SCH (13:08)
--- NOTE | 2020-02-02 13:53 | P.PN ---
Progress Note - Text Progress Note Date: 02/02/20 Interval History: Patient was seen today for psychiatric follow-up. Patient's nurse offered no complaints however does state the patient has been drowsy. Patient was seen at the bedside, has no sitter today. He has improved moderately in terms of his sedation however continues to have his head drooped down and has poor attention span. Patient offered no complaints at this time. He states that his mood is "fine". He claims that he has been taking his medications. He claims that he was able to sleep throughout the night. Patient has mild improvement in his insight and claims that he is not suicidal. He denied any suicidal intent at home when asked about the empty pill bottles, patient states that "I didn't overdose if they were empty then I may have been confused at that time and took too many". He does claim that he has a history of depression. At this time patient denies any suicidal or homical ideations, intent or plan. Patient denies any auditory, visual hallucinations and denies any paranoia or delusions. Patient denies any side effects from the medications and has been compliant with meds. Mental Status Exam: General Appearance: Patient appears to be older than stated age, lethargic, improving mildly, appears to be disheveled in appearance and medically ill/d ebilitated, improving mildly. Difficult to redirect during conversation. Patient appears to have poor hygiene and grooming wearing hospital gown with poor eye contact. Behavior: Patient is calmly lying in bed without any agitated behavior. Lethargic, improving mildly Speech: Patient's speech is fluent and nonpressured. Mood/Affect: Patient reports their mood is "ok", affect is congruent and co nstricted Suicidality/Homicidality: Patient denies having any suicidal or homicidal ideation intent or plan. Perceptions: Patient denies any visual hallucinations and denies any auditory hallucinations Though content/process: [place], poverty of content. Memory and concentration: AOX1-2, poor attention span. Cannot spell world backwards. Poor memory recall. Judgment and insight: poor, improving mildly Assessment Delirium, likely secondary to multiple etiologies including medical condition, toxic metabolic and possibly medications. 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 Added 3 mg melatonin daily at bedtime for sleep. Started Prozac 20 mg daily for mood sessions anxiety. -Communicated plan to patient's nurse -Will continue to follow along for treatment and further recommendations as patient continues to improve medically. We'll attempt to gather further information from family and patient, social economist will be giving family a call today. -Patient will likely be needing a rehab after being discharged from the hospital due to deconditioning and weakness. -Please contact with any questions.
--- NOTE | 2020-02-02 15:02 | P.PN ---
Subjective Progress Note Date: 02/02/20 Principal diagnosis: Acute hypoxic respiratory failure secondary to fluid overload, pulmonary edema, end-stage renal disease, metabolic encephalopathy This is a 49-year-old white male with history of end-stage renal disease, hypertension, COPD, patient is on hemodialysis. Patient is normally on hemodialysis Thursday, supposedly his last hemodialysis was last Thursday. Patient was brought into the ER with altered mental status and shortness of breath. Apparently he was quite confused upon presentation, blood pressure was extremely high at 217/134. Patient was noted to have abnormal labs including low sodium of 125. Abnormal BUN of 72 creatinine 8.57, and his hemoglobin was 9.2. Chest x-ray showed definitely fluid overload and he was noted to have hypoxic respiratory failure. Underwent dialysis last night, and about 1-1/2 L of fluid were removed. Patient was placed on nitroglycerin drip and on clevidipine drip, he was also noted to have herpes zoster rash in the left upper chest wall area. Started on antiviral therapy for his shingles. Patient was also placed on BiPAP, ABG was reasonable. His mentation remained, patient was admitted to the ICU and I was asked to see him on consultation. ABG on BiPAP showed a pO2 of 93 pCO2 of 41 pH of 7.43, and this was a BiPAP of 14/6 and 40% FiO2. 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 Neurology consultation is pending. Patient was reevaluated today on 01/24/20, remains in the ICU, intubated and mechanically ventilated. He is presently on assist control rate of 18 tidal volume is 450 FiO2 of 60% and PEEP of 5. ABG showed a pO2 of 93 pCO2 of 42 pH of 7.44. Patient is on propofol at 50 mcg/kg/m, IV fluids at KVO, and he is going to have dialysis today. Remains on dialysis. Remains on acyclovir for his herpes zoster dermatitis involving the T4 dermatome of left-sided chest. There is evidence of coffee ground material in the nasogastric tube and had an output of 1.8 L of coffee ground and blood-tinged nasogastric tube suctioning. Hemoglobin is holding at 8.4. EEG yesterday showed moderate to severe slowing. Consistent with metabolic encephalopathy. Today I try to wean the patient from propofol, and wanted to give the patient a weaning trial, however he became extremely agitated, and would not follow any instructions. Then we decided to try Precedex for sedation and possibly give the patient at least weaning trials today. In the meantime we will continue to plan dialysis today. Chest x-ray showed slight improvement in the aeration of bilateral upper lungs, however he continues to have some right basilar subsegmental atelectasis and possibly airspace disease Reevaluated today on 01/25/20, patient remains in the ICU. Remains on mechanical ventilation. His ventilator settings are assist control rate of 18 tidal volume is 450 FiO2 is 55% and PEEP of 5. ABG showed a pO2 of 119 pCO2 of 46 pH of 7.39. Patient was on propofol before I evaluated him, however as we took him off propofol, the patient became extremely agitated, restless, not responding to any verbal stimuli, thrashing in bed, and we have recommended Haldol, and place him back on propofol as he was endangering himself, and there was extreme risk of leg lines and extubation. Could not get the patient to follow any instructions. Had to be sedated. Obviously he is not quite ready for any weaning. We will start the patient on Seroquel 25 mg twice a day. Patient had dialysis yesterday, 2 L were removed, chest x-ray continues to show diffuse pleural parenchymal changes consistent with CHF, and possible underlying pneumonia is not entirely excluded. Patient was reevaluated today on 01/26/20, remains in the ICU intubated and mechanically ventilated. Ventilator settings are assist control rate of 18 tidal volume is 450 FiO2 is 55% and PEEP of 5. Patient is having dialysis this morning, he is sedated and on propofol at 35 mcg/kg/m. Hoping to wake the patient up again once dialysis is done discontinued the prevent and consider weaning trial again this morning. In the meantime the patient continues to have episodes of extreme confusion and agitation as well as restlessness once he is on a lower dose of propofol. Tried on Precedex 2 days ago, and he failed to wean. Mostly because of his mental status and extreme agitation. Patient remains obtunded. ABG today showed a pO2 of 175 pCO2 of 45 pH of 7.35 WBC count is 13.9, hemoglobin is 9.0. BUN is 50 creatinine 7.74. Chest x-ray is actually showing improvement in his interstitial edema and his pleural parenchymal changes. The patient was seen today 01/27/2020 in follow-up in the intensive care unit. He remains intubated on mechanical ventilator. Current settings assist-control, rate of 18, tidal volume 450, FiO2 45% and a PEEP of 5. Morning blood gases revealed a PaO2 of 112, CO2 47, pH 7.33. White count 10.9. Hemoglobin 9.0. MCV 105.7. Sodium 135. Potassium 4.3. Creatinine 5.19. Propofol at 35 mcg/kg/m. On clevidipine at 1 mg per hour. Off norepinephrine. Remains on Zosyn. Sputum culture positive for Streptococcus pneumoniae. Blood cultures reveal no growth. Chest x-ray reveals diffuse pleural parenchymal changes most typical of CHF. Bilateral hilar enlargement. Pulmonary artery hypertension. Patient was reevaluated today on 01/28/20, patient remains in the ICU. He is presently receiving hemodialysis. Remains confused and encephalopathic, patient was extubated yesterday. Patient remains on clevidipine at 6 mg per hour, going to wean him since I will start his clonidine as taken at home and his hydralazine. Sputum came back positive for Streptococcus pneumonia, patient remains on antibiotics. He is drowsy, he is slow, and encephalopathic. Receiving hemodialysis during my evaluation. Labs showed hemoglobin of 9.4 WBC count is 10.8, slightly improved considered to WBC count on admission. Electrolytes are normal bicarb is 21. BUN is 45 creatinine is 6.38 chest x-ray today continue to show improvement with persistent right perihilar infiltrate and prominent interstitium. Patient has basically pneumonia and asymmetric venous congestion/fluid overload from end-stage renal disease and failure to comply with hemodialysis Patient was reevaluated today on 01/29/20, remains in the intensive care unit, remains encephalopathic, however definite improvement noted in his overall mental status compared to yesterday. Chest x-ray continues to show evidence of interstitial edema. Patient is now on oral medications for his blood pressure. Clevidipine is being titrated down, the plan is to stop it altogether. Patient remains empirically on antibiotics and/Unasyn for aspiration pneumonia presumptive. Remains on acyclovir for his herpes zoster dermatitis. He is also on GI and DVT prophylaxis. Overall there is improvement in his mental status and his overall pulmonary status. But the patient is not quite ready to be transferred out of the ICU. Continues to have a sitter at bedside. CBC is relatively normal hemoglobin is 8.7 today. He elects lites are normal. BUN is 31 creatinine is 5.15. On 01/30/2020 patient seen in follow-up in the intensive care unit, he is drowsy, but arouses to voice, went to the nurse patient is oriented 3, but his verbal responses are slow, patient is less confused today. Denies any wrist or difficulty, he is on 2 L of oxygen and the pulse ox 96%, did have a low-grade fevers, with a T-max of 100.8F over the last 24 hours. His sputum was Positive for Streptococcus pneumonia, and the patient is on Unasyn, also on acyclovir for the shingles. Had no acute events overnight, pressure has been stable, has not required clevidipine drip. He is on 0.9 normal saline infusing at 20 ML per hour. His labs have been reviewed, showing white blood cell, 10.7, hemoglobin of 8.3, serum sodium is 133, BUN of 48 and creatinine is 6.76. Yesterday chest x-ray showed mild patchy interstitial opacities, possible pulmonary vessel congestion versus atypical pneumonia. he had hemodialysis yesterday we would removal 3.5 L and fluid. On 01/31/2020 patient seen in follow-up in the intensive care unit. He is resting in bed, he sitting up, he is drowsy, but arousable, he is oriented to time, person, he did realize that she is in a medical facility, he seems to have waxing and waning episodes of confusion. No agitation, denies any difficulty breathing, he is on 2 L of oxygen with the pulse ox above 95-96%, he is af ebrile, hemodynamically has been stable, lung sounds reveal diminished breath sounds bilaterally, patient continues on Unasyn for strep pneumonia and valacyclovir for the shingles. His been afebrile today, did have a low-grade fever last night at 8:00 with a temp of 100.5F. He is tolerating oral intake, no vomiting, abdomen is soft, is breathing comfortably, no cough or congestion. He is on 0.9 normal saline at rate of 20 ML per hour. He still has a product safety tester at the bedside. On 02/01/2020 patient seen in follow-up in intensive care unit, he is drowsy, but arousable, he knows he is in a hospital, he knows the month, he knows the year and the president, however his verbal responses are slow, he is inattentive at times. Denies any acute distress, he is on 2 L of oxygen sats 96%, breathing comfortably, lung sounds are clear, slightly diminished at the bases, one low- grade fever this morning with a temp of 99.9F. He remains on Unasyn for Streptococcus pneumonia. We switched him to oral valacyclovir for the shingles, he is able to take oral intake, we will switch his IV antibiotics to oral Augmentin. These labs have been reviewed, showing white blood cell count 7.6, hemoglobin of 8.1, electrolytes were unremarkable with exception of CO2 which is at 19, B1 is 51, creatinine is 7.48, patient's last hemodialysis was on 01/30/2020 with removal of 3 L and fluids. Does not appear to be fluid overloaded, no difficulty breathing. There is a product safety tester at the bedside po ssibility of suicide precaution, psychiatric service is following, and we asked them to see the patient again in follow-up On 02/02/2020 patient seen in follow-up on a general medical surgical floor, she is a bit drowsy, but easily arousable, he is answering some simple questions, as any acute distress, room air pulse ox is 95%, hemodynamically stable, he has had some intermittent low-grade fevers, with a T-max of 99.9F. No cough or congestion, lung sounds are clear, with some diminished breath sounds at the bases, no rhonchi, no rales. Vital signs have been stable. Recent and hemodialysis today would removal of 2 L of fluid, he is in negative fluid balance, no lower extremity edema. He is on oral antibiotics in the form of Augmentin for Streptococcus pneumonia, he is on oral valacyclovir for the shingles. Patient had no acute events overnight. He denied any suicidal ideations, he was reevaluated by psychiatric services, his Seroquel was further decreased to 25 mg daily, patient will be started on Prozac. Objective - Vital Signs Vital signs: Vital Signs Temp 98.2 F 02/02/20 07:22 Pulse 87 02/02/20 07:22 Resp 17 02/02/20 07:22 BP 177/107 02/02/20 07:22 Pulse Ox 95 02/02/20 07:22 Intake & Output 02/01/20 02/02/20 02/02/20 18:59 06:59 18:59 Intake Total 110 100 Output Total 2000 0 Balance -1890 0 100 Weight 78 kg 71.5 kg Intake: IV 110 normal saline KVO 110 Intake, IV Titration 100 Amount Sodium Ferric Gluconat- 100 Sucrose 125 mg In Sodium Chloride 0.9% 100 ml @ 100 mls/hr IVPB DAILY [facility] Rx#:[id number] Output: Urine 0 Hemodialysis 1999 Other: Voiding Method Diaper Incontinent # Voids 0 0 # Bowel Movements 1 ABP, PAP, CO, CI - Last Documented Arterial Blood Pressure 126/112 - Exam GENERAL EXAM: Drowsy, 41-year-old white male, appears older than stated age, on 2 L of oxygen and the pulse ox of 96%, comfortable in no apparent distress. HEAD: Normocephalic/atraumatic. EYES: Normal reaction of pupils, equal size. Conjunctiva pink, sclera white. NOSE: Clear with pink turbinates. THROAT: No erythema or exudates. NECK: No masses, no JVD, no thyroid enlargement, no adenopathy. CHEST: No chest wall deformity. Symmetrical expansion. LUNGS: Equal air entry with basilar crackles, but no wheeze, rhonchi or dullness. CVS: Regular rate and rhythm, normal S1 and S2, no gallops, no murmurs, no rubs ABDOMEN: Soft, nontender. No hepatosplenomegaly, normal bowel sounds, no guarding or rigidity. EXTREMITIES: No clubbing, no edema, no cyanosis, 2+ pulses and upper and lower extremities. Left upper arm AV fistula with positive bruit and thrill MUSCULOSKELETAL: Muscle strength and tone normal. SPINE: No scoliosis or deformity SKIN: No rashes CENTRAL NERVOUS SYSTEM: Drowsy, but arousable No focal deficits, tone is normal in all 4 extremities. - Labs CBC & Chem 7: 02/01/20 03:18 02/01/20 03:18 Assessment and Plan Plan: Assessment: #1. Acute hypoxic respiratory failure is secondary to fluid overload, pulmonary edema, end-stage renal disease and missed hemodialysis, acquiring intubation and placement on mechanical ventilator intubated on 01/23/2020 and extubated on 01/27/2020 On 02/02/2020 patient seen in follow-up on general medical floor, doing well, he is on room air, it is stable, no worsening dyspnea, remains on oral antibiotics for strep pneumonia, his had no fever or chills #2. Acute metabolic encephalopathy, suspect hypertensive emergency with mental status change and hypertensive encephalopathy, improving #3. End-stage renal disease on hemodialysis, noncompliant #4. Acute pulmonary edema second her to missed dialysis with volume overload #5. Anemia of chronic disease #6. Hypovolemic hyponatremia, improved #7. Herpes zoster dermatitis involving anterior chest wall, patient is covered with Acyclovir, and now switched to Valtrex #8. Streptococcus pneumonia related to possibility of aspiration pneumonia is not excluded Plan: Patient has been stable in last 24 hours, only low-grade fever, with a T-max of 99.9F, no worsening dyspnea, no significant cough or congestion, he is on oral antibiotics for strep pneumonia, continue with valacyclovir for a total of 7 days for the shingles. Vital signs are stable no acute events overnight, maintain aspiration precautions, he can be considered for discharge to subacute rehabilitation center from pulmonary perspective. I performed a history & physical examination of the patient and discussed their management with my nurse practitioner, Poppy Acevedo. I reviewed the nurse practitioner's note and agree with the documented findings and plan of care. Lung sounds are positive for diminished breath sounds. The findings and the impression was discussed with the patient. I attest to the documentation by the nurse practitioner. Time with Patient: Less than 30
[2020-02-02] MEDS: FLUoxetine HCL 20 MG CAP PO SCH (15:11)
--- NOTE | 2020-02-02 17:06 | P.PN ---
Subjective Progress Note Date: 02/02/20 Patient was seen for a follow-up. Patient is doing much better. He is more alert and awake. Patient has much less hunching of his neck as compared to yesterday. Patient denies headache at all. Objective - Vital Signs Vital signs: Vital Signs Temp 98 F 02/02/20 14:07 Pulse 85 02/02/20 14:07 Resp 16 02/02/20 14:07 BP 159/92 02/02/20 14:07 Pulse Ox 94 L 02/02/20 14:07 Intake & Output 02/01/20 02/02/20 02/02/20 18:59 06:59 18:59 Intake Total 110 100 Output Total 1999 0 Balance -1890 0 100 Weight 78 kg 71.5 kg Intake: IV 110 normal saline KVO 110 Intake, IV Titration 100 Amount Sodium Ferric Gluconat- 100 Sucrose 125 mg In Sodium Chloride 0.9% 100 ml @ 100 mls/hr IVPB DAILY [facility] Rx#:[id number] Output: Urine 0 Hemodialysis 1999 Other: Voiding Method Diaper Incontinent # Voids 0 0 # Bowel Movements 1 ABP, PAP, CO, CI - Last Documented Arterial Blood Pressure 126/112 - Exam Patient is sitting in the bed. Patient's head is better controlled, with lesser droop. Able to lift his head by himself. Patient's face is symmetric. Pupils are round and reacting, visual reyes are full. Muscle strength appears at least 4+ all over. - Labs CBC & Chem 7: 02/01/20 03:18 02/01/20 03:18 Assessment and Plan Assessment: * Altered mental status, likely due to toxic-metabolic encephalopathy, much improved. Patient gradually improving. * Head drop, improved. Probably was related to encephalopathy. * Status post Acute hypoxic respiratory failure secondary to pulmonary edema. Status post extubation. * End-stage renal disease on hemodialysis * Probable pneumonia, ID on board. * Patient's CBC revealed anemia and macrocytosis. Rule out some underlying alcoholism. * Herpes zoster left T4 dermatome. No signs of encephalitis. * Folate deficiency Plan: * Patient's encephalopathy is much improved. Patient able to participate in the examination. Muscle strength improving gradually. His neck muscles also improving. * Blood test shows CPK 31, B12 1185 normal, folate is low 3.0, TSH normal, RPR negative. MMA and acetylcholine receptor antibodies pending. * Patient has herpetic rash over the chest in left T4 dermatome. Patient on Valtrex 1 g twice a day. ID on board. * EEG revealed background slowing of moderate to severe degree, consistent with encephalopathy. No epileptiform activity was seen. * Psychiatry on board. * May benefit from inpatient rehabilitation.
[2020-02-02] MEDS: MELATONIN 3 MG TABLET PO SCH (20:05)
[2020-02-02] MEDS ORDERED: QUEtiapine 25 MG TAB PO SCH (21:00)
[2020-02-03] MEDS: cloNIDine HCL 0.1 MG TAB PO SCH ×3 (08:07→20:26)
[2020-02-03] MEDS: amLODIPine 5 MG TAB PO SCH (08:07)
[2020-02-03] MEDS: FLUoxetine HCL 20 MG CAP PO SCH (08:07)
[2020-02-03] MEDS: AMOXIC-POT CLAV 875-125MG 1 EACH TAB PO SCH ×2 (08:07→20:25)
[2020-02-03] MEDS: FOLIC ACID 1 MG TAB PO SCH (08:07)
[2020-02-03] MEDS: SEVELAMER 800 MG TAB PO SCH ×4 (08:07→17:32)
[2020-02-03] MEDS: carvediloL 12.5 MG TAB PO SCH ×2 (08:08→17:32)
[2020-02-03] MEDS: valACYclovir HCL 1,000 MG TABLET PO SCH ×2 (08:08→20:25)
[2020-02-03] MEDS: PANTOPRAZOLE 40 MG/10 ML VIAL IV SCH ×2 (08:08→20:25)
[2020-02-03] MEDS: hydrALAZINE HCL 50 MG TAB PO SCH ×3 (08:08→20:26)
[2020-02-03] MEDS: HEPARIN SODIUM,PORCINE 5,000 UNIT/ML 1 ML VIAL SQ SCH ×2 (08:08→15:37)
--- NOTE | 2020-02-03 09:30 | P.PN ---
Subjective Patient is seen in follow-up for end-stage renal disease. He is maintained on hemodialysis on Thursday schedule. Mentation still not at baseline. Currently undergoing hemodialysis. Oral intake fair. Vital signs are stable. General: The patient appeared well nourished and normally developed. HEENT: Head exam is unremarkable. Neck is without jugular venous distension. LUNGS: Breath sounds decreased. HEART: Rate and Rhythm are regular. ABDOMEN: Soft, nontender. EXTREMITITES: Trace edema. Objective - Vital Signs Vital signs: Vital Signs Temp 97.3 F L 02/03/20 07:50 Pulse 83 02/03/20 07:50 Resp 20 02/03/20 07:50 BP 176/109 02/03/20 07:50 Pulse Ox 98 02/03/20 07:50 Intake & Output 02/02/20 02/03/20 02/03/20 18:59 06:59 18:59 Intake Total 100 200 Balance 100 200 Weight 72.5 kg Intake: Intake, IV Titration 100 Amount Sodium Ferric Gluconat- 100 Sucrose 125 mg In Sodium Chloride 0.9% 100 ml @ 100 mls/hr IVPB DAILY [facility] Rx#:[id number] Oral 200 Other: Voiding Method Diaper Incontinent # Voids 1 # Bowel Movements 1 ABP, PAP, CO, CI - Last Documented Arterial Blood Pressure 126/112 - Labs CBC & Chem 7: 02/01/20 03:18 02/01/20 03:18 Labs: Abnormal Lab Results - Last 24 Hours (Table) 01/31/20 Range/Units 03:59 Methylmalonic Acid 0.64 H (<0.40) umol/L Assessment and Plan Plan: Assessment: 1. End-stage renal disease maintained on hemodialysis Thursday schedule. 2. Volume overload. Improved. 3. Missed hemodialysis treatments outpatient. 4. Anemia of chronic kidney disease. Iron deficiency noted - status post IV iron. Maintained on Aranesp. 5. Hypertension with chronic kidney disease. Stable. Currently in the systolic 140s. 6. Pneumonia maintained on antibiotics. Sputum culture positive for strep. 7. Chronic kidney disease mineral bone disease Maintained on Renvela. Plan: Currently seen while undergoing hemodialysis. Maintain current anti-hypertensives. Amlodipine added yesterday.
--- NOTE | 2020-02-03 13:05 | P.PN ---
Subjective Progress Note Date: 02/03/20 Principal diagnosis: Acute hypoxic respiratory failure secondary to fluid overload, pulmonary edema, end-stage renal disease This is a 49-year-old white male with history of end-stage renal disease, hypertension, COPD, patient is on hemodialysis. Patient is normally on hemodial ysis Thursday, supposedly his last hemodialysis was last Thursday. Patient was brought into the ER with altered mental status and shortness of breath. Apparently he was quite confused upon presentation, blood pressure was extremely high at 217/134. Patient was noted to have abnormal labs including low sodium of 125. Abnormal BUN of 72 creatinine 8.57, and his hemoglobin was 9.2. Chest x-ray showed definitely fluid overload and he was noted to have hypoxic respiratory failure. Underwent dialysis last night, and about 1-1/2 L of fluid were removed. Patient was placed on nitroglycerin drip and on clevidipine drip, he was also noted to have herpes zoster rash in the left upper chest wall area. Started on antiviral therapy for his shingles. Patient was also placed on BiPAP, ABG was reasonable. His mentation remained, patient was admitted to the ICU and I was asked to see him on consultation. ABG on BiPAP showed a pO2 of 93 pCO2 of 41 pH of 7.43, and this was a BiPAP of 14/6 and 40% FiO2. 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 Neurology consultation is pending. Patient was reevaluated today on 01/24/20, remains in the ICU, intubated and mechanically ventilated. He is presently on assist control rate of 18 tidal volume is 450 FiO2 of 60% and PEEP of 5. ABG showed a pO2 of 93 pCO2 of 42 pH of 7.44. Patient is on propofol at 50 mcg/kg/m, IV fluids at KVO, and he is going to have dialysis today. Remains on dialysis. Remains on acyclovir for his herpes zoster dermatitis involving the T4 dermatome of left-sided chest. There is evidence of coffee ground material in the nasogastric tube and had an output of 1.8 L of coffee ground and blood-tinged nasogastric tube suctioning. Hemoglobin is holding at 8.4. EEG yesterday showed moderate to severe slowing. Consistent with metabolic encephalopathy. Today I try to wean the patient from propofol, and wanted to give the patient a weaning trial, however he became extremely agitated, and would not follow any instructions. Then we decided to try Precedex for sedation and possibly give the patient at least weaning trials today. In the meantime we will continue to plan dialysis today. Chest x-ray showed slight improvement in the aeration of bilateral upper lungs, however he continues to have some right basilar subsegmental atelectasis and possibly airspace disease Reevaluated today on 01/25/20, patient remains in the ICU. Remains on mechanical ventilation. His ventilator settings are assist control rate of 18 tidal volume is 450 FiO2 is 55% and PEEP of 5. ABG showed a pO2 of 119 pCO2 of 46 pH of 7.39. Patient was on propofol before I evaluated him, however as we took him off propofol, the patient became extremely agitated, restless, not responding to any verbal stimuli, thrashing in bed, and we have recommended Haldol, and place him back on propofol as he was endangering himself, and there was extreme risk of leg lines and extubation. Could not get the patient to follow any instructions. Had to be sedated. Obviously he is not quite ready for any weaning. We will start the patient on Seroquel 25 mg twice a day. Patient had dialysis yesterday, 2 L were removed, chest x-ray continues to show diffuse pleural parenchymal changes consistent with CHF, and possible underlying pneumonia is not entirely excluded. Patient was reevaluated today on 01/26/20, remains in the ICU intubated and mechanically ventilated. Ventilator settings are assist control rate of 18 tidal volume is 450 FiO2 is 55% and PEEP of 5. Patient is having dialysis this morning, he is sedated and on propofol at 35 mcg/kg/m. Hoping to wake the patient up again once dialysis is done discontinued the prevent and consider weaning trial again this morning. In the meantime the patient continues to have episodes of extreme confusion and agitation as well as restlessness once he is on a lower dose of propofol. Tried on Precedex 2 days ago, and he failed to wean. Mostly because of his mental status and extreme agitation. Patient remains obtunded. ABG today showed a pO2 of 175 pCO2 of 45 pH of 7.35 WBC count is 13.9, hemoglobin is 9.0. BUN is 50 creatinine 7.74. Chest x-ray is actually showing improvement in his interstitial edema and his pleural parenchymal changes. The patient was seen today 01/27/2020 in follow-up in the intensive care unit. He remains intubated on mechanical ventilator. Current settings assist-control, rate of 18, tidal volume 450, FiO2 45% and a PEEP of 5. Morning blood gases revealed a PaO2 of 112, CO2 47, pH 7.33. White count 10.9. Hemoglobin 9.0. M CV 105.7. Sodium 135. Potassium 4.3. Creatinine 5.19. Propofol at 35 mcg/kg/m. On clevidipine at 1 mg per hour. Off norepinephrine. Remains on Zosyn. Sputum culture positive for Streptococcus pneumoniae. Blood cultures reveal no growth. Chest x-ray reveals diffuse pleural parenchymal changes most typical of CHF. Bilateral hilar enlargement. Pulmonary artery hypertension. Patient was reevaluated today on 01/29/20, remains in the intensive care unit, remains encephalopathic, however definite improvement noted in his overall mental status compared to yesterday. Chest x-ray continues to show evidence of interstitial edema. Patient is now on oral medications for his blood pressure. Clevidipine is being titrated down, the plan is to stop it altogether. Patient remains empirically on antibiotics and/Unasyn for aspiration pneumonia presumptive. Remains on acyclovir for his herpes zoster dermatitis. He is also on GI and DVT prophylaxis. Overall there is improvement in his mental status and his overall pulmonary status. But the patient is not quite ready to be transferred out of the ICU. Continues to have a sitter at bedside. CBC is relatively normal hemoglobin is 8.7 today. He elects lites are normal. BUN is 31 creatinine is 5.15. On 01/30/2020 patient seen in follow-up in the intensive care unit, he is drowsy, but arouses to voice, went to the nurse patient is oriented 3, but his verbal responses are slow, patient is less confused today. Denies any wrist or difficulty, he is on 2 L of oxygen and the pulse ox 96%, did have a low-grade fevers, with a T-max of 100.8F over the last 24 hours. His sputum was Positive for Streptococcus pneumonia, and the patient is on Unasyn, also on acyclovir for the shingles. Had no acute events overnight, pressure has been stable, has not required clevidipine drip. He is on 0.9 normal saline infusing at 20 ML per h our. His labs have been reviewed, showing white blood cell, 10.7, hemoglobin of 8.3, serum sodium is 133, BUN of 48 and creatinine is 6.76. Yesterday chest x- ray showed mild patchy interstitial opacities, possible pulmonary vessel congestion versus atypical pneumonia. he had hemodialysis yesterday we would removal 3.5 L and fluid. On 01/31/2020 patient seen in follow-up in the intensive care unit. He is resting in bed, he sitting up, he is drowsy, but arousable, he is oriented to time, person, he did realize that she is in a medical facility, he seems to have waxing and waning episodes of confusion. No agitation, denies any difficulty breathing, he is on 2 L of oxygen with the pulse ox above 95-96%, he is afebrile, hemodynamically has been stable, lung sounds reveal diminished breath sounds bilaterally, patient continues on Unasyn for strep pneumonia and valacyclovir for the shingles. His been afebrile today, did have a low-grade fever last night at 8:00 with a temp of 100.5F. He is tolerating oral intake, no vomiting, abdomen is soft, is breathing comfortably, no cough or congestion. He is on 0.9 normal saline at rate of 20 ML per hour. He still has a pilot safety inspector at the bedside. On 02/01/2020 patient seen in follow-up in intensive care unit, he is drowsy, but arousable, he knows he is in a hospital, he knows the month, he knows the year and the president, however his verbal responses are slow, he is inattentive at times. Denies any acute distress, he is on 2 L of oxygen sats 96%, breathing comfortably, lung sounds are clear, slightly diminished at the bases, one low- grade fever this morning with a temp of 99.9F. He remains on Unasyn for Streptococcus pneumonia. We switched him to oral valacyclovir for the shingles, he is able to take oral intake, we will switch his IV antibiotics to oral Augmentin. These labs have been reviewed, showing white blood cell count 7.6, hemoglobin of 8.1, electrolytes were unremarkable with exception of CO2 which is at 19, B1 is 51, creatinine is 7.48, patient's last hemodialysis was on 01/30/2020 with removal of 3 L and fluids. Does not appear to be fluid overloaded, no difficulty breathing. There is a pilot safety inspector at the bedside possibility of suicide precaution, psychiatric service is following, and we ask ed them to see the patient again in follow-up On 02/02/2020 patient seen in follow-up on a general medical surgical floor, she is a bit drowsy, but easily arousable, he is answering some simple questions, as any acute distress, room air pulse ox is 95%, hemodynamically stable, he has had some intermittent low-grade fevers, with a T-max of 99.9F. No cough or congestion, lung sounds are clear, with some diminished breath sounds at the bases, no rhonchi, no rales. Vital signs have been stable. Recent and hemodialysis today would removal of 2 L of fluid, he is in negative fluid balance, no lower extremity edema. He is on oral antibiotics in the form of Augmentin for Streptococcus pneumonia, he is on oral valacyclovir for the shingles. Patient had no acute events overnight. He denied any suicidal ideations, he was reevaluated by psychiatric services, his Seroquel was further decreased to 25 mg daily, patient will be started on Prozac. The patient is seen today the 2019 in follow-up on the regular medical floor. He is awake, alert, slow to respond but answers questions appropriately. He is currently maintaining O2 saturations in the mid 90s on room air. He's been afebrile. Somewhat hypertensive. He is currently on antibiotics in the form of Augmentin. Objective - Vital Signs Vital signs: Vital Signs Temp 97.3 F L 02/03/20 10:53 Pulse 83 02/03/20 10:53 Resp 18 02/03/20 10:53 BP 166/102 02/03/20 10:53 Pulse Ox 98 02/03/20 07:50 Intake & Output 02/02/20 02/03/20 02/03/20 18:59 06:59 18:59 Intake Total 100 200 Output Total 2000 Balance 100 200 -2000 Weight 72.5 kg Intake: Intake, IV Titration 100 Amount Sodium Ferric Gluconat- 100 Sucrose 125 mg In Sodium Chloride 0.9% 100 ml @ 100 mls/hr IVPB DAILY [facility] Rx#:[id number] Oral 200 Output: Urine 0 Hemodialysis 1999 Other: Voiding Method Diaper Incontinent # Voids 1 # Bowel Movements 1 ABP, PAP, CO, CI - Last Documented Arterial Blood Pressure 126/112 - Exam GENERAL EXAM: Alert, 41-year-old male patient, appears older than stated age, on room air, comfortable in no apparent distress. HEAD: Normocephalic/atraumatic. EYES: Normal reaction of pupils, equal size. Conjunctiva pink, sclera white. NOSE: Clear with pink turbinates. THROAT: No erythema or exudates. NECK: No masses, no JVD, no thyroid enlargement, no adenopathy. CHEST: No chest wall deformity. Symmetrical expansion. LUNGS: Equal air entry with basilar crackles, but no wheeze, rhonchi or dullness. CVS: Regular rate and rhythm, normal S1 and S2, no gallops, no murmurs, no rubs ABDOMEN: Soft, nontender. No hepatosplenomegaly, normal bowel sounds, no guarding or rigidity. EXTREMITIES: No clubbing, no edema, no cyanosis, 2+ pulses and upper and lower extremities. Left upper arm AV fistula with positive bruit and thrill MUSCULOSKELETAL: Muscle strength and tone normal. SPINE: No scoliosis or deformity SKIN: No rashes CENTRAL NERVOUS SYSTEM: Alert. Oriented. Slow to respond. No focal deficits, tone is normal in all 4 extremities. - Labs CBC & Chem 7: 02/01/20 03:18 02/01/20 03:18 Labs: Abnormal Lab Results - Last 24 Hours (Table) 01/31/20 Range/Units 03:59 Methylmalonic Acid 0.64 H (<0.40) umol/L Assessment and Plan Assessment: Acute hypoxic respiratory failure secondary to pulmonary edema secondary to end- stage renal disease and previously missed hemodialysis Acute metabolic encephalopathy suspect hypertensive emergency with mental status changes and hypertensive encephalopathy End-stage renal disease, on hemodialysis, noncompliant Acute pulmonary edema secondary to missed dialysis and fluid volume overload Anemia of chronic disease Hypovolemic hyponatremia Herpes zoster dermatitis involving anterior chest wall, currently on acyclovir Streptococcus pneumonia related to possibility of aspiration pneumonia is not excluded Plan: The patient was seen and evaluated by Dr. Berg Currently stable from the pulmonary standpoint On room air We'll follow as needed I, the cosigning physician, performed a history & physical examination of the patient. Lungs sounds with bilateral crackles at the posterior bases. Maintaining good O2 saturations in the 90s on room air. I discussed the assessment and plan of care with my nurse practitioner, Sulema Donahue. I attest to the above note as dictated by her.
--- NOTE | 2020-02-03 14:12 | P.PN ---
Progress Note - Text Progress Note Date: 02/03/20 Interval History: Patient was seen today for psychiatric follow-up. Patient's nurse cleans the patient is less drowsy today however patient is more irritable. Full Stack Net Developer also spoke with social media editor prior to going into the room to speak with the patient. sort line worker claims that he is still not got a call back from the family members with questions about his empty bottles and possible overdose. Patient was seen at the bedside today and appeared to be more awake. Patient did appear to be more irritable however and raised his voice several times at sql report writer demanding discharge. He was not able to explain the risks and benefits of going back home and signing AMA. He claims that "I'll be fine his mind your own business". Patient had poor frustration tolerance today. He claims that his mood is "fine" and affect was incongruent. Patient offered no complaints at this time. He claims that he has been taking his medications. He claims that he was not able to sleep throughout the night. He continues to deny overdosing on pills at home. He claimed that he wants to live for his daughter. At this time patient denies any suicidal or homical ideations, intent or plan. Patient denies any auditory, visual hallucinations. Patient denies any side effects from the medications and has been compliant with meds. Mental Status Exam: General Appearance: Patient appears to be older than stated age, more awake today, irritable, appears to be disheveled in appearance and medically ill/de bilitated. Difficult to redirect during conversation. Behavior: Patient is calmly lying in bed without any agitated behavior. Irritable today. Speech: Patient's speech is fluent and nonpressured. Mood/Affect: Patient reports their mood is "fine", affect is congruent and constricted Suicidality/Homicidality: Patient denies having any suicidal or homicidal ideation intent or plan. Perceptions: Patient denies any visual hallucinations and denies any auditory hallucinations Though content/process: Greer, poverty of content. Memory and concentration: AOX1-2, poor attention span. Cannot spell world backwards. Poor memory recall. Judgment and insight: poor Assessment Delirium, likely secondary to multiple etiologies including medical condition, toxic metabolic and possibly medications. Cannabis use disorder Plan: -Patient DOES NOT have decision making capacity at this time and is unable to reason through and communicate/appreciate the risks, benefits and alternatives to treatment. -Delirium precautions recommended with patient including - avoiding use of narcotics and EDUCATIONAL SPECIALIST sedatives, limit anticholinergic medications when possible, frequent re-orientation, minimize use of restraints, open window shades during the day and close them at night -Would recommend the following medication changes/additions: We'll increase Seroquel to 50 mg daily at bedtime for mood stabilization/insomnia. Continue with 3 mg melatonin daily at bedtime for sleep. Increased Prozac 40 mg daily for mood sessions anxiety. -Communicated plan to patient's nurse -Will continue to follow along for treatment and further recommendations as patient continues to improve medically. We'll continue to attempt to gather further information from family and patient, social media editor will be giving family a call -Patient will likely be needing a rehab after being discharged from the hospital due to deconditioning and weakness. Patient does not have the capacity to refuse rehab. -Please contact with any questions.
--- NOTE | 2020-02-03 14:53 | P.PN ---
Subjective Progress Note Date: 02/03/20 This a 49 y/o male who lives on his owm. HE HAS ESRD with heomdialysis MWF. He was jsut at [facility] yesterday for minimal SOB, and significant herpitic Neuralgia. He was seen by nephology 01/21 who felt he could get his dialyais 01/22 and did not need it urgently. He was seen by cardiology for min abn troponins and this was felt to be chronic. He did have minmal sob, that resolved after some pain medication for his shingles. He was treated with Acyclovir. he was given Dilaudid and Gabapetnin. early in the moring he had some confusin and was given Narcan then again several hours later, which resolved his somnolence but not his pain. He was D/C in stable condtion to f/u i nt office joe cantrell to habve dialysis 01/22. ~ 01:00 01/23/2020 patient was brought in [facility] for altered mental status and shortness of breath. he was quite tachypneic and hypertensive upon arrival. Nitro drip was started. Patient was placed on BiPap. Ct brain old lacunar infarcts in the right internal capsule. No acute intracranial abnormality. No change. 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 01/24/2020 Yesterday required intubation, maintained on 55% FiO2/+5 of PEEP. chest x-ray reporting small right pleural effusion, increased right basilar airspace opacity airspace, right basilar subsegmental atelectasis with improved aeration of bilateral upper lungs Initially had required clevidipine, became hypotensive, discontinued and now requiring pressor support with Levophed. Evaluated by infectious disease regarding left T4 dermatome zoster,with renal dose acyclovir recommended.earlier this morning patient agitated, not following commands and weaning trial aborted. Telemetry sinus rhythm.afebrile,normal WBC. preliminary blood cultures no growth at 24 hours. ABGs noted.hemoglobin down to 8.4,platelets 239.sodium 126, BUN 60, creatinine 8.38.scheduled for hemodialysis today. alk phos mildly elevated, 127. Albumin low at 3.2. completed EEG yesterday,abnormal, suggestive of toxic metabolic encephalopathy, with no epileptiform activity seen. 01/25/2020 Remains vent dependent, FiO2 55%/+5 PEEP. Maintained on diprovan and Levophed drips. Continues on acyclovir and Zosyn. Afebrile, WBC trending up to 18.2. Hemoglobin continues improving up to 9.6, platelets 269. Weaning trials attempted today but patient became agitated, restless, not following commands, requiring Haldol and placed back on diprovan drip. Seroquel added to med regimen. Chest x-ray reporting diffuse pleural parenchymal changes, stable, possible CHF, possible underlying pneumonia, prominence of the pulmonary arteries and hilum associated pulmonary arterial hypertension, possible adenopathy. 01/26/2020 remains vent dependent, FiO2 down to 45%/+ 5 of PEEP. Sedated on diprovan. Levophed weaned off. Receiving hemodialysis today. ABGs noted. Chest x-ray reporting improvement. Afebrile, WBC trending down, 13.9. Hemoglobin 9, platelets, 236. Continues on acyclovir, zosyn. Blood and sputum cultures pending. 01/27/2020 received hemodialysis yesterday .sputum culture reporting positive for Streptococcus pneumoniae , blood cultures reporting no growth . Chest x-ray reporting diffuse parenchymal changes, typical of CHF, bilateral hilar enlargement, possible pulmonary arterial hypertension, possible underlying adenopathy/mass. Maintained on Zosyn. Extubated this morning, maintaining O2 s ats in the 90s on 4 L nasal cannula. Suicide precautions in place with sitter at bedside. Levophed weaned off. Maintained on Clevidipine. 01/30/2020 maintained on Unasyn, Acyclovir for streptococcal pneumonia, shingles. T-max 100.8, WBC 10.7. Weaned off of Clevidipine. Maintaining O2 sats in the 90s on 2 L nasal cannula. Sensorium improving. Continues on suicide precautions. Received hemodialysis yesterday, again today to return to his normal schedule of Thursday. Telemetry sinus rhythm. 01/31/2020 maintained O2 sats in the 90s on 2 L nasal cannula. Continues on Unasyn,acyclovir. Chest x-ray reporting minimal improvement. T-max 100.5, normal WBC. More alert today with fluctuating periods of confusion. Suicide precautions maintained with safety advisor at bedside. Patient denies being suicidal and taking a full bottle of Seroquel. 02/01/2020 suicide precautions maintained .psychiatry reconsulted, recommendations pending. 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 Hypertensive, systolic blood pressures in the 160s today, scheduled for hemodialysis today. Maintaining O2 sats in the 90s on 2 L nasal cannula. Tolerated clear liquid diet, advanced to full liquids. Telemetry sinus rhythm. Alert and oriented 3 but requires stimulation,droggy. T-max 99.9. Continues on Unasyn for streptococcal pneumonia and acyclovir for shingles. 02/02/2020 moved out of ICU. Oxygen weaned off and maintaining O2 sats in the 90s on room air. T-max 99.9, WBC within normal limits. Hypertensive, Norvasc added to med regimen. Sensorium improving. Evaluated by psychiatry WITH suicide precautions lifted, recommended delirium precautions; Seroquel dose decreased. 02/03/2020 Delirium precautions maintained. Sensorium continues to improve, much more alert, not yet back to baseline. Decision-making abilities are still lacking. Agitates easily. Received hemodialysis earlier this morning. T-max 99.7, normal WBC. Denies chest pain, palpitations or shortness of breath. Significant deconditioning, generalized weakness. Physical therapy continues to recommend subacute rehab at discharge. Evaluated by psychiatry with recommendations noted and appreciated. Objective - Vital Signs Vital signs: Vital Signs Temp 97.3 F L 02/03/20 10:53 Pulse 83 02/03/20 10:53 Resp 18 02/03/20 10:53 BP 166/102 02/03/20 10:53 Pulse Ox 98 02/03/20 07:50 Intake & Output 02/02/20 02/03/20 02/03/20 18:59 06:59 18:59 Intake Total 100 200 Output Total 1999 Balance 100 200 -1999 Weight 72.5 kg Intake: Intake, IV Titration 100 Amount Sodium Ferric Gluconat- 100 Sucrose 125 mg In Sodium Chloride 0.9% 100 ml @ 100 mls/hr IVPB DAILY [facility] Rx#:[id number] Oral 200 Output: Urine 0 Hemodialysis 1999 Other: Voiding Method Diaper Incontinent # Voids 1 # Bowel Movements 1 ABP, PAP, CO, CI - Last Documented Arterial Blood Pressure 126/112 - Exam PHYSICAL EXAM: VITAL SIGNS: [as above] GENERAL: sitting up in bed, alert and oriented 2 HEENT: Conjunctivae normal. eyes normal. NECK: No JVD. No thyroid enlargement. CARDIOVASCULAR: S1, S2 regular.No murmur RESPIRATION: Breath sounds diminished in the bases,bibasilar crackles. ABDOMEN: Soft, nontender . No guarding. no masses palpable. Bowel sounds heard. LEGS: trace edema. NERVOUS SYSTEM: Cranial nerves II through XII grossly intact, moves all extremities, no focal deficits. Strength and sensation grossly intact Skin: warm and dry, left T4 dermatome rash,dressing clean dry and intact - Labs CBC & Chem 7: 02/01/20 03:18 02/01/20 03:18 Labs: Abnormal Lab Results - Last 24 Hours (Table) 01/31/20 Range/Units 03:59 Methylmalonic Acid 0.64 H (<0.40) umol/L Assessment and Plan Assessment: (1) Acute respiratory failure with hypoxia, status post ventilator-dependent secondary to streptococcal pneumoniae pneumonia, possible aspiration Current Visit: Yes Status: Acute Code(s): J96.01 - ACUTE RESPIRATORY FAILURE WITH HYPOXIA SNOMED Code(s): 88788064 (2) Overdose,Seroquel, status post suicide precautions Current Visit: Yes Status: Acute Code(s): T50.901A - POISONING BY UNSP DRUG/MEDS/BIOL SUBST, ACCIDENTAL, INIT SNOMED Code(s): 88099146 (3) Acute toxic and metabolic encephalopathy, multifactorial ,secondary to #2, hypertension Current Visit: Yes Status: Acute Code(s): G93.41 - METABOLIC ENCEPHALOPATHY SNOMED Code(s): 78323985 (4) Neuralgia Current Visit: Yes Status: Acute Code(s): M79.2 - NEURALGIA AND NEURITIS, UNSPECIFIED SNOMED Code(s): 27319849 (6) Fluid overload Current Visit: Yes Status: Acute Code(s): E87.70 - FLUID OVERLOAD, UNSPECIFIED SNOMED Code(s): 99604848 (7) Hypertensive crisis, s/p clevidepine. Current Visit: Yes Status: Acute Code(s): I16.9 - HYPERTENSIVE CRISIS, UNSPECIFIED SNOMED Code(s): 534638852 (8) herpes zoster,left T4 dermatome Current Visit: Yes Status: Acute Code(s): B02.9 - ZOSTER WITHOUT COMPLICATIONS SNOMED Code(s): 8724601 (9) End stage renal disease,on hemodialysis, Thursday, Thursday and Fridays Current Visit: No Status: Acute Code(s): N18.6 - END STAGE RENAL DISEASE SNOMED Code(s): 27803663 (10) Anemia in chronic kidney disease, iron deficient Current Visit: Yes Status: Acute Code(s): N18.9 - CHRONIC KIDNEY DISEASE, UNSPECIFIED; D63.1 - ANEMIA IN CHRONIC KIDNEY DISEASE SNOMED Code(s): 608440278 (11) hypotension, status post pressor dependent, resolved (12) prominence of the pulmonary arteries, hilum, suspect related to pulmonary arterial hypertension, possible adenopathy, pulmonary following. (13) cannabis use Plan: Continue on current medication regime ,monitoring and symptomatic treatment. Seroquel, Prozac doses increased PT/OT. Significant generalized weakness, Continue with workup for inpatient rehab. Antibiotics as per ID. Aggressive pulmonary toileting. Hemodialysis as per nephrology. Prognosis guarded given multiple complex medical issues. The impression and plan of care has been dictated as directed. : I performed a history and examination of this patient, discussed the same with the dictator. I agree with the dictator's note ,documented as a scribe. Any additional findings or plans will be noted.
--- NOTE | 2020-02-03 19:30 | P.PN ---
Subjective Progress Note Date: 02/03/20 Patient was seen for a follow-up. Patient was sleeping when I entered the room. He would not respond, but after a couple attempts, he started waking up and became fully alert and awake. Denies any headache, wants to go home. Per nurse he is fully oriented. Objective - Vital Signs Vital signs: Vital Signs Temp 97.4 F L 02/03/20 15:00 Pulse 83 02/03/20 15:00 Resp 16 02/03/20 15:00 BP 155/91 02/03/20 15:00 Pulse Ox 100 02/03/20 15:00 Intake & Output 02/03/20 02/03/20 02/04/20 06:59 18:59 06:59 Intake Total 200 Output Total 1999 Balance 200 -1999 Weight 72.5 kg Intake: Oral 200 Output: Urine 0 Hemodialysis 1999 Other: Voiding Method Diaper Incontinent # Voids 1 # Bowel Movements 1 ABP, PAP, CO, CI - Last Documented Arterial Blood Pressure 126/112 - Exam Patient is sitting in the bed. After patient woke up, he was fully alert and awake. Patient knew that it is January 2020, and that he is in [facility]. His speech and language functions are normal. Mild dysarthria at times. 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 In the lower extremities ankles are normal. Hip flexion is 4+ bilaterally. Patient's face is symmetric. Pupils are round and reacting, visual reyes are full. Patient's herpetic rash over the left side of the chest is improved. He still has some herpetic rash over the scalp region. - Labs CBC & Chem 7: 02/01/20 03:18 02/01/20 03:18 Labs: Abnormal Lab Results - Last 24 Hours (Table) 01/31/20 Range/Units 03:59 Methylmalonic Acid 0.64 H (<0.40) umol/L Assessment and Plan Assessment: * Altered mental status, likely due to toxic-metabolic encephalopathy, much improved. Patient gradually improving. * Head drop, improved. Probably was related to encephalopathy. * Status post Acute hypoxic respiratory failure secondary to pulmonary edema. Status post extubation. * End-stage renal disease on hemodialysis * Probable pneumonia, ID on board. * Herpes zoster left T4 dermatome. No signs of encephalitis. Patient has some herpetic rash over his scalp as well. * Folate deficiency Plan: * Patient's encephalopathy is much improved. Patient able to participate in the examination. Muscle strength improving gradually. His neck muscles also improving. * Blood test shows CPK 31, B12 1185 normal, folate is low 3.0, TSH normal, RPR negative. MMA 0.64 (normal <0.40). Consider B12 replacement as methylmalonic acid is abnormal. Acetylcholine receptor antibodies pending. * Patient's herpes zoster over the left T4 dermatome has much improved. However he has a new rash on the scalp which also appears herpes but is not in a single dermatome. Suggest ID follow-up to rule out disseminated herpes. ? Need for LP, although he has no headaches, white cells are normal and no temperature. Patient on Valtrex 1 g twice a day. ID on board. * EEG revealed background slowing of moderate to severe degree, consistent with encephalopathy. No epileptiform activity was seen. * Psychiatry on board. * Patient has been petitioned. * Dr. Abhishek Berg Will resume neurology service on 02/06/2020.
[2020-02-03 20:20] LABS: Glucose,Whole Blood 88 mg/dL (75-99)
[2020-02-03] MEDS: MELATONIN 3 MG TABLET PO SCH (20:25)
[2020-02-03] MEDS: QUEtiapine 50 MG TAB PO SCH (20:25)
[2020-02-04] MEDS: HEPARIN SODIUM,PORCINE 5,000 UNIT/ML 1 ML VIAL SQ SCH ×4 (00:02→23:18)
[2020-02-04 06:27] LABS: Anisocytosis Slight; Basophils # (A) 0.1 k/uL (0-0.2); Basophils % (A) 1 %; Eosinophils # (A) 0.3 k/uL (0-0.7); Eosinophils % (A) 3 %; HCT 30.5 % (39.0-53.0); Hypochromasia Slight; Lymphocytes # (A) 0.7 k/uL (1.0-4.8); Lymphocytes % (A) 8 %; MCH 33.5 pg (25.0-35.0); MCV 104.5 fL (80.0-100.0); Macrocytosis Moderate; Mean Platelet Volume 7.9; Monocytes # (A) 0.5 k/uL (0-1.0); Monocytes % (A) 6 %; Neutrophils # (A) 6.7 k/uL (1.3-7.7); Neutrophils % (A) 79 %; Platelet Count 425 k/uL (150-450); RBC 2.92 m/uL (4.30-5.90); RDW 16.5 % (11.5-15.5); WBC 8.5 k/uL (3.8-10.6)
[2020-02-04 06:28] LABS: HGB 9.8 gm/dL (13.0-17.5)
[2020-02-04] MEDS: FLUoxetine HCL 20 MG CAP PO SCH (08:02)
[2020-02-04] MEDS: carvediloL 12.5 MG TAB PO SCH ×2 (08:02→16:39)
[2020-02-04] MEDS: amLODIPine 5 MG TAB PO SCH (08:02)
[2020-02-04] MEDS: cloNIDine HCL 0.1 MG TAB PO SCH ×3 (08:02→20:46)
[2020-02-04] MEDS: FOLIC ACID 1 MG TAB PO SCH (08:02)
[2020-02-04] MEDS: hydrALAZINE HCL 50 MG TAB PO SCH ×3 (08:02→20:43)
[2020-02-04] MEDS: SEVELAMER 800 MG TAB PO SCH ×3 (08:03→16:39)
[2020-02-04] MEDS: AMOXIC-POT CLAV 875-125MG 1 EACH TAB PO SCH ×2 (08:03→20:44)
[2020-02-04] MEDS: valACYclovir HCL 1,000 MG TABLET PO SCH ×2 (08:03→20:44)
[2020-02-04] MEDS: PANTOPRAZOLE 40 MG/10 ML VIAL IV SCH ×2 (08:04→20:42)
[2020-02-04 09:26] LABS: African American GFR (CKD) 13.4 (60.0-200.0); Anion Gap 14.6 mmol/L (4.00-12.00); BUN/Creat Ratio 6.11 Ratio (12.00-20.00); Calcium 9.6 mg/dL (8.7-10.3); Carbon Dioxide 24.4 mmol/L (21.6-31.8); Non-African American GFR(CKD) 11.5 (60.0-200.0); Potassium 4.1 mmol/L (3.5-5.5)
--- NOTE | 2020-02-04 12:55 | P.PN ---
Subjective Progress Note Date: 02/04/20 Principal diagnosis: Acute hypoxic respiratory failure secondary to fluid overload, pulmonary edema, end-stage renal disease This is a 49-year-old white male with history of end-stage renal disease, hypertension, COPD, patient is on hemodialysis. Patient is normally on hemodial ysis Thursday, supposedly his last hemodialysis was last Thursday. Patient was brought into the ER with altered mental status and shortness of breath. Apparently he was quite confused upon presentation, blood pressure was extremely high at 217/134. Patient was noted to have abnormal labs including low sodium of 125. Abnormal BUN of 72 creatinine 8.57, and his hemoglobin was 9.2. Chest x-ray showed definitely fluid overload and he was noted to have hypoxic respiratory failure. Underwent dialysis last night, and about 1-1/2 L of fluid were removed. Patient was placed on nitroglycerin drip and on clevidipine drip, he was also noted to have herpes zoster rash in the left upper chest wall area. Started on antiviral therapy for his shingles. Patient was also placed on BiPAP, ABG was reasonable. His mentation remained, patient was admitted to the ICU and I was asked to see him on consultation. ABG on BiPAP showed a pO2 of 93 pCO2 of 41 pH of 7.43, and this was a BiPAP of 14/6 and 40% FiO2. 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 Neurology consultation is pending. Patient was reevaluated today on 01/24/20, remains in the ICU, intubated and mechanically ventilated. He is presently on assist control rate of 18 tidal volume is 450 FiO2 of 60% and PEEP of 5. ABG showed a pO2 of 93 pCO2 of 42 pH of 7.44. Patient is on propofol at 50 mcg/kg/m, IV fluids at KVO, and he is going to have dialysis today. Remains on dialysis. Remains on acyclovir for his herpes zoster dermatitis involving the T4 dermatome of left-sided chest. There is evidence of coffee ground material in the nasogastric tube and had an output of 1.8 L of coffee ground and blood-tinged nasogastric tube suctioning. Hemoglobin is holding at 8.4. EEG yesterday showed moderate to severe slowing. Consistent with metabolic encephalopathy. Today I try to wean the patient from propofol, and wanted to give the patient a weaning trial, however he became extremely agitated, and would not follow any instructions. Then we decided to try Precedex for sedation and possibly give the patient at least weaning trials today. In the meantime we will continue to plan dialysis today. Chest x-ray showed slight improvement in the aeration of bilateral upper lungs, however he continues to have some right basilar subsegmental atelectasis and possibly airspace disease Reevaluated today on 01/25/20, patient remains in the ICU. Remains on mechanical ventilation. His ventilator settings are assist control rate of 18 tidal volume is 450 FiO2 is 55% and PEEP of 5. ABG showed a pO2 of 119 pCO2 of 46 pH of 7.39. Patient was on propofol before I evaluated him, however as we took him off propofol, the patient became extremely agitated, restless, not responding to any verbal stimuli, thrashing in bed, and we have recommended Haldol, and place him back on propofol as he was endangering himself, and there was extreme risk of leg lines and extubation. Could not get the patient to follow any instructions. Had to be sedated. Obviously he is not quite ready for any weaning. We will start the patient on Seroquel 25 mg twice a day. Patient had dialysis yesterday, 2 L were removed, chest x-ray continues to show diffuse pleural parenchymal changes consistent with CHF, and possible underlying pneumonia is not entirely excluded. Patient was reevaluated today on 01/26/20, remains in the ICU intubated and mechanically ventilated. Ventilator settings are assist control rate of 18 tidal volume is 450 FiO2 is 55% and PEEP of 5. Patient is having dialysis this morning, he is sedated and on propofol at 35 mcg/kg/m. Hoping to wake the patient up again once dialysis is done discontinued the prevent and consider weaning trial again this morning. In the meantime the patient continues to have episodes of extreme confusion and agitation as well as restlessness once he is on a lower dose of propofol. Tried on Precedex 2 days ago, and he failed to wean. Mostly because of his mental status and extreme agitation. Patient remains obtunded. ABG today showed a pO2 of 175 pCO2 of 45 pH of 7.35 WBC count is 13.9, hemoglobin is 9.0. BUN is 50 creatinine 7.74. Chest x-ray is actually showing improvement in his interstitial edema and his pleural parenchymal changes. The patient was seen today 01/27/2020 in follow-up in the intensive care unit. He remains intubated on mechanical ventilator. Current settings assist-control, rate of 18, tidal volume 450, FiO2 45% and a PEEP of 5. Morning blood gases revealed a PaO2 of 112, CO2 47, pH 7.33. White count 10.9. Hemoglobin 9.0. M CV 105.7. Sodium 135. Potassium 4.3. Creatinine 5.19. Propofol at 35 mcg/kg/m. On clevidipine at 1 mg per hour. Off norepinephrine. Remains on Zosyn. Sputum culture positive for Streptococcus pneumoniae. Blood cultures reveal no growth. Chest x-ray reveals diffuse pleural parenchymal changes most typical of CHF. Bilateral hilar enlargement. Pulmonary artery hypertension. Patient was reevaluated today on 01/29/20, remains in the intensive care unit, remains encephalopathic, however definite improvement noted in his overall mental status compared to yesterday. Chest x-ray continues to show evidence of interstitial edema. Patient is now on oral medications for his blood pressure. Clevidipine is being titrated down, the plan is to stop it altogether. Patient remains empirically on antibiotics and/Unasyn for aspiration pneumonia presumptive. Remains on acyclovir for his herpes zoster dermatitis. He is also on GI and DVT prophylaxis. Overall there is improvement in his mental status and his overall pulmonary status. But the patient is not quite ready to be transferred out of the ICU. Continues to have a sitter at bedside. CBC is relatively normal hemoglobin is 8.7 today. He elects lites are normal. BUN is 31 creatinine is 5.15. On 01/30/2020 patient seen in follow-up in the intensive care unit, he is drowsy, but arouses to voice, went to the nurse patient is oriented 3, but his verbal responses are slow, patient is less confused today. Denies any wrist or difficulty, he is on 2 L of oxygen and the pulse ox 96%, did have a low-grade fevers, with a T-max of 100.8F over the last 24 hours. His sputum was Positive for Streptococcus pneumonia, and the patient is on Unasyn, also on acyclovir for the shingles. Had no acute events overnight, pressure has been stable, has not required clevidipine drip. He is on 0.9 normal saline infusing at 20 ML per h our. His labs have been reviewed, showing white blood cell, 10.7, hemoglobin of 8.3, serum sodium is 133, BUN of 48 and creatinine is 6.76. Yesterday chest x- ray showed mild patchy interstitial opacities, possible pulmonary vessel congestion versus atypical pneumonia. he had hemodialysis yesterday we would removal 3.5 L and fluid. On 01/31/2020 patient seen in follow-up in the intensive care unit. He is resting in bed, he sitting up, he is drowsy, but arousable, he is oriented to time, person, he did realize that she is in a medical facility, he seems to have waxing and waning episodes of confusion. No agitation, denies any difficulty breathing, he is on 2 L of oxygen with the pulse ox above 95-96%, he is afebrile, hemodynamically has been stable, lung sounds reveal diminished breath sounds bilaterally, patient continues on Unasyn for strep pneumonia and valacyclovir for the shingles. His been afebrile today, did have a low-grade fever last night at 8:00 with a temp of 100.5F. He is tolerating oral intake, no vomiting, abdomen is soft, is breathing comfortably, no cough or congestion. He is on 0.9 normal saline at rate of 20 ML per hour. He still has a industrial safety and health specialist at the bedside. On 02/01/2020 patient seen in follow-up in intensive care unit, he is drowsy, but arousable, he knows he is in a hospital, he knows the month, he knows the year and the president, however his verbal responses are slow, he is inattentive at times. Denies any acute distress, he is on 2 L of oxygen sats 96%, breathing comfortably, lung sounds are clear, slightly diminished at the bases, one low- grade fever this morning with a temp of 99.9F. He remains on Unasyn for Streptococcus pneumonia. We switched him to oral valacyclovir for the shingles, he is able to take oral intake, we will switch his IV antibiotics to oral Augmentin. These labs have been reviewed, showing white blood cell count 7.6, hemoglobin of 8.1, electrolytes were unremarkable with exception of CO2 which is at 19, B1 is 51, creatinine is 7.48, patient's last hemodialysis was on 01/30/2020 with removal of 3 L and fluids. Does not appear to be fluid overloaded, no difficulty breathing. There is a industrial safety and health specialist at the bedside possibility of suicide precaution, psychiatric service is following, and we ask ed them to see the patient again in follow-up On 02/02/2020 patient seen in follow-up on a general medical surgical floor, she is a bit drowsy, but easily arousable, he is answering some simple questions, as any acute distress, room air pulse ox is 95%, hemodynamically stable, he has had some intermittent low-grade fevers, with a T-max of 99.9F. No cough or congestion, lung sounds are clear, with some diminished breath sounds at the bases, no rhonchi, no rales. Vital signs have been stable. Recent and hemodialysis today would removal of 2 L of fluid, he is in negative fluid balance, no lower extremity edema. He is on oral antibiotics in the form of Augmentin for Streptococcus pneumonia, he is on oral valacyclovir for the shingles. Patient had no acute events overnight. He denied any suicidal ideations, he was reevaluated by psychiatric services, his Seroquel was further decreased to 25 mg daily, patient will be started on Prozac. The patient is seen today the 2019 in follow-up on the regular medical floor. He is awake, alert, slow to respond but answers questions appropriately. He is currently maintaining O2 saturations in the mid 90s on room air. He's been afebrile. Somewhat hypertensive. He is currently on antibiotics in the form of Augmentin. The patient is seen today 02/04/2020 in follow-up on the regular medical floor. He is currently resting comfortably in bed. Awake and alert in no acute distress. He is maintaining good O2 saturations in the 90s on room air. He's been afebrile. Sputum culture positive for Streptococcus pneumoniae back on 01/24/2020. White count 8.5. Hemoglobin 9.8. Sodium 137. Potassium 4.1. Creatinine 5.4. He remains on Augmentin. Objective - Vital Signs Vital signs: Vital Signs Temp 98.6 F 02/04/20 07:00 Pulse 82 02/04/20 07:00 Resp 18 02/04/20 07:00 BP 151/85 02/04/20 07:00 Pulse Ox 94 L 02/04/20 07:00 Intake & Output 02/03/20 02/04/20 02/04/20 18:59 06:59 18:59 Intake Total 500 Output Total 1999 Balance -1999 500 Weight 65.5 kg Intake: Oral 500 Output: Urine 0 Hemodialysis 2000 ABP, PAP, CO, CI - Last Documented Arterial Blood Pressure 126/112 - Exam GENERAL EXAM: Alert, 41-year-old male patient, appears older than stated age, on room air, comfortable in no apparent distress. HEAD: Normocephalic/atraumatic. EYES: Normal reaction of pupils, equal size. Conjunctiva pink, sclera white. NOSE: Clear with pink turbinates. THROAT: No erythema or exudates. NECK: No masses, no JVD, no thyroid enlargement, no adenopathy. CHEST: No chest wall deformity. Symmetrical expansion. LUNGS: Equal air entry with basilar crackles, but no wheeze, rhonchi or dullness. CVS: Regular rate and rhythm, normal S1 and S2, no gallops, no murmurs, no rubs ABDOMEN: Soft, nontender. No hepatosplenomegaly, normal bowel sounds, no guarding or rigidity. EXTREMITIES: No clubbing, no edema, no cyanosis, 2+ pulses and upper and lower extremities. Left upper arm AV fistula with positive bruit and thrill MUSCULOSKELETAL: Muscle strength and tone normal. SPINE: No scoliosis or deformity SKIN: No rashes CENTRAL NERVOUS SYSTEM: Alert. Oriented. Slow to respond. No focal deficits, tone is normal in all 4 extremities. - Labs CBC & Chem 7: 02/04/20 05:48 02/04/20 05:48 Labs: Abnormal Lab Results - Last 24 Hours (Table) 02/04/20 02/04/20 Range/Units 05:48 05:48 RBC 2.92 L (4.30-5.90) m/uL Hgb 9.8 L D (13.0-17.5) gm/dL Hct 30.5 L (39.0-53.0) % MCV 104.5 H (80.0-100.0) fL RDW 16.5 H (11.5-15.5) % Lymphocytes # 0.7 L (1.0-4.8) k/uL Anion Gap 14.60 H (4.00-12.00) mmol/L BUN 33.0 H (9.0-27.0) mg/dL Creatinine 5.4 H (0.6-1.5) mg/dL Est GFR (CKD-EPI)AfAm 13.4 L (60.0-200.0) Est GFR (CKD-EPI)NonAf 11.5 L (60.0-200.0) BUN/Creatinine Ratio 6.11 L (12.00-20.00) Ratio Assessment and Plan Assessment: Acute hypoxic respiratory failure secondary to pulmonary edema secondary to end- stage renal disease and previously missed hemodialysis, recovered and on room air Acute metabolic encephalopathy suspect hypertensive emergency with mental status changes and hypertensive encephalopathy End-stage renal disease, on hemodialysis, noncompliant Acute pulmonary edema secondary to missed dialysis and fluid volume overload Anemia of chronic disease Hypovolemic hyponatremia Herpes zoster dermatitis involving anterior chest wall, currently on acyclovir Streptococcus pneumonia related to possibility of aspiration pneumonia is not excluded Plan: The patient was seen and evaluated by Dr. Berg Currently stable from the pulmonary standpoint On room air Will need probable subacute rehabilitation We'll follow as needed I, the cosigning physician, performed a history & physical examination of the patient. Lungs sounds with bilateral crackles at the posterior bases. Maintaining good O2 saturations in the 90s on room air. I discussed the assessm ent and plan of care with my nurse practitioner, Sulema Donahue. I attest to the above note as dictated by her.
--- NOTE | 2020-02-04 13:00 | PN ---
PROGRESS NOTE Patient is seen for followup for end-stage renal disease. He is currently lying in bed. Patient is upset that he wants to go home and not to a rehab. EXAMINATION: He is comfortable. He is not in any acute distress. Blood pressure is 151/85, heart rate 82 per minute. He is afebrile. The patient appears euvolemic with no significant edema in his lower extremities. Abdomen is soft, nontender. CHANNEL SUPER[employer]OR exam is grossly intact. However, patient is quite weak. LABS: Reviewed and hemoglobin 9.8, sodium 137, potassium 4.1, serum creatinine 5.4 from today. ASSESSMENT: 1. End-stage renal disease, on hemodialysis on a Thursday, Thursday, Thursday schedule. Patient will be dialyzed on February 05. 2. Generalized debility. Rehab has been recommended. 3. Volume overload, now improved. 4. Uncontrolled hypertension, now improved. 5. Pneumonia maintained on antibiotics. 6. Herpes zoster, status post acyclovir. PLAN: Next dialysis on 02/06/2020. MMODL / IJN: [id number] /
--- NOTE | 2020-02-04 13:07 | P.PN ---
Subjective Progress Note Date: 02/04/20 Principal diagnosis: End-stage renal disease hemodialysis dependent Patient admitted with probable accidental overdose on Seroquel Possible pneumonia Patient significantly improved, responding to verbal commands and discussing his care with staff, however he wishes to go home prior to being ready, but don't believe patient is making appropriate decisions yet Would like to keep him long enough to appropriately treat him, and have evaluation by psychiatry. Objective - Vital Signs Vital signs: Vital Signs Temp 98.6 F 02/04/20 07:00 Pulse 82 02/04/20 07:00 Resp 18 02/04/20 07:00 BP 151/85 02/04/20 07:00 Pulse Ox 94 L 02/04/20 07:00 Intake & Output 02/03/20 02/04/20 02/04/20 18:59 06:59 18:59 Intake Total 500 Output Total 2000 Balance -2000 500 Weight 65.5 kg Intake: Oral 500 Output: Urine 0 Hemodialysis 2000 ABP, PAP, CO, CI - Last Documented Arterial Blood Pressure 126/112 - Exam General: [Patient awake, alert and oriented times 3. Patient in no acute distress.] HEENT: [PERRL. EOMI. No pharyngeal erythema or exudate.] Neck: [No adenopathy.] Cardiac: [Heart regular in rate and rhythm. No S3. No S4. No clicks, rubs. No murmur.] Lungs: [Clear to auscultation bilaterally.] Abdomen: [No mass. No organomegaly. Bowel sounds presnt and normoactive in all 4 quadrants.] Extremes: Dialysis access left arm : [] Musculoskeletal: [No joint erythema, edema or tenderness.] Skin: [No rash.] Neurologic: [No lateralizing deficits. CN II - XII grossly intact.] Lymphatic: [No adenopathy.] - Labs CBC & Chem 7: 02/04/20 05:48 02/04/20 05:48 Labs: Abnormal Lab Results - Last 24 Hours (Table) 02/04/20 02/04/20 Range/Units 05:48 05:48 RBC 2.92 L (4.30-5.90) m/uL Hgb 9.8 L D (13.0-17.5) gm/dL Hct 30.5 L (39.0-53.0) % MCV 104.5 H (80.0-100.0) fL RDW 16.5 H (11.5-15.5) % Lymphocytes # 0.7 L (1.0-4.8) k/uL Anion Gap 14.60 H (4.00-12.00) mmol/L BUN 33.0 H (9.0-27.0) mg/dL Creatinine 5.4 H (0.6-1.5) mg/dL Est GFR (CKD-EPI)AfAm 13.4 L (60.0-200.0) Est GFR (CKD-EPI)NonAf 11.5 L (60.0-200.0) BUN/Creatinine Ratio 6.11 L (12.00-20.00) Ratio Assessment and Plan (1) Acute metabolic encephalopathy Current Visit: Yes Status: Acute Code(s): G93.41 - METABOLIC ENCEPHALOPATHY SNOMED Code(s): 87962649 (2) Acute respiratory failure with hypoxia Current Visit: Yes Status: Acute Code(s): J96.01 - ACUTE RESPIRATORY FAILURE WITH HYPOXIA SNOMED Code(s): 35202003 (3) Altered mental status Current Visit: Yes Status: Acute Code(s): R41.82 - ALTERED MENTAL STATUS, UNSPECIFIED SNOMED Code(s): 794672882 (4) Anemia in chronic kidney disease Current Visit: Yes Status: Acute Code(s): N18.9 - CHRONIC KIDNEY DISEASE, UNSPECIFIED; D63.1 - ANEMIA IN CHRONIC KIDNEY DISEASE SNOMED Code(s): 403705634 (5) Fluid overload Current Visit: Yes Status: Acute Code(s): E87.70 - FLUID OVERLOAD, UNSPECIFIED SNOMED Code(s): 09298237 (6) Hypertensive crisis Current Visit: Yes Status: Acute Code(s): I16.9 - HYPERTENSIVE CRISIS, UNSPECIFIED SNOMED Code(s): 705445011 (7) Overdose Current Visit: Yes Status: Acute Code(s): T50.901A - POISONING BY UNSP DRUG/MEDS/BIOL SUBST, ACCIDENTAL, INIT SNOMED Code(s): 05989067 (8) Shingles Current Visit: Yes Status: Acute Code(s): B02.9 - ZOSTER WITHOUT COMPLICATIONS SNOMED Code(s): 2995522 (9) Chest pain Current Visit: No Status: Acute Code(s): R07.9 - CHEST PAIN, UNSPECIFIED SNOMED Code(s): 79025690 (10) Congestive heart failure Current Visit: No Status: Acute Code(s): I50.9 - HEART FAILURE, UNSPECIFIED SNOMED Code(s): 85470605 (11) Elevated d-dimer Current Visit: No Status: Acute Code(s): R79.89 - OTHER SPECIFIED ABNORMAL FINDINGS OF BLOOD CHEMISTRY SNOMED Code(s): 405844014 Plan: Patient has improved Status change improved although patient has not been making good decisions Respiratory status significantly improved IV antibiotics continued Fluid overload has significantly improved secondary to hemodialysis Would like to have physical therapy evaluate and work with patient her ambulation and strengthening Occupational therapy to work with patient Optimize care so that patient can either appropriately moved towards inpatient rehab or home Time with Patient: Greater than 30
[2020-02-04] MEDS: MELATONIN 3 MG TABLET PO SCH (20:43)
[2020-02-04] MEDS: QUEtiapine 50 MG TAB PO SCH (20:44)
[2020-02-05] MEDS: HEPARIN SODIUM,PORCINE 5,000 UNIT/ML 1 ML VIAL SQ SCH ×3 (08:21→23:07)
[2020-02-05] MEDS: FLUoxetine HCL 20 MG CAP PO SCH (08:21)
[2020-02-05] MEDS: FOLIC ACID 1 MG TAB PO SCH (08:21)
[2020-02-05] MEDS: amLODIPine 5 MG TAB PO SCH (08:21)
[2020-02-05] MEDS: cloNIDine HCL 0.1 MG TAB PO SCH ×3 (08:21→21:11)
[2020-02-05] MEDS: PANTOPRAZOLE 40 MG/10 ML VIAL IV SCH ×2 (08:21→21:10)
[2020-02-05] MEDS: carvediloL 12.5 MG TAB PO SCH ×2 (08:21→16:31)
[2020-02-05] MEDS: hydrALAZINE HCL 50 MG TAB PO SCH ×3 (08:21→21:11)
[2020-02-05] MEDS: SEVELAMER 800 MG TAB PO SCH ×3 (08:22→16:31)
[2020-02-05] MEDS: valACYclovir HCL 1,000 MG TABLET PO SCH ×2 (08:22→21:11)
[2020-02-05] MEDS: AMOXIC-POT CLAV 875-125MG 1 EACH TAB PO SCH ×2 (08:23→21:11)
--- NOTE | 2020-02-05 12:25 | P.PN ---
Subjective Progress Note Date: 02/05/20 Principal diagnosis: End-stage renal disease hemodialysis dependent Patient admitted with probable accidental overdose on Seroquel Possible pneumonia Patient significantly improved, responding to verbal commands and discussing his care with staff, however he wishes to go home prior to being ready, but don't believe patient is making appropriate decisions yet Would like to keep him long enough to appropriately treat him, and have evaluation by psychiatry. Objective - Vital Signs Vital signs: Vital Signs Temp 98.2 F 02/05/20 07:00 Pulse 84 02/05/20 07:00 Resp 17 02/05/20 07:00 BP 151/65 02/05/20 07:00 Pulse Ox 94 L 02/05/20 07:00 Intake & Output 02/04/20 02/05/20 02/05/20 18:59 06:59 18:59 Output Total 0 Balance 0 Weight 73 kg Output: Urine 0 Other: # Voids 0 ABP, PAP, CO, CI - Last Documented Arterial Blood Pressure 126/112 - Exam General: [Patient awake, alert and oriented times 3. Patient in no acute distress.] HEENT: [PERRL. EOMI. No pharyngeal erythema or exudate.] Neck: [No adenopathy.] Cardiac: [Heart regular in rate and rhythm. No S3. No S4. No clicks, rubs. No murmur.] Lungs: [Clear to auscultation bilaterally.] Abdomen: [No mass. No organomegaly. Bowel sounds presnt and normoactive in all 4 quadrants.] Extremes: Dialysis access left arm : [] Musculoskeletal: [No joint erythema, edema or tenderness.] Skin: [No rash.] Neurologic: [No lateralizing deficits. CN II - XII grossly intact.] Lymphatic: [No adenopathy.] - Labs CBC & Chem 7: 02/04/20 05:48 02/04/20 05:48 Assessment and Plan (1) Acute metabolic encephalopathy Current Visit: Yes Status: Acute Code(s): G93.41 - METABOLIC ENCEPHALOPATHY SNOMED Code(s): 39977677 (2) Acute respiratory failure with hypoxia Current Visit: Yes Status: Acute Code(s): J96.01 - ACUTE RESPIRATORY FAILURE WITH HYPOXIA SNOMED Code(s): 44972518 (3) Altered mental status Current Visit: Yes Status: Acute Code(s): R41.82 - ALTERED MENTAL STATUS, UNSPECIFIED SNOMED Code(s): 465622732 (4) Anemia in chronic kidney disease Current Visit: Yes Status: Acute Code(s): N18.9 - CHRONIC KIDNEY DISEASE, UNSPECIFIED; D63.1 - ANEMIA IN CHRONIC KIDNEY DISEASE SNOMED Code(s): 247755469 (5) Fluid overload Current Visit: Yes Status: Acute Code(s): E87.70 - FLUID OVERLOAD, UNSPECIFIED SNOMED Code(s): 90608586 (6) Hypertensive crisis Current Visit: Yes Status: Acute Code(s): I16.9 - HYPERTENSIVE CRISIS, UNSPECIFIED SNOMED Code(s): 720673720 (7) Overdose Current Visit: Yes Status: Acute Code(s): T50.901A - POISONING BY UNSP DRUG/MEDS/BIOL SUBST, ACCIDENTAL, INIT SNOMED Code(s): 72063719 (8) Shingles Current Visit: Yes Status: Acute Code(s): B02.9 - ZOSTER WITHOUT COMPLICATIONS SNOMED Code(s): 7590396 (9) Chest pain Current Visit: No Status: Acute Code(s): R07.9 - CHEST PAIN, UNSPECIFIED SNOMED Code(s): 27496510 (10) Congestive heart failure Current Visit: No Status: Acute Code(s): I50.9 - HEART FAILURE, UNSPECIFIED SNOMED Code(s): 76303335 (11) Elevated d-dimer Current Visit: No Status: Acute Code(s): R79.89 - OTHER SPECIFIED ABNORMAL FINDINGS OF BLOOD CHEMISTRY SNOMED Code(s): 239285942 Plan: Patient has improved Mental status change improved although patient has not been making good decisions Respiratory status significantly improved IV antibiotics continued Fluid overload has significantly improved secondary to hemodialysis Would like to have physical therapy evaluate and work with patient her amb ulation and strengthening Occupational therapy to work with patient Optimize care so that patient can either appropriately moved towards inpatient rehab or home Time with Patient: Greater than 30
--- NOTE | 2020-02-05 12:26 | PN ---
PROGRESS NOTE Patient is seen for followup for end-stage renal disease. The patient is awake. He is not in any acute distress. However, he is significantly weak. He is noted to be leaning towards one side and the significant staggering of the trunk is noted. He has been confused on and off. PHYSICAL EXAMINATION: On examination today, blood pressure is 151/65, heart rate 84 per minute. He is afebrile. Examination of the heart S1, S2. Examination of the lungs, bilateral breath sounds are heard. Abdomen is soft, nontender. Examination of lower extremities shows no evidence of edema. CABLE PULLER exam shows patient is significantly weak. When he is reaching out for things, he seems to be staggering towards one side. He has been confused on and off. LABS: Show hemoglobin 9.8, sodium 137, potassium 4.1. ASSESSMENT: 1. End-stage renal disease, on hemodialysis on a Thursday, Thursday, Thursday schedule. We will arrange for hemodialysis tomorrow. 2. Rule out cerebrovascular accident. I will check a CAT scan with IV contrast. 3. Hypertension, initially uncontrolled, currently much better controlled. 4. Volume overload, now improved. 5. Acute hypoxic respiratory failure status post extubation. 6. Zoster and thoracic in the T4 dermatome, status post acyclovir. PLAN: Check CT of the head without IV contrast and we will plan for hemodialysis tomorrow. MMODL / IJN: [id number] /
--- NOTE | 2020-02-05 12:28 | CT ---
EXAMINATION TYPE: CT angio head neck DATE OF EXAM: 02/05/2020 HISTORY: lethargy COMPARISON: CT brain January 23, 2020. CT DLP: 1516.7 mGycm. Automated Exposure Control for Dose Reduction was Utilized. TECHNIQUE: CTA scan of the head and neck are performed without and with IV Contrast, patient injecte d with 65 mL of Isovue 370, axial images are obtained, coronal and sagittal reformatted images are re viewed. Three-D reconstructed images are created on an independent workstation and reviewed. CT brain without contrast. FINDINGS: Carotid/Vascular Structures: Normal 3 vessel origins from arch. Right common carotid artery shows nor mal origin from right brachiocephalic artery. No significant plaque or stenosis in common carotid art eries bilaterally. [id number] calcified plaque right carotid bulb and moderate peripheral calci fied plaque left carotid bulb extends into the proximal internal and external carotid arteries withou t significant stenosis seen bilaterally. Codominant vertebrobasilar system. Vertebral arteries patent to basilar junction with mild/moderate p eripheral calcified plaque distal left vertebral artery. Patent right posterior communicating artery. Hypoplastic left posterior communicating artery. No significant focal stenosis or aneurysmal change in the posterior circulation. Images of the anterior circulation show patent anterior to indicating artery. There is no significant focal stenosis or aneurysmal change. Incidental short segment right middle cerebral artery before tr ifurcation. Other: Noncontrast CT shows no acute intracranial hemorrhage or midline shift. There is Stable mild v entricular and sulcal prominence. Old lacunar infarct right external capsule axial image 31 redemonst rated. Calvarium is intact. Slight grade 1 retrolisthesis C5 on C6. IMPRESSION: 1. No significant stenosis in common or internal carotid arteries bilaterally. 2. No significant stenosis or aneurysm at level of bois forte of [place].
--- NOTE | 2020-02-05 12:44 | P.PN ---
Progress Note - Text Progress Note Date: 02/05/20 Interval History: Patient was seen today for psychiatric follow-up. Patient's nurse claims that patient was less irritable today however was noted to be trying to get up out of bed in the nighttime and also was trying to get up and washes hands and did not comprehend that he has his limitations in his functioning and strength. Nurse also claims that patient has been feeling more drowsy today. Patient was seen at the bedside today and appeared to be more lethargic today. Patient was mccall karly less irritable with proposal manager writer and attempted to answer questions appropriately. Patient states that he had poor appetite for his lunch today and did not touch it yet. He requested to have a blanket to cover her menses feeling cold. He claims that his mood is "fine" and denied any anxiety today. He continues to have poor judgment and insight. Patient offered no complaints at this time. He claims that he has been taking his medications. At this time patient denies any suicidal or homical ideations, intent or plan. Patient denies any auditory, visual hallucinations. Patient denies any side effects from the medications and has been compliant with meds. Mental Status Exam: General Appearance: Patient appears to be older than stated age, more lethargic today, less irritable, appears to be disheveled in appearance and medically ill/debilitated. Difficult to redirect during conversation. Behavior: Patient is calmly lying in bed without any agitated behavior. Lethargic. Speech: Patient's speech is fluent and nonpressured. Mood/Affect: Patient reports their mood is "ok", affect is congruent and constricted Suicidality/Homicidality: Patient denies having any suicidal or homicidal ideation intent or plan. Perceptions: Patient denies any visual hallucinations and denies any auditory hallucinations Though content/process: [place], poverty of content. Memory and concentration: AOX1-2, poor attention span. Cannot spell world backwards. Poor memory recall. Judgment and insight: poor Assessment Delirium, likely secondary to multiple etiologies including medical condition, toxic metabolic and possibly medications. Cannabis use disorder Plan: -Patient DOES NOT have decision making capacity at this time and is unable to reason through and communicate/appreciate the risks, benefits and alternatives to treatment. -Delirium precautions recommended with patient including - avoiding use of narcotics and WHITE SPOOLER sedatives, limit anticholinergic medications when possible, frequent re-orientation, minimize use of restraints, open window shades during the day and close them at night -Would recommend the following medication changes/additions: Continue with Seroquel to 50 mg daily at bedtime for mood stabilization/insomnia. Increased to 5 mg melatonin daily at bedtime for sleep. Discontinue Prozac at this time and replaced with Wellbutrin SR 100 mg daily for mood as this may be more activating for patient rather than sedating. -Communicated plan to patient's nurse -Will continue to follow along for treatment and further recommendations as margarita mccray continues to improve medically. -Patient will likely be needing a rehab after being discharged from the hospital due to deconditioning and weakness. Patient does not have the capacity to refus e rehab. -Please contact with any questions.
[2020-02-05] MEDS: buPROPion SR 100 MG TABLET.ER PO SCH (14:12)
[2020-02-05] MEDS: MELATONIN 5 MG TABLET PO SCH (21:11)
[2020-02-05] MEDS: QUEtiapine 50 MG TAB PO SCH (21:12)
[2020-02-06 07:31] LABS: Glucose,Whole Blood 85 mg/dL (75-99)
[2020-02-06] MEDS: carvediloL 12.5 MG TAB PO SCH ×2 (09:03→17:15)
[2020-02-06] MEDS: AMOXIC-POT CLAV 875-125MG 1 EACH TAB PO SCH ×2 (09:03→20:43)
[2020-02-06] MEDS: amLODIPine 5 MG TAB PO SCH (09:03)
[2020-02-06] MEDS: SEVELAMER 800 MG TAB PO SCH ×3 (09:03→17:16)
[2020-02-06] MEDS: HEPARIN SODIUM,PORCINE 5,000 UNIT/ML 1 ML VIAL SQ SCH ×3 (09:03→23:09)
[2020-02-06] MEDS: valACYclovir HCL 1,000 MG TABLET PO SCH (09:04)
[2020-02-06] MEDS: cloNIDine HCL 0.1 MG TAB PO SCH ×3 (09:04→20:43)
[2020-02-06] MEDS: FOLIC ACID 1 MG TAB PO SCH (09:04)
[2020-02-06] MEDS: hydrALAZINE HCL 50 MG TAB PO SCH ×3 (09:04→20:42)
[2020-02-06] MEDS: PANTOPRAZOLE 40 MG/10 ML VIAL IV SCH ×2 (09:04→20:40)
[2020-02-06] MEDS: buPROPion SR 100 MG TABLET.ER PO SCH (09:04)
[2020-02-06] MEDS: MEGESTROL 400 MG/10 ML CUP PO SCH (12:10)
--- NOTE | 2020-02-06 13:33 | P.PN ---
Progress Note - Text Progress Note Date: 02/06/20 Interval History: Patient was seen today for psychiatric follow-up. Patient and a history appea red to be debilitated and weak lying in the bed. Patient was less irritable today and attempting to cooperate with story writer. Patient followed most commands from story writer and answer questions. He denied any problems with his mood today and states that he does not feel depressed or anxious. He states that he is taking his medications. Patient has superficial insight and judgment. Automatic Furnace Operator asked patient about his discharge planning and whether he would like to go to rehab and patient states that "I guess I got a do it so I'll do it". Patient states that he had poor appetite for his lunch today and did not touch it yet. Patient offered no complaints at this time. He claims that he has been taking his medications. At this time patient denies any suicidal or homical ideations, intent or plan. Patient denies any auditory, visual hallucinations. Patient denies any side effects from the medications and has been compliant with meds. Mental Status Exam: General Appearance: Patient appears to be older than stated age, more lethargic today, less irritable, appears to be debilitated and weak. Difficult to redirect during conversation. Behavior: Patient is calmly lying in bed without any agitated behavior. Speech: Patient's speech is fluent and nonpressured. Mood/Affect: Patient reports their mood is "fine", affect is congruent and constricted Suicidality/Homicidality: Patient denies having any suicidal or homicidal ideation intent or plan. Perceptions: Patient denies any visual hallucinations and denies any auditory hallucinations Though content/process: [place], poverty of content. Memory and concentration: AOX1-2, poor attention span. Cannot spell world backwards. Poor memory recall. Judgment and insight: poor, improving mildly Assessment Delirium, likely secondary to multiple etiologies including medical condition, toxic metabolic and possibly medications. Cannabis use disorder Plan: -Patient DOES NOT have decision making capacity at this time and is unable to reason through and communicate/appreciate the risks, benefits and alternatives to treatment. -Delirium precautions recommended with patient including - avoiding use of narcotics and RESEARCH PHYSIOLOGIST sedatives, limit anticholinergic medications when possible, frequent re-orientation, minimize use of restraints, open window shades during the day and close them at night -Would recommend the following medication changes/additions: Continue with Seroquel to 50 mg daily at bedtime for mood stabilization/insomnia. Continue with 5 mg melatonin daily at bedtime for sleep. Increased Wellbutrin SR 150 mg daily for mood as this may be more activating for patient rather than sedating. -Psychiatry will sign off at this time. -Patient will likely be needing a rehab after being discharged from the hospital due to deconditioning and weakness. Patient does not have the capacity to refuse rehab. -Please contact with any questions.
--- NOTE | 2020-02-06 13:58 | P.PN ---
Subjective Progress Note Date: 02/06/20 On 02/05/2020, the patient is being seen in follow-up in the medical floor. The patient is a 49-year-old male patient with a extensive aspiration pneumonia of the right lower lobe secondary to Streptococcus and the patient was treated with antibiotics and the patient subsequent chest x-ray shows complete clearing of the right lower lobe pneumonia. As mentioned earlier, he had a zoster over his left chest which recovered and the area is quite clean and the skin integrity is preserved. The patient also has end-stage renal disease and the patient is currently on hemodialysis and he get dialyzed 3 times a week. On today's evaluation, the patient looks quite debilitated and weak and lying in bed. He is being evaluated by psychiatry and he does not feel to be depressed or anxious. According to the psychiatry evaluation, the patient has a superficial insight and judgment. He claims that he had been taken his medication. Based on psychiatry evaluation, he was given diagnosis of delirium secondary to his medical condition and medication metabolic encephalopathy. She is a chronic cannabis user. His white cell count is at 8.5 with a hemoglobin of 9.8. On today's evaluation he has a BUN of 33 with a creatinine of 5.4. The rest of the electrodes are all within normal limits. Due to his ongoing concern of mental status change, a code stroke was called on him yesterday and the patient underwent a CT angiogram of the brain and the neck and the results were essentially negative. He has no focal neurological deficit at this point in time. Objective - Vital Signs Vital signs: Vital Signs Temp 97.9 F 02/06/20 07:00 Pulse 72 02/06/20 13:05 Resp 16 02/06/20 13:05 BP 181/108 02/06/20 13:05 Pulse Ox 92 L 02/06/20 07:00 Intake & Output 02/05/20 02/06/20 02/06/20 18:59 06:59 18:59 Intake Total 300 Output Total 0 2500 Balance 300 -2500 Weight 66.5 kg 66.5 kg Intake: IV 200 normal saline KVO 200 Oral 100 Output: Urine 0 Hemodialysis 2500 Other: Voiding Method Diaper Diaper Incontinent Incontinent # Voids 0 0 ABP, PAP, CO, CI - Last Documented Arterial Blood Pressure 126/112 - Exam GENERAL EXAM: Alert, 41-year-old male patient, appears older than stated age, on room air, comfortable in no apparent distress. HEAD: Normocephalic/atraumatic. EYES: Normal reaction of pupils, equal size. Conjunctiva pink, sclera white. NOSE: Clear with pink turbinates. THROAT: No erythema or exudates. NECK: No masses, no JVD, no thyroid enlargement, no adenopathy. CHEST: No chest wall deformity. Symmetrical expansion. LUNGS: Equal air entry with basilar crackles, but no wheeze, rhonchi or dullness. CVS: Regular rate and rhythm, normal S1 and S2, no gallops, no murmurs, no rubs ABDOMEN: Soft, nontender. No hepatosplenomegaly, normal bowel sounds, no guarding or rigidity. EXTREMITIES: No clubbing, no edema, no cyanosis, 2+ pulses and upper and lower extremities. Left upper arm AV fistula with positive bruit and thrill MUSCULOSKELETAL: Muscle strength and tone normal. SPINE: No scoliosis or deformity SKIN: No rashes CENTRAL NERVOUS SYSTEM: Alert. Oriented. Slow to respond. No focal deficits, tone is normal in all 4 extremities. - Labs CBC & Chem 7: 02/04/20 05:48 02/04/20 05:48 Assessment and Plan Plan: 1 Acute hypoxic respiratory failure secondary to pulmonary edema secondary to end-stage renal disease and previously missed hemodialysis in addition to the right lower lobe pneumonia secondary to Streptococcus and both were treated and the patient has recovered nicely from his acute respiratory failure. He was extubated and patient is currently on room air 2 Acute metabolic encephalopathy suspect hypertensive emergency with mental status changes and hypertensive encephalopathy, improving slowly and the patient is CT angiogram of the neck and the brain that came back within normal limits 3 End-stage renal disease, on hemodialysis, noncompliant 4 Acute pulmonary edema secondary to missed dialysis and fluid volume overload 5 Anemia of chronic disease and the patient is currently on IV iron and Aranesp 6 Hypovolemic hyponatremia, recovered and the sodium level is up to 137 7 Herpes zoster dermatitis involving anterior chest wall, currently on acyclovir 8 Streptococcus pneumonia involving the right lower lobe, recovered and the patient was treated with IV Zosyn currently is on oral Augmentin 9 delirium, episodic 10 hypertension with an underlying hypertensive crisis, and the patient's blood pressure continues to be quite elevated at this point in time Plan Complete a course of Augmentin tighter blood pressure control with a combination of Coreg 12.5 mg by mouth twice a day, clonidine 0.3 mg by mouth 3 times a day, and hydralazine 100 mg by mouth 3 times a day and amlodipine 5 mg by mouth daily. dialysis per nephrology we'll continue to follow
--- NOTE | 2020-02-06 14:09 | PN ---
PROGRESS NOTE Patient is seen for followup for end-stage renal disease. He is currently seen on dialysis. Tolerating his treatment well. Patient is sleepy. Blood pressure this morning 176/91, heart rate 76 per minute. He is afebrile Examination of the heart S1, S2. Examination of the lungs, bilateral breath sounds are heard. Abdomen is soft, nontender. Examination of the lower extremities shows no significant edema. ELECTRIC PILE DRIVER OPERATOR exam shows patient had been moving all 4 extremities. He was weak. LABS: Show hemoglobin 9.8, sodium 137, potassium 4.1, calcium 9.6. ASSESSMENT: 1. End-stage renal disease, on hemodialysis on a Thursday, Thursday, Thursday schedule. 2. Volume overload, currently resolved. 3. Anemia of chronic disease, currently improving. 4. Weakness, currently. 5. Generalized weakness, status post repeat brain CT which did not show any evidence of new stroke. 6. CKD mineral bone disorder. 7. Herpes zoster, T4 dermatome, currently improved status post acyclovir. PLAN: Hemodialysis on 02/08/2020. MMODL / IJN: [id number] /
--- NOTE | 2020-02-06 15:33 | P.PN ---
Subjective Progress Note Date: 02/06/20 This a 49 y/o male who lives on his owm. HE HAS ESRD with heomdialysis MWF. He was jsut at [facility] yesterday for minimal SOB, and significant herpitic Neuralgia. He was seen by nephology 01/21 who felt he could get his dialyais 01/22 and did not need it urgently. He was seen by cardiology for min abn troponins and this was felt to be chronic. He did have minmal sob, that resolved after some pain medication for his shingles. He was treated with Acyclovir. he was given Dilaudid and Gabapetnin. early in the moring he had some confusin and was given Narcan then again several hours later, which resolved his somnolence but not his pain. He was D/C in stable condtion to f/u i nt office joe cantrell to habve dialysis 01/22. ~ 01:00 01/23/2020 patient was brought in [facility] ER for altered mental status and shortness of breath. he was quite tachypneic and hypertensive upon arrival. Nitro drip was started. Patient was placed on BiPap. Ct brain old lacunar infarcts in the right internal capsule. No acute intracranial abnormality. No change. 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 01/24/2020 Yesterday required intubation, maintained on 55% FiO2/+5 of PEEP. chest x-ray reporting small right pleural effusion, increased right basilar airspace opacity airspace, right basilar subsegmental atelectasis with improved aeration of bilateral upper lungs Initially had required clevidipine, became hypotensive, discontinued and now requiring pressor support with Levophed. Evaluated by infectious disease regarding left T4 dermatome zoster,with renal dose acyclovir recommended.earlier this morning patient agitated, not following commands and weaning trial aborted. Telemetry sinus rhythm.afebrile,normal WBC. preliminary blood cultures no growth at 24 hours. ABGs noted.hemoglobin down to 8.4,platelets 239.sodium 126, BUN 60, creatinine 8.38.scheduled for hemodialysis today. alk phos mildly elevated, 127. Albumin low at 3.2. completed EEG yesterday,abnormal, suggestive of toxic metabolic encephalopathy, with no epileptiform activity seen. 01/25/2020 Remains vent dependent, FiO2 55%/+5 PEEP. Maintained on diprovan and Levophed drips. Continues on acyclovir and Zosyn. Afebrile, WBC trending up to 18.2. Hemoglobin continues improving up to 9.6, platelets 269. Weaning trials attempted today but patient became agitated, restless, not following commands, requiring Haldol and placed back on diprovan drip. Seroquel added to med regimen. Chest x-ray reporting diffuse pleural parenchymal changes, stable, possible CHF, possible underlying pneumonia, prominence of the pulmonary arteries and hilum associated pulmonary arterial hypertension, possible adenopathy. 01/26/2020 remains vent dependent, FiO2 down to 45%/+ 5 of PEEP. Sedated on diprovan. Levophed weaned off. Receiving hemodialysis today. ABGs noted. Chest x-ray reporting improvement. Afebrile, WBC trending down, 13.9. Hemoglobin 9, platelets, 236. Continues on acyclovir, zosyn. Blood and sputum cultures pending. 01/27/2020 received hemodialysis yesterday .sputum culture reporting positive for Streptococcus pneumoniae , blood cultures reporting no growth . Chest x-ray reporting diffuse parenchymal changes, typical of CHF, bilateral hilar enlargement, possible pulmonary arterial hypertension, possible underlying adenopathy/mass. Maintained on Zosyn. Extubated this morning, maintaining O2 s ats in the 90s on 4 L nasal cannula. Suicide precautions in place with sitter at bedside. Levophed weaned off. Maintained on Clevidipine. 01/30/2020 maintained on Unasyn, Acyclovir for streptococcal pneumonia, shingles. T-max 100.8, WBC 10.7. Weaned off of Clevidipine. Maintaining O2 sats in the 90s on 2 L nasal cannula. Sensorium improving. Continues on suicide precautions. Received hemodialysis yesterday, again today to return to his normal schedule of Thursday. Telemetry sinus rhythm. 01/31/2020 maintained O2 sats in the 90s on 2 L nasal cannula. Continues on Unasyn,acyclovir. Chest x-ray reporting minimal improvement. T-max 100.5, normal WBC. More alert today with fluctuating periods of confusion. Suicide precautions maintained with environmental health and safety leader at bedside. Patient denies being suicidal and taking a full bottle of Seroquel. 02/01/2020 suicide precautions maintained .psychiatry reconsulted, recommendations pending. 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 Hypertensive, systolic blood pressures in the 160s today, scheduled for hemodialysis today. Maintaining O2 sats in the 90s on 2 L nasal cannula. Tolerated clear liquid diet, advanced to full liquids. Telemetry sinus rhythm. Alert and oriented 3 but requires stimulation,droggy. T-max 99.9. Continues on Unasyn for streptococcal pneumonia and acyclovir for shingles. 02/02/2020 moved out of ICU. Oxygen weaned off and maintaining O2 sats in the 90s on room air. T-max 99.9, WBC within normal limits. Hypertensive, Norvasc added to med regimen. Sensorium improving. Evaluated by psychiatry WITH suicide precautions lifted, recommended delirium precautions; Seroquel dose decreased. 02/03/2020 Delirium precautions maintained. Sensorium continues to improve, much more alert, not yet back to baseline. Decision-making abilities are still lacking. Agitates easily. Received hemodialysis earlier this morning. T-max 99.7, normal WBC. Denies chest pain, palpitations or shortness of breath. Significant deconditioning, generalized weakness. Physical therapy continues to recommend subacute rehab at discharge. Evaluated by psychiatry with recommendations noted and appreciated. 02/06/2020 receiving hemodialysis today. Refusing to eat, declining substitutions, declining supplements. Reevaluated by psychiatry, states patient does not have decision-making capacity at this time, patient does not have the capacity to refuse rehab, recommending delirium precautions; medication changes noted and appreciated. CTA of brain and neck reported no significant stenosis and common or internal carotid arteries bilaterally, no significant stenosis or aneurysm at the level of [place]. Reevaluation per PT pending. Afebrile. Objective - Vital Signs Vital signs: Vital Signs Temp 97.7 F 02/06/20 14:01 Pulse 82 02/06/20 14:01 Resp 18 02/06/20 14:01 BP 146/90 02/06/20 14:01 Pulse Ox 92 L 02/06/20 14:01 Intake & Output 02/05/20 02/06/20 02/06/20 18:59 06:59 18:59 Intake Total 300 Output Total 0 2500 Balance 300 -2500 Weight 66.5 kg 66.5 kg Intake: IV 200 normal saline KVO 200 Oral 100 Output: Urine 0 Hemodialysis 2500 Other: Voiding Method Diaper Diaper Incontinent Incontinent # Voids 0 0 ABP, PAP, CO, CI - Last Documented Arterial Blood Pressure 126/112 - Exam PHYSICAL EXAM: VITAL SIGNS: [as above] GENERAL: sitting up in bed, alert and oriented 2, slow to respond, poor de cision making/rationalizing. HEENT: Conjunctivae normal. eyes normal. NECK: No JVD. No thyroid enlargement. CARDIOVASCULAR: S1, S2 regular.No murmur RESPIRATION: Breath sounds diminished in the bases,bibasilar crackles. ABDOMEN: Soft, nontender . No guarding. no masses palpable. Bowel sounds heard. LEGS: trace edema. NERVOUS SYSTEM: Cranial nerves II through XII grossly intact, moves all extremities, no focal deficits. Strength and sensation grossly intact Skin: warm and dry, left chest-prior zoster site significantly improved. - Labs CBC & Chem 7: 02/04/20 05:48 02/04/20 05:48 Assessment and Plan Assessment: (1) Acute respiratory failure with hypoxia, status post ventilator-dependent secondary to streptococcal pneumoniae pneumonia, possible aspiration Current Visit: Yes Status: Acute Code(s): J96.01 - ACUTE RESPIRATORY FAILURE WITH HYPOXIA SNOMED Code(s): 83885185 (2) Overdose,Seroquel, status post suicide precautions Current Visit: Yes Status: Acute Code(s): T50.901A - POISONING BY UNSP DRUG/MEDS/BIOL SUBST, ACCIDENTAL, INIT SNOMED Code(s): 62510321 (3) Acute toxic and metabolic encephalopathy, multifactorial ,secondary to #2, hypertension Current Visit: Yes Status: Acute Code(s): G93.41 - METABOLIC ENCEPHALOPATHY SNOMED Code(s): 70571393 (4) Neuralgia Current Visit: Yes Status: Acute Code(s): M79.2 - NEURALGIA AND NEURITIS, UNSPECIFIED SNOMED Code(s): 60770024 (6) Fluid overload Current Visit: Yes Status: Acute Code(s): E87.70 - FLUID OVERLOAD, UNSPECIFIED SNOMED Code(s): 66933764 (7) Hypertensive crisis, s/p clevidepine. Current Visit: Yes Status: Acute Code(s): I16.9 - HYPERTENSIVE CRISIS, UNSPECIFIED SNOMED Code(s): 745016402 (8) herpes zoster,left T4 dermatome, improved Current Visit: Yes Status: Acute Code(s): B02.9 - ZOSTER WITHOUT COMPLICATIONS SNOMED Code(s): 8104844 (9) End stage renal disease,on hemodialysis, Thursday, Thursday and Fridays Current Visit: No Status: Acute Code(s): N18.6 - END STAGE RENAL DISEASE SNOMED Code(s): 79485813 (10) Anemia in chronic kidney disease, iron deficient Current Visit: Yes Status: Acute Code(s): N18.9 - CHRONIC KIDNEY DISEASE, UNSPECIFIED; D63.1 - ANEMIA IN CHRONIC KIDNEY DISEASE SNOMED Code(s): 52794639 2 (11) hypotension, status post pressor dependent, resolved (12) prominence of the pulmonary arteries, hilum, suspect related to pulmonary arterial hypertension, possible adenopathy, pulmonary following. (13) cannabis use Plan: Continue on current medication regime ,monitoring and symptomatic treatment. Patient is refusing to eat, discussed with RN, nursing to assist with all meals; otherwise potential NG tube placement for feeding. Further medication adjustments as per psychiatry noted and appreciated. Significant generalized weakness,Aggressive pulmonary toileting. Hemodialysis as per nephrology. Prognosis guarded given multiple complex medical issues. Discharge planning in progress with the assistance of social work for rehab./potential public guardian being discussed. The impression and plan of care has been dictated as directed. : I performed a history and examination of this patient, discussed the same with the dictator. I agree with the dictator's note ,documented as a scribe. Any additional findings or plans will be noted.
[2020-02-06] MEDS: MELATONIN 5 MG TABLET PO SCH (20:43)
[2020-02-06] MEDS: QUEtiapine 50 MG TAB PO SCH (20:43)
[2020-02-07] MEDS: hydrALAZINE HCL 50 MG TAB PO SCH ×3 (08:03→21:27)
[2020-02-07] MEDS: PANTOPRAZOLE 40 MG/10 ML VIAL IV SCH ×2 (08:03→21:27)
[2020-02-07] MEDS: cloNIDine HCL 0.1 MG TAB PO SCH ×3 (08:04→21:27)
[2020-02-07] MEDS: MEGESTROL 400 MG/10 ML CUP PO SCH (08:04)
[2020-02-07] MEDS: buPROPion SR 150 MG TABLET.ER PO SCH (08:04)
[2020-02-07] MEDS: HEPARIN SODIUM,PORCINE 5,000 UNIT/ML 1 ML VIAL SQ SCH ×3 (08:04→23:25)
[2020-02-07] MEDS: SEVELAMER 800 MG TAB PO SCH ×3 (08:04→16:49)
[2020-02-07] MEDS: FOLIC ACID 1 MG TAB PO SCH (08:04)
[2020-02-07] MEDS: amLODIPine 5 MG TAB PO SCH (08:04)
[2020-02-07] MEDS: carvediloL 12.5 MG TAB PO SCH ×2 (08:04→16:48)
[2020-02-07] MEDS: AMOXIC-POT CLAV 875-125MG 1 EACH TAB PO SCH ×2 (08:05→21:27)
[2020-02-07] MEDS ORDERED: amLODIPine 5 MG TAB PO STA (08:27)
[2020-02-07] MEDS ORDERED: amLODIPine 10 MG TAB PO SCH (09:00)
[2020-02-07 09:02] LABS: Anisocytosis Slight; HCT 28.9 % (39.0-53.0); HGB 9.1 gm/dL (13.0-17.5); Hypochromasia Slight; MCH 32.9 pg (25.0-35.0); MCHC 31.7 g/dL (31.0-37.0); Macrocytosis Moderate; Mean Platelet Volume 8.3; Platelet Count 485 k/uL (150-450); RBC 2.78 m/uL (4.30-5.90); RDW 17.1 % (11.5-15.5); WBC 7.5 k/uL (3.8-10.6)
[2020-02-07 09:19] LABS: African American GFR (CKD) 11 (>60 ml/min/1.73 sqM); Anion Gap 12 mmol/L; Blood Urea Nitrogen 32 mg/dL (9-20); Calcium 9.8 mg/dL (8.4-10.2); Carbon Dioxide 24 mmol/L (22-30); Chloride 98 mmol/L (98-107); Glucose 92 mg/dL (74-99); Non-African American GFR(CKD) 9 (>60 ml/min/1.73 sqM); Potassium 3.9 mmol/L (3.5-5.1); Sodium 134 mmol/L (137-145)
--- NOTE | 2020-02-07 14:12 | P.PN ---
Subjective Progress Note Date: 02/07/20 This a 49 y/o male who lives on his owm. HE HAS ESRD with heomdialysis MWF. He was jsut at [facility] yesterday for minimal SOB, and significant herpitic Neuralgia. He was seen by nephology 01/21 who felt he could get his dialyais 01/22 and did not need it urgently. He was seen by cardiology for min abn troponins and this was felt to be chronic. He did have minmal sob, that resolved after some pain medication for his shingles. He was treated with Acyclovir. he was given Dilaudid and Gabapetnin. early in the moring he had some confusin and was given Narcan then again several hours later, which resolved his somnolence but not his pain. He was D/C in stable condtion to f/u i nt office joe cantrell to habve dialysis 01/22. ~ 01:00 01/23/2020 patient was brought in [facility] ER for altered mental status and shortness of breath. he was quite tachypneic and hypertensive upon arrival. Nitro drip was started. Patient was placed on BiPap. Ct brain old lacunar infarcts in the right internal capsule. No acute intracranial abnormality. No change. 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 01/24/2020 Yesterday required intubation, maintained on 55% FiO2/+5 of PEEP. chest x-ray reporting small right pleural effusion, increased right basilar airspace opacity airspace, right basilar subsegmental atelectasis with improved aeration of bilateral upper lungs Initially had required clevidipine, became hypotensive, discontinued and now requiring pressor support with Levophed. Evaluated by infectious disease regarding left T4 dermatome zoster,with renal dose acyclovir recommended.earlier this morning patient agitated, not following commands and weaning trial aborted. Telemetry sinus rhythm.afebrile,normal WBC. preliminary blood cultures no growth at 24 hours. ABGs noted.hemoglobin down to 8.4,platelets 239.sodium 126, BUN 60, creatinine 8.38.scheduled for hemodialysis today. alk phos mildly elevated, 127. Albumin low at 3.2. completed EEG yesterday,abnormal, suggestive of toxic metabolic encephalopathy, with no epileptiform activity seen. 01/25/2020 Remains vent dependent, FiO2 55%/+5 PEEP. Maintained on diprovan and Levophed drips. Continues on acyclovir and Zosyn. Afebrile, WBC trending up to 18.2. Hemoglobin continues improving up to 9.6, platelets 269. Weaning trials attempted today but patient became agitated, restless, not following commands, requiring Haldol and placed back on diprovan drip. Seroquel added to med regimen. Chest x-ray reporting diffuse pleural parenchymal changes, stable, possible CHF, possible underlying pneumonia, prominence of the pulmonary arteries and hilum associated pulmonary arterial hypertension, possible adenopathy. 01/26/2020 remains vent dependent, FiO2 down to 45%/+ 5 of PEEP. Sedated on diprovan. Levophed weaned off. Receiving hemodialysis today. ABGs noted. Chest x-ray reporting improvement. Afebrile, WBC trending down, 13.9. Hemoglobin 9, platelets, 236. Continues on acyclovir, zosyn. Blood and sputum cultures pending. 01/27/2020 received hemodialysis yesterday .sputum culture reporting positive for Streptococcus pneumoniae , blood cultures reporting no growth . Chest x-ray reporting diffuse parenchymal changes, typical of CHF, bilateral hilar enlargement, possible pulmonary arterial hypertension, possible underlying adenopathy/mass. Maintained on Zosyn. Extubated this morning, maintaining O2 s ats in the 90s on 4 L nasal cannula. Suicide precautions in place with sitter at bedside. Levophed weaned off. Maintained on Clevidipine. 01/30/2020 maintained on Unasyn, Acyclovir for streptococcal pneumonia, shingles. T-max 100.8, WBC 10.7. Weaned off of Clevidipine. Maintaining O2 sats in the 90s on 2 L nasal cannula. Sensorium improving. Continues on suicide precautions. Received hemodialysis yesterday, again today to return to his normal schedule of Thursday. Telemetry sinus rhythm. 01/31/2020 maintained O2 sats in the 90s on 2 L nasal cannula. Continues on Unasyn,acyclovir. Chest x-ray reporting minimal improvement. T-max 100.5, normal WBC. More alert today with fluctuating periods of confusion. Suicide precautions maintained with health and safety consultant at bedside. Patient denies being suicidal and taking a full bottle of Seroquel. 02/01/2020 suicide precautions maintained .psychiatry reconsulted, recommendations pending. 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 Hypertensive, systolic blood pressures in the 160s today, scheduled for hemodialysis today. Maintaining O2 sats in the 90s on 2 L nasal cannula. Tolerated clear liquid diet, advanced to full liquids. Telemetry sinus rhythm. Alert and oriented 3 but requires stimulation,droggy. T-max 99.9. Continues on Unasyn for streptococcal pneumonia and acyclovir for shingles. 02/02/2020 moved out of ICU. Oxygen weaned off and maintaining O2 sats in the 90s on room air. T-max 99.9, WBC within normal limits. Hypertensive, Norvasc added to med regimen. Sensorium improving. Evaluated by psychiatry WITH suicide precautions lifted, recommended delirium precautions; Seroquel dose decreased. 02/03/2020 Delirium precautions maintained. Sensorium continues to improve, much more alert, not yet back to baseline. Decision-making abilities are still lacking. Agitates easily. Received hemodialysis earlier this morning. T-max 99.7, normal WBC. Denies chest pain, palpitations or shortness of breath. Significant deconditioning, generalized weakness. Physical therapy continues to recommend subacute rehab at discharge. Evaluated by psychiatry with recommendations noted and appreciated. 02/06/2020 receiving hemodialysis today. Refusing to eat, declining substitutions, declining supplements. Reevaluated by psychiatry, states patient does not have decision-making capacity at this time, patient does not have the capacity to refuse rehab, recommending delirium precautions; medication changes noted and appreciated. CTA of brain and neck reported no significant stenosis and common or internal carotid arteries bilaterally, no significant stenosis or aneurysm at the level of [place]. Reevaluation per PT pending. Afebrile. 02/07/2020 no overnight events. Hypertensive this morning, Norvasc increased. Diet intake with assistance, 25%. PT evaluation today pending. Objective - Vital Signs Vital signs: Vital Signs Temp 97.4 F L 02/07/20 07:22 Pulse 76 02/07/20 07:22 Resp 17 02/07/20 07:22 BP 159/89 02/07/20 09:05 Pulse Ox 93 L 02/07/20 07:22 Intake & Output 02/06/20 02/07/20 02/07/20 18:59 06:59 18:59 Intake Total 500 300 Output Total 2500 0 Balance -2000 300 Weight 66.5 kg Intake: Oral 500 300 Output: Urine 0 Hemodialysis 2500 Other: Voiding Method Diaper Diaper Incontinent Incontinent # Voids 0 ABP, PAP, CO, CI - Last Documented Arterial Blood Pressure 126/112 - Exam PHYSICAL EXAM: VITAL SIGNS: [as above] GENERAL: sitting up in chair, alert and oriented 2, impulsive. HEENT: Conjunctivae normal. eyes normal. NECK: No JVD. No thyroid enlargement. CARDIOVASCULAR: S1, S2 regular.No murmur RESPIRATION: Breath sounds diminished in the bases,bibasilar crackles. ABDOMEN: Soft, nontender . No guarding. no masses palpable. Bowel sounds heard. LEGS: trace edema. NERVOUS SYSTEM: Cranial nerves II through XII grossly intact, moves all extremities, no focal deficits. Strength and sensation grossly intact. Skin: warm and dry, left chest-prior zoster site significantly improved. - Labs CBC & Chem 7: 02/07/20 08:37 02/07/20 08:37 Labs: Abnormal Lab Results - Last 24 Hours (Table) 02/07/20 02/07/20 Range/Units 08:37 08:37 RBC 2.78 L (4.30-5.90) m/uL Hgb 9.1 L (13.0-17.5) gm/dL Hct 28.9 L (39.0-53.0) % MCV 104.0 H (80.0-100.0) fL RDW 17.1 H (11.5-15.5) % Plt Count 485 H (150-450) k/uL Sodium 134 L (137-145) mmol/L BUN 32 H (9-20) mg/dL Creatinine 6.52 H (0.66-1.25) mg/dL Assessment and Plan Assessment: (1) Acute respiratory failure with hypoxia, status post ventilator-dependent secondary to streptococcal pneumoniae pneumonia, possible aspiration Current Visit: Yes Status: Acute Code(s): J96.01 - ACUTE RESPIRATORY FAILURE WITH HYPOXIA SNOMED Code(s): 89640424 (2) Overdose,Seroquel, status post suicide precautions Current Visit: Yes Status: Acute Code(s): T50.901A - POISONING BY UNSP DRUG/MEDS/BIOL SUBST, ACCIDENTAL, INIT SNOMED Code(s): 16866282 (3) Acute toxic and metabolic encephalopathy, multifactorial ,secondary to #2, hypertension Current Visit: Yes Status: Acute Code(s): G93.41 - METABOLIC ENCEPHALOPATHY SNOMED Code(s): 72027029 (4) Neuralgia Current Visit: Yes Status: Acute Code(s): M79.2 - NEURALGIA AND NEURITIS, UNSPECIFIED SNOMED Code(s): 91748254 (6) Fluid overload, resolved Current Visit: Yes Status: Acute Code(s): E87.70 - FLUID OVERLOAD, UNSPECIFIED SNOMED Code(s): 68321119 (7) Hypertensive crisis, s/p clevidepine. Current Visit: Yes Status: Acute Code(s): I16.9 - HYPERTENSIVE CRISIS, UNSPECIFIED SNOMED Code(s): 633028795 (8) herpes zoster,left T4 dermatome, improved Current Visit: Yes Status: Acute Code(s): B02.9 - ZOSTER WITHOUT COMPLICATIONS SNOMED Code(s): 8652451 (9) End stage renal disease,on hemodialysis, Thursday, Thursday and Fridays Current Visit: No Status: Acute Code(s): N18.6 - END STAGE RENAL DISEASE SNOMED Code(s): 80757868 (10) Anemia in chronic kidney disease, iron deficient Current Visit: Yes Status: Acute Code(s): N18.9 - CHRONIC KIDNEY DISEASE, UNSPECIFIED; D63.1 - ANEMIA IN CHRONIC KIDNEY DISEASE SNOMED Code(s): 435534106 (11) hypotension, status post pressor dependent, resolved (12) prominence of the pulmonary arteries, hilum, suspect related to pulmonary arterial hypertension, possible adenopathy, pulmonary following. (13) cannabis use Plan: Continue on current medication regime ,monitoring and symptomatic treatment. Diet intake slowly improving, up to 25%. PT evaluation today pending, patient agreeable to rehab. Maintain aggressive pulmonary toileting with incentive spirometer reinforced. Hemodialysis tomorrow.Discharge planning in progress with the assistance of social work for rehab. The impression and plan of care has been dictated as directed. : I performed a history and examination of this patient, discussed the same with the dictator. I agree with the dictator's note ,documented as a scribe. Any additional findings or plans will be noted.
--- NOTE | 2020-02-07 14:49 | PN ---
PROGRESS NOTE Patient is seen for followup for end-stage renal disease. He has just finished physical therapy. The patient is sitting up in a chair. He denies any significant complaints. Blood pressure was elevated, but improved later on during the day. Blood pressure was 159/89. Patient is afebrile examination of the heart S1, S2. Examination of the lungs, bilateral breath sounds are heard abdomen is soft, nontender. Examination of lower extremities shows no significant edema. VALUE ADVISOR exam is grossly intact patient is moving all 4 extremities. LABS: Revealed sodium 134, potassium 3.9, chloride 98, BUN 32, creatinine 6.5, hemoglobin 9.1 g/dL. ASSESSMENT: 1. End-stage renal disease, on hemodialysis on a Thursday, Thursday, Thursday schedule. We will arrange for hemodialysis today. His sodium will arrange for hemodialysis in a.m. 2. Hypertension remains uncontrolled increase Coreg to 25 mg twice a day. 3. Pneumonia with sputum culture positive for Streptococcus pneumonia with negative blood cultures. 4. Herpes zoster, status post treatment with acyclovir. 5. Acute hypoxic respiratory failure status post extubation. 6. Fluid overload on initial admission, currently improved. PLAN: Hemodialysis in a.m. Continue Aranesp and continue Renvela for hyperphosphatemia and increase Coreg to 25 mg b.i.d.. MMODL / IJN: [id number] /
--- NOTE | 2020-02-07 15:07 | P.PN ---
Subjective Progress Note Date: 02/07/20 Principal diagnosis: Acute hypoxic respiratory failure secondary to fluid overload, pulmonary edema, end-stage renal disease, metabolic encephalopathy This is a 49-year-old white male with history of end-stage renal disease, hypertension, COPD, patient is on hemodialysis. Patient is normally on hemodialysis Thursday, supposedly his last hemodialysis was last Thursday. Patient was brought into the ER with altered mental status and shortness of breath. Apparently he was quite confused upon presentation, blood pressure was extremely high at 217/134. Patient was noted to have abnormal labs including low sodium of 125. Abnormal BUN of 72 creatinine 8.57, and his hemoglobin was 9.2. Chest x-ray showed definitely fluid overload and he was noted to have hypoxic respiratory failure. Underwent dialysis last night, and about 1-1/2 L of fluid were removed. Patient was placed on nitroglycerin drip and on clevidipine drip, he was also noted to have herpes zoster rash in the left upper chest wall area. Started on antiviral therapy for his shingles. Patient was also placed on BiPAP, ABG was reasonable. His mentation remained, patient was admitted to the ICU and I was asked to see him on consultation. ABG on BiPAP showed a pO2 of 93 pCO2 of 41 pH of 7.43, and this was a BiPAP of 14/6 and 40% FiO2. 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 Neurology consultation is pending. Patient was reevaluated today on 01/24/20, remains in the ICU, intubated and mechanically ventilated. He is presently on assist control rate of 18 tidal volume is 450 FiO2 of 60% and PEEP of 5. ABG showed a pO2 of 93 pCO2 of 42 pH of 7.44. Patient is on propofol at 50 mcg/kg/m, IV fluids at KVO, and he is going to have dialysis today. Remains on dialysis. Remains on acyclovir for his herpes zoster dermatitis involving the T4 dermatome of left-sided chest. There is evidence of coffee ground material in the nasogastric tube and had an output of 1.8 L of coffee ground and blood-tinged nasogastric tube suctioning. Hemoglobin is holding at 8.4. EEG yesterday showed moderate to severe slowing. Consistent with metabolic encephalopathy. Today I try to wean the patient from propofol, and wanted to give the patient a weaning trial, however he became extremely agitated, and would not follow any instructions. Then we decided to try Precedex for sedation and possibly give the patient at least weaning trials today. In the meantime we will continue to plan dialysis today. Chest x-ray showed slight improvement in the aeration of bilateral upper lungs, however he continues to have some right basilar subsegmental atelectasis and possibly airspace disease Reevaluated today on 01/25/20, patient remains in the ICU. Remains on mechanical ventilation. His ventilator settings are assist control rate of 18 tidal volume is 450 FiO2 is 55% and PEEP of 5. ABG showed a pO2 of 119 pCO2 of 46 pH of 7.39. Patient was on propofol before I evaluated him, however as we took him off propofol, the patient became extremely agitated, restless, not responding to any verbal stimuli, thrashing in bed, and we have recommended Haldol, and place him back on propofol as he was endangering himself, and there was extreme risk of leg lines and extubation. Could not get the patient to follow any instructions. Had to be sedated. Obviously he is not quite ready for any weaning. We will start the patient on Seroquel 25 mg twice a day. Patient had dialysis yesterday, 2 L were removed, chest x-ray continues to show diffuse pleural parenchymal changes consistent with CHF, and possible underlying pneumonia is not entirely excluded. Patient was reevaluated today on 01/26/20, remains in the ICU intubated and mechanically ventilated. Ventilator settings are assist control rate of 18 tidal volume is 450 FiO2 is 55% and PEEP of 5. Patient is having dialysis this morning, he is sedated and on propofol at 35 mcg/kg/m. Hoping to wake the patient up again once dialysis is done discontinued the prevent and consider weaning trial again this morning. In the meantime the patient continues to have episodes of extreme confusion and agitation as well as restlessness once he is on a lower dose of propofol. Tried on Precedex 2 days ago, and he failed to wean. Mostly because of his mental status and extreme agitation. Patient remains obtunded. ABG today showed a pO2 of 175 pCO2 of 45 pH of 7.35 WBC count is 13.9, hemoglobin is 9.0. BUN is 50 creatinine 7.74. Chest x-ray is actually showing improvement in his interstitial edema and his pleural parenchymal changes. The patient was seen today 01/27/2020 in follow-up in the intensive care unit. He remains intubated on mechanical ventilator. Current settings assist-control, rate of 18, tidal volume 450, FiO2 45% and a PEEP of 5. Morning blood gases revealed a PaO2 of 112, CO2 47, pH 7.33. White count 10.9. Hemoglobin 9.0. MCV 105.7. Sodium 135. Potassium 4.3. Creatinine 5.19. Propofol at 35 mcg/kg/m. On clevidipine at 1 mg per hour. Off norepinephrine. Remains on Zosyn. Sputum culture positive for Streptococcus pneumoniae. Blood cultures reveal no growth. Chest x-ray reveals diffuse pleural parenchymal changes most typical of CHF. Bilateral hilar enlargement. Pulmonary artery hypertension. Patient was reevaluated today on 01/28/20, patient remains in the ICU. He is presently receiving hemodialysis. Remains confused and encephalopathic, patient was extubated yesterday. Patient remains on clevidipine at 6 mg per hour, going to wean him since I will start his clonidine as taken at home and his hydralazine. Sputum came back positive for Streptococcus pneumonia, patient remains on antibiotics. He is drowsy, he is slow, and encephalopathic. Receiving hemodialysis during my evaluation. Labs showed hemoglobin of 9.4 WBC count is 10.8, slightly improved considered to WBC count on admission. Electrolytes are normal bicarb is 21. BUN is 45 creatinine is 6.38 chest x-ray today continue to show improvement with persistent right perihilar infiltrate and prominent interstitium. Patient has basically pneumonia and asymmetric venous congestion/fluid overload from end-stage renal disease and failure to comply with hemodialysis Patient was reevaluated today on 01/29/20, remains in the intensive care unit, remains encephalopathic, however definite improvement noted in his overall mental status compared to yesterday. Chest x-ray continues to show evidence of interstitial edema. Patient is now on oral medications for his blood pressure. Clevidipine is being titrated down, the plan is to stop it altogether. Patient remains empirically on antibiotics and/Unasyn for aspiration pneumonia presumptive. Remains on acyclovir for his herpes zoster dermatitis. He is also on GI and DVT prophylaxis. Overall there is improvement in his mental status and his overall pulmonary status. But the patient is not quite ready to be transferred out of the ICU. Continues to have a sitter at bedside. CBC is relatively normal hemoglobin is 8.7 today. He elects lites are normal. BUN is 31 creatinine is 5.15. On 01/30/2020 patient seen in follow-up in the intensive care unit, he is drowsy, but arouses to voice, went to the nurse patient is oriented 3, but his verbal responses are slow, patient is less confused today. Denies any wrist or difficulty, he is on 2 L of oxygen and the pulse ox 96%, did have a low-grade fevers, with a T-max of 100.8F over the last 24 hours. His sputum was Positive for Streptococcus pneumonia, and the patient is on Unasyn, also on acyclovir for the shingles. Had no acute events overnight, pressure has been stable, has not required clevidipine drip. He is on 0.9 normal saline infusing at 20 ML per hour. His labs have been reviewed, showing white blood cell, 10.7, hemoglobin of 8.3, serum sodium is 133, BUN of 48 and creatinine is 6.76. Yesterday chest x-ray showed mild patchy interstitial opacities, possible pulmonary vessel congestion versus atypical pneumonia. he had hemodialysis yesterday we would removal 3.5 L and fluid. On 01/31/2020 patient seen in follow-up in the intensive care unit. He is resting in bed, he sitting up, he is drowsy, but arousable, he is oriented to time, person, he did realize that she is in a medical facility, he seems to have waxing and waning episodes of confusion. No agitation, denies any difficulty breathing, he is on 2 L of oxygen with the pulse ox above 95-96%, he is af ebrile, hemodynamically has been stable, lung sounds reveal diminished breath sounds bilaterally, patient continues on Unasyn for strep pneumonia and valacyclovir for the shingles. His been afebrile today, did have a low-grade fever last night at 8:00 with a temp of 100.5F. He is tolerating oral intake, no vomiting, abdomen is soft, is breathing comfortably, no cough or congestion. He is on 0.9 normal saline at rate of 20 ML per hour. He still has a nuclear criticality safety engineer at the bedside. On 02/01/2020 patient seen in follow-up in intensive care unit, he is drowsy, but arousable, he knows he is in a hospital, he knows the month, he knows the year and the president, however his verbal responses are slow, he is inattentive at times. Denies any acute distress, he is on 2 L of oxygen sats 96%, breathing comfortably, lung sounds are clear, slightly diminished at the bases, one low- grade fever this morning with a temp of 99.9F. He remains on Unasyn for Streptococcus pneumonia. We switched him to oral valacyclovir for the shingles, he is able to take oral intake, we will switch his IV antibiotics to oral Augmentin. These labs have been reviewed, showing white blood cell count 7.6, hemoglobin of 8.1, electrolytes were unremarkable with exception of CO2 which is at 19, B1 is 51, creatinine is 7.48, patient's last hemodialysis was on 01/30/2020 with removal of 3 L and fluids. Does not appear to be fluid overloaded, no difficulty breathing. There is a nuclear criticality safety engineer at the bedside po ssibility of suicide precaution, psychiatric service is following, and we asked them to see the patient again in follow-up On 02/02/2020 patient seen in follow-up on a general medical surgical floor, she is a bit drowsy, but easily arousable, he is answering some simple questions, as any acute distress, room air pulse ox is 95%, hemodynamically stable, he has had some intermittent low-grade fevers, with a T-max of 99.9F. No cough or congestion, lung sounds are clear, with some diminished breath sounds at the bases, no rhonchi, no rales. Vital signs have been stable. Recent and hemodialysis today would removal of 2 L of fluid, he is in negative fluid balance, no lower extremity edema. He is on oral antibiotics in the form of Augmentin for Streptococcus pneumonia, he is on oral valacyclovir for the shingles. Patient had no acute events overnight. He denied any suicidal ideations, he was reevaluated by psychiatric services, his Seroquel was further decreased to 25 mg daily, patient will be started on Prozac. On 02/07/2020 patient seen in follow-up on general medical surgical floor. Still lethargic, but arousable, no difficulty breathing, room air pulse ox is 96%, hemodynamically stable, he has had no fever or chills, Norvasc was added today by a primary care service for her hypertension. Denies any chest pain. He remains on amoxicillin for strep pneumonia. He's had no cough or congestion, lung sounds are clear, diminished at the bases. Psychiatric services are follo wing, and adjusting patient's antipsychotic medications. His labs have been reviewed, white blood cell count is 7.6, hemoglobin is 9.1, sodium is 134, and receive x-rays are within normal limits, BUN is 32 and creatinine 6.52 Objective - Vital Signs Vital signs: Vital Signs Temp 97.9 F 02/07/20 14:06 Pulse 68 02/07/20 14:06 Resp 17 02/07/20 14:06 BP 156/82 02/07/20 14:06 Pulse Ox 96 02/07/20 14:06 Intake & Output 02/06/20 02/07/20 02/07/20 18:59 06:59 18:59 Intake Total 500 300 Output Total 2500 0 Balance -2000 300 Weight 66.5 kg Intake: Oral 500 300 Output: Urine 0 Hemodialysis 2500 Other: Voiding Method Diaper Diaper Incontinent Incontinent # Voids 0 ABP, PAP, CO, CI - Last Documented Arterial Blood Pressure 126/112 - Exam GENERAL EXAM: Drowsy, 41-year-old white male, appears older than stated age, on room air and the pulse ox of 96%, comfortable in no apparent distress. HEAD: Normocephalic/atraumatic. EYES: Normal reaction of pupils, equal size. Conjunctiva pink, sclera white. NOSE: Clear with pink turbinates. THROAT: No erythema or exudates. NECK: No masses, no JVD, no thyroid enlargement, no adenopathy. CHEST: No chest wall deformity. Symmetrical expansion. LUNGS: Equal air entry with basilar crackles, but no wheeze, rhonchi or dullness. CVS: Regular rate and rhythm, normal S1 and S2, no gallops, no murmurs, no rubs ABDOMEN: Soft, nontender. No hepatosplenomegaly, normal bowel sounds, no gua rding or rigidity. EXTREMITIES: No clubbing, no edema, no cyanosis, 2+ pulses and upper and lower extremities. Left upper arm AV fistula with positive bruit and thrill MUSCULOSKELETAL: Muscle strength and tone normal. SPINE: No scoliosis or deformity SKIN: No rashes CENTRAL NERVOUS SYSTEM: Drowsy, but arousable No focal deficits, tone is normal in all 4 extremities. - Labs CBC & Chem 7: 02/07/20 08:37 02/07/20 08:37 Labs: Abnormal Lab Results - Last 24 Hours (Table) 02/07/20 02/07/20 Range/Units 08:37 08:37 RBC 2.78 L (4.30-5.90) m/uL Hgb 9.1 L (13.0-17.5) gm/dL Hct 28.9 L (39.0-53.0) % MCV 104.0 H (80.0-100.0) fL RDW 17.1 H (11.5-15.5) % Plt Count 485 H (150-450) k/uL Sodium 134 L (137-145) mmol/L BUN 32 H (9-20) mg/dL Creatinine 6.52 H (0.66-1.25) mg/dL Assessment and Plan Plan: Assessment: #1. Acute hypoxic respiratory failure is secondary to fluid overload, pulmonary edema, end-stage renal disease and missed hemodialysis, acquiring intubation and placement on mechanical ventilator intubated on 01/23/2020 and extubated on 01/27/2020 On 02/02/2020 patient seen in follow-up on general medical floor, doing well, he is on room air, it is stable, no worsening dyspnea, remains on oral antibiotics for strep pneumonia, his had no fever or chills #2. Acute metabolic encephalopathy, suspect hypertensive emergency with mental status change and hypertensive encephalopathy, improving #3. End-stage renal disease on hemodialysis, noncompliant #4. Acute pulmonary edema second her to missed dialysis with volume overload #5. Anemia of chronic disease #6. Hypovolemic hyponatremia, improved #7. Herpes zoster dermatitis involving anterior chest wall, patient is covered with Acyclovir, and now switched to Valtrex #8. Streptococcus pneumonia related to possibility of aspiration pneumonia is not excluded Plan: Patient is on room air, no worsening dyspnea, vital signs have been stable, to day's labs have been reviewed, no cough or congestion, continue oral antibiotics for strep pneumonia. Patient has had no fever or chills, he is being dialyzed, and for ALLERGIES following. Maintain safety precautions, and aspiration precautions. Pulmonary service will sign off and follow on as-needed basis I performed a history & physical examination of the patient and discussed their management with my nurse practitioner, Poppy Acevedo. I reviewed the nurse practitioner's note and agree with the documented findings and plan of care. Lung sounds are positive for diminished breath sounds. The findings and the impression was discussed with the patient. I attest to the documentation by the nurse practitioner. Time with Patient: Less than 30
--- NOTE | 2020-02-07 18:58 | P.PN ---
Subjective Progress Note Date: 02/07/20 Patient was seen at bedside and the he said that the he doesn't have any new neurological deficits. He said that the he's been having problems opening his eyes according to him for 3-5 years. As well as for the same duration he's been having the difficulty moving his eyes and he denies that this is an acute issue. Per the patient nurse that had him a over this past weekend (02/04/20 and 02/04), he stated that the patient was generalized weak the weekend she had a home. She stated that he would respond to her and to be alert oriented 3 but he kept on closing his eyes and he felt like he was out of it. He didn't have any jerk in the of any of the extremities, no eye gaze deviation to any direct ions foaming around his mouth. Whenever she would that addressed with the patient he would wake up and that would be responsive and that will be oriented. A code stroke was activated and the CTA of the head and neck (02/05/20) was negative. Objective - Vital Signs Vital signs: Vital Signs Temp 97.7 F 02/06/20 14:01 Pulse 82 02/06/20 14:01 Resp 18 02/06/20 14:01 BP 146/90 02/06/20 14:01 Pulse Ox 92 L 02/06/20 14:01 Intake & Output 02/06/20 02/06/20 02/07/20 06:59 18:59 06:59 Intake Total 300 500 Output Total 0 2500 Balance 300 -2000 Weight 66.5 kg 66.5 kg Intake: IV 200 normal saline KVO 200 Oral 100 500 Output: Urine 0 Hemodialysis 2500 Other: Voiding Method Diaper Diaper Incontinent Incontinent # Voids 0 ABP, PAP, CO, CI - Last Documented Arterial Blood Pressure 126/112 - Exam General: Lying in bed and does not seem to be in acute distress. Chest: The heart rate is regular in rate and rhythm. There is no lower extremity edema noted. Lung patient is not labored breathing. No wheezing is noted to auscultation. He still has some herpetic rash over the scalp region. Neurological examination: Higher mental function: The patient is awake alert, oriented to self place and time. Patient is following commands but sometimes have to repeat myself. No aphasia and no neglect. Cranial nerves: Patient would repeatedly close his eyes and I would repeatedly ask him to open his eyes back. The pupils are round, equal, around 3 mm bilaterally and reactive to light. The pupils are at the Center on the neutral gaze. For extraocular movement there seems to be that the patient was having restriction upon asking him to look to the left or right future in his head to the left or to the right. There are times where he was able to look to the left and right without turning his head but I feel like there is restriction and the patient stated that this is chronic going on for 3-5 years. He had a hard time looking up and down. There is no nystagmus that that was appreciated. Facial sensation was normal to touch. There is no facial weakness noted. The tongue is midline and moved [id number] without any difficulty. There is no dysarthria. Regarding cranial nerve #11, I had a hard time assessing it because of patient cooperation. Regarding the neck muscle: Extensor seemed like a 5 minus to 5 while neck flexors seemed a 4+ to 5 minus. Motor: Gait is deferred. Strength: Deltoids are about 4+ bilaterally, biceps are about 5 bilaterally triceps seem 5 minus and the hand child care development specialist seems 5 b ilaterally. Hip flexion was 4+ to 5 minus bilaterally while knee extension seems 4+ bilaterally and the ankle dorsiflexion plantarflexion 5 minus bilaterally Sensation: Was normal to touch throughout. Reflexes is 2 positive throughout. Plantar is downgoing bilaterally. - Labs CBC & Chem 7: 02/07/20 08:37 02/07/20 08:37 Assessment and Plan Assessment: * Bilateral eye closure, restriction off the extraocular movements and from examination mild proximal weakness weakness compared to distal. One of the differential as this could be deconditioning from ICU/hospital stay. Cannot rule out myopathy or neuromuscular junction disease (per the patient this has been going on for years)? * Altered mental status, likely due to toxic-metabolic encephalopathy, much improved--improving. * Head drop, improved. Probably was related to encephalopathy. * Status post Acute hypoxic respiratory failure secondary to pulmonary edema---resolved * End-stage renal disease on hemodialysis * Probable pneumonia, ID on board. * Herpes zoster left T4 dermatome. No signs of encephalitis. Patient has some herpetic rash over his scalp as well. * Folate deficiency Plan: * Patient's encephalopathy is much improved. Patient able to participate in the examination. Muscle strength improving gradually. His neck muscles also improving per my colleague. Upon seeing the patient today he had his eyes repeatedly closed and he had some restriction moving his eyes and I felt there is some proximal muscle weakness over distal. Possibility is that this deconditioning from prolonged hospital stay ICU stay. According to the patient that he had the restriction of from moving the eyes the years. I contacted the patient son via phone (Damon) and he stated that he does not recall that his father having any restriction moving the eyes or having any weakness. He walks without any assistance. * Blood test shows CPK 31, B12 1185 normal, folate is low 3.0, TSH normal, RPR negative. MMA 0.64 (normal <0.40). Consider B12 replacement as methylmalonic acid is abnormal. Acetylcholine receptor antibodies--> negative (<0.3). * I contacted lab for anti-musk antibody via verbal order. * We'll attempt to see whether the patient's condition improves. Physical therapy occupation therapy are on board. * I will reassess the patient condition this week and if not improved I will consider getting MRI of the brain and the MRI of the orbits. * I think if the patient condition does not improve I think he'll benefit from EMG with nerve conduction as outpatient. * Patient's herpes zoster over the left T4 dermatome has much improved. However he has a new rash on the scalp which also appears herpes but is not in a si ngle dermatome. Suggest ID follow-up to rule out disseminated herpes. ? Need for LP, although he has no headaches, white cells are normal and no temperature. Will defer getting Lumbar Puncture to ID team. Patient on Valtrex 1 g twice a day. ID on board. * EEG revealed background slowing of moderate to severe degree, consistent with encephalopathy. No epileptiform activity was seen. * Psychiatry on board. Time with Patient: Greater than 30
[2020-02-07] MEDS: QUEtiapine 50 MG TAB PO SCH (21:27)
[2020-02-07] MEDS: MELATONIN 5 MG TABLET PO SCH (21:27)
[2020-02-08] MEDS: ONDANSETRON 4 MG/2 ML VIAL IVP PRN (00:55)
[2020-02-08] MEDS: cloNIDine HCL 0.1 MG TAB PO SCH ×3 (07:37→20:12)
[2020-02-08] MEDS: hydrALAZINE HCL 50 MG TAB PO SCH ×3 (07:38→20:12)
[2020-02-08] MEDS: HEPARIN SODIUM,PORCINE 5,000 UNIT/ML 1 ML VIAL SQ SCH ×3 (07:38→23:07)
[2020-02-08] MEDS: PANTOPRAZOLE 40 MG/10 ML VIAL IV SCH ×2 (07:38→20:11)
[2020-02-08] MEDS: carvediloL 12.5 MG TAB PO SCH ×2 (07:38→16:25)
[2020-02-08] MEDS: AMOXIC-POT CLAV 875-125MG 1 EACH TAB PO SCH (07:39)
[2020-02-08] MEDS: amLODIPine 10 MG TAB PO SCH (07:39)
[2020-02-08] MEDS: SEVELAMER 800 MG TAB PO SCH ×3 (07:39→16:25)
[2020-02-08] MEDS: MEGESTROL 400 MG/10 ML CUP PO SCH (07:39)
[2020-02-08] MEDS: FOLIC ACID 1 MG TAB PO SCH (07:40)
[2020-02-08] MEDS: buPROPion SR 150 MG TABLET.ER PO SCH (07:40)
--- NOTE | 2020-02-08 16:02 | PN ---
PROGRESS NOTE Patient is seen for followup for end-stage renal disease. He is currently lying in bed. Patient is comfortable. He is not in any acute distress. I had a discussion with Neurology, and in view of his mental status changes and overall lack of significant improvement post extubation, he would like to proceed with MRI of the brain and LP in view of recent history of shingles. The patient has been significantly weak. He has been undergoing physical therapy. However, he has issues with focusing and being able to carry on a conversation. PHYSICAL EXAMINATION: On examination today, blood pressure was 133/86, heart rate 59 per minute. He is afebrile. EXAMINATION OF THE HEART: S1 and S2. EXAMINATION OF LUNGS: Decreased breath sounds at bases. ABDOMEN: Soft, non-tender. Examination of lower extremities shows no evidence of edema. GLOBAL HUMAN RESOURCES DIRECTOR exam shows generalized overall weakness, inability to concentrate. The patient had been leaning towards the left side previously. LABS: Labs show sodium 134, potassium 3.9, BUN 32, serum creatinine 6.52, hemoglobin 9.1 g/dL. ASSESSMENT: 1. End-stage renal disease, on hemodialysis on a Thursday, Thursday, Thursday schedule. 2. Hypertension, partly volume-sensitive, improved post dialysis. Coreg was increased yesterday. 3. Chronic kidney disease mineral bone disorder, maintained on Renvela. 4. Recent shingles, status post treatment with acyclovir. 5. Mental status changes and increased weakness. She is scheduled for an MRI of the brain and possibly an LP as well. Patient is being followed by Neurology. PLAN: Next hemodialysis on 02/10/2020. Monitor blood pressure. MMODL / IJN: [id number] /
--- NOTE | 2020-02-08 16:28 | P.PN ---
Subjective Progress Note Date: 02/08/20 This a 49 y/o male who lives on his owm. HE HAS ESRD with heomdialysis MWF. He was jsut at [facility] yesterday for minimal SOB, and significant herpitic Neuralgia. He was seen by nephology 01/21 who felt he could get his dialyais 01/22 and did not need it urgently. He was seen by cardiology for min abn troponins and this was felt to be chronic. He did have minmal sob, that resolved after some pain medication for his shingles. He was treated with Acyclovir. he was given Dilaudid and Gabapetnin. early in the moring he had some confusin and was given Narcan then again several hours later, which resolved his somnolence but not his pain. He was D/C in stable condtion to f/u i nt office joe cantrell to habve dialysis 01/22. ~ 01:00 01/23/2020 patient was brought in [facility] ER for altered mental status and shortness of breath. he was quite tachypneic and hypertensive upon arrival. Nitro drip was started. Patient was placed on BiPap. Ct brain old lacunar infarcts in the right internal capsule. No acute intracranial abnormality. No change. 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 01/24/2020 Yesterday required intubation, maintained on 55% FiO2/+5 of PEEP. chest x-ray reporting small right pleural effusion, increased right basilar airspace opacity airspace, right basilar subsegmental atelectasis with improved aeration of bilateral upper lungs Initially had required clevidipine, became hypotensive, discontinued and now requiring pressor support with Levophed. Evaluated by infectious disease regarding left T4 dermatome zoster,with renal dose acyclovir recommended.earlier this morning patient agitated, not following commands and weaning trial aborted. Telemetry sinus rhythm.afebrile,normal WBC. preliminary blood cultures no growth at 24 hours. ABGs noted.hemoglobin down to 8.4,platelets 239.sodium 126, BUN 60, creatinine 8.38.scheduled for hemodialysis today. alk phos mildly elevated, 127. Albumin low at 3.2. completed EEG yesterday,abnormal, suggestive of toxic metabolic encephalopathy, with no epileptiform activity seen. 01/25/2020 Remains vent dependent, FiO2 55%/+5 PEEP. Maintained on diprovan and Levophed drips. Continues on acyclovir and Zosyn. Afebrile, WBC trending up to 18.2. Hemoglobin continues improving up to 9.6, platelets 269. Weaning trials attempted today but patient became agitated, restless, not following commands, requiring Haldol and placed back on diprovan drip. Seroquel added to med regimen. Chest x-ray reporting diffuse pleural parenchymal changes, stable, possible CHF, possible underlying pneumonia, prominence of the pulmonary arteries and hilum associated pulmonary arterial hypertension, possible adenopathy. 01/26/2020 remains vent dependent, FiO2 down to 45%/+ 5 of PEEP. Sedated on diprovan. Levophed weaned off. Receiving hemodialysis today. ABGs noted. Chest x-ray reporting improvement. Afebrile, WBC trending down, 13.9. Hemoglobin 9, platelets, 236. Continues on acyclovir, zosyn. Blood and sputum cultures pending. 01/27/2020 received hemodialysis yesterday .sputum culture reporting positive for Streptococcus pneumoniae , blood cultures reporting no growth . Chest x-ray reporting diffuse parenchymal changes, typical of CHF, bilateral hilar enlargement, possible pulmonary arterial hypertension, possible underlying adenopathy/mass. Maintained on Zosyn. Extubated this morning, maintaining O2 s ats in the 90s on 4 L nasal cannula. Suicide precautions in place with sitter at bedside. Levophed weaned off. Maintained on Clevidipine. 01/30/2020 maintained on Unasyn, Acyclovir for streptococcal pneumonia, shingles. T-max 100.8, WBC 10.7. Weaned off of Clevidipine. Maintaining O2 sats in the 90s on 2 L nasal cannula. Sensorium improving. Continues on suicide precautions. Received hemodialysis yesterday, again today to return to his normal schedule of Thursday. Telemetry sinus rhythm. 01/31/2020 maintained O2 sats in the 90s on 2 L nasal cannula. Continues on Unasyn,acyclovir. Chest x-ray reporting minimal improvement. T-max 100.5, normal WBC. More alert today with fluctuating periods of confusion. Suicide precautions maintained with mine safety manager at bedside. Patient denies being suicidal and taking a full bottle of Seroquel. 02/01/2020 suicide precautions maintained .psychiatry reconsulted, recommendations pending. 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 Hypertensive, systolic blood pressures in the 160s today, scheduled for hemodialysis today. Maintaining O2 sats in the 90s on 2 L nasal cannula. Tolerated clear liquid diet, advanced to full liquids. Telemetry sinus rhythm. Alert and oriented 3 but requires stimulation,droggy. T-max 99.9. Continues on Unasyn for streptococcal pneumonia and acyclovir for shingles. 02/02/2020 moved out of ICU. Oxygen weaned off and maintaining O2 sats in the 90s on room air. T-max 99.9, WBC within normal limits. Hypertensive, Norvasc added to med regimen. Sensorium improving. Evaluated by psychiatry WITH suicide precautions lifted, recommended delirium precautions; Seroquel dose decreased. 02/03/2020 Delirium precautions maintained. Sensorium continues to improve, much more alert, not yet back to baseline. Decision-making abilities are still lacking. Agitates easily. Received hemodialysis earlier this morning. T-max 99.7, normal WBC. Denies chest pain, palpitations or shortness of breath. Significant deconditioning, generalized weakness. Physical therapy continues to recommend subacute rehab at discharge. Evaluated by psychiatry with recommendations noted and appreciated. 02/06/2020 receiving hemodialysis today. Refusing to eat, declining substitutions, declining supplements. Reevaluated by psychiatry, states patient does not have decision-making capacity at this time, patient does not have the capacity to refuse rehab, recommending delirium precautions; medication changes noted and appreciated. CTA of brain and neck reported no significant stenosis and common or internal carotid arteries bilaterally, no significant stenosis or aneurysm at the level of [place] of [place]. Reevaluation per PT pending. Afebrile. 02/07/2020 no overnight events. Hypertensive this morning, Norvasc increased. Diet intake with assistance, 25%. PT evaluation today pending. 02/08/2020 Continues on antipsychotics as adjusted per psychiatry. Refused to eat this morning. Reports he only has 3 teeth and difficulty chewing. Currently receiving hemodialysis. EEG completed. MRI of brain/ orbits pending. Patient picking at his scalp rash. Denies any chest pain, palpitations or shortness of breath. Afebrile, normal WBC. Objective - Vital Signs Vital signs: Vital Signs Temp 98.1 F 02/08/20 07:00 Pulse 81 02/08/20 07:00 Resp 18 02/08/20 07:00 BP 160/99 02/08/20 07:00 Pulse Ox 97 02/08/20 07:00 Intake & Output 02/07/20 02/08/20 02/08/20 18:59 06:59 18:59 Output Total 0 Balance 0 Weight 72 kg Output: Urine 0 Other: Voiding Method Diaper Incontinent # Voids 0 0 ABP, PAP, CO, CI - Last Documented Arterial Blood Pressure 126/112 - Exam PHYSICAL EXAM: VITAL SIGNS: [as above] GENERAL: sitting up in bed, alert and oriented 2-3. HEENT: Scalp Herpetic rash, Conjunctivae normal. eyes normal. Reactive to light. NECK: No JVD. No thyroid enlargement. CARDIOVASCULAR: S1, S2 regular.No murmur RESPIRATION: Breath sounds diminished in the bases. ABDOMEN: Soft, nontender . No guarding. no masses palpable. Bowel sounds heard. LEGS: trace edema. NERVOUS SYSTEM: Cranial nerves II through XII grossly intact, moves all extremities, no focal deficits. Strength and sensation grossly intact. Skin: warm and dry, left chest-prior zoster site significantly improved. - Labs CBC & Chem 7: 02/07/20 08:37 02/07/20 08:37 Assessment and Plan Assessment: (1) Acute respiratory failure with hypoxia, status post ventilator-dependent secondary to streptococcal pneumoniae pneumonia, possible aspiration Current Visit: Yes Status: Acute Code(s): J96.01 - ACUTE RESPIRATORY FAILURE WITH HYPOXIA SNOMED Code(s): 47906072 (2) Overdose,Seroquel, status post suicide precautions Current Visit: Yes Status: Acute Code(s): T50.901A - POISONING BY UNSP DRUG/MEDS/BIOL SUBST, ACCIDENTAL, INIT SNOMED Code(s): 36224898 (3) Acute toxic and metabolic encephalopathy, multifactorial ,secondary to #2, hypertension Current Visit: Yes Status: Acute Code(s): G93.41 - METABOLIC ENCEPHALOPATHY SNOMED Code(s): 28038904 (4) Neuralgia Current Visit: Yes Status: Acute Code(s): M79.2 - NEURALGIA AND NEURITIS, UNSPECIFIED SNOMED Code(s): 43577526 (6) Fluid overload, resolved Current Visit: Yes Status: Acute Code(s): E87.70 - FLUID OVERLOAD, UNSPECIFIED SNOMED Code(s): 47899258 (7) Hypertensive crisis, s/p clevidepine. Current Visit: Yes Status: Acute Code(s): I16.9 - HYPERTENSIVE CRISIS, UNSPECIFIED SNOMED Code(s): 425415113 (8) herpes zoster,left T4 dermatome, improved. Possible Scalp herpetic rash, but not in a single dermatome, ruling out disseminated herpes, the LP pending. Current Visit: Yes Status: Acute Code(s): B02.9 - ZOSTER WITHOUT COMPLICATIONS SNOMED Code(s): 2524924 (9) End stage renal disease,on hemodialysis, Thursday, Thursday and Fridays Current Visit: No Status: Acute Code(s): N18.6 - END STAGE RENAL DISEASE SNOMED Code(s): 01186283 (10) Anemia in chronic kidney disease, iron deficient Current Visit: Yes Status: Acute Code(s): N18.9 - CHRONIC KIDNEY DISEASE, UNSPECIFIED; D63.1 - ANEMIA IN CHRONIC KIDNEY DISEASE SNOMED Code(s): 519499794 (11) hypotension, status post pressor dependent, resolved (12) prominence of the pulmonary arteries, hilum, suspect related to pulmonary arterial hypertension, possible adenopathy, pulmonary following. (13) cannabis use Plan: Continue on current medication regime ,monitoring and symptomatic treatment. LP ordered. Hemodialysis as per nephrology. Neuro workup in progress; EEG results pending, MRI pending. Dental soft diet. Discharge planning in progress with the assistance of social work for rehab. Prognosis guarded given multiple complex medical issues. The impression and plan of care has been dictated as directed. : I performed a history and examination of this patient, discussed the same with the dictator. I agree with the dictator's note ,documented as a scribe. Any additional findings or plans will be noted.
--- NOTE | 2020-02-08 17:59 | EEG ---
ELECTROENCEPHALOGRAM REPORT DATE OF SERVICE: 02/08/2020 CLINICAL HISTORY: This is a 49-year-old gentleman who was admitted to the emergency department on 01/23/2020 for altered mental status. He continues to have changes in mentation throughout the hospital stay. This video EEG was obtained to evaluate for seizure and epileptiform activity. RELEVANT MEDICATION: The patient is not on any centrally active medication. EEG TYPE: A routine 21-channel EEG was performed with video using the 10/20 electrode placement system. DESCRIPTION: Wakefulness and drowsiness are obtained. During wakefulness, there is a posterior- dominant rhythm of low to moderate voltage that is poorly reactive, well- modulated of 9 to 10 hertz over bilateral hemisphere. The background consists of occasional 0.5 to 1.5 low- to moderate-voltage delta activity that is nonrhythmic and seems to be diffuse over bilateral hemisphere. During drowsiness there is slowing and attenuation of the background activity. There was no physiological stage II sleep. There is occasional moderate to high voltage of 1 to 1.5 generalized rhythmic delta activity with frontal predominance. INTERICTAL AND ICTAL: None. ACTIVATION PROCEDURE: Photic stimulation did not evoke a posterior driving response. Hyperventilation was not performed because of the patient's clinical history. CLINICAL INTERPRETATION: This is an abnormal routine EEG. The occasional diffuse slowing over bilateral hemisphere and generalized rhythmic delta activity with frontal predominance are suggestive of mild to moderate encephalopathy of unspecified etiology. There are no focal slowing, epileptiform activity or seizure seen. Clinical correlation is recommended. NATALIE / TAHIRAN: [id number] / MTDD
[2020-02-08 18:09] LABS: INR 1.8 (<1.2); Prothrombin Time 17.3 sec (9.0-12.0)
--- NOTE | 2020-02-08 19:28 | MR ---
EXAMINATION TYPE: MR brain wo con DATE OF EXAM: 02/08/2020 COMPARISON: CT brain 01/23/2020 HISTORY: Altered mental status There is some cerebral cortical atrophy. There is no mass effect nor midline shift. There is no sign of intracranial hemorrhage. Diffusion images show no sign of acute infarct. The brainstem is intact. There is increased signal on the T2 and FLAIR images in a somewhat linear distribution in the right i nternal capsule along side the right lateral ventricle. There is no evidence of orbital mass. Sella turcica is normal. Corpus callosum is intact. IMPRESSION: Mild atrophy. Curvilinear increased signal in the right internal capsule extending from the insula to the lateral ventricle could relate to area of lacunar infarct and not changed compared to CT scan of 01/23/2020. No cortical infarct.
--- NOTE | 2020-02-08 19:56 | MR ---
EXAMINATION TYPE: MR orbits wo con DATE OF EXAM: 02/08/2020 COMPARISON: None HISTORY: Weakness. Multiplanar multiecho imaging of the orbits was performed without contrast. The globes are symmetric. The extraocular muscles are symmetric. There is no evidence of retro-orbita l mass. Corpus callosum is intact. The sella turcica appears normal. The optic chiasm appears normal. There is no evidence of sellar mass. IMPRESSION: Negative MR scan of the orbits.
[2020-02-08] MEDS: MELATONIN 5 MG TABLET PO SCH (20:11)
[2020-02-08] MEDS: QUEtiapine 50 MG TAB PO SCH (20:12)
[2020-02-09] MEDS: MEGESTROL 400 MG/10 ML CUP PO SCH (07:41)
[2020-02-09] MEDS: FOLIC ACID 1 MG TAB PO SCH (07:41)
[2020-02-09] MEDS: hydrALAZINE HCL 50 MG TAB PO SCH ×3 (07:41→20:59)
[2020-02-09] MEDS: SEVELAMER 800 MG TAB PO SCH ×3 (07:41→16:58)
[2020-02-09] MEDS: PANTOPRAZOLE 40 MG/10 ML VIAL IV SCH ×2 (07:41→20:59)
[2020-02-09] MEDS: amLODIPine 10 MG TAB PO SCH (07:42)
[2020-02-09] MEDS: HEPARIN SODIUM,PORCINE 5,000 UNIT/ML 1 ML VIAL SQ SCH ×3 (07:42→23:45)
[2020-02-09] MEDS: buPROPion SR 150 MG TABLET.ER PO SCH (07:42)
[2020-02-09] MEDS: carvediloL 12.5 MG TAB PO SCH ×2 (07:42→16:58)
[2020-02-09] MEDS: cloNIDine HCL 0.1 MG TAB PO SCH ×3 (07:42→20:59)
[2020-02-09] MEDS ORDERED: ACETAMINOPHEN TAB 325 MG TAB PO STA (09:01)
--- NOTE | 2020-02-09 10:55 | P.PN ---
Subjective Progress Note Date: 02/09/20 Patient was seen at bedside and the he said that he is doing better today compared to the couple days ago. He denies of any new weakness, numbness. He denies of any headache. Patient had the MRI of the brain which was reported as increased signal over the right internal capsule which seems old and that was seen on the the CT of the head on 01/23/2020 otherwise there is no acute ischemia. I did personally review the MRI of the brain and I do not see any acute ischemia and I do appreciate the the old right internal capsule stroke. MRI of the orbit was negative. The patient was supposed to get the lumbar puncture today but because of his INR was elevated at it's the postfrontal tomorrow. I saw by the patient's room also yesterday and that spoke with his nurse yesterday and the as she was known that had him over the weekend and then knows him well and she felt like he was doing much better after dialysis compared to which she had a mild for the last couple days. Objective - Vital Signs Vital signs: Vital Signs Temp 98.3 F 02/09/20 07:00 Pulse 69 02/09/20 07:00 Resp 16 02/09/20 07:00 BP 182/92 02/09/20 07:00 Pulse Ox 97 02/09/20 07:00 Intake & Output 02/08/20 02/09/20 02/09/20 18:59 06:59 18:59 Output Total 3000 Balance -3000 Weight 69 kg Output: Hemodialysis 3000 Other: Voiding Method Diaper Diaper Incontinent Incontinent # Voids 0 1 ABP, PAP, CO, CI - Last Documented Arterial Blood Pressure 126/112 - Exam General: Lying in bed and does not seem to be in acute distress. Chest: The heart rate is regular in rate and rhythm. There is no lower extremity edema noted. Lung patient is not labored breathing. No wheezing is noted to auscultation. Neurological examination: Higher mental function: The patient is awake alert, oriented to self place and time. No aphasia and no neglect. Cranial nerves: The pupils are round equal they're around 3-4 mm bilaterally and reactive to light. Visual reyes are full to confrontation. Patient the has his eyes more open that today compared to 2 days ago. She also movement are intact and there is no nystagmus noted in any direction. Facial sensation is normal to touch throughout. No facial weakness noted throughout. No dysarthria. Normal shoulder shrug bilaterally. Motor: Gait is deferred. Strength: Seemed about 5 over 5 throughout. Sensation: Was normal to touch throughout. Reflexes is 2 positive throughout. Plantar is downgoing bilaterally. - Labs CBC & Chem 7: 02/07/20 08:37 02/07/20 08:37 Labs: Abnormal Lab Results - Last 24 Hours (Table) 02/08/20 Range/Units 15:54 PT 17.3 H (9.0-12.0) sec INR 1.8 H (<1.2) Assessment and Plan Assessment: * Mild proximal weakness compared to distal, EOM movement restriction and was repeatedly closing his eye--->drastically improved. One of the differential as this could be deconditioning from prolonged hospital stay and toxic metabolic encephalopathy * Altered mental status, likely due to toxic-metabolic encephalopathy, much improved--improved * Old lacunar infarct (internal capsule) due to patient risk factor (ESRD) * Head drop, improved. Probably was related to encephalopathy/hospital/ICU stay. * Status post Acute hypoxic respiratory failure secondary to pulmonary edema--- resolved * End-stage renal disease on hemodialysis * Probable pneumonia, ID on board. * Herpes zoster left T4 dermatome. No signs of encephalitis. Patient has some herpetic rash over his scalp as well. * Folate deficiency Plan: * Blood test shows CPK 31, B12 1185 normal, folate is low 3.0, TSH normal, RPR negative. MMA 0.64 (normal <0.40). Consider B12 replacement as methylmalonic acid is abnormal. Acetylcholine receptor antibodies--> negative (<0.3). * anti-musk antibody-->pending. Treponema pallidum Ab -ve. * Patient's herpes zoster over the left T4 dermatome has much improved. However he has a new rash on the scalp which also appears herpes but is not in a si ngle dermatome. * Because of the patient improved condition I don't feel like the patient needs Lumbar puncture from a neurology standpoint. His condition is likely deconditioning from his toxic metabolic encephalopathy as well as his a prolonged hospital stay. * EEG on the 02/07/2020: Mild to Moderate encephalopathy of unspecified etiology. There are no focal slowing, coupled perform activity or seizures seen during the study. * MRI the brain was reported as mild atrophy. Curvilinear increased signal in the right internal capsule extending from that it's a lot to the lateral ventricle could relate to an area of lacunar infarct and not change compared to the computed tomography scan of the 01/23/2020. No cortical infarct. I do agree there is a small lacunar infarct over the right internal capsule. * MRI the orbits was negative. My the orbit was obtained because of his restriction of the eye movements upon examining him 2 days ago. * The patient right lacunar infarct over the internal capsules likely due to his risk factor he is on an stage renal disease on dialysis. But I'll get the basic workup for strokes to make sure nothing is being missed. I will order a carotid duplex, 2-D echo, lipid profile. * Place the patient on aspirin 81 mg and Lipitor 40 mg daily. * TSH: 1.69. HbA1c: 4.2 * Psychiatry on board. * Physical therapy and occupation therapy are on board. * The plan was discussed with patient as well as primary team and neurology team. Gordo Berg M.D. Neuro-hospitalist Time with Patient: Less than 30
--- NOTE | 2020-02-09 12:05 | PN ---
PROGRESS NOTE Patient is seen for followup for end-stage renal disease. His mentation improved significantly after dialysis yesterday. Patient was evaluated by Neurology this morning. I did discuss with the neurologist and at this time the MRI did not show any new findings and in view of improvement in his mentation, plan is to hold off on the LP. EXAMINATION: Today patient is comfortable, awake, he is not in any acute distress. Blood pressure was 157/82 earlier and then 182/92, heart rate 69 per minute, he is afebrile. Examination of the heart S1, S2. Examination of the lungs, bilateral breath sounds are heard. Abdomen is soft, nontender. Examination of the lower extremities shows no significant edema. CASH APPLICATIONS COORDINATOR exam is grossly intact. LABS: Show sodium 134, potassium 3.9, hemoglobin 9.1 g/dL. ASSESSMENT: 1. End-stage renal disease, on hemodialysis on a Thursday, Thursday, Thursday schedule. Given the improvement in his mentation, post dialysis yesterday, I will proceed with hemodialysis again today. 2. Encephalopathy with negative MRI of the brain for any new acute findings with improvement in his mentation after dialysis. I will dialyze the patient again today. 3. Status post suicidal attempt with about 30 tablets of Seroquel taken prior to admission. 4. Hypertension, uncontrolled. I will add LAWANDA inhibitors to his medications. 5. Volume overload, currently improved. PLAN: Add lisinopril and repeat hemodialysis today and we can hold off on the LP as discussed with Neurology. MMODL / IJN: [id number] /
[2020-02-09] MEDS: ASPIRIN 81 MG PO SCH (12:21)
--- NOTE | 2020-02-09 12:35 | P.PN ---
Subjective Progress Note Date: 02/09/20 This a 49 y/o male who lives on his owm. HE HAS ESRD with heomdialysis MWF. He was jsut at [facility] yesterday for minimal SOB, and significant herpitic Neuralgia. He was seen by nephology 01/21 who felt he could get his dialyais 01/22 and did not need it urgently. He was seen by cardiology for min abn troponins and this was felt to be chronic. He did have minmal sob, that resolved after some pain medication for his shingles. He was treated with Acyclovir. he was given Dilaudid and Gabapetnin. early in the moring he had some confusin and was given Narcan then again several hours later, which resolved his somnolence but not his pain. He was D/C in stable condtion to f/u i nt office joe cantrell to habve dialysis 01/22. ~ 01:00 01/23/2020 patient was brought in [facility] ER for altered mental status and shortness of breath. he was quite tachypneic and hypertensive upon arrival. Nitro drip was started. Patient was placed on BiPap. Ct brain old lacunar infarcts in the right internal capsule. No acute intracranial abnormality. No change. 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 01/24/2020 Yesterday required intubation, maintained on 55% FiO2/+5 of PEEP. chest x-ray reporting small right pleural effusion, increased right basilar airspace opacity airspace, right basilar subsegmental atelectasis with improved aeration of bilateral upper lungs Initially had required clevidipine, became hypotensive, discontinued and now requiring pressor support with Levophed. Evaluated by infectious disease regarding left T4 dermatome zoster,with renal dose acyclovir recommended.earlier this morning patient agitated, not following commands and weaning trial aborted. Telemetry sinus rhythm.afebrile,normal WBC. preliminary blood cultures no growth at 24 hours. ABGs noted.hemoglobin down to 8.4,platelets 239.sodium 126, BUN 60, creatinine 8.38.scheduled for hemodialysis today. alk phos mildly elevated, 127. Albumin low at 3.2. completed EEG yesterday,abnormal, suggestive of toxic metabolic encephalopathy, with no epileptiform activity seen. 01/25/2020 Remains vent dependent, FiO2 55%/+5 PEEP. Maintained on diprovan and Levophed drips. Continues on acyclovir and Zosyn. Afebrile, WBC trending up to 18.2. Hemoglobin continues improving up to 9.6, platelets 269. Weaning trials attempted today but patient became agitated, restless, not following commands, requiring Haldol and placed back on diprovan drip. Seroquel added to med regimen. Chest x-ray reporting diffuse pleural parenchymal changes, stable, possible CHF, possible underlying pneumonia, prominence of the pulmonary arteries and hilum associated pulmonary arterial hypertension, possible adenopathy. 01/26/2020 remains vent dependent, FiO2 down to 45%/+ 5 of PEEP. Sedated on diprovan. Levophed weaned off. Receiving hemodialysis today. ABGs noted. Chest x-ray reporting improvement. Afebrile, WBC trending down, 13.9. Hemoglobin 9, platelets, 236. Continues on acyclovir, zosyn. Blood and sputum cultures pending. 01/27/2020 received hemodialysis yesterday .sputum culture reporting positive for Streptococcus pneumoniae , blood cultures reporting no growth . Chest x-ray reporting diffuse parenchymal changes, typical of CHF, bilateral hilar enlargement, possible pulmonary arterial hypertension, possible underlying adenopathy/mass. Maintained on Zosyn. Extubated this morning, maintaining O2 s ats in the 90s on 4 L nasal cannula. Suicide precautions in place with sitter at bedside. Levophed weaned off. Maintained on Clevidipine. 01/30/2020 maintained on Unasyn, Acyclovir for streptococcal pneumonia, shingles. T-max 100.8, WBC 10.7. Weaned off of Clevidipine. Maintaining O2 sats in the 90s on 2 L nasal cannula. Sensorium improving. Continues on suicide precautions. Received hemodialysis yesterday, again today to return to his normal schedule of Thursday. Telemetry sinus rhythm. 01/31/2020 maintained O2 sats in the 90s on 2 L nasal cannula. Continues on Unasyn,acyclovir. Chest x-ray reporting minimal improvement. T-max 100.5, normal WBC. More alert today with fluctuating periods of confusion. Suicide precautions maintained with director of safety and security at bedside. Patient denies being suicidal and taking a full bottle of Seroquel. 02/01/2020 suicide precautions maintained .psychiatry reconsulted, recommendations pending. 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 Hypertensive, systolic blood pressures in the 160s today, scheduled for hemodialysis today. Maintaining O2 sats in the 90s on 2 L nasal cannula. Tolerated clear liquid diet, advanced to full liquids. Telemetry sinus rhythm. Alert and oriented 3 but requires stimulation,droggy. T-max 99.9. Continues on Unasyn for streptococcal pneumonia and acyclovir for shingles. 02/02/2020 moved out of ICU. Oxygen weaned off and maintaining O2 sats in the 90s on room air. T-max 99.9, WBC within normal limits. Hypertensive, Norvasc added to med regimen. Sensorium improving. Evaluated by psychiatry WITH suicide precautions lifted, recommended delirium precautions; Seroquel dose decreased. 02/03/2020 Delirium precautions maintained. Sensorium continues to improve, much more alert, not yet back to baseline. Decision-making abilities are still lacking. Agitates easily. Received hemodialysis earlier this morning. T-max 99.7, normal WBC. Denies chest pain, palpitations or shortness of breath. Significant deconditioning, generalized weakness. Physical therapy continues to recommend subacute rehab at discharge. Evaluated by psychiatry with recommendations noted and appreciated. 02/06/2020 receiving hemodialysis today. Refusing to eat, declining substitutions, declining supplements. Reevaluated by psychiatry, states patient does not have decision-making capacity at this time, patient does not have the capacity to refuse rehab, recommending delirium precautions; medication changes noted and appreciated. CTA of brain and neck reported no significant stenosis and common or internal carotid arteries bilaterally, no significant stenosis or aneurysm at the level of [place]. Reevaluation per PT pending. Afebrile. 02/07/2020 no overnight events. Hypertensive this morning, Norvasc increased. Diet intake with assistance, 25%. PT evaluation today pending. 02/08/2020 Continues on antipsychotics as adjusted per psychiatry. Refused to eat this morning. Reports he only has 3 teeth and difficulty chewing. Currently receiving hemodialysis. EEG completed. MRI of brain/ orbits pending. Patient picking at his scalp rash. Denies any chest pain, palpitations or shortness of breath. Afebrile, normal WBC. 02/09/2020 significant clinical improvement. Much more alert, and oriented 3, pleasant. Conversing with improved comprehension. Following commands. Standing at bedside participating ,with physical therapy. Scheduled for additional hemodialysis today. MRI suggestive of increased signal over right internal capsule, no change from prior CT-reviewed by neurology, not acute, old; no acute ischemia. MRI of the orbit reported negative. Initially had been scheduled for LP, but INR was elevated, 1.8. Received vitamin K. Per further discussion with neurology, given patient's significant improvement, LP not recommended/canceled. EEG reported much better encephalopathy unspecified etiology, no focal slowing, no seizure activity. Echo, carotid Doppler, lipid profile pending. Objective - Vital Signs Vital signs: Vital Signs Temp 98.3 F 02/09/20 07:00 Pulse 69 02/09/20 07:00 Resp 16 02/09/20 07:00 BP 182/92 02/09/20 07:00 Pulse Ox 97 02/09/20 07:00 Intake & Output 02/08/20 02/09/20 02/09/20 18:59 06:59 18:59 Output Total 3000 Balance -3000 Weight 69 kg Output: Hemodialysis 3000 Other: Voiding Method Diaper Diaper Incontinent Incontinent # Voids 0 1 ABP, PAP, CO, CI - Last Documented Arterial Blood Pressure 126/112 - Exam PHYSICAL EXAM: VITAL SIGNS: [as above] GENERAL: Sitting up at bedside, more alert, alert and oriented 3. HEENT: Scalp Herpetic rash, Conjunctivae normal. eyes normal. Reactive to light. NECK: No JVD. No thyroid enlargement. CARDIOVASCULAR: S1, S2 regular.No murmur RESPIRATION: Unlabored, Breath sounds essentially clear, diminished in the bases. ABDOMEN: Soft, nontender . No guarding. no masses palpable. Bowel sounds heard. LEGS: trace edema. NERVOUS SYSTEM: Cranial nerves II through XII grossly intact, moves all extremities, no focal deficits. Strength and sensation grossly intact. Skin: warm and dry, left chest-prior zoster site significantly improved. - Labs CBC & Chem 7: 02/07/20 08:37 02/07/20 08:37 Labs: Abnormal Lab Results - Last 24 Hours (Table) 02/08/20 Range/Units 15:54 PT 17.3 H (9.0-12.0) sec INR 1.8 H (<1.2) Assessment and Plan Assessment: (1) Acute respiratory failure with hypoxia, status post ventilator-dependent secondary to streptococcal pneumoniae pneumonia, possible aspiration Current Visit: Yes Status: Acute Code(s): J96.01 - ACUTE RESPIRATORY FAILURE WITH HYPOXIA SNOMED Code(s): 28876583 (2) Overdose,Seroquel, status post suicide precautions Current Visit: Yes Status: Acute Code(s): T50.901A - POISONING BY UNSP DRUG/MEDS/BIOL SUBST, ACCIDENTAL, INIT SNOMED Code(s): 56867878 (3) Acute toxic and metabolic encephalopathy, multifactorial ,secondary to #2, hypertension with accompanying deconditioning related to prolonged hospitalization. Current Visit: Yes Status: Acute Code(s): G93.41 - METABOLIC ENCEPHALOPATHY SNOMED Code(s): 83334272 (4) Neuralgia Current Visit: Yes Status: Acute Code(s): M79.2 - NEURALGIA AND NEURITIS, UNSPECIFIED SNOMED Code(s): 66523185 (6) Fluid overload, resolved Current Visit: Yes Status: Acute Code(s): E87.70 - FLUID OVERLOAD, UNS PECIFIED SNOMED Code(s): 64180730 (7) Hypertensive crisis, s/p clevidepine. Current Visit: Yes Status: Acute Code(s): I16.9 - HYPERTENSIVE CRISIS, UNSPECIFIED SNOMED Code(s): 162685518 (8) herpes zoster,left T4 dermatome, improved. Possible Scalp herpetic rash, but not in a single dermatome, no LP recommended at this time per neurology given significant clinical improvement Current Visit: Yes Status: Acute Code(s): B02.9 - ZOSTER WITHOUT COMPLICAT IONS SNOMED Code(s): 4825791 (9) End stage renal disease,on hemodialysis, Thursday, Thursday and Fridays Current Visit: No Status: Acute Code(s): N18.6 - END STAGE RENAL DISEASE SNOMED Code(s): 47227725 (10) Anemia in chronic kidney disease, iron deficient Current Visit: Yes Status: Acute Code(s): N18.9 - CHRONIC KIDNEY DISEASE, UNSPECIFIED; D63.1 - ANEMIA IN CHRONIC KIDNEY DISEASE SNOMED Code(s): 492586043 (11) hypotension, status post pressor dependent, resolved (12) prominence of the pulmonary arteries, hilum, suspect related to pulmonary arterial hypertension, possible adenopathy, pulmonary following. (13) cannabis use Plan: Continue on current medication regime ,monitoring and symptomatic treatment. Additional Hemodialysis today Neuro workup in progress. Dental soft diet. Discharge planning in progress with the assistance of social work for IP rehab.tomorrow. Prognosis guarded given multiple complex medical issues. The impression and plan of care has been dictated as directed. : I performed a history and examination of this patient, discussed the same with the dictator. I agree with the dictator's note ,documented as a scribe. Any additional findings or plans will be noted.
--- NOTE | 2020-02-09 13:39 | US ---
EXAMINATION TYPE: US carotid duplex BILAT DATE OF EXAM: 02/09/2020 COMPARISON: CTA head and neck dated 02/05/2020 CLINICAL HISTORY: stroke: old right internal capsule. EXAM MEASUREMENTS: RIGHT: Peak Systolic Velocity (PSV) cm/sec ----- Right CCA: 60.0 ----- Right ICA: 62.4 ----- Right ECA: 79.0 ICA/CCA ratio: 1.04 RIGHT: End Diastole cm/sec ----- Right CCA: 14.8 ----- Right ICA: 15.4 ----- Right ECA: 7.7 LEFT: Peak Systolic Velocity (PSV) cm/sec ----- Left CCA: 57.6 ----- Left ICA: 61.8 ----- Left ECA: 122.0 ICA/CCA ratio: 1.07 LEFT: End Diastole cm/sec ----- Left CCA: 11.3 ----- Left ICA: 22.0 ----- Left ECA: 8.3 VERTEBRALS (direction of flow): Right Vertebral: Antegrade Left Vertebral: Antegrade Rhythm: regular Irregular and calcified plaque seen at bilateral carotid bifurcation, but PSV is wnl bilaterally. Gra yscale, color Doppler, spectral Doppler imaging performed of the carotid arteries. Waveform analysis does not show significant stenosis of the internal carotid arteries. IMPRESSION: No hemodynamic significant stenosis of the proximal internal carotid arteries by Doppler criteria, an indirect measurement of carotid stenosis Criteria for Assigning % of Stenosis / Diameter reduction (Estimation based on the indirect measurements of the internal carotid artery velocities (ICA PSV). 1. Normal (no stenosis)=ICA PSV < 125 cm/s: ratio < 2.0: ICA EDV<40 cm/s. 2. Less than 50% stenosis=ICA PSV < 125 cm/s: ratio < 2.0: ICA EDV<40 cm/s. 3. 50 to 69% stenosis=ICA PSV of 125 to 230 cm/s: ration 2.0 ? 4.0: ICA EDV 40-100 cm/s. 4. Greater than 70% stenosis to near occlusion= ICA PSV > 230 cm/s: ratio > 4.0: ICA EDV > 100 cm/s. 5. Near occlusion= ICA PSV velocities may be low or undetectable: variable ratio and ICA EDV. 6. Total occlusion=unable to detect flow.
[2020-02-09] MEDS: DARBEPOETIN ALFA 40 MCG/0.4 ML SYRINGE SQ SCH (14:19)
[2020-02-09 14:52] VITALS: BMI 22.4
[2020-02-09] MEDS: QUEtiapine 50 MG TAB PO SCH (20:59)
[2020-02-09] MEDS: MELATONIN 5 MG TABLET PO SCH (20:59)
[2020-02-09] MEDS ORDERED: ATORVASTATIN 40 MG TAB PO SCH (21:00)
[2020-02-09 22:52] LABS: Chol/HDL Ratio 5.7; LDL Cholesterol,Calculated 143.8 mg/dL (0.0-131.0); VLDL Calculation 30.2 mg/dL (5.00-40.00)
[2020-02-10] MEDS: cloNIDine HCL 0.1 MG TAB PO SCH (07:20)
[2020-02-10] MEDS: ASPIRIN 81 MG PO SCH (07:20)
[2020-02-10] MEDS: carvediloL 12.5 MG TAB PO SCH (07:20)
[2020-02-10] MEDS: FOLIC ACID 1 MG TAB PO SCH (07:20)
[2020-02-10] MEDS: amLODIPine 10 MG TAB PO SCH (07:20)
[2020-02-10] MEDS: SEVELAMER 800 MG TAB PO SCH ×2 (07:21→11:38)
[2020-02-10] MEDS: hydrALAZINE HCL 50 MG TAB PO SCH (07:21)
[2020-02-10] MEDS: buPROPion SR 150 MG TABLET.ER PO SCH (07:22)
[2020-02-10] MEDS: HEPARIN SODIUM,PORCINE 5,000 UNIT/ML 1 ML VIAL SQ SCH (07:22)
[2020-02-10] MEDS: PANTOPRAZOLE 40 MG/10 ML VIAL IV SCH (07:22)
[2020-02-10 07:46] VITALS: PULSE 65
[2020-02-10] MEDS: MEGESTROL 400 MG/10 ML CUP PO SCH (08:19)
[2020-02-10] MEDS ORDERED: lisinopriL 10 MG TAB PO SCH (09:00)
--- NOTE | 2020-02-10 10:32 | ECHOF ---
Referral Reason:stroke: old right internal capsule MEASUREMENTS -------- HEIGHT: 175.3 cm WEIGHT: 68.9 kg BP: RVIDd: 3.2 cm (< 3.3) IVSd: 1.9 cm (0.6 - 1.1) LVIDd: 4.4 cm (3.9 - 5.3) LVPWd: 2.1 cm (0.6 - 1.1) IVSs: 2.2 cm LVIDs: 2.9 cm LVPWs: 2.9 cm LA Diam: 4.7 cm (2.7 - 3.8) LAESV Index (A-L): 72.07 ml/m Ao Diam: 3.4 cm (2.0 - 3.7) AV Cusp: 1.0 cm (1.5 - 2.6) LA Diam: 4.9 cm (2.7 - 3.8) MV EXCURSION: 15.618 mm (> 18.000) MV EF SLOPE: 38 mm/s (70 - 150) EPSS: 0.6 cm MV E Chadd: 1.36 m/s MV DecT: 345 ms MV A Chadd: 1.53 m/s MV E/A Ratio: 0.89 AV maxP.75 mmHg AV meanP.79 mmHg RAP: 5.00 mmHg RVSP: 59.20 mmHg FINDINGS -------- Sinus rhythm. This was a technically good study. There is severe concentric left ventricular hypertrophy. Overall left ventricular systolic function is low-normal with, an EF between 50 - 55 %. The right ventricle is normal in size. The left atrium is markedly dilated. LA is severely dilated >40 ml/m2 The right atrial size is normal. There is moderate aortic stenosis present. Peak/mean gradient across the Aortic Valve is 35.75mmHg / 21.79mmHg. Severe mitral annular calcification present. Mild mitral regurgitation is present. The peak and mean MV gradients are 11.09mmHg 3.88mmHg as measured by doppler. Mild tricuspid regurgitation present. There is moderate pulmonary hypertension. There is no pulmonic regurgitation present. The aortic root size is normal. There is no pericardial effusion. CONCLUSIONS -------- 1. There is severe concentric left ventricular hypertrophy. 2. Overall left ventricular systolic function is low-normal with, an EF between 50 - 55 %. 3. The right ventricle is normal in size. 4. The left atrium is markedly dilated. 5. LA is severely dilated >40 ml/m2 6. The right atrial size is normal. 7. There is moderate aortic stenosis present. 8. Peak/mean gradient across the Aortic Valve is 35.75mmHg / 21.79mmHg. 9. Severe mitral annular calcification present. 10. Mild mitral regurgitation is present. 11. The peak and mean MV gradients are 11.09mmHg 3.88mmHg as measured by doppler. 12. Mild tricuspid regurgitation present. 13. There is moderate pulmonary hypertension. 14. There is no pulmonic regurgitation present. 15. The aortic root size is normal. 16. There is no pericardial effusion. BOWL SANDER: Lilliam Meek RDCS
--- NOTE | 2020-02-10 10:59 | P.DS ---
Providers Date of admission: 01/23/20 03:38 Expected date of discharge: 02/10/20 Attending physician: Benigno Mckeon Consults: 01/23/20 03:11 Consult Physician Stat Consulting Provider: Mansi Garcia Consult Reason/Comments: Fluid overload; dialysis Do you want consulting provider notified?: Already Contacted 01/23/20 03:12 Consult Physician Stat Consulting Provider: Mariam Zamora Consult Reason/Comments: Critical care management Do you want consulting provider notified?: Already Contacted 01/23/20 03:18 Consult Physician Routine Consulting Provider: Zoila Francisco Consult Reason/Comments: Shingles; viral encephalopathy? Do you want consulting provider notified?: Yes 01/23/20 11:17 Consult Physician Routine Consulting Provider: Candice Gardner Consult Reason/Comments: Altered mental status Do you want consulting provider notified?: Already Contacted 01/27/20 12:32 Consult Physician Routine Consulting Provider: Florencio Saul Consult Reason/Comments: Suicide attempt Do you want consulting provider notified?: Yes 02/01/20 11:48 Consult Physician Routine Consulting Provider: Florencio Saul Consult Reason/Comments: reconsulted Do you want consulting provider notified?: Yes 02/02/20 10:28 Consult Physician Routine Consulting Provider: Jack Mooney Consult Reason/Comments: evaluate for inpatient rehab Do you want consulting provider notified?: Yes 02/09/20 10:28 Consult Physician Routine Consulting Provider: Jack Mooney Consult Reason/Comments: re-evaluate for inpatient rehab Do you want consulting provider notified?: Yes Primary care physician: [facility] Course: Final Diagnoses: (1) Acute respiratory failure with hypoxia, status post ventilator-dependent secondary to streptococcal pneumoniae pneumonia, possible aspiration Current Visit: Yes Status: Acute Code(s): J96.01 - ACUTE RESPIRATORY FAILURE WITH HYPOXIA SNOMED Code(s): 94538917 (2) Overdose,Seroquel, status post suicide precautions Current Visit: Yes Status: Acute Code(s): T50.901A - POISONING BY UNSP DRUG/MEDS/BIOL SUBST, ACCIDENTAL, INIT SNOMED Code(s): 13645056 (3) Acute toxic and metabolic encephalopathy, multifactorial ,secondary to #2, hypertension with accompanying deconditioning related to prolonged hospitalization. Current Visit: Yes Status: Acute Code(s): G93.41 - METABOLIC ENCEPHALOPATHY SNOMED Code(s): 85052003 (4) Neuralgia Current Visit: Yes Status: Acute Code(s): M79.2 - NEURALGIA AND NEURITIS, UNSPECIFIED SNOMED Code(s): 21840248 (6) Fluid overload, resolved Current Visit: Yes Status: Acute Code(s): E87.70 - FLUID OVERLOAD, UNSPECIFIED SNOMED Code(s): 26030128 (7) Hypertensive crisis, s/p clevidepine. Current Visit: Yes Status: Acute Code(s): I16.9 - HYPERTENSIVE CRISIS, UNSPECIFIED SNOMED Code(s): 447121820 (8) herpes zoster,left T4 dermatome, improved. Possible Scalp herpetic rash, but not in a single dermatome, no LP recommended at this time per neurology given significant clinical improvement Current Visit: Yes Status: Acute Code(s): B02.9 - ZOSTER WITHOUT COMPLICATIONS SNOMED Code(s): 4793690 (9) End stage renal disease,on hemodialysis, Thursday, Thursday and Fridays Current Visit: No Status: Acute Code(s): N18.6 - END STAGE RENAL DISEASE SNOMED Code(s): 68902882 (10) Anemia in chronic kidney disease, iron deficient Current Visit: Yes Status: Acute Code(s): N18.9 - CHRONIC KIDNEY DISEASE, UNSPECIFIED; D63.1 - ANEMIA IN CHRONIC KIDNEY DISEASE SNOMED Code(s): 766506967 (11) hypotension, status post pressor dependent, resolved (12) prominence of the pulmonary arteries, hilum, suspect related to pulmonary arterial hypertension, possible adenopathy, pulmonary following. (13) cannabis use Hospital course:This a 49 y/o male who lives on his ow. HE HAS ESRD with heomdialysis MWF. He was jsut at [facility] yesterday for minimal SOB, and significant herpitic Neuralgia. He was seen by nephology 01/21 who felt he could get his dialyais 01/22 and did not need it urgently. He was seen by cardiology for min abn troponins and this was felt to be chronic. He did have minmal sob, that resolved after some pain medication for his shingles. He was treated with Acyclovir. he was given Dilaudid and Gabapetnin. early in the moring he had some confusin and was given Narcan then again several hours later, which resolved his somnolence but not his pain. He was D/C in stable condtion to f/u i nthe office irma cantrell to habve dialysis 01/22. ~ 01:00 01/23/2020 patient was brought in [facility] ER for altered mental status and shortness of breath. he was quite tachypneic and hypertensive upon arrival. Nitro drip was started. Patient was placed on BiPap. Ct brain old lacunar infarcts in the right internal capsule. No acute intracranial abnormality. No change. 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 01/24/2020 Yesterday required intubation, maintained on 55% FiO2/+5 of PEEP. est x-ray reporting small right pleural effusion, increased right basilar airspace opacity airspace, right basilar subsegmental atelectasis with improved aeration of bilateral upper lungs Initially had required clevidipine, became hypotensive, discontinued and now requiring pressor support with Levophed. Evaluated by infectious disease regarding left T4 dermatome zoster,with renal dose acyclovir recommended.earlier this morning patient agitated, not following commands and weaning trial aborted. Telemetry sinus rhythm.afebrile,normal WBC. preliminary blood cultures no growth at 24 hours. ABGs noted.hemoglobin down to 8.4,platelets 239.sodium 126, BUN 60, creatinine 8.38.scheduled for hemodialysis today. alk phos mildly elevated, 127. Albumin low at 3.2. completed EEG yesterday,abnormal, suggestive of toxic metabolic encephalopathy, with no epileptiform activity seen. 01/25/2020 Remains vent dependent, FiO2 55%/+5 PEEP. Maintained on diprovan and Levophed drips. Continues on acyclovir and Zosyn. Afebrile, WBC trending up to 18.2. Hemoglobin continues improving up to 9.6, platelets 269. Weaning trials attempted today but patient became agitated, restless, not following commands, requiring Haldol and placed back on diprovan drip. Seroquel added to med regimen. Chest x-ray reporting diffuse pleural parenchymal changes, stable, possible CHF, possible underlying pneumonia, prominence of the pulmonary arteries and hilum associated pulmonary arterial hypertension, possible adenopathy. 01/26/2020 remains vent dependent, FiO2 down to 45%/+ 5 of PEEP. Sedated on diprovan. Levophed weaned off. Receiving hemodialysis today. ABGs noted. Chest x-ray reporting improvement. Afebrile, WBC trending down, 13.9. Hemoglobin 9, platelets, 236. Continues on acyclovir, zosyn. Blood and sputum cultures pending. 01/27/2020 received hemodialysis yesterday .sputum culture reporting positive for Streptococcus pneumoniae , blood cultures reporting no growth . Chest x-ray reporting diffuse parenchymal changes, typical of CHF, bilateral hilar enlargement, possible pulmonary arterial hypertension, possible underlying adenopathy/mass. Maintained on Zosyn. Extubated this morning, maintaining O2 sats in the 90s on 4 L nasal cannula. Suicide precautions in place with sitter at bedside. Levophed weaned off. Maintained on Clevidipine. 01/30/2020 maintained on Unasyn, Acyclovir for streptococcal pneumonia, shingles. T-max 100.8, WBC 10.7. Weaned off of Clevidipine. Maintaining O2 sats in the 90s on 2 L nasal cannula. Sensorium improving. Continues on suic anuradha precautions. Received hemodialysis yesterday, again today to return to his normal schedule of Thursday. Telemetry sinus rhythm. 01/31/2020 maintained O2 sats in the 90s on 2 L nasal cannula. Continues on Unasyn,acyclovir. Chest x-ray reporting minimal improvement. T-max 100.5, normal WBC. More alert today with fluctuating periods of confusion. Suicide precautions maintained with environmental health and safety intern at bedside. Patient denies being suicidal and taking a full bottle of Seroquel. 02/01/2020 suicide precautions maintained .psychiatry reconsulted, recommendations pending. 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 Hypertensive, systolic blood pressures in the 160s today, scheduled for hemodialysis today. Maintaining O2 sats in the 90s on 2 L nasal cannula. Tolerated clear liquid diet, advanced to full liquids. Telemetry sinus rhythm. Alert and oriented 3 but requires stimulation,droggy. T-max 99.9. Continues on Unasyn for streptococcal pneumonia and acyclovir for shingles. 02/02/2020 moved out of ICU. Oxygen weaned off and maintaining O2 sats in the 90s on room air. T-max 99.9, WBC within normal limits. Hypertensive, Norvasc added to med regimen. Sensorium improving. Evaluated by psychiatry WITH suicide precautions lifted, recommended delirium precautions; Seroquel dose decreased. 02/03/2020 Delirium precautions maintained. Sensorium continues to improve, much more alert, not yet back to baseline. Decision-making abilities are still lacking. Agitates easily. Received hemodialysis earlier this morning. T-max 99.7, normal WBC. Denies chest pain, palpitations or shortness of breath. Significant deconditioning, generalized weakness. Physical therapy continues to recommend subacute rehab at discharge. Evaluated by psychiatry with recommendat ions noted and appreciated. 02/06/2020 receiving hemodialysis today. Refusing to eat, declining substitutions, declining supplements. Reevaluated by psychiatry, states patient does not have decision-making capacity at this time, patient does not have the capacity to refuse rehab, recommending delirium precautions; medication changes noted and appreciated. CTA of brain and neck reported no significant stenosis and common or internal carotid arteries bilaterally, no significant stenosis or aneurysm at the level of [place]. Reevaluation per PT pending. Afebrile. 02/07/2020 no overnight events. Hypertensive this morning, Norvasc increased. Diet intake with assistance, 25%. PT evaluation today pending. 02/08/2020 Continues on antipsychotics as adjusted per psychiatry. Refused to eat this morning. Reports he only has 3 teeth and difficulty chewing. Currently receiving hemodialysis. EEG completed. MRI of brain/ orbits pending. Patient picking at his scalp rash. Denies any chest pain, palpitations or shortness of breath. Afebrile, normal WBC. 02/09/2020 significant clinical improvement. Much more alert, and oriented 3, pleasant. Conversing with improved comprehension. Following commands. Standing at bedside participating ,with physical therapy. Scheduled for additional hemodialysis today. MRI suggestive of increased signal over right internal capsule, no change from prior CT-reviewed by neurology, not acute, old; no acute ischemia. MRI of the orbit reported negative. Initially had been scheduled for LP, but INR was elevated, 1.8. Received vitamin K. Per further discussion with neurology, given patient's significant improvement, LP not recommended/canceled. EEG reported much better encephalopathy unspecified etiology, no focal slowing, no seizure activity. Echo, carotid Doppler, lipid profile pending. Significant clinical improvement. Cleared by all consults for discharge. Patient is being discharged today to [facility] rehab in a stable condition with guarded prognosis. The impression and plan of care has been dictated as directed. : I performed a history and examination of this patient, discussed the same with the dictator. I agree with the dictator's note ,documented as a scribe. Any additional findings or plans will be noted. Patient Condition at Discharge: Stable Plan - Discharge Summary Discharge Rx Participant: Yes New Discharge Prescriptions: New Aspirin 81 mg PO DAILY chew carvediloL [Coreg*] 25 mg PO BID-W/MEALS tab Folic Acid 1 mg PO DAILY tab Atorvastatin [Lipitor] 40 mg PO HS tab Megestrol [Megace] 800 mg PO DAILY ml Melatonin 5 mg PO HS tablet amLODIPine [Norvasc] 10 mg PO DAILY tab Pantoprazole Sodium [Protonix] 40 mg PO BID #60 tablet. Sevelajenna [Renvela] 1,600 mg PO TID-W/MEALS tab QUEtiapine [SEROquel] 50 mg PO HS tab buPROPion SR [Wellbutrin SR] 150 mg PO DAILY tablet.er lisinopriL [Zestril] 10 mg PO DAILY tab Acyclovir [Zovirax] 400 mg PO DAILY #14 cap Continue hydrALAZINE HCL [Apresoline] 100 mg PO TID cloNIDine HCL [Catapres] 0.3 mg PO TID Discontinued Furosemide [Lasix] 80 mg PO BID Triamcinolone 0.1% Lotion [Kenalog 0.1% Lotion] 1 applic TOPICAL BID Mupirocin 2% Oint [Bactroban 2% Oint] 1 applic TOPICAL BID HYDROcodone/APAP 5-325MG [[place] 5-325] 1 tab PO Q8H PRN PRN Reason: Pain metOLazone [Zaroxolyn] 5 mg PO DAILY Ketoconazole 2% Cream [Nizoral 2%] 1 applic TOPICAL BID Cyclobenzaprine [Flexeril] 10 mg PO HS carvediloL [Coreg] 6.25 mg PO BID Varenicline [Chantix Continuing Pack] 1 mg PO DAILY Discharge Medication List cloNIDine HCL [Catapres] 0.3 mg PO TID 07/04/16 [History] hydrALAZINE HCL [Apresoline] 100 mg PO TID 07/04/16 [History] Acyclovir [Zovirax] 400 mg PO DAILY #14 cap 02/10/20 [Rx] Aspirin 81 mg PO DAILY chew 02/10/20 [Rx] Atorvastatin [Lipitor] 40 mg PO HS tab 02/10/20 [Rx] Folic Acid 1 mg PO DAILY tab 02/10/20 [Rx] Megestrol [Megace] 800 mg PO DAILY ml 02/10/20 [Rx] Melatonin 5 mg PO HS tablet 02/10/20 [Rx] Pantoprazole Sodium [Protonix] 40 mg PO BID #60 tablet.dr 02/10/20 [Rx] QUEtiapine [SEROquel] 50 mg PO HS tab 02/10/20 [Rx] Sevelamer [Renvela] 1,600 mg PO TID-W/MEALS tab 02/10/20 [Rx] amLODIPine [Norvasc] 10 mg PO DAILY tab 02/10/20 [Rx] buPROPion SR [Wellbutrin SR] 150 mg PO DAILY tablet.er 02/10/20 [Rx] carvediloL [Coreg*] 25 mg PO BID-W/MEALS tab 02/10/20 [Rx] lisinopriL [Zestril] 10 mg PO DAILY tab 02/10/20 [Rx] Follow up Appointment(s)/Referral(s): Mansi Garcia MD [STAFF PHYSICIAN] - 1-2 Days (While in rehab) [facility] [NON-STAFF] - (Mondays, Wednesdays, and Fridays at 8:00 a.m.) Vinayak Gonzalez Jr, DO [Primary Care Provider] - 1 Week (After DC from inpatient rehab) Jack Mooney MD [STAFF PHYSICIAN] - 1-2 Days Syeda Rivas MD [Medical Doctor] - 2 Weeks Activity/Diet/Wound Care/Special Instructions: Hemodialysis, diuretics as per nephrology. [facility] inpatient rehab CBC, BMP in 2 days
[2020-02-10] MEDS ORDERED: ACYCLOVIR 200 MG CAP PO SCH (11:00)
--- NOTE | 2020-02-10 11:00 | P.PN ---
Subjective Progress Note Date: 02/10/20 Patient was seen at bedside and he stated that he's doing well. He denies of any new weakness, numbness, visual disturbance. Denies of any headache, nausea or vomiting. Denies of any fever. Currently he is in process of getting the dialysis. Objective - Vital Signs Vital signs: Vital Signs Temp 98.3 F 02/10/20 07:00 Pulse 65 02/10/20 07:00 Resp 17 02/10/20 07:00 BP 134/82 02/10/20 07:00 Pulse Ox 98 02/10/20 07:00 Intake & Output 02/09/20 02/10/20 02/10/20 18:59 06:59 18:59 Output Total 1999 Balance -1999 Weight 69 kg 71.5 kg Output: Hemodialysis 1999 Other: Voiding Method Diaper Diaper Diaper Incontinent Incontinent Incontinent # Voids 3 1 ABP, PAP, CO, CI - Last Documented Arterial Blood Pressure 126/112 - Exam General: Lying in bed and does not seem to be in acute distress. Chest: The heart rate is regular in rate and rhythm. There is no lower extremity edema noted. Lung patient is not labored breathing. No wheezing is noted to auscultation. Neurological examination: Higher mental function: The patient is awake alert, oriented to self place and time. No aphasia and no neglect. Cranial nerves: The pupils are round equal they're around 3-4 mm bilaterally and reactive to light. Visual reyes are full to confrontation. EOM is intact and there is no nystagmus noted in any direction. Facial sensation is normal to touch throughout. No facial weakness noted throughout. No dysarthria. Normal shoulder shrug bilaterally. Motor: Gait is deferred. Strength: Seemed about 5 over 5 throughout. No spontaneous movement was noted there. Sensation: Normal to touch throughout. Reflexes are 2 positive throughout. Plantar is downgoing bilaterally. - Labs CBC & Chem 7: 02/07/20 08:37 02/07/20 08:37 Labs: Abnormal Lab Results - Last 24 Hours (Table) 02/09/20 Range/Units 11:14 Triglycerides 151.0 H (0.0-149.0) mg/dL Cholesterol 211 H (0-200) mg/dL LDL Cholesterol, Calc 143.8 H (0.0-131.0) mg/dL HDL Cholesterol 37.0 L (40.0-60.0) mg/dL Assessment and Plan Assessment: * Mild proximal weakness compared to distal, EOM movement restriction and was repeatedly closing his eye and per nusing staff not as responsive (02/03-02/07/20)--->drastically improved. One of the differential as this could be deconditioning from prolonged hospital stay and toxic metabolic encephalopathy * Altered mental status, likely due to toxic-metabolic encephalopathy, much improved--improved * Old lacunar infarct (internal capsule) due to patient risk factor (ESRD, HTN and hyperlipidemia) * Head drop, improved. Probably was related to encephalopathy/hospital/ICU stay. * Status post Acute hypoxic respiratory failure secondary to pulmonary edema---resolved * End-stage renal disease on hemodialysis * HTN * Hyperlipidemia * Probable pneumonia * Herpes zoster left T4 dermatome. No signs of encephalitis. Patient has some herpetic rash over his scalp as well. * Folate deficiency Plan: * Blood test shows CPK 31, B12 1185 normal, folate is low 3.0, TSH normal, RPR negative. MMA 0.64 (normal <0.40). Consider B12 replacement as methylmalonic acid is abnormal. Acetylcholine receptor antibodies--> negative (<0.3). * anti-musk antibody-->pending. Treponema pallidum Ab -ve. * Patient's herpes zoster over the left T4 dermatome has much improved. However he has a new rash on the scalp which also appears herpes but is not in a single dermatome. * Because of the patient improved condition I don't feel like the patient needs Lumbar puncture from a neurology standpoint. His condition is likely deconditioning from his toxic metabolic encephalopathy as well as [facility]. * EEG on the 02/07/2020: Mild to Moderate encephalopathy of unspecified etiology. There are no focal slowing, coupled perform activity or seizures seen during the study. * MRI the brain was reported as mild atrophy. Curvilinear increased signal in the right internal capsule extending from that it's a lot to the lateral ventricle could relate to an area of lacunar infarct and not change compared to the computed tomography scan of the 01/23/2020. No cortical infarct. I do agree there is a small lacunar infarct over the right internal capsule. * MRI the orbits was negative. My the orbit was obtained because of his restriction of the eye movements upon examining him 2 days ago. * Carotid duplex: Reported as no hemodynamic significant stenosis of the proximal internal carotid arteries by the Doppler criteria, and in direct measurement of carotid stenosis. * 2D echo: reported as severe concentric left ventricular hypertrophy. Overall left ventricle systolic function is low normal with an ejection fraction of 50-55%. Left atrium is markedly dilated. Left atrium is severely dilated more than 40 mL's/M2. There is moderate aortic stenosis present. Severe mitral annual calcification present. * Lipid profile: Cholesterol of 211, LDL of 143. HDL of 37. LDL goal is less than 70 for stroke. * Continue aspirin 81 mg and Lipitor 40 mg daily for secondary stroke prophyl axis.. LDL goal is less than 70. * TSH: 1.69. HbA1c: 4.2 * Psychiatry on board. * Physical therapy and occupation therapy are on board. * There is no further neurological workup needed at this time. Patient needs to follow-up with a neurologist as outpatient. * There is no neurology coverage over the weekend. Please perfect served if needed. Gordo Berg M.D. Neuro-hospitalist Time with Patient: Less than 30
[2020-02-10 13:01] VITALS: BP 118/65; RESP 20; TEMP 97.1
--- NOTE | 2020-02-10 13:57 | PN ---
PROGRESS NOTE Patient is seen for followup for end-stage renal disease. He was admitted to the hospital with mental status changes, uncontrolled hypertension, significant volume overload and also suicidal attempt with about 30 Seroquel being taken at the time of admission. Patient's mentation has improved, particularly with increased dialysis over the last 3 days. His workup including MRI of the brain has been negative as well as the EEG. There are plans to discharge patient to inpatient rehab today at [facility]. PHYSICAL EXAMINATION: On examination today, blood pressure is 134/82, heart rate 65 per minute, he is afebrile. Examination of the heart S1, S2. Examination of the lungs, bilateral breath sounds are heard. Abdomen is soft, nontender. Examination of the lower extremities shows no evidence of edema. DICTIONARY EDITOR exam shows patient is much more awake and alert, moving all 4 extremities. No focal deficits noted. LABS: Show sodium 134, potassium 3.9, hemoglobin 9.1 g/dL. ASSESSMENT: 1. End-stage renal disease, on hemodialysis on a Thursday, Thursday, Thursday schedule. 2. Encephalopathy possibly related to injection of Seroquel at the time of admission. No evidence of CVA, currently improving with increased dialysis. We will plan for a treatment again tomorrow and then on Thursday. 3. Hypertension partly volume sensitive, currently improved. 4. Hypoxic respiratory failure, improved now. Patient is status post extubation. 5. Herpes zoster status post acyclovir. 6. Generalized debility. The patient will be going to inpatient rehab at [facility]. PLAN: Hemodialysis today and then repeat in a.m. at [facility]. Continue current antihypertensive regimen. LAWANDA inhibitors were added yesterday. MMODL / IJN: [id number] /
[2020-02-10 15:04] LABS: African American GFR (CKD) 26.2 (60.0-200.0); Anion Gap 11.8 mmol/L (4.00-12.00); BUN/Creat Ratio 4.19 Ratio (12.00-20.00); Calcium 9.1 mg/dL (8.7-10.3); Carbon Dioxide 24.2 mmol/L (21.6-31.8); Non-African American GFR(CKD) 22.6 (60.0-200.0); Potassium 3.3 mmol/L (3.5-5.5)
[2020-02-10] MEDS ORDERED: PANTOPRAZOLE 40 MG TABLET PO SCH (17:30)
== END 2020-02-10 14:45 | DRG 917 ==
LOC: EC 00:49 → 2SICU 03:38 → 4SSUR 02-02 03:24
PROVIDERS: ADMIT Family Medicine; ATTEND Family Medicine
PROC: 5A1945Z Respiratory Ventilation, 24-96 Consecutive Hours (ICD-10-PCS; principal; 2020-01-23)
PROC: 0BH17EZ Insertion of Endotracheal Airway into Trachea, Via Natural or Artificial Opening (ICD-10-PCS; principal; 2020-01-23)
PROC: 3E033XZ Introduction of Vasopressor into Peripheral Vein, Percutaneous Approach (ICD-10-PCS; principal; 2020-01-23)
PROC: 5A09357 Assistance with Respiratory Ventilation, Less than 24 Consecutive Hours, Continuous Positive Airway Pressure (ICD-10-PCS; 2020-01-23)
PROC: 5A1D70Z Performance of Urinary Filtration, Intermittent, Less than 6 Hours Per Day (ICD-10-PCS; 2020-01-29)
DX: T43.592A Poisoning by other antipsychotics and neuroleptics, intentional self-harm, initial encounter (principal); G92 Toxic encephalopathy; J13 Pneumonia due to Streptococcus pneumoniae; J69.0 Pneumonitis due to inhalation of food and vomit; J96.01 Acute respiratory failure with hypoxia; N18.6 End stage renal disease; B02.8 Zoster with other complications; E87.1 Hypo-osmolality and hyponatremia; I13.2 Hypertensive heart and chronic kidney disease with heart failure and with stage 5 chronic kidney disease, or end stage renal disease; I16.1 Hypertensive emergency; I67.4 Hypertensive encephalopathy; J44.0 Chronic obstructive pulmonary disease with (acute) lower respiratory infection; J98.11 Atelectasis; N17.9 Acute kidney failure, unspecified; D63.1 Anemia in chronic kidney disease; D75.89 Other specified diseases of blood and blood-forming organs; Z20.828 Contact with and (suspected) exposure to other viral communicable diseases; E53.8 Deficiency of other specified B group vitamins; E78.5 Hyperlipidemia, unspecified; E86.1 Hypovolemia; F12.10 Cannabis abuse, uncomplicated; I27.21 Secondary pulmonary arterial hypertension; I49.1 Atrial premature depolarization; I50.9 Heart failure, unspecified; M43.6 Torticollis; M79.2 Neuralgia and neuritis, unspecified; E83.9 Disorder of mineral metabolism, unspecified; R79.1 Abnormal coagulation profile; Z79.899 Other long term (current) drug therapy; Z86.73 Personal history of transient ischemic attack (TIA), and cerebral infarction without residual deficits; Z87.11 Personal history of peptic ulcer disease; R45.1 Restlessness and agitation; Z87.891 Personal history of nicotine dependence; Z91.15 Patient's noncompliance with renal dialysis; Z91.19 Patient's noncompliance with other medical treatment and regimen; Z99.2 Dependence on renal dialysis; Z90.89 Acquired absence of other organs; R59.9 Enlarged lymph nodes, unspecified; K21.9 Gastro-esophageal reflux disease without esophagitis; R53.81 Other malaise
CPT/HCPCS: 36415; 36600; 70450; 70496; 70498; 70540; 70551; 71045; 80048; 80053; 80061; 80307; 81001; 82550; 82607; 82746; 82805; 83519; 83540; 83550; 83605; 83921; 84100; 84443; 84484; 85025; 85027; 85610; 85730; 86780; 87040; 87070; 87077; 87186; 87205; 87340; 87635; 90935; 93005; 93306; 93880; 94002; 94003; 94660; 95816; 95819; 96365; 96366; 96375; 99291

== ENCOUNTER 2020-10-21 11:51 | Observation (INO) | payer MEDICARE, OTHER ==
[2020-10-21] MEDS ORDERED: HYDROmorphone 1 MG/ML 1 ML SYRINGE IVP STA ×2 (12:41→14:52)
[2020-10-21 13:08] LABS: Basophils # (A) 0.1 k/uL (0-0.2); Basophils % (A) 1 %; Eosinophils # (A) 0.5 k/uL (0-0.7); Eosinophils % (A) 6 %; HCT 29.8 % (39.0-53.0); HGB 10.2 gm/dL (13.0-17.5); Lymphocytes # (A) 0.7 k/uL (1.0-4.8); Lymphocytes % (A) 9 %; MCH 34.9 pg (25.0-35.0); MCHC 34.1 g/dL (31.0-37.0); MCV 102.4 fL (80.0-100.0); Macrocytosis Slight; Mean Platelet Volume 9.4; Monocytes # (A) 0.5 k/uL (0-1.0); Monocytes % (A) 7 %; Neutrophils # (A) 5.9 k/uL (1.3-7.7); Neutrophils % (A) 75 %; Platelet Count 211 k/uL (150-450); RBC 2.91 m/uL (4.30-5.90); RDW 14.6 % (11.5-15.5); WBC 7.9 k/uL (3.8-10.6)
[2020-10-21 13:17] LABS: Partial Thromboplastin Time 25.5 sec (22.0-30.0); Prothrombin Time 10.8 sec (9.0-12.0)
[2020-10-21 13:24] LABS: Albumin 3.5 g/dL (3.5-5.0); Calcium 9.3 mg/dL (8.4-10.2); Total Bilirubin 1.6 mg/dL (0.2-1.3); Total Protein 6.5 g/dL (6.3-8.2)
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
--- NOTE | 2020-10-21 14:34 | CT ---
EXAMINATION TYPE: CT chest wo con DATE OF EXAM: 10/21/2020 COMPARISON: Chest x-ray 01/31/2020 HISTORY: Rt sided chest pain, felt something pop when he rolled over CT DLP: 537.3 mGycm. Automated Exposure Control for Dose Reduction was Utilized. TECHNIQUE: CT scan of the thorax is performed without IV contrast. FINDINGS: Lack of intravenous contrast could compromise sensitivity. LUNGS: The lungs are grossly clear, there is no concerning parenchymal mass or nodule identified. T here is no pleural effusion or pneumothorax seen. The tracheobronchial tree is patent. Mosaic perfus ion in the lungs could be indicative of underlying COPD. MEDIASTINUM: Lack of IV contrast is noted to limit evaluation for mediastinal and especially hilar ad enopathy. There is an enlarged mediastinal lymph node in the retrocaval pretracheal region. No card iomegaly or pericardial effusion is seen. There are dense coronary artery calcifications. Mitral abdoul lar calcification suspected. OTHER: There is abnormal soft tissue thickening noted in the retropectoral region on the right, right axillary region. The kidneys are somewhat atrophic and shows associated cysts some of which are show ing calcified or dense. There are dense vascular calcifications, correlate for renal failure. IMPRESSION: Findings may represent chest wall hematoma, correlate. Coronary artery disease and additi onal findings above, correlate for medical renal disease
[2020-10-21] MEDS ORDERED: NALOXONE 0.4 MG/ML 1 ML VIAL IV PRN (15:14)
[2020-10-21] MEDS ORDERED: LORazepam 2 MG/ML INJ IV PRN (15:14)
[2020-10-21] MEDS: HYDROmorphone 1 MG/ML 1 ML SYRINGE IVP PRN ×2 (19:47→23:24)
[2020-10-21] MEDS: cloNIDine HCL 0.1 MG TAB PO SCH (21:37)
[2020-10-22] MEDS: hydrALAZINE HCL 50 MG TAB PO SCH ×2 (01:03→07:36)
[2020-10-22] MEDS ORDERED: cloNIDine HCL 0.1 MG TAB PO STA (03:04)
[2020-10-22] MEDS ORDERED: hydrALAZINE HCL 20 MG/ML 1 ML VIAL IVP STA (03:05)
[2020-10-22] MEDS: HYDROmorphone 1 MG/ML 1 ML SYRINGE IVP PRN ×3 (03:19→10:55)
[2020-10-22] MEDS ORDERED: hydrALAZINE HCL 20 MG/ML 1 ML VIAL IVP PRN (03:49)
[2020-10-22] MEDS ORDERED: carvediloL 6.25 MG TAB PO SCH (07:30)
[2020-10-22] MEDS: cloNIDine HCL 0.1 MG TAB PO SCH (07:36)
[2020-10-22] MEDS ORDERED: FUROSEMIDE 80 MG TAB PO SCH (09:00)
[2020-10-22] MEDS ORDERED: metOLazone 5 MG TAB PO SCH (09:00)
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
[2020-10-22 15:52] VITALS: BP 156/62; PULSE 92; RESP 20; TEMP 97.9
[2020-10-22] MEDS ORDERED: INSULIN ASPART (NovoLOG) 100 UNIT/ML VIAL SQ SCH (17:30)
== END 2020-10-22 17:39 | disposition home or self-care (01) ==
LOC: EC 11:51 → 6NMEDSUR 15:36
PROVIDERS: ADMIT Family Medicine; ATTEND Family Medicine
DX: S20.211A Contusion of right front wall of thorax, initial encounter (principal); M25.511 Pain in right shoulder; R59.0 Localized enlarged lymph nodes; N18.6 End stage renal disease; Z99.2 Dependence on renal dialysis; Z91.19 Patient's noncompliance with other medical treatment and regimen; I25.10 Atherosclerotic heart disease of native coronary artery without angina pectoris; J44.9 Chronic obstructive pulmonary disease, unspecified; F32.9 Major depressive disorder, single episode, unspecified; F17.200 Nicotine dependence, unspecified, uncomplicated; F12.90 Cannabis use, unspecified, uncomplicated; H91.90 Unspecified hearing loss, unspecified ear; I12.0 Hypertensive chronic kidney disease with stage 5 chronic kidney disease or end stage renal disease; K21.9 Gastro-esophageal reflux disease without esophagitis; D64.9 Anemia, unspecified; Z79.82 Long term (current) use of aspirin; Z79.899 Other long term (current) drug therapy; Z88.6 Allergy status to analgesic agent; Z87.11 Personal history of peptic ulcer disease; Z87.19 Personal history of other diseases of the digestive system; Z87.39 Personal history of other diseases of the musculoskeletal system and connective tissue; Z86.59 Personal history of other mental and behavioral disorders
CPT/HCPCS: 96376 ×2; 96375; 96374; 99285; 36415; 80053; 85025; 85610; 85730; 71250; G0378 ×2; G0257; J2060; J0360; J1170 ×2; 90935

== ENCOUNTER 2021-03-15 02:51 | Emergency (ER) | payer MEDICARE, OTHER ==
[2021-03-15] MEDS ORDERED: MORPHINE SULFATE 4 MG/ML SYRINGE IV STA (03:43)
[2021-03-15 03:55] LABS: INR 1.5 (<1.2); Prothrombin Time 15.3 sec (9.0-12.0)
[2021-03-15 04:02] LABS: HCT 33.2 % (39.0-53.0); HGB 11.3 gm/dL (13.0-17.5); MCH 34.3 pg (25.0-35.0); MCV 100.8 fL (80.0-100.0); Macrocytosis Slight; Mean Platelet Volume 9.5; Platelet Count 145 k/uL (150-450); RBC 3.29 m/uL (4.30-5.90); RDW 14.3 % (11.5-15.5); WBC 11.4 k/uL (3.8-10.6)
[2021-03-15 04:04] LABS: ALT 27 U/L (4-49); AST 67 U/L (17-59); Albumin 3.8 g/dL (3.5-5.0); Alcohol <10 mg/dL; Alkaline Phosphatase 222 U/L (38-126); Anion Gap 24 mmol/L; Blood Urea Nitrogen 89 mg/dL (9-20); Calcium 10.3 mg/dL (8.4-10.2); Carbon Dioxide 22 mmol/L (22-30); Chloride 83 mmol/L (98-107); Glucose 58 mg/dL (74-99); Potassium 5.5 mmol/L (3.5-5.1); Sodium 129 mmol/L (137-145); Total Bilirubin 1.6 mg/dL (0.2-1.3); Total Protein 7.2 g/dL (6.3-8.2)
[2021-03-15 04:10] LABS: African American GFR (CKD) 5 (>60 ml/min/1.73 sqM); Non-African American GFR(CKD) 5 (>60 ml/min/1.73 sqM)
[2021-03-15 04:22] LABS: Band Neutrophils % 21 %; Lymphocytes # (M) 0.68 k/uL (1.0-4.8); Metamyelocytes # (M) 0.23 k/uL (0); Metamyelocytes % 2 %; Monocytes # (M) 0.23 k/uL (0-1.0); Neutrophils % (M) 69 %; Nucleated Red Blood Cells 0 /100 WBC (0-0); Total Cells Counted 100
[2021-03-15 04:30] LABS: Lactic Acid, Venous 2.9 mmol/L (0.7-2.0)
--- NOTE | 2021-03-15 04:32 | XR ---
EXAMINATION TYPE: XR chest 1V portable DATE OF EXAM: 03/15/2021 COMPARISON: 01/31/2020 HISTORY: Altered mental status TECHNIQUE: Single view FINDINGS: Heart is enlarged. There is some pulmonary vascular congestion. There are chest leads. Ther e is no definite pleural effusion. IMPRESSION: Cardiomegaly with mild pulmonary congestion. No pleural fluid seen however. No change com pared to old exam.
[2021-03-15 05:19] LABS: Glucose,Whole Blood 67 mg/dL (75-99)
[2021-03-15] MEDS ORDERED: DEXTROSE 50% SYRINGE 50 ML IVP STA (05:19)
[2021-03-15 05:39] LABS: Glucose,Whole Blood 133 mg/dL (75-99)
--- NOTE | 2021-03-15 05:39 | CT ---
EXAMINATION TYPE: CT brain wo con DATE OF EXAM: 03/15/2021 COMPARISON: 01/23/2020 HISTORY: ams CT DLP: 1306.4 mGycm Automated exposure control for dose reduction was used. Images of the brain obtained without contrast. There is mild cerebral atrophy. There are small areas of increased attenuation in the white matter ri ght frontal lobe and also in the left posterior parietal lobe casarez-white matter junction that are con sistent with small foci of acute hemorrhage. These measure up to 1 cm. There is also foci in the left posterior frontal lobe convexity and the right parietal convexity. There is linear high attenuation focus also in the cortex of the medial left occipital lobe. There is 5 mm focus in the left posterior temporal lobe cortex. The ventricles have normal size. The calvarium is intact. Skull base is intact. There is very little pneumatization of the mastoid sin uses. IMPRESSION: Multiple small foci of acute hemorrhage in the cerebral hemispheres as above. This appears new compar ed to old exam. This could relate to multiple hemorrhagic infarct or hemorrhagic metastatic disease. This would be unusual distribution for traumatic brain hemorrhage. Exam was discussed with emergency room attending staff at 5:45 AM.
[2021-03-15] MEDS ORDERED: VANCOMYCIN IV PER PHARMACY 1 EACH MISC MISCELLANE PRN (05:54)
[2021-03-15] MEDS ORDERED: VANCOMYCIN 1,250 MG in SODIUM CHLORIDE 0.9% 250 ML IVPB STA (05:56)
[2021-03-15 06:45] VITALS: TEMP 98.9
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
[2021-03-15 07:25] VITALS: BP 98/68; PULSE 112; RESP 24
[2021-03-16] MEDS ORDERED: VANCOMYCIN 1,250 MG in SODIUM CHLORIDE 0.9% 250 ML IVPB ONE (06:00)
== END 2021-03-15 07:55 | disposition other institution (70) ==
LOC: EC 02:51
DX: E87.70 Fluid overload, unspecified (principal); N18.6 End stage renal disease; I61.9 Nontraumatic intracerebral hemorrhage, unspecified; M25.511 Pain in right shoulder; R77.8 Other specified abnormalities of plasma proteins; I12.0 Hypertensive chronic kidney disease with stage 5 chronic kidney disease or end stage renal disease; J44.9 Chronic obstructive pulmonary disease, unspecified; K21.9 Gastro-esophageal reflux disease without esophagitis; F32.A Depression, unspecified; F17.200 Nicotine dependence, unspecified, uncomplicated; F12.90 Cannabis use, unspecified, uncomplicated; Z79.899 Other long term (current) drug therapy; Z99.2 Dependence on renal dialysis
CPT/HCPCS: 36415; 93005; 83880; 80053; 82140; 83605; 84484; 85025; 85610; 85730; 87040; 87077; 87186; 87635; 71045; 70450; 99285; 96365; 96375 ×2; G0480; J3370; J2270; J0696; 80320